=== PATIENT | male | born 1975 | race American Indian/Alaskan Native ===

== ENCOUNTER 2016-08-24 07:15 | Observation (INO) | payer OTHER ==
[2016-08-24 07:22] VITALS: BMI 35.5
[2016-08-24 07:25] VITALS: TEMP 98.6
[2016-08-24] MEDS ORDERED: Sodium Chloride 0.9% 1,000 ML IV STA (07:32)
[2016-08-24] MEDS ORDERED: Morphine 4 mg/ml ISec IVP STA (07:32)
--- NOTE | 2016-08-24 07:35 | ED PDOC ---
Arrival/HPI - General Chief Complaint: Abdominal Pain Time Seen by Provider: 08/24/16 07:24 Historian: Patient - History of Present Illness Narrative History of Present Illness (Text): 08/24/16 07:33 40 yo male with h/o Asthma, Crohn's Disease, Cholecystectomy, presents to the ED c/o left sided abdominal pain x3 days with associated diarrhea. Diarrhea and pain have progressively worsened. Diarrhea is brown stool with trace of BRB. Nausea and vomiting x 2 yesterday. He is drinking fluids and eating well. No back pain. No urinary complaints. Normal urine outputs. No fever. Chills yesterday. No chills or bodyaches now. PMD: [place] Dr. Medina and is trying to get set up with someone here. Past Medical History - Provider Review Nursing Documentation Reviewed: Yes - Infectious Disease Hx of Infectious Diseases: None - Tetanus Immunization Tetanus Immunization: Unknown - Cardiac Hx Cardiac Disorders: Yes - Pulmonary Hx Respiratory Disorders: Yes Hx Asthma: Yes - Neurological Hx Neurological Disorder: No - HEENT Hx HEENT Disorder: No - Renal Hx Renal Disorder: No - Endocrine/Metabolic Hx Endocrine Disorders: No - Hematological/Oncological Hx Blood Disorders: No - Integumentary Hx Dermatological Disorder: No - Musculoskeletal/Rheumatological Hx Musculoskeletal Disorders: No - Gastrointestinal Hx Gastrointestinal Disorders: No Hx Crohn's Disease: Yes - Genitourinary/Gynecological Hx Genitourinary Disorders: No - Psychiatric Hx Psychophysiologic Disorder: No Hx Depression: No Hx Emotional Abuse: No Hx Physical Abuse: No Hx Substance Use: No - Surgical History Hx Cholecystectomy: Yes (16yrs old) Other/Comment: filter - DVT - Anesthesia Hx Anesthesia: Yes Hx Anesthesia Reactions: No Hx Malignant Hyperthermia: No - Suicidal Assessment Feels Threatened In Home Enviroment: No Family/Social History - Physician Review Nursing Documentation Reviewed: Yes Family/Social History: No Known Family HX Smoking Status: Never Smoked Hx Alcohol Use: No Hx Substance Use: No Hx Substance Use Treatment: No Allergies/Home Meds Allergies/Adverse Reactions: Allergies Penicillins Allergy (Verified 07/14/16 09:52) ANAPHYLAXIS shellfish derived Allergy (Verified 07/14/16 09:52) ANAPHYLAXIS Home Medications: Home Meds Medication Instructions Recorded Confirmed Mesalamine [Asacol HD 800mg] 20 mg PO TID 08/24/16 08/24/16 Review of Systems - Physician Review All systems were reviewed & negative as marked: Yes - Review of Systems Constitutional: Normal Eyes: Normal ENT: Normal Respiratory: Normal Cardiovascular: Normal Gastrointestinal: Abdominal Pain, Diarrhea, Nausea, Vomiting Genitourinary Male: Normal Musculoskeletal: Normal Skin: Normal Neurological: Normal Endocrine: Normal Hemo/Lymphatic: Normal Psychiatric: Normal Physical Exam Vital Signs Reviewed: Yes Vital Signs Temp Pulse Resp BP Pulse Ox 08/24/16 13:09 89 18 137/73 98 08/24/16 10:00 92 H 20 126/74 100 08/24/16 08:05 92 H 18 125/73 97 08/24/16 07:16 98.6 F 96 H 18 125/73 96 Temperature: Afebrile Blood Pressure: Normal Pulse: Regular Respiratory Rate: Normal Appearance: Positive for: Well-Appearing, Non-Toxic, Comfortable Pain Distress: None Mental Status: Positive for: Alert and Oriented X 3 - Systems Exam Head: Present: Atraumatic, Normocephalic Pupils: Present: PERRL Extroacular Muscles: Present: EOMI Conjunctiva: Present: Normal Mouth: Present: Moist Mucous Membranes Neck: Present: Normal Range of Motion Respiratory/Chest: Present: Clear to Auscultation, Good Air Exchange. No: Respiratory Distress, Accessory Muscle Use Cardiovascular: Present: Regular Rate and Rhythm, Normal S1, S2. No: Murmurs Abdomen: Present: Tenderness (left sided with guarding), Normal Bowel Sounds, Guarding. No: Distention, Peritoneal Signs, Rebound, McBurney's Point Tender, Rovsing's Sign Present Back: Present: Normal Inspection Upper Extremity: Present: Normal Inspection. No: Cyanosis, Edema Lower Extremity: Present: Normal Inspection. No: Edema Neurological: Present: GCS=15, CN II-XII Intact, Speech Normal Skin: Present: Warm, Dry, Normal Color. No: Rashes Psychiatric: Present: Alert, Oriented x 3, Normal Insight, Normal Concentration Medical Decision Making ED Course and Treatment: 08/24/16 07:40 40 yo male with h/o Crohn's with left sided abdominal pain r/o abscess -- Labs -- IVF -- Pain control -- CT abd/pelv -- Reevaluate and disposition - Lab Interpretations Lab Results: 08/24/16 07:30 08/24/16 07:30 Lab Results 08/24/16 07:30: WBC 8.6 D, RBC 4.76, Hgb 12.3 L, Hct 38.8 L, MCV 81.5, MCH 25.8 , MCHC 31.7, RDW 14.7 H, Plt Count 642 H, MPV 8.9, Gran % 50.8, Lymph % (Auto) 28.0, Newton % (Auto) 12.3 H, Eos % (Auto) 8.4 H, Baso % (Auto) 0.5, Gran # 4.35, Lymph # 2.4, Newton # 1.1 H, Eos # 0.7, Baso # 0.04, Sodium 138, Potassium 4.1, Chloride 96, Carbon Dioxide 30, Anion Gap 16, BUN 7, Creatinine 1.0, Est GFR ( Amer) > 60, Est GFR (Non-Af Amer) > 60, Random Glucose 103, Calcium 9.1 , Total Bilirubin 0.9, AST 59, ALT 69 H, Alkaline Phosphatase 233 H, Total Protein 8.7 H, Albumin 3.9, Globulin 4.7, Albumin/Globulin Ratio 0.8 L, Lipase 100 - Medication Orders Current Medication Orders: Discontinued Medications Barium Sulfate (Readi-Cat 2) Confirm Administered Dose 900 ml PO .STK-MED ONE Stop: 08/24/16 07:42 Sodium Chloride (Sodium Chloride 0.9%) 1,000 mls @ 1,000 mls/hr IV .Q1H STA Stop: 08/24/16 08:31 Last Admin: 08/24/16 07:48 Dose: 1,000 MLS/HR eMAR Start Stop Document 08/24/16 07:48 JOL (Rec: 08/24/16 07:49 [id number] [id number]) Intravenous Solution Start Date 08/24/16 Start Time 07:49 End Date 08/24/16 End time 08:49 Total Infusion Time 60 Iohexol (Omnipaque 350 100 Ml) Confirm Administered Dose 350 mg .ROUTE .STK-MED ONE Stop: 08/24/16 07:41 Iohexol (Omnipaque 240 (50 Ml)) Confirm Administered Dose 50 ml .ROUTE .STK-MED ONE Stop: 08/24/16 07:42 Morphine Sulfate (Morphine) 4 mg IVP STAT STA Stop: 08/24/16 07:33 Last Admin: 08/24/16 07:49 Dose: 4 MG MAR Pain Assessment Document 08/24/16 07:49 JOL (Rec: 08/24/16 07:49 JOL [id number]) Pain Reassessment Is this a pain reassessment? No Sleep Is patient sleeping during reassessment? No Presence of Pain Presence of Pain Yes Pain Scale Used Pain Scale Used Numeric Location Upper or Lower Upper Pain Location Body Site Abdomen Description Intensity of Pain at present 6 Acceptable Level of Pain 2 Pain Behavior Restlessness Facial Grimacing Aggravating Factors ADL's Changing Position Alleviating Factors/Management Medication Techniques IVP Administration Document 08/24/16 07:49 JOL (Rec: 08/24/16 07:49 [id number] [id number]) Charges for Administration # of IVP Administrations 1 ED OBSERVATION Date of observation admission: 08/24/16 Time of observation admission: 07:41 - Observation admission statement Patient is being placed in observation because:: Abdominal Pain - Goals of Observation Goals of observation are:: Crohn's exacerbation - Progress Note Progress Note: 08/24/16 07:41 Patient with left sided abdominal pain. 08/24/16 09:40 Patient resting comfortably, no new complaints. Report Date : 08/24/2016 11:21:46 PROCEDURE: CT Abdomen and Pelvis with contrast Dictator : Ankit Thompson MD IMPRESSION: Mild mural thickening throughout the colon consistent with colitis. 08/24/16 11:38 Patient resting comfortably, in no acute distress. 08/24/16 12:29 On re-evaluation, patient feels better and is in no acute distress. I have discussed the results and plan with the patient, who expresses understanding. Patient in agreement with plan to be discharged home. Patient is stable for discharge. Patient reports a Medrol dosepak has helped relieve his symptoms before. Will prescribe Medrol dosepak and instruct patient to follow up with physician or return if symptoms worsen or new concerning symptoms arise. Disposition/Present on Arrival - Present on Arrival Any Indicators Present on Arrival: No History of DVT/PE: Yes History of Uncontrolled Diabetes: No Urinary Catheter: No History of Decub. Ulcer: No History Surgical Site Infection Following: None - Disposition Have Diagnosis and Disposition been Completed?: Yes Diagnosis: Crohn disease Disposition: HOME/ ROUTINE Disposition Time: 07:41 Patient Plan: Discharge Condition: IMPROVED
[2016-08-24] MEDS ORDERED: Iohexol 350 MG/100 ML VIAL ONE (07:40)
[2016-08-24] MEDS ORDERED: Barium Sulfate Susp 2.1% w/v, 2.0% w/w 450 mL Bottle PO ONE (07:41)
[2016-08-24] MEDS ORDERED: Iohexol 240 (50 ml) ONE (07:41)
[2016-08-24 07:48] LABS: ADD MANUAL DIFF? NO
[2016-08-24 07:55] LABS: BASO # 0.04 K/mm3 (0.0-2.0); BASO % 0.5 % (0.0-3.0); EOS # 0.7 (0.0-0.7); EOS % 8.4 % (1.5-5.0); GRAN # 4.35 (1.4-6.5); GRAN % 50.8 % (50.0-68.0); HEMATOCRIT 38.8 % (42.0-52.0); LYMPH # 2.4 (1.2-3.4); MEAN CELL VOLUME 81.5 fL (80.0-105.0); MEAN CORPUSCULAR HEMOGLOBIN 25.8 pg (25.0-35.0); MEAN CORPUSCULAR HGB CONC 31.7 g/dl (31.0-37.0); MEAN PLATELET VOLUME 8.9 fl (7.0-11.0); MONO # 1.1 (0.1-0.6); MONO % 12.3 % (1.0-6.0); PLATELET COUNT 642 10^3/uL (120.0-450.0); RED CELL DISTRIBUTION WIDTH 14.7 % (11.5-14.5); WHITE BLOOD COUNT 8.6 10^3/ul (4.5-11.0)
[2016-08-24 08:10] LABS: ALB/GLOB RATIO 0.8 (1.1-1.8); ALKALINE PHOSPHATASE 233 U/L (38-133); ALT/SGPT 69 U/L (7-56); AST/SGOT 59 U/L (15-59); BILIRUBIN,TOTAL 0.9 mg/dL (0.2-1.3); BLOOD UREA NITROGEN 7 mg/dL (7-21); CALCIUM 9.1 mg/dL (8.4-10.5); CARBON DIOXIDE 30 mmol/L (21-33); CHLORIDE 96 mmol/L (95-110); GFR AFRICAN-AMERICAN > 60; GLUCOSE,RANDOM 103 mg/dL (70-110); LIPASE 100 U/L (23-300); POTASSIUM 4.1 mmol/L (3.6-5.0); SODIUM 138 mmol/L (132-148); TOTAL PROTEIN 8.7 g/dL (5.8-8.3)
--- NOTE | 2016-08-24 11:23 | CT ---
PROCEDURE: CT Abdomen and Pelvis with contrast HISTORY: left abd pain h/o crohn's r/o abscess COMPARISON: None. TECHNIQUE: Contrast dose: 100 cc of Omni 350 Radiation dose: Total exam DLP = 1052 mGy-cm. FINDINGS: LOWER THORAX: There is pleural thickening at the left lung base LIVER: Unremarkable. No gross lesion or ductal dilatation. GALLBLADDER AND BILE DUCTS: Unremarkable. PANCREAS: Unremarkable. No gross lesion or ductal dilatation. SPLEEN: Unremarkable. ADRENALS: Unremarkable. No mass. KIDNEYS AND URETERS: Unremarkable. No hydronephrosis. No solid mass. VASCULATURE: Unremarkable. No aortic aneurysm. A caval filter is seen BOWEL: There is mural thickening throughout the colon consistent with colitis. There is also some fatty infiltration in the wall of the colon consistent with chronic inflammatory bowel disease. The terminal ileum is unremarkable. There are mildly enlarged lymph nodes in the right lower quadrant APPENDIX: Normal appendix. PERITONEUM: Unremarkable. No free fluid. No free air. LYMPH NODES: Mildly enlarged lymph nodes in the right lower quadrant mesenteric. BLADDER: Unremarkable. REPRODUCTIVE: Unremarkable. BONES: No acute fracture. OTHER FINDINGS: None. IMPRESSION: Mild mural thickening throughout the colon consistent with colitis.
[2016-08-24 13:10] VITALS: BP 137/73; PULSE 89; RESP 18; O2SAT 98
== END 2016-08-24 12:37 | disposition home or self-care (01) ==
LOC: ED 07:15 → EROBSV 07:32
PROVIDERS: ADMIT Emergency Medicine; ATTEND Emergency Medicine
DX: K50.90 Crohn's disease, unspecified, without complications (principal)
CPT/HCPCS: 74177; 80053; 83690; 85025; 87040; 96361; 96374; 99284; G0378; J2270; J7040; Q9966; Q9967

== ENCOUNTER 2017-07-24 21:05 | Emergency (ER) | payer OTHER ==
[2017-07-24 21:11] VITALS: BMI 34.0
[2017-07-24] MEDS ORDERED: DiphenhydrAMINE 50 mg/ml Inj IVP STA (21:15)
[2017-07-24] MEDS ORDERED: Albuterol-Ipratrop 3 mg / 0.5 (3 ml) UD IH STA ×3 (21:16→22:25)
[2017-07-24 21:18] VITALS: RESP 18
--- NOTE | 2017-07-24 21:27 | ED PDOC ---
Arrival/HPI - General Chief Complaint: Allergic Reaction Time Seen by Provider: 07/24/17 21:06 Historian: Patient - History of Present Illness Narrative History of Present Illness (Text): 07/24/17 21:22 41yo male with Past medical history of Asthma present with complaint of chest tightness, shortness of breath, swollen lip, wheezing s/p eating at restaurant. Notes that he is allergic to shell fish and thinks that the food he ate was contaminated somehow with shellfish. States the allergy triggered his Asthma. He came to Emergency department directly from the restaurant. He reports history of Admission secondary to Asthma. Never intubated and not steroid dependent. Past Medical History - Provider Review Nursing Documentation Reviewed: Yes - Infectious Disease Hx of Infectious Diseases: None - Tetanus Immunization Tetanus Immunization: Unknown - Cardiac Hx Cardiac Disorders: Yes - Pulmonary Hx Respiratory Disorders: Yes Hx Asthma: Yes - Neurological Hx Neurological Disorder: No - HEENT Hx HEENT Disorder: No - Renal Hx Renal Disorder: No - Endocrine/Metabolic Hx Endocrine Disorders: No - Hematological/Oncological Hx Blood Disorders: No - Integumentary Hx Dermatological Disorder: No - Musculoskeletal/Rheumatological Hx Musculoskeletal Disorders: No - Gastrointestinal Hx Gastrointestinal Disorders: No Hx Crohn's Disease: Yes - Genitourinary/Gynecological Hx Genitourinary Disorders: No - Psychiatric Hx Psychophysiologic Disorder: No Hx Depression: No Hx Emotional Abuse: No Hx Physical Abuse: No Hx Substance Use: No - Surgical History Hx Cholecystectomy: Yes (16yrs old) Other/Comment: filter - DVT - Anesthesia Hx Anesthesia: Yes Hx Anesthesia Reactions: No Hx Malignant Hyperthermia: No - Suicidal Assessment Feels Threatened In Home Enviroment: No Family/Social History - Physician Review Nursing Documentation Reviewed: Yes Family/Social History: Unknown Family HX Smoking Status: Never Smoked Hx Alcohol Use: No Hx Substance Use: No Hx Substance Use Treatment: No Allergies/Home Meds Allergies/Adverse Reactions: Allergies Penicillins Allergy (Verified 07/14/16 09:52) ANAPHYLAXIS shellfish derived Allergy (Verified 07/14/16 09:52) ANAPHYLAXIS Home Medications: Home Meds Medication Instructions Recorded Confirmed Mesalamine [Asacol HD 800mg] 20 mg PO TID 08/24/16 07/24/17 Review of Systems - Physician Review All systems were reviewed & negative as marked: Yes - Review of Systems Constitutional: Normal Eyes: Normal ENT: Normal, Other (Swollen lip) Respiratory: SOB, Wheezing. absent: Cough Cardiovascular: Normal Gastrointestinal: Normal Genitourinary Male: Normal Musculoskeletal: Normal Skin: Normal Neurological: Normal Endocrine: Normal Hemo/Lymphatic: Normal Psychiatric: Normal Physical Exam Vital Signs Reviewed: Yes Vital Signs Pulse Resp BP Pulse Ox 07/24/17 23:10 90 18 136/88 99 07/24/17 22:32 80 18 155/56 H 100 07/24/17 21:11 100 H 18 128/82 99 Temperature: Afebrile Blood Pressure: Normal Pulse: Regular Respiratory Rate: Normal Appearance: Positive for: Well-Appearing, Non-Toxic, Comfortable Pain Distress: None Mental Status: Positive for: Alert and Oriented X 3 - Systems Exam Head: Present: Atraumatic, Normocephalic Pupils: Present: PERRL Extroacular Muscles: Present: EOMI Conjunctiva: Present: Normal Mouth: Present: Moist Mucous Membranes. No: Normal Lips (Swollen lower lip) Neck: Present: Normal Range of Motion Respiratory/Chest: Present: Good Air Exchange, Wheezes (Diffuse expiratory wheeze). No: Respiratory Distress, Accessory Muscle Use, Decreased Breath Sounds, Rales, Retracting, Rhonchi, Tachypneic Cardiovascular: Present: Regular Rate and Rhythm, Normal S1, S2. No: Murmurs Abdomen: Present: Normal Bowel Sounds. No: Tenderness, Distention, Peritoneal Signs Back: Present: Normal Inspection Upper Extremity: Present: Normal Inspection. No: Cyanosis, Edema Lower Extremity: Present: Normal Inspection. No: Edema Neurological: Present: GCS=15, CN II-XII Intact, Speech Normal Skin: Present: Warm, Dry, Normal Color. No: Rashes Psychiatric: Present: Alert, Oriented x 3, Normal Insight, Normal Concentration Medical Decision Making ED Course and Treatment: 07/24/17 23:18 Pt presented for stated history. On r evaluation pt's lung was CTA b/l. He states he feels much better. He was talking in full sentence and ambulatory without distress. VS is hemodynamically stable. Pt will be DC home with Prednisone, pepcid and Benadryl. - Medication Orders Current Medication Orders: Discontinued Medications Albuterol/Ipratropium (Duoneb 3 Mg/0.5 Mg (3 Ml) Ud) 3 ml IH STAT STA Stop: 07/24/17 21:17 Last Admin: 07/24/17 21:17 Dose: 3 ml Albuterol/Ipratropium (Duoneb 3 Mg/0.5 Mg (3 Ml) Ud) 3 ml IH STAT STA Stop: 07/24/17 22:06 Last Admin: 07/24/17 22:07 Dose: 3 ml Albuterol/Ipratropium (Duoneb 3 Mg/0.5 Mg (3 Ml) Ud) 3 ml IH STAT STA Stop: 07/24/17 22:26 Last Admin: 07/24/17 22:31 Dose: 3 ml Diphenhydramine HCl (Benadryl) 25 mg IVP STAT STA Stop: 07/24/17 21:16 Last Admin: 07/24/17 21:18 Dose: 25 mg IVP Administration Document 07/24/17 21:18 RG (Rec: 07/24/17 21:37 [id number]) Charges for Administration # of IVP Administrations 1 Famotidine (Pepcid) 20 mg IVP STAT STA Stop: 07/24/17 21:17 Last Admin: 07/24/17 21:18 Dose: 20 mg IVP Administration Document 07/24/17 21:18 RG (Rec: 07/24/17 21:37 [id number]) Charges for Administration # of IVP Administrations 1 Methylprednisolone (Solu-Medrol) 125 mg IVP STAT STA Stop: 07/24/17 21:16 Last Admin: 07/24/17 21:19 Dose: 125 mg IVP Administration Document 07/24/17 21:19 RG (Rec: 07/24/17 21:35 [id number]) Charges for Administration # of IVP Administrations 1 Disposition/Present on Arrival - Present on Arrival Any Indicators Present on Arrival: No History of DVT/PE: Yes History of Uncontrolled Diabetes: No Urinary Catheter: No History of Decub. Ulcer: No History Surgical Site Infection Following: None - Disposition Have Diagnosis and Disposition been Completed?: Yes Diagnosis: Allergic reaction, Asthma attack Disposition: HOME/ ROUTINE Disposition Time: 23:25 Patient Plan: Discharge Condition: STABLE Discharge Instructions (ExitCare): Asthma in Adults Additional Instructions: Follow up with your Doctor Return to Emergency department for any new or worsening symptoms Prescriptions: DiphenhydrAMINE [Benadryl] 25 mg PO Q4 #30 cap Famotidine [Pepcid] 20 mg PO DAILY #10 tab Prednisone 50 mg PO DAILY #5 tab Referrals: Charito Allen, [Primary Care Provider] - Follow up with primary Shon Phan DO [[facility]] - Follow up with primary Forms: [employer] (Austrian)
[2017-07-24 23:11] VITALS: BP 136/88; PULSE 90; O2SAT 99
== END 2017-07-24 23:45 | disposition home or self-care (01) ==
LOC: ED 21:05
DX: J45.909 Unspecified asthma, uncomplicated (principal); T78.49XA Other allergy, initial encounter; X58.XXXA Exposure to other specified factors, initial encounter
CPT/HCPCS: 96374; 96375; 99285; J1200; J2930

== ENCOUNTER 2017-11-03 08:43 | Emergency (ER) | payer OTHER ==
[2017-11-03 08:43] VITALS: BMI 34.0
[2017-11-03 09:33] VITALS: O2SAT 99
[2017-11-03] MEDS ORDERED: Sodium Chloride 0.9% 1,000 ML IV STA ×2 (10:31→15:39)
[2017-11-03 11:13] VITALS: RESP 18
[2017-11-03 11:17] LABS: BASO # 0.01 K/mm3 (0.0-2.0); BASO % 0.2 % (0.0-3.0); EOS # 0.1 (0.0-0.7); EOS % 1.6 % (1.5-5.0); GRAN # 3.51 (1.4-6.5); GRAN % 56.5 % (50.0-68.0); HEMOGLOBIN 12.7 g/dL (14.0-18.0); LYMPH # 2.1 (1.2-3.4); LYMPH % 33.3 % (22.0-35.0); MEAN CELL VOLUME 78.7 fl (80.0-105.0); MEAN CORPUSCULAR HEMOGLOBIN 25.6 pg (25.0-35.0); MEAN CORPUSCULAR HGB CONC 32.5 g/dl (31.0-37.0); MEAN PLATELET VOLUME 11.5 fl (7.0-11.0); MONO # 0.5 (0.1-0.6); MONO % 8.4 % (1.0-6.0); RBC 4.97 10^6/uL (3.5-6.1); RED CELL DISTRIBUTION WIDTH 14.6 % (11.5-14.5); WHITE BLOOD COUNT 6.2 10^3/ul (4.5-11.0)
[2017-11-03 11:41] LABS: ALB/GLOB RATIO 1.1 (1.1-1.8); ALBUMIN 4.6 g/dL (3.0-4.8); ALT/SGPT 102 U/L (7-56); AST/SGOT 59 U/L (17-59); BLOOD UREA NITROGEN 15 mg/dL (7-21); CALCIUM 10.2 mg/dL (8.4-10.5); GFR AFRICAN-AMERICAN > 60; GFR NON-AFRICAN AMERICAN > 60
[2017-11-03 11:43] LABS: TROPONIN I < 0.01 ng/mL
[2017-11-03 11:47] LABS: URINE BILIRUBIN NEGATIVE (NEGATIVE); URINE BLOOD NEGATIVE (NEGATIVE); URINE GLUCOSE (UA) >=1000 mg/dL (NEGATIVE); URINE LEUKOCYTE ESTERASE NEGATIVE Leu/uL (NEGATIVE); URINE PROTEIN NEGATIVE mg/dL (<30 mg/dL); URINE UROBILINOGEN 0.2 E.U./dL (<1 E.U./dL)
[2017-11-03 12:08] LABS: URINE APPEARANCE CLEAR (CLEAR); URINE COLOR YELLOW (YELLOW)
--- NOTE | 2017-11-03 12:31 | ED PDOC ---
Arrival/HPI - General Historian: Patient - Critical Care Critical Care Minutes: 45 minutes - General Chief Complaint: High Blood Sugar Time Seen by Provider: 11/03/17 09:53 - Critical Care Narrative Critical Care (Text): 11/03/17 13:49 This is a 41 yo AA M with PMH of DM II (not on insulin), Asthma, and Crohn's disease who presents with elevated blood glucose (>400) and AM sense of malaise. As per pt, noted transient increase in his BG on fingerstick (checks TID at home) 2 days prior, up to 200's (baseline 100-140), but it self resolved. Yesterday, however, his BG increased to 180's in the AM, 200's in the afternoon, and 300's overnight. This AM, it was 440's, and he felt "off" when waking up, and when trying to stand from bed he was briefly dizzy. Denies nausea, emesis, syncope, near-syncope, room-spinning. Denies focal weakness. Never had issue with blood sugars like this previous. On metformin 500mg BID only at home for his DM, reports A1cs always < 8 as per pt (does not remember last result, and mainly follows up at [facility], so no access to records while here). Denies any recent diet changes, recent illnesses, flares of his Crohn's (well controlled on Mesalamine daily), steroid use for Asthma, acute stressors, or acute injuries. Only recent injury reported is back spasm x1 month, improving, no acute exacerbation in last 2 days concurrent with increased glucose. Does also report urinary frequency and increased thirst, but denies dysuria, hematuria. All other ROS in 12-system review negative. PMH: as above PSH: denies Fam Hx: DM Soc Hx: denies tobacco/alcohol/illicits/IVDA (Jose Jin) Past Medical History - Infectious Disease Hx of Infectious Diseases: None - Tetanus Immunization Tetanus Immunization: Unknown - Cardiac Hx Cardiac Disorders: Yes - Pulmonary Hx Respiratory Disorders: Yes Hx Asthma: Yes - Neurological Hx Neurological Disorder: No - HEENT Hx HEENT Disorder: No - Renal Hx Renal Disorder: No - Endocrine/Metabolic Hx Endocrine Disorders: No - Hematological/Oncological Hx Blood Disorders: No - Integumentary Hx Dermatological Disorder: No - Musculoskeletal/Rheumatological Hx Musculoskeletal Disorders: No - Gastrointestinal Hx Gastrointestinal Disorders: No Hx Crohn's Disease: Yes - Genitourinary/Gynecological Hx Genitourinary Disorders: No - Psychiatric Hx Psychophysiologic Disorder: No Hx Depression: No Hx Emotional Abuse: No Hx Physical Abuse: No Hx Substance Use: No - Surgical History Hx Cholecystectomy: Yes (16yrs old) Other/Comment: filter - DVT - Anesthesia Hx Anesthesia: Yes Hx Anesthesia Reactions: No Hx Malignant Hyperthermia: No - Suicidal Assessment Feels Threatened In Home Enviroment: No Family/Social History Family/Social History: Diabetes Smoking Status: Never Smoked Hx Alcohol Use: No Hx Substance Use: No Hx Substance Use Treatment: No Allergies/Home Meds Allergies/Adverse Reactions: Allergies Penicillins Allergy (Verified 07/14/16 09:52) ANAPHYLAXIS shellfish derived Allergy (Verified 07/14/16 09:52) ANAPHYLAXIS Home Medications: Home Meds Medication Instructions Recorded Confirmed Albuterol Sulfate [Proventil Hfa] 0.09 mg IH PRN PRN 11/03/17 11/03/17 Fluticasone/Salmeterol [Advair 1 each IH BID 11/03/17 11/03/17 250-50 Diskus] Review of Systems - Physician Review All systems were reviewed & negative as marked: Yes (as per HPI) Physical Exam Vital Signs Reviewed: Yes Temperature: Afebrile Blood Pressure: Normal Pulse: Regular Respiratory Rate: Normal Appearance: Positive for: Well-Appearing, Non-Toxic, Comfortable Pain Distress: None Mental Status: Positive for: Alert and Oriented X 3 Finger Stick Blood Glucose: 308 - Systems Exam Head: Present: Atraumatic, Normocephalic Pupils: No: Pinpoint Extroacular Muscles: Present: EOMI Conjunctiva: Present: Normal. No: Injected, Icteric Mouth: Present: Moist Mucous Membranes, Normal Lips, Normal Tounge, Normal Teeth. No: Dry, Drooling Pharnyx: Present: Normal Nose (External): Present: Atraumatic. No: Abrasion, Laceration Nose (Internal): Present: Normal Inspection, No Active Bleeding. No: Epistaxis Neck: Present: Normal Range of Motion. No: JVD Respiratory/Chest: Present: Clear to Auscultation, Good Air Exchange. No: Respiratory Distress, Wheezes, Rales, Rhonchi Cardiovascular: Present: Regular Rate and Rhythm, Normal S1, S2. No: Murmurs, Irregular Rhythm, Tachycardic, Bradycardic Abdomen: Present: Normal Bowel Sounds. No: Tenderness, Distention Back: Present: Normal Inspection Upper Extremity: Present: Normal Inspection, Normal ROM, NORMAL PULSES. No: Cyanosis, Edema, Tenderness, Swelling, Erythema Lower Extremity: Present: Normal Inspection, NORMAL PULSES, Normal ROM. No: CALF TENDERNESS, Cyanosis, Tenderness, Swelling, Erythema Neurological: Present: GCS=15, Speech Normal, Motor Func Grossly Intact, Normal Sensory Function Skin: Present: Warm, Dry, Normal Color. No: Rashes Lymphatic: No: Cervical Adenopathy Psychiatric: Present: Alert, Oriented x 3, Normal Insight, Normal Concentration , Normal Affect, Normal Mood Vital Signs Temp Pulse Resp BP Pulse Ox 11/03/17 16:29 68 18 126/64 99 11/03/17 12:36 71 18 128/68 99 11/03/17 11:12 79 18 131/71 99 11/03/17 10:11 98.3 F 88 17 133/77 99 11/03/17 09:10 98.5 F 90 18 130/84 99 Medical Decision Making Re-evaluation Time: 14:45 Reassessment Condition: Re-examined, Improved ED Course and Treatment: 11/03/17 Patient Seen With Resident: In agreement with resident note which contains more details about the patient. Patient was seen and evaluated with resident. Came up with plan and treatment together. EKG shows NSR at [address]/T wave changes. Interpreted by me. (Wolfgang Marcial) 11/03/17 12:01 Unclear cause of elevated blood glucose, confirmed 400's on arrival on ED fingerstick. CBC, CMP, Mg, Phos ordered to assess for infection or DKA. UA to assess for ketones in urine. Dizziness when standing suggestive of possible orthostatic hypotension, and in setting of possible hyperglycemic polyuria, will give 1 L NS bolus and reassess. 11/03/17 14:01 Fingerstick after 1/2 L NS (bolus interrupted due to patient needing to urinate ) down to 300's, will recheck after finishing bolus. Labs notable for mildly elevated potassium 5.4, but normal bicarb, so not DKA. Chemistries otherwise normal, no leukocytosis and remains afebrile so less likely infection. UA only notable for trace ketones, not suggestive of infectious process. LFTs notable for elevated ALT and Alk phos, but normal AST, possibly 2/2 Crohn's? TSH and Hepatitis panels ordered, if unremarkable or not explanatory for current findings, will consult Endocrinology and request their recs. 11/03/17 17:13 TSH wnl. Discussed with Suspect Artist on consult, Dr. Garcia, who reports unclear etiology from her standpoint as well, suggest discharging patient on Glipizide 10mg BID in addition to his home Metformin. Instructed patient to only take if Blood Glucose > 120 on fingersticks. Patient expressed understanding and agreement. He will finish 2nd unit of NS 1L bolus, with fingerstick check after, and as long as it isn't acutely elevated, will be discharged to home with instructions to follow up with PMD within 1 week and to establish with an Suspect Artist for additional workup. 1 week scripts for Glipizide 10mg BID and Metformin 500mg BID transmitted to his pharmacy electronically. 11/03/17 17:53 Glucose 224 after 2nd IVF bolus. Cleared for discharge home, instructed to start glipizide tonight. Patient agrees. Seen and examined with attending, Dr[facility] Marcial. [facility] - Lab Interpretations Lab Results: 11/03/17 11:00 11/03/17 11:00 Lab Results 11/03/17 13:00: TSH 3rd Generation 1.63 11/03/17 12:09: POC Glucose (mg/dL) 308 H 11/03/17 11:00: Hepatitis A IgM Ab Negative, Hep Bs Antigen Negative, Hep B Core IgM Ab Negative, Hepatitis C Antibody Negative 11/03/17 11:00: Sodium 138, Potassium 5.4 H, Chloride 98, Carbon Dioxide 29, Anion Gap 17, BUN 15, Creatinine 1.0, Est GFR ( Amer) > 60, Est GFR (Non- Af Amer) > 60, Random Glucose 446 H*, Calcium 10.2, Phosphorus 4.1, Magnesium 2.0, Total Bilirubin 0.4, AST 59, ALT 102 H, Alkaline Phosphatase 183 H, Troponin I < 0.01, Total Protein 8.8 H, Albumin 4.6, Globulin 4.2, Albumin/ Globulin Ratio 1.1 11/03/17 11:00: Urine Color Yellow, Urine Appearance Clear, Urine pH 6.0, Ur Specific [place] 1.015, Urine Protein Negative, Urine Glucose (UA) >=1000, Urine Ketones Trace H, Urine Blood Negative, Urine Nitrate Negative, Urine Bilirubin Negative, Urine Urobilinogen 0.2, Ur Leukocyte Esterase Negative 11/03/17 11:00: WBC 6.2 D, RBC 4.97, Hgb 12.7 L, Hct 39.1 L, MCV 78.7 L, MCH 25.6, MCHC 32.5, RDW 14.6 H, Plt Count 314, MPV 11.5 H, Gran % 56.5, Lymph % ( Auto) 33.3, [place] % (Auto) 8.4 H, Eos % (Auto) 1.6, Baso % (Auto) 0.2, Gran # 3.51, Lymph # (Auto) 2.1, [place] # (Auto) 0.5, Eos # (Auto) 0.1, Baso # (Auto) 0.01 11/03/17 11:00: Hemoglobin A1c 13.9 H 11/03/17 09:17: POC Glucose (mg/dL) 462 H* - Medication Orders Current Medication Orders: Discontinued Medications Sodium Chloride (Sodium Chloride 0.9%) 1,000 mls @ 999 mls/hr IV .Q1H1M STA Stop: 11/03/17 11:31 Last Admin: 11/03/17 10:59 Dose: 999 mls/hr eMAR Start Stop Document 11/03/17 10:59 LA (Rec: 11/03/17 10:59 LA [id number]) Intravenous Solution Start Date 11/03/17 Start Time 10:59 End Date 11/03/17 End time 12:00 Total Infusion Time 61 Sodium Chloride (Sodium Chloride 0.9%) 1,000 mls @ 999 mls/hr IV .Q1H1M STA Stop: 11/03/17 16:39 Last Admin: 11/03/17 15:10 Dose: 999 mls/hr eMAR Start Stop Document 11/03/17 15:10 MS (Rec: 11/03/17 16:27 MS [id number]) Intravenous Solution Start Date 11/03/17 Start Time 16:27 End Date 11/03/17 End time 17:27 Total Infusion Time 60 Disposition/Present on Arrival - Present on Arrival Any Indicators Present on Arrival: Yes History of DVT/PE: Yes History of Uncontrolled Diabetes: Yes Urinary Catheter: No History of Decub. Ulcer: No History Surgical Site Infection Following: None - Disposition Have Diagnosis and Disposition been Completed?: Yes Disposition Time: 17:16 Patient Plan: Discharge - Disposition Diagnosis: Elevated serum glucose Disposition: HOME/ ROUTINE Patient Problems: Current Active Problems Problem Status Onset Elevated serum glucose Acute Condition: GOOD Discharge Instructions (ExitCare): Hyperglycemia, Adult (DC) Additional Instructions: You were seen for your elevated blood glucose. Laboratory testing was unclear as to the cause, but with IV fluid administration, the hyperglycemia has resolved. As per our Suspect Artist, continue to drink as much water as you can daily, and start Glipizide 10mg BID to be taken with your metformin ( scripts for both electronically transmitted to your [facility]). Do NOT TAKE your glipizide if your blood glucose is less than 120 on fingerstick check; it is still okay to take your metformin. Please follow up with your PMD within 1 week of discharge. Please establish and follow up with an Suspect Artist. Please return to a hospital if you experience worsening or newly concerning symptoms. Prescriptions: GlipiZIDE [Glucotrol] 10 mg PO BIDWM #14 tab MetFORMIN [glucOPHAGE] 500 mg PO BID #14 tab Forms: [employer] Connect (Pashto), WORK NOTE
--- NOTE | 2017-11-03 15:50 | CARD ---
APPROVED REPORT EKG Measurement Heart [id number] <Conclusion> Normal sinus rhythm RVCD LVH by voltage
[2017-11-03 17:20] LABS: HEPATITIS B SURFACE AG Negative (NEGATIVE)
[2017-11-03 17:26] LABS: HEPATITIS A IGM NEGATIVE (NEGATIVE); HEPATITIS B CORE AB NEGATIVE (NEGATIVE)
[2017-11-03 17:38] LABS: HEPATITIS C ANTIBODY NEGATIVE (NEGATIVE)
[2017-11-03 18:50] VITALS: BP 112/71; PULSE 79; TEMP 98
== END 2017-11-03 18:20 | disposition home or self-care (01) ==
LOC: ED 08:43
DX: E11.65 Type 2 diabetes mellitus with hyperglycemia (principal); K50.90 Crohn's disease, unspecified, without complications
CPT/HCPCS: 80053; 80074; 81003; 82948; 83036; 83735; 84100; 84443; 84484; 85025; 93005; 96360; 96361; 99284; J7030

== ENCOUNTER 2017-12-17 15:09 | Inpatient (IN) | payer OTHER ==
[2017-12-17 15:29] VITALS: BMI 35.8
[2017-12-17] MEDS ORDERED: Sodium Chloride 0.9% 1,000 ML IV STA (15:35)
[2017-12-17] MEDS ORDERED: Morphine 4 mg/ml ISec IVP STA ×2 (15:41→18:56)
[2017-12-17 16:01] LABS: BASO # 0.02 K/mm3 (0.0-2.0); BASO % 0.2 % (0.0-3.0); EOS # 0.7 (0.0-0.7); EOS % 8.1 % (1.5-5.0); GRAN # 4.07 (1.4-6.5); GRAN % 47.2 % (50.0-68.0); LYMPH # 2.7 (1.2-3.4); LYMPH % 31.1 % (22.0-35.0); MEAN CELL VOLUME 81.2 fl (80.0-105.0); MEAN CORPUSCULAR HEMOGLOBIN 26.2 pg (25.0-35.0); MEAN CORPUSCULAR HGB CONC 32.3 g/dl (31.0-37.0); MEAN PLATELET VOLUME 8.9 fl (7.0-11.0); MONO # 1.2 (0.1-0.6); MONO % 13.4 % (1.0-6.0); RBC 4.58 10^6/uL (3.5-6.1); RED CELL DISTRIBUTION WIDTH 16.1 % (11.5-14.5); WHITE BLOOD COUNT 8.6 10^3/ul (4.5-11.0)
[2017-12-17 17:21] LABS: ALBUMIN 3.9 g/dL (3.0-4.8); CALCIUM 8.7 mg/dL (8.4-10.5); GFR AFRICAN-AMERICAN > 60; GFR NON-AFRICAN AMERICAN > 60; LIPASE 458 U/L (23-300)
[2017-12-17 17:23] LABS: ALT/SGPT 59 U/L (7-56); AST/SGOT 51 U/L (17-59); BLOOD UREA NITROGEN 8 mg/dL (7-21)
[2017-12-17] MEDS ORDERED: Iohexol 350 MG/100 ML VIAL ONE (17:25)
--- NOTE | 2017-12-17 17:41 | CARD ---
APPROVED REPORT Date of service: 12/17/2017 EKG Measurement Heart [id number] <Conclusion> Normal sinus rhythm Possible Left atrial enlargement Borderline ECG
--- NOTE | 2017-12-17 17:51 | ED PDOC ---
Arrival/HPI - General Chief Complaint: Abdominal Pain Time Seen by Provider: 12/17/17 15:28 Historian: Patient - History of Present Illness Narrative History of Present Illness (Text): 12/17/17 17:34 42-year-old male presents today with upper abdominal pain nausea vomiting and diarrhea. Patient states he has been having pain for the past 4 days. Patient states he has a history of Crohn's disease and hasn't had a flare up in 7 years but believes he is having a flareup today. Patient states the pain is in the upper abdomen and radiates to the left upper abdomen. He denies chest pain or shortness of breath. Denies fevers or chills. Patient is complaining of feeling fatigued. Patient states he is having difficulty eating any food. He denies fevers or chills. No urinary symptoms. He denies back pain. No URI symptoms. No other complaints Symptom Onset: Gradual Symptom Course: Worsening Past Medical History - Provider Review Nursing Documentation Reviewed: Yes - Travel History Have you recently traveled outside [place] w/in the past 3 mons?: No - Infectious Disease Hx of Infectious Diseases: None - Tetanus Immunization Tetanus Immunization: Unknown - Cardiac Hx Cardiac Disorders: Yes - Pulmonary Hx Respiratory Disorders: Yes Hx Asthma: Yes - Neurological Hx Neurological Disorder: No - HEENT Hx HEENT Disorder: No - Renal Hx Renal Disorder: No - Endocrine/Metabolic Hx Endocrine Disorders: Yes Hx Diabetes Mellitus Type 2: Yes - Hematological/Oncological Hx Blood Disorders: Yes Hx Anemia: Yes - Integumentary Hx Dermatological Disorder: No - Musculoskeletal/Rheumatological Hx Musculoskeletal Disorders: No - Gastrointestinal Hx Gastrointestinal Disorders: Yes Hx Crohn's Disease: Yes - Genitourinary/Gynecological Hx Genitourinary Disorders: No - Psychiatric Hx Psychophysiologic Disorder: No Hx Depression: No Hx Emotional Abuse: No Hx Physical Abuse: No Hx Substance Use: No - Surgical History Hx Cholecystectomy: Yes (16yrs old) Other/Comment: filter - DVT - Anesthesia Hx Anesthesia: Yes Hx Anesthesia Reactions: No Hx Malignant Hyperthermia: No - Suicidal Assessment Feels Threatened In Home Enviroment: No Family/Social History - Physician Review Nursing Documentation Reviewed: Yes Family/Social History: Unknown Family HX Smoking Status: Never Smoked Hx Alcohol Use: No Hx Substance Use: No Hx Substance Use Treatment: No Allergies/Home Meds Allergies/Adverse Reactions: Allergies Penicillins Allergy (Verified 07/14/16 09:52) ANAPHYLAXIS shellfish derived Allergy (Verified 07/14/16 09:52) ANAPHYLAXIS Home Medications: Home Meds Medication Instructions Recorded Confirmed Albuterol Sulfate [Proventil Hfa] 0.09 mg IH PRN PRN 11/03/17 12/17/17 Fluticasone/Salmeterol [Advair 1 each IH BID 11/03/17 12/17/17 250-50 Diskus] Review of Systems - Review of Systems Constitutional: Fatigue. absent: Fevers Respiratory: absent: SOB, Cough Cardiovascular: absent: Chest Pain, Palpitations Gastrointestinal: Abdominal Pain, Diarrhea, Nausea, Vomiting, Appetite Changes Genitourinary Male: absent: Dysuria, Frequency, Hematuria Musculoskeletal: absent: Arthralgias, Back Pain, Neck Pain Skin: absent: Rash, Pruritis Neurological: absent: Headache, Dizziness Psychiatric: absent: Anxiety, Depression Physical Exam Vital Signs Reviewed: Yes Vital Signs Temp Pulse Resp BP Pulse Ox 12/17/17 18:55 82 16 118/76 99 12/17/17 16:54 82 18 120/76 99 12/17/17 15:13 98.9 F 88 18 118/73 99 Temperature: Afebrile Blood Pressure: Normal Pulse: Regular Respiratory Rate: Normal Appearance: Positive for: Well-Appearing, Non-Toxic, Comfortable Pain Distress: None Mental Status: Positive for: Alert and Oriented X 3 Finger Stick Blood Glucose: 77 - Systems Exam Head: Present: Atraumatic Mouth: Present: Moist Mucous Membranes Neck: Present: Normal Range of Motion Respiratory/Chest: Present: Clear to Auscultation, Good Air Exchange. No: Respiratory Distress, Accessory Muscle Use Cardiovascular: Present: Regular Rate and Rhythm, Normal S1, S2. No: Murmurs Abdomen: Present: Tenderness (+ ruq, epigastric and luq tenderness), Normal Bowel Sounds, Guarding. No: Distention, Peritoneal Signs, Rebound Back: Present: Normal Inspection Upper Extremity: Present: Normal ROM Lower Extremity: Present: Normal ROM Neurological: Present: GCS=15, Speech Normal Skin: Present: Warm, Dry, Normal Color. No: Rashes Psychiatric: Present: Alert, Oriented x 3 Medical Decision Making ED Course and Treatment: 12/17/17 18:29 Patient is nontoxic well appearing with stable vital signs presenting with left sided abdominal pain. n/v/d. hx of crohns. CBC wnl CMP: alt 59 alk phos; 147 [id number] Urinalysis pending CAT scan: FINDINGS: LOWER THORAX: Pleural thickening in the left lung base again noted. LIVER: Hepatic steatosis. GALLBLADDER AND BILE DUCTS: Gallbladder not seen. Bile ducts relatively unremarkable. PANCREAS: Unremarkable. No gross lesion or ductal dilatation. SPLEEN: Unremarkable. ADRENALS: Unremarkable. No mass. KIDNEYS AND URETERS: Few sub centimeter hypodensities in both kidneys, likely cysts however these remains suboptimally characterized. These remain essentially unchanged since the prior evaluation on 08/24/2016. No hydronephrosis. VASCULATURE: Unremarkable. No aortic aneurysm. BOWEL: No bowel obstruction. Evidence of chronic inflammatory changes in the colon and the rectum. Mild pericolonic fat stranding particularly involving the descending colon is noted. Underlying colitis should be considered. APPENDIX: Not seen. PERITONEUM: No free air. No definite free fluid. LYMPH NODES: Multiple mesenteric lymph nodes surrounding the descending colon particularly around the area of inflammation. Multiple right lower quadrant lymph nodes also noted. Few mildly enlarged inguinal region lymph nodes also seen. These are nonspecific and could be reactive. BLADDER: Unremarkable. REPRODUCTIVE: Unremarkable. BONES: No acute fracture. OTHER FINDINGS: None. IMPRESSION: Acute on chronic inflammatory changes involving the descending colon. Likely reactive lymphadenopathy in the mesentery. No focal fluid collection. No free air. No bowel obstruction. Patient reassessment:pt with continued pain. morphine added. Discussed all results with patient in depth case discussed with dr. carballo accepts observational admission to med/surg; consult dr. fenton. Impression: Abdominal pain, elevated lipase, crohns flare admit to med/surg - Lab Interpretations Lab Results: 12/17/17 15:39 12/17/17 17:02 Lab Results 12/17/17 17:02: Sodium 138, Potassium 4.8, Chloride 102, Carbon Dioxide 27, Anion Gap 14, BUN 8, Creatinine 1.0, Est GFR ( Amer) > 60, Est GFR (Non- Af Amer) > 60, Random Glucose 94, Calcium 8.7, Total Bilirubin 0.6, AST 51, ALT 59 H, Alkaline Phosphatase 147 H, Total Protein 7.8, Albumin 3.9, Globulin 3.9, Albumin/Globulin Ratio 1.0 L, Lipase 458 H 12/17/17 15:39: WBC 8.6 D, RBC 4.58, Hgb 12.0 L, Hct 37.2 L, MCV 81.2, MCH 26.2 , MCHC 32.3, RDW 16.1 H, Plt Count 613 H, MPV 8.9, Gran % 47.2 L, Lymph % (Auto ) 31.1, [place] % (Auto) 13.4 H, Eos % (Auto) 8.1 H, Baso % (Auto) 0.2, Gran # 4.07 , Lymph # (Auto) 2.7, [place] # (Auto) 1.2 H, Eos # (Auto) 0.7, Baso # (Auto) 0.02 12/17/17 15:23: POC Glucose (mg/dL) 77 - RAD Interpretation Radiology Orders: 12/17/17 15:41 ABD & PELVIS IV CONTRAST ONLY [CT] Stat - Medication Orders Current Medication Orders: Discontinued Medications Sodium Chloride (Sodium Chloride 0.9%) 1,000 mls @ 999 mls/hr IV .Q1H1M STA Stop: 12/17/17 16:35 Last Admin: 12/17/17 16:00 Dose: 999 mls/hr eMAR Start Stop Document 12/17/17 16:00 MS (Rec: 12/17/17 16:01 MS [id number]) Intravenous Solution Start Date 12/17/17 Start Time 16:00 End Date 12/17/17 End time 17:00 Total Infusion Time 60 Methylprednisolone (Solu-Medrol) 125 mg IVP STAT STA Stop: 12/17/17 18:47 Morphine Sulfate (Morphine) 4 mg IVP STAT STA Stop: 12/17/17 15:42 Last Admin: 12/17/17 16:01 Dose: 4 mg MAR Pain Assessment Document 12/17/17 16:01 MS (Rec: 12/17/17 16:01 MS [id number]) Pain Reassessment Is this a pain reassessment? No Sleep Is patient sleeping during reassessment? No Presence of Pain Presence of Pain Yes Pain Scale Used Pain Scale Used Numeric Location Pain Location Body Site Abdomen Description Description Constant Intensity of Pain at present 7 Pain Behavior Grasping Site IVP Administration Document 12/17/17 16:01 MS (Rec: 12/17/17 16:01 MS [id number]) Charges for Administration # of IVP Administrations 1 Morphine Sulfate (Morphine) 4 mg IVP STAT STA Stop: 12/17/17 18:57 Ondansetron HCl (Zofran Inj) 4 mg IVP STAT STA Stop: 12/17/17 15:42 Last Admin: 12/17/17 16:01 Dose: 4 mg IVP Administration Document 12/17/17 16:01 MS (Rec: 12/17/17 16:01 MS [id number]) Charges for Administration # of IVP Administrations 1 Disposition/Present on Arrival - Present on Arrival Any Indicators Present on Arrival: Yes History of DVT/PE: Yes History of Uncontrolled Diabetes: Yes Urinary Catheter: No History of Decub. Ulcer: No History Surgical Site Infection Following: None - Disposition Have Diagnosis and Disposition been Completed?: Yes Diagnosis: Crohn disease, Abdominal pain, Elevated lipase Disposition: HOSPITALIZED Disposition Time: 19:00 Patient Plan: Observation Condition: FAIR
--- NOTE | 2017-12-17 18:08 | CT ---
Date of service: 12/17/2017 PROCEDURE: CT Abdomen and Pelvis with intravenous contrast HISTORY: abd pain hx of crohns COMPARISON: 08/24/2016 TECHNIQUE: Axial images of the abdomen were obtained with intravenous contrast. No oral contrast given. Coronal and sagittal reformats were generated. Please note that evaluation of bowel is somewhat limited given lack of oral contrast. Contrast dose: 100 cc of Omnipaque 300 Radiation dose: Total exam DLP = 1043.25 mGy-cm. This CT exam was performed using one or more of the following dose reduction techniques: Automated exposure control, adjustment of the mA and/or kV according to patient size, and/or use of iterative reconstruction technique. FINDINGS: LOWER THORAX: Pleural thickening in the left lung base again noted. LIVER: Hepatic steatosis. GALLBLADDER AND BILE DUCTS: Gallbladder not seen. Bile ducts relatively unremarkable. PANCREAS: Unremarkable. No gross lesion or ductal dilatation. SPLEEN: Unremarkable. ADRENALS: Unremarkable. No mass. KIDNEYS AND URETERS: Few sub centimeter hypodensities in both kidneys, likely cysts however these remains suboptimally characterized. These remain essentially unchanged since the prior evaluation on 08/24/2016. No hydronephrosis. VASCULATURE: Unremarkable. No aortic aneurysm. BOWEL: No bowel obstruction. Evidence of chronic inflammatory changes in the colon and the rectum. Mild pericolonic fat stranding particularly involving the descending colon is noted. Underlying colitis should be considered. APPENDIX: Not seen. PERITONEUM: No free air. No definite free fluid. LYMPH NODES: Multiple mesenteric lymph nodes surrounding the descending colon particularly around the area of inflammation. Multiple right lower quadrant lymph nodes also noted. Few mildly enlarged inguinal region lymph nodes also seen. These are nonspecific and could be reactive. BLADDER: Unremarkable. REPRODUCTIVE: Unremarkable. BONES: No acute fracture. OTHER FINDINGS: None. IMPRESSION: Acute on chronic inflammatory changes involving the descending colon. Likely reactive lymphadenopathy in the mesentery. No focal fluid collection. No free air. No bowel obstruction.
[2017-12-17] MEDS ORDERED: Morphine 2 mg/2 mL syringe IVP ONE (23:38)
[2017-12-18] MEDS ORDERED: Morphine 2 mg/ml ISec IVP STA (11:11)
[2017-12-18] MEDS: Dextrose 5%/0.45% NS 1,000 ML IV SCH ×2 (12:46→20:56)
[2017-12-18] MEDS: Levalbuterol 0.63 MG/3 ML Inhal Soln UD IH SCH ×2 (14:15→19:33)
--- NOTE | 2017-12-18 16:18 | CP.PCM.CON ---
<Nusrat Araujo - Last Filed: 12/18/17 16:14> History of Present Illness - History of Present Illness History of Present Illness: GI Fellow PGY 5 Consult [place] This is a 42-year-old male with past medical hx of DM, HTN, IBD diagnosed in 2003 presents with upper abdominal pain, nausea, vomiting and diarrhea. Patient states he has been having pain for the past 4 days. Patient states he has a history of IBD either UC or Crohn's disease and hasn't had a flare up in 7 years but believes he is having a flareup today. Patient states the pain is in the upper abdomen and radiates to the left upper abdomen. He denies chest pain or shortness of breath. Denies fevers or chills. Patient is complaining of feeling fatigued. Patient states he is having difficulty eating any food. He denies fevers or chills. No urinary symptoms. He denies back pain. No URI symptoms. No other complaints. Pt reports being diagnosed in [facility] in 2003 and last colonoscopy was 3yrs ago. ROS: A 12pt ROS was negative except as above PmHx: As stated above PsHx: Gallbladder surgery FHx: Denies colon cancer SHx: Denies etoh, drugs, tobacco Past Patient History - Infectious Disease Hx of Infectious Diseases: None - Tetanus Immunizations Tetanus Immunization: Unknown - Past Social History Smoking Status: Never Smoked - CARDIAC Hx Cardiac Disorders: Yes - PULMONARY Hx Asthma: Yes - NEUROLOGICAL Hx Neurological Disorder: No - HEENT Hx HEENT Problems: No - RENAL Hx Chronic Kidney Disease: No - ENDOCRINE/METABOLIC Hx Diabetes Mellitus Type 2: Yes - HEMATOLOGICAL/ONCOLOGICAL Hx Anemia: Yes - INTEGUMENTARY Hx Dermatological Problems: No - MUSCULOSKELETAL/RHEUMATOLOGICAL Hx Falls: No - GASTROINTESTINAL Hx Crohn's Disease: Yes - GENITOURINARY/GYNECOLOGICAL Hx Genitourinary Disorders: No - PSYCHIATRIC Hx Psychophysiologic Disorder: No Hx Depression: No Hx Emotional Abuse: No Hx Physical Abuse: No Hx Substance Use: No - SURGICAL HISTORY Other/Comment: DVT right calf- pt has now iv filter - ANESTHESIA Hx Anesthesia: Yes Hx Anesthesia Reactions: No Hx Malignant Hyperthermia: No Meds Allergies/Adverse Reactions: Allergies Allergy/AdvReac Type Severity Reaction Status Date / Time Penicillins Allergy ANAPHYLAXIS Verified 07/14/16 09:52 shellfish derived Allergy ANAPHYLAXIS Verified 07/14/16 09:52 - Medications Medications: Current Medications Acetaminophen (Tylenol 325mg Tab) 650 mg PO Q6H PRN PRN Reason: Pain, Mild (1-3) Arformoterol Tartrate (Brovana) 15 mcg IH [id number] [facility] Budesonide (Pulmicort Respules) 0.25 mg IH [id number] [facility] Famotidine (Pepcid) 20 mg IVP DAILY [facility] Last Admin: 12/18/17 12:45 Dose: 20 mg Dextrose/Sodium Chloride (Dextrose 5%/0.45% Ns 1000 Ml) 1,000 mls @ 125 mls/hr IV .Q8H [facility] Last Admin: 12/18/17 12:46 Dose: 125 mls/hr Ciprofloxacin (Cipro 400mg/200ml Dsw) 400 mg in 200 mls @ 133.3 mls/hr IVPB Q12 [facility] PRN Reason: Protocol Stop: 12/18/17 23:31 Insulin Human Regular (Humulin R Low) 0 units SC ACHS [facility] PRN Reason: Protocol Levalbuterol HCl (Xopenex) 0.63 mg IH [id number] [facility] Last Admin: 12/18/17 14:15 Dose: 0.63 mg Metronidazole (Flagyl) 500 mg PO Q8 [facility] PRN Reason: Protocol Morphine Sulfate (Morphine) 2 mg IVP Q4H PRN PRN Reason: Pain, severe (8-10) Ondansetron HCl (Zofran Inj) 4 mg IVP Q6H PRN PRN Reason: Nausea/Vomiting Physical Exam - Constitutional Appears: Non-toxic, No Acute Distress - Head Exam Head Exam: ATRAUMATIC, NORMAL INSPECTION, NORMOCEPHALIC - Eye Exam Eye Exam: EOMI, Normal appearance Pupil Exam: PERRL - ENT Exam ENT Exam: Mucous Membranes Moist, Normal Exam - Neck Exam Neck exam: Positive for: Full Rom, Normal Inspection - Respiratory Exam Respiratory Exam: Clear to Auscultation Bilateral, NORMAL BREATHING PATTERN - Cardiovascular Exam Cardiovascular Exam: REGULAR RHYTHM, +S1, +S2 - GI/Abdominal Exam GI & Abdominal Exam: Normal Bowel Sounds, Soft. absent: Distended, Guarding, Organomegaly, Tenderness - Rectal Exam Rectal Exam: Deferred - Extremities Exam Extremities exam: Positive for: full ROM, normal inspection - Back Exam Back exam: NORMAL INSPECTION - Neurological Exam Neurological exam: Alert, Oriented x3 - Psychiatric Exam Psychiatric exam: Normal Affect, Normal Mood - Skin Skin Exam: Dry, Intact, Normal Color, Warm Results - Vital Signs Recent Vital Signs: Last Vital Signs Temp 98.3 F 12/18/17 15:52 Pulse 76 12/18/17 15:52 Resp 20 12/18/17 15:52 BP 99/63 L 12/18/17 15:52 Pulse Ox 98 12/18/17 15:52 - Labs Result Diagrams: 12/17/17 15:39 12/17/17 17:02 Labs: Laboratory Results - last 24 hr 12/18/17 12/18/17 00:06 06:42 POC Glucose (mg/dL) 111 H 143 H Assessment & Plan - Assessment and Plan (Free Text) Assessment: This is a 42yM presenting with abdominal pain, nausea, vomiting, diarrhea. 1. Diarrhea 2. Abdominal Pain 3. Hx of IBD Plan: -Continue supportive care -IV abx Cipro/flagyl -CT imaging with thickening of descending colon -Stool studies -Clear liquid diet -Request records for prior diagnosis of IBD -Pt will need outpt colonoscopy for CRC screening colonoscopy with hx of IBD -Will continue to follow clinical case <Ashkan Ramirez V - Last Filed: 12/18/17 21:34> Meds - Medications Medications: Current Medications Acetaminophen (Tylenol 325mg Tab) 650 mg PO Q6H PRN PRN Reason: Pain, Mild (1-3) Arformoterol Tartrate (Brovana) 15 mcg IH [id number] [facility] Last Admin: 12/18/17 19:33 Dose: 15 mcg Budesonide (Pulmicort Respules) 0.25 mg IH [id number] [facility] Famotidine (Pepcid) 20 mg IVP DAILY [facility] Last Admin: 12/18/17 12:45 Dose: 20 mg Dextrose/Sodium Chloride (Dextrose 5%/0.45% Ns 1000 Ml) 1,000 mls @ 125 mls/hr IV .Q8H [facility] Last Admin: 12/18/17 20:56 Dose: 125 mls/hr Ciprofloxacin (Cipro 400mg/200ml Dsw) 400 mg in 200 mls @ 133.3 mls/hr IVPB Q12 [facility] PRN Reason: Protocol Stop: 12/18/17 23:31 Last Admin: 12/18/17 21:04 Dose: 133.3 mls/hr Insulin Human Regular (Humulin R Low) 0 units SC ACHS [facility] PRN Reason: Protocol Last Admin: 12/18/17 18:27 Dose: Not Given Levalbuterol HCl (Xopenex) 0.63 mg IH [id number] [facility] Last Admin: 12/18/17 19:33 Dose: 0.63 mg Metronidazole (Flagyl) 500 mg PO Q8 [facility] PRN Reason: Protocol Morphine Sulfate (Morphine) 2 mg IVP Q4H PRN PRN Reason: Pain, severe (8-10) Last Admin: 12/18/17 21:09 Dose: 2 mg Ondansetron HCl (Zofran Inj) 4 mg IVP Q6H PRN PRN Reason: Nausea/Vomiting Results - Vital Signs Recent Vital Signs: Last Vital Signs Temp 98.3 F 12/18/17 15:52 Pulse 76 12/18/17 15:52 Resp 20 12/18/17 15:52 BP 99/63 L 12/18/17 15:52 Pulse Ox 98 12/18/17 15:52 - Labs Result Diagrams: 12/17/17 15:39 12/17/17 17:02 Labs: Laboratory Results - last 24 hr 12/18/17 12/18/17 00:06 06:42 POC Glucose (mg/dL) 111 H 143 H Attending/Attestation - Attestation I have personally seen and examined this patient.: Yes I have fully participated in the care of the patient.: Yes I have reviewed all pertinent clinical information: Yes Notes (Text): This is an addendum to GI consult report dictated by the GI Fellow.The patient was seen and examined earlier. Medical records, lab studies, imagings were reviewed. Last 24 hours events reviewed. Agreed with the above treatment plan as outlined in GI Fellow 's notes the with the addition of the following Discussed with the paife over at bedside On examination patient has tendernes of the abdomen History of Crohn's d diagnosed in 2003 Last colonoscopy more than 3 years ag Not on medication for Crohn The differential terry include bladder of IBD, infectious gastroenteritis Would start empiric antiage Stool studies IBD serology Clear liquid diet Thank you very much for allowing us to participate in the care of the patient and we'll continue to follow up with his care and suggest further recommendation based on clinical course 12/18/17 21:31
[2017-12-18] MEDS: Insulin Reg-LOW-Coverage SC SCH (18:27)
[2017-12-18] MEDS: Arformoterol 15 mcg/2 ml Inh Sol IH SCH (19:33)
[2017-12-18] MEDS: Morphine 2 mg/2 mL syringe IVP PRN (21:09)
[2017-12-18] MEDS ORDERED: Ciprofloxacin 400mg/200ml D5W 400 MG/200 ML BAG IVPB SCH (22:00)
[2017-12-19] MEDS: Levalbuterol 0.63 MG/3 ML Inhal Soln UD IH SCH ×4 (01:41→19:45)
[2017-12-19] MEDS: Dextrose 5%/0.45% NS 1,000 ML IV SCH ×3 (07:23→21:21)
[2017-12-19 07:38] LABS: HEMOGLOBIN 10.4 g/dL (14.0-18.0)
[2017-12-19 07:56] LABS: IRON 33 ug/dL (45-180)
[2017-12-19 08:08] LABS: % IRON SATURATION 12 % (20-55); TOTAL IRON BINDING CAPACITY 276 ug/dL (261-462)
[2017-12-19 08:10] LABS: T4 8.3 ug/dL (5.5-11.0)
[2017-12-19] MEDS: Budesonide 0.25 mg/2 ml Inhal Susp UD IH SCH ×2 (08:21→19:45)
[2017-12-19] MEDS: Arformoterol 15 mcg/2 ml Inh Sol IH SCH ×2 (08:21→19:45)
[2017-12-19] MEDS: Insulin Reg-LOW-Coverage SC SCH ×3 (09:46→21:50)
[2017-12-19] MEDS: Morphine 2 mg/2 mL syringe IVP PRN ×2 (11:14→20:18)
[2017-12-19 12:57] LABS: FERRITIN 35.6 ng/mL
[2017-12-19 13:27] LABS: FOLATE 5.7 ng/mL
--- NOTE | 2017-12-19 13:48 | CP.PCM.PN ---
<Nusrat Araujo - Last Filed: 12/19/17 13:41> Subjective - Date & Time of Evaluation Date of Evaluation: 12/19/17 Time of Evaluation: 11:00 - Subjective Subjective: GI Fellow PGY5 Progress Note Pt seen and evaluated at bedside, pt doing well with improving diarrhea and rectal bleeding. Tolerating clear liquid diet. ROS: A 12pt ROS was negative except as above. Objective - Vital Signs/Intake and Output Vital Signs (last 24 hours): Temp Pulse Resp BP Pulse Ox 98.5 F 81 20 108/65 97 12/19/17 06:00 12/19/17 06:00 12/19/17 06:00 12/19/17 06:00 12/19/17 06:00 - Medications Medications: Current Medications Acetaminophen (Tylenol 325mg Tab) 650 mg PO Q6H PRN PRN Reason: Pain, Mild (1-3) Arformoterol Tartrate (Brovana) 15 mcg IH [id number] [facility] Last Admin: 12/19/17 08:21 Dose: 15 mcg Budesonide (Pulmicort Respules) 0.25 mg IH [id number] [facility] Last Admin: 12/19/17 08:21 Dose: 0.25 mg Famotidine (Pepcid) 20 mg IVP DAILY [facility] Last Admin: 12/19/17 09:46 Dose: 20 mg Dextrose/Sodium Chloride (Dextrose 5%/0.45% Ns 1000 Ml) 1,000 mls @ 125 mls/hr IV .Q8H [facility] Last Admin: 12/19/17 13:02 Dose: 125 mls/hr Insulin Human Regular (Humulin R Low) 0 units SC ACHS [facility] PRN Reason: Protocol Last Admin: 12/19/17 13:03 Dose: Not Given Levalbuterol HCl (Xopenex) 0.63 mg IH [id number] [facility] Last Admin: 12/19/17 08:21 Dose: 0.63 mg Metronidazole (Flagyl) 500 mg PO Q8 [facility] PRN Reason: Protocol Last Admin: 12/19/17 13:01 Dose: 500 mg Morphine Sulfate (Morphine) 2 mg IVP Q4H PRN PRN Reason: Pain, severe (8-10) Last Admin: 12/19/17 11:14 Dose: 2 mg Ondansetron HCl (Zofran Inj) 4 mg IVP Q6H PRN PRN Reason: Nausea/Vomiting - Constitutional Appears: Non-toxic, No Acute Distress - Head Exam Head Exam: ATRAUMATIC, NORMAL INSPECTION, NORMOCEPHALIC - Eye Exam Eye Exam: EOMI, Normal appearance Pupil Exam: PERRL - ENT Exam ENT Exam: Mucous Membranes Moist, Normal Exam - Neck Exam Neck Exam: Full ROM, Normal Inspection - Respiratory Exam Respiratory Exam: Clear to Ausculation Bilateral, NORMAL BREATHING PATTERN - Cardiovascular Exam Cardiovascular Exam: REGULAR RHYTHM - GI/Abdominal Exam GI & Abdominal Exam: Soft, Normal Bowel Sounds - Rectal Exam Rectal Exam: Deferred - Extremities Exam Extremities Exam: Full ROM, Normal Inspection - Back Exam Back Exam: NORMAL INSPECTION - Neurological Exam Neurological Exam: Alert, Awake, Oriented x3 - Psychiatric Exam Psychiatric exam: Normal Affect, Normal Mood - Skin Skin Exam: Dry, Intact, Normal Color, Warm Assessment and Plan - Assessment and Plan (Free Text) Assessment: This is a 42yM presenting with abdominal pain, nausea, vomiting, diarrhea. 1. Diarrhea 2. Abdominal Pain 3. Hx of IBD Plan: -Continue supportive care -IV abx Cipro/flagyl -CT imaging with thickening of descending colon -Stool studies pending -Advance to full liquid diet -Fecal calprotectin -Request records for prior diagnosis of IBD -Pt will need outpt colonoscopy for CRC screening colonoscopy with hx of IBD -Will continue to follow clinical case <Ashkan Ramirez V - Last Filed: 12/19/17 22:30> Objective - Vital Signs/Intake and Output Vital Signs (last 24 hours): Temp Pulse Resp BP Pulse Ox 98.4 F 83 20 114/71 98 12/19/17 14:00 12/19/17 14:00 12/19/17 14:00 12/19/17 14:00 12/19/17 14:00 Intake and Output: 12/19/17 12/20/17 18:59 06:59 Intake Total 840 480 Balance 840 480 - Medications Medications: Current Medications Acetaminophen (Tylenol 325mg Tab) 650 mg PO Q6H PRN PRN Reason: Pain, Mild (1-3) Arformoterol Tartrate (Brovana) 15 mcg IH [id number] [facility] Last Admin: 12/19/17 19:45 Dose: 15 mcg Budesonide (Pulmicort Respules) 0.25 mg IH [id number] [facility] Last Admin: 12/19/17 19:45 Dose: 0.25 mg Famotidine (Pepcid) 20 mg IVP DAILY [facility] Last Admin: 12/19/17 09:46 Dose: 20 mg Dextrose/Sodium Chloride (Dextrose 5%/0.45% Ns 1000 Ml) 1,000 mls @ 125 mls/hr IV .Q8H [facility] Last Admin: 12/19/17 21:21 Dose: 125 mls/hr Insulin Human Regular (Humulin R Low) 0 units SC ACHS [facility] PRN Reason: Protocol Last Admin: 12/19/17 21:50 Dose: Not Given Levalbuterol HCl (Xopenex) 0.63 mg IH [id number] [facility] Last Admin: 12/19/17 19:45 Dose: 0.63 mg Morphine Sulfate (Morphine) 2 mg IVP Q4H PRN PRN Reason: Pain, severe (8-10) Last Admin: 12/19/17 20:18 Dose: 2 mg Ondansetron HCl (Zofran Inj) 4 mg IVP Q6H PRN PRN Reason: Nausea/Vomiting Attending/Attestation - Attestation I have personally seen and examined this patient.: Yes I have fully participated in the care of the patient.: Yes I have reviewed all pertinent clinical information, including history, physical exam and plan: Yes Notes (Text): This is an addendum to GI progress report dictated by the GI Fellow.The patient was seen and examined earlier. Medical records, lab studies, imagings were reviewed. Last 24 hours events reviewed. Agreed with the above treatment plan as outlined in GI Fellow 's notes the with the addition of the following on examinatio still E abdomen soft minimal tenderness on deep ption left lower quadr Patient still complains of briseida but less Diet has been and wants to full liquid diet Continue Cipro and Flagyl Patient would need outpatient colonscopy Would benefit from yearly colonoscopy view of the hist IBD over 10 years 12/19/17 22:27
--- NOTE | 2017-12-19 16:16 | HP ---
DATE OF EXAM: 12/17/2017 HISTORY OF PRESENT ILLNESS: This 42-year-old male was examined in the emergency room. His case was reviewed in detail with emergency room physician, Dr. Caro Chen, medical doctor. This patient has a longstanding history of Crohn disease. He states he was diagnosed in the year 2001 and is recently in remission on no remmititive agents. He presented to [facility] ER with abdominal discomfort, nausea, vomiting and bloody diarrhea, which was ongoing for the past 4 days. PAST MEDICAL HISTORY: He states his past medical history is also significant for obesity, type 2 diabetes mellitus and asthmatic bronchitis. MEDICATIONS: Outpatient medications included Glucophage, Glucotrol, Advair Diskus and Proventil inhaler. At present, the patient is requiring parenteral morphine for pain relief and is awaiting admission for further evaluation by classified ad taker, Dr. Ashkan Ramirez. 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 He is a nondrinker, nonsmoker, non IV drug misuser. ALLERGIES: HE HAS A PENICILLIN ALLERGY WELL SHELLFISH SENSITIVITY. FAMILY HISTORY: Noncontributory. REVIEW OF SYSTEMS: Constitutional review: He denied fever or chills. Head: No headache or seizure. Eye review: No change in visual acuity. Ear review: No hearing loss. Throat review: No swallowing difficulty. Neck review: No stiffness. Cardiac review: He denied chest pain or palpitation. Pulmonary: No recent cough or hemoptysis. GI: Bloody diarrhea for the past 4 days with crampy abdominal pain, most significantly in his left lower quadrant. Vascular: No claudication. Psychological: No anxiety. No depression. Neurological: No knowledge of stroke or seizure. Endocrinological: Type 2 diabetes mellitus for the past several months. Vascular: No claudication. PHYSICAL EXAMINATION: GENERAL: He was in a normal sinus rhythm on the library monitor. VITAL SIGNS: Temperature 98.4, respirations 20, pulse 81 and blood pressure 115/75 with a pulse ox of 96%. HEENT: Head normocephalic, atraumatic. Eyes: No icterus. Ears: Clear. Throat: Noninjected. NECK: Supple. HEART: Regular S1, S2. LUNGS: Clear. ABDOMEN: Obese. There was no palpable organomegaly. No rebound. No guarding. No tenderness. EXTREMITIES: No edema. SKIN: Without rash. NEUROLOGICAL: Intact. PSYCHOLOGICAL: Alert and oriented x3. VASCULAR: Legs warm to touch. LABORATORY DATA: His white count 8600, hemoglobin 12, hematocrit 37.2, platelets were 613,000. Sodium 138, K 4.8, chloride 102, bicarb 27, BUN 8, creatinine 1, random blood sugar 94, bilirubin 0.6, AST 51, ALT 59, alk phos 147, lipase 458. EKG was reviewed. It showed a normal sinus rhythm with nonspecific ST-T wave changes. An abdominopelvic CT was reviewed. This was done with IV contrast only. It revealed hepatic steatosis, multiple mesenteric lymph nodes were noted surrounding the descending colon, particularly around an area of inflammation in his left lower close quadrant with multiple right lower quadrant lymph nodes noted and enlarged inguinal lymph nodes as well. These findings were felt to be nonspecific and possibly could be reactive changes in the setting of recurrent Crohn's disease. There were no focal fluid collections noted on abdominal exam. No free air and no bowel obstruction. IMPRESSION: A 42-year-old male with history of Crohn's, probably with a Crohn's exacerbation, comorbidities of asthma and type 2 diabetes mellitus in the setting of obesity. PLAN: My plans are to admit this patient, obtain a GI evaluation with Dr. Ashkan Ramirez. He will be kept n.p.o., placed on IV fluids. He will receive IV Pepcid, parenteral morphine for severe pain, insulin coverage and serial labs. All of the above was discussed in detail with the patient, nursing and emergency room physician. Greater than 75 minutes was spent in the care and management, review of labs, orders and x-rays. All questions were answered. Mansi Cuevas MD TARIK
--- NOTE | 2017-12-19 19:37 | PN ---
DATE: 12/19/2017 SUBJECTIVE: This 42-year-old male was examined at bedside in the presence of his and case was reviewed in detail with nurse, Stanley Kirk, registered nurse. The patient remained hospitalized with exacerbation of Crohn's versus irritable bowel syndrome and presented to [facility] ER for bloody diarrhea and poor p.o. intake in the setting of abdominal pain requiring parenteral morphine analgesia. At present, the patient denies any fever, chills, chest pain or shortness of breath. He remains on a clear liquid diet only and required morphine earlier this morning for moderately severe abdominal pain. PHYSICAL EXAMINATION: VITAL SIGNS: On physical exam, his temperature is 98.4, respirations 20, pulse 83 and blood pressure 114/71 with a pulse ox of 98% on room air. HEENT: Head: Normocephalic, atraumatic. Eyes: No icterus. Ears: Clear. Throat: Noninjected. NECK: Supple. HEART: Regular S1, S2. LUNGS: Clear. ABDOMEN: Obese, nontender. No palpable organomegaly. No rebound. No guarding. Mild left lower quadrant tenderness on palpation. EXTREMITIES: No edema. SKIN: Without rash. NEUROLOGICAL: Intact. PSYCHOLOGICAL: Alert. VASCULAR: Legs warm to touch. LABORATORY DATA: Hemoglobin 10.4, hematocrit 33.6. On admission, hemoglobin 12, hematocrit 37.2. Sodium 138, K 4.8, chloride 102, bicarb 27, BUN 8, creatinine 1, random blood sugar 143. Iron 33, TIBC 276, percent saturation low 12%, ferritin 35.6. Cholesterol 146, LDL 90, triglycerides 88 and HDL 28. Vitamin B12 level 978. Folic acid 5.7, T4 of 8.3 and TSH 0.83, normal. Blood cultures are showing no growth at 48 hours. IMPRESSION: A 42-year-old male, admitted with abdominal pain, history of Crohn's disease, history of irritable bowel syndrome, asthmatic bronchitis and type 2 diabetes mellitus and obesity. As discussed with the patient, family and nursing at bedside, he will continue on Brovana inhalational therapy, D5 0.45 saline at 125 mL/hour, Flagyl 500 mg p.o. every 8, Humulin R low-dose insulin coverage before meals and at bedtime, morphine 2 mg IV every 4 hours p.r.n. moderate to severe abdominal pain, Pepcid 20 mg IV daily, Pulmicort inhalational therapy every 12, Xopenex 0.63 mg inhalational therapy every six, Zofran 4 mg IV every 6 hours p.r.n. nausea, vomiting and Tylenol 650 p.o. every 6 hours p.r.n. pain or temperature greater than 101. The patient is ordered to have a hemoglobin A1c, Salmonella antibody testing, Shigella toxin testing and stool electrolytes. He also was ordered to have C. diff toxin and antigen of his stool, O and P and stool cultures. He is ordered by Dr. Ashkan Ramirez to be started on a clear liquid diet as tolerated and will also have basic metabolic panel and CBC repeated in the a.m. Based on his clinical and laboratory results, additional testing and diagnostic workup will be entertained. The patient and were informed that he does indeed have a iron deficiency anemia that will require iron supplementation and an endoscopy, colonoscopy when determined by Dr. Ashkan Ramirez to be appropriate. They are aware and in agreement with this issue and greater than 35 minutes was spent in the care and management, review of labs, orders and x-rays and discussion of this patient's situation with himself and . All questions were answered. Mansi Cuevas MD MTDD
[2017-12-20] MEDS: Levalbuterol 0.63 MG/3 ML Inhal Soln UD IH SCH ×4 (01:44→19:31)
[2017-12-20 06:55] LABS: HEMOGLOBIN 10.8 g/dL (14.0-18.0)
[2017-12-20] MEDS: Arformoterol 15 mcg/2 ml Inh Sol IH SCH ×2 (07:15→19:31)
[2017-12-20] MEDS: Budesonide 0.25 mg/2 ml Inhal Susp UD IH SCH ×2 (07:15→19:31)
[2017-12-20 07:27] LABS: BLOOD UREA NITROGEN 6 mg/dL (7-21); CALCIUM 8.3 mg/dL (8.4-10.5); GFR AFRICAN-AMERICAN > 60; GFR NON-AFRICAN AMERICAN > 60
[2017-12-20] MEDS: Insulin Reg-LOW-Coverage SC SCH ×4 (07:51→21:39)
--- NOTE | 2017-12-20 08:13 | PN ---
DATE: 12/18/2017 SUBJECTIVE: This 42-year-old male was examined at his bedside in the presence of his . He is awaiting GI evaluation by Dr. Ashkan Ramirez for possible exacerbation of Crohn's disease with bloody diarrhea. The patient was admitted with severe abdominal pain that required parenteral morphine administration. At present, he remains n.p.o. and is receiving IV fluids and insulin coverage for his type 2 diabetes mellitus. The patient at present denies any fever, chills, chest pain or shortness of breath and there have been no reports of hematemesis or melena since admission. PHYSICAL EXAMINATION: VITAL SIGNS: His temperature is 98.2, respirations 20, pulse 97, and blood pressure 124/76 with a pulse ox of 100% on room air. HEENT: Head normocephalic, atraumatic. Eyes: No icterus. Ears: Clear. Throat: Non-injected. NECK: Supple. HEART: Regular S1, S2. LUNGS: Clear. ABDOMEN: Soft. There was some discomfort on palpation in his left lower quadrant. No rebound, no guarding, but persistent tenderness. EXTREMITIES: No edema. SKIN: Without rash. NEUROLOGICAL: Intact. PSYCHOLOGICAL: Alert. VASCULAR: Legs warm to touch. LABORATORY DATA: His labs show a random sugar of 143, BUN 8, creatinine 1, ALT of 59, and alk phos of 147. IMPRESSION: A 42-year-old male with exacerbation of Crohn's disease, obesity, type 2 diabetes mellitus, history of asthmatic bronchitis, now admitted with bloody diarrhea and probable Crohn's exacerbation with evidence of left lower colon inflammation on abdominopelvic CT. PLAN: The plan is to await consultation by Dr. Ashkan Ramirez from GI. I will order anemia panel workup including ferritin, folic acid, vitamin B12 levels, iron and TIBC studies, a hemoglobin A1c, a lipid panel fasting in the morning while awaiting blood cultures and stool cultures and stool for Clostridium difficile toxin. The patient will continue n.p.o. until evaluated by GI who will determine his appropriate diet. He continues on Brovana inhalational therapy, D5 0.45 saline at 125 mL/hour, regular low-dose insulin protocol before meals and at bedtime, morphine 10 mg IV every 4 hours p.r.n. severe pain, Pepcid 20 mg IV daily, Pulmicort inhalational therapy every 12, Tylenol 650 p.o. every 6 hours p.r.n. mild pain or temperature greater than 101, Xopenex inhalational therapy every 6 and Zofran 4 mg IV every 6 hours p.r.n. nausea and vomiting. The patient will require continued hospitalization pending resolution and workup of his admitting complaints and all of the above was discussed in detail with the patient and at bedside. This case was also reviewed in detail with his nurse, Stanley Kirk, registered nurse. Mansi Cuevas MD MTDD
--- NOTE | 2017-12-20 11:11 | CP.PCM.PN ---
<Jose Jin - Last Filed: 12/20/17 15:14> Subjective - Date & Time of Evaluation Date of Evaluation: 12/20/17 Time of Evaluation: 08:00 - Subjective Subjective: GI Progress Note for Dr. Ashley Jin, PGY-3 IM Patient seen and examined at bedside. No acute complaints. No acute events reported overnight. Still having (improved) abdominal pain and diarrhea, denies any new emesis. Tolerating diet. Objective - Vital Signs/Intake and Output Vital Signs (last 24 hours): Temp Pulse Resp BP Pulse Ox 98.5 F 67 67 H 117/69 20 L 12/20/17 06:00 12/20/17 06:00 12/20/17 06:00 12/20/17 06:00 12/20/17 06:00 Intake and Output: 12/20/17 12/20/17 06:59 18:59 Intake Total 3600 Balance 3600 - Medications Medications: Current Medications Acetaminophen (Tylenol 325mg Tab) 650 mg PO Q6H PRN PRN Reason: Pain, Mild (1-3) Arformoterol Tartrate (Brovana) 15 mcg IH [id number] [facility] Last Admin: 12/20/17 07:15 Dose: 15 mcg Budesonide (Pulmicort Respules) 0.25 mg IH [id number] [facility] Last Admin: 12/20/17 07:15 Dose: 0.25 mg Famotidine (Pepcid) 20 mg IVP DAILY [facility] Last Admin: 12/20/17 10:12 Dose: 20 mg Dextrose/Sodium Chloride (Dextrose 5%/0.45% Ns 1000 Ml) 1,000 mls @ 125 mls/hr IV .Q8H [facility] Last Admin: 12/19/17 21:21 Dose: 125 mls/hr Insulin Human Regular (Humulin R Low) 0 units SC ACHS [facility] PRN Reason: Protocol Last Admin: 12/20/17 07:51 Dose: Not Given Levalbuterol HCl (Xopenex) 0.63 mg IH [id number] [facility] Last Admin: 12/20/17 07:15 Dose: 0.63 mg Morphine Sulfate (Morphine) 2 mg IVP Q4H PRN PRN Reason: Pain, severe (8-10) Last Admin: 12/19/17 20:18 Dose: 2 mg Ondansetron HCl (Zofran Inj) 4 mg IVP Q6H PRN PRN Reason: Nausea/Vomiting - Labs Labs: 12/20/17 06:20 12/20/17 06:20 - Constitutional Appears: Non-toxic, No Acute Distress - Head Exam Head Exam: ATRAUMATIC, NORMAL INSPECTION, NORMOCEPHALIC - Eye Exam Eye Exam: EOMI, Normal appearance. absent: Conjunctival injection, Scleral icterus Pupil Exam: absent: Fixed, Irregular - ENT Exam ENT Exam: Mucous Membranes Moist - Neck Exam Neck Exam: Normal Inspection - Respiratory Exam Respiratory Exam: Clear to Ausculation Bilateral, NORMAL BREATHING PATTERN. absent: Accessory Muscle Use, Chest Wall Tenderness, Decreased Breath Sounds, Prolonged Expiratory Phase, Rales, Rhonchi, Wheezes, Respiratory Distress - Cardiovascular Exam Cardiovascular Exam: REGULAR RHYTHM, RRR, +S1, +S2. absent: Bradycardia, Tachycardia, Irregular Rhythm, JVD, +S4 - GI/Abdominal Exam GI & Abdominal Exam: Soft, Tenderness (mild bilateral upper quadrant tenderness , L>R), Normal Bowel Sounds. absent: Distended, Firm, Guarding, Rigid, Diminished Bowel Sounds, Hyperactive Bowel Sounds, Hypoactive Bowel Sounds - Rectal Exam Rectal Exam: Deferred - Extremities Exam Extremities Exam: Normal Capillary Refill, Normal Inspection. absent: Calf Tenderness, Pedal Edema, Tenderness - Back Exam Back Exam: absent: CVA tenderness (L), CVA tenderness (R) - Neurological Exam Neurological Exam: Alert, Awake, Oriented x3 - Psychiatric Exam Psychiatric exam: Normal Affect, Normal Mood - Skin Skin Exam: Dry, Intact, Normal Color, Warm Assessment and Plan - Assessment and Plan (Free Text) Assessment: This is a 42-year-old male with past medical hx of DM, HTN, IBD diagnosed in 2003 presents with upper abdominal pain, nausea, vomiting and diarrhea. Believes this is a Crohn's flare (reports last was 5 yr ago, prior to surgery in 2012). GI consulted for suspected N/V/D, suspected Crohn's flare. Plan: -Continue supportive care -CT imaging with thickening of descending colon -continue IV abx Cipro/flagyl -tolerating full liquid diet -Stool studies, fecal calprotectin pending -Request records for prior diagnosis of IBD from [facility], waiting on records and path reports prior to decision to start Crohns meds -Pt will need outpt colonoscopy for CRC screening colonoscopy with hx of IBD Seen, reviewed, and discussed with attending, Dr. Ramirez <sAhkan Ramirez V - Last Filed: 12/21/17 00:04> Objective - Vital Signs/Intake and Output Vital Signs (last 24 hours): Temp Pulse Resp BP Pulse Ox 98.4 F 83 18 117/73 98 12/20/17 23:21 12/20/17 23:21 12/20/17 23:21 12/20/17 23:21 12/20/17 23:21 Intake and Output: 12/20/17 12/21/17 18:59 06:59 Intake Total 480 600 Balance 480 600 - Medications Medications: Current Medications Acetaminophen (Tylenol 325mg Tab) 650 mg PO Q6H PRN PRN Reason: Pain, Mild (1-3) Arformoterol Tartrate (Brovana) 15 mcg IH [id number] [facility] Last Admin: 12/20/17 19:31 Dose: 15 mcg Budesonide (Pulmicort Respules) 0.25 mg IH [id number] [facility] Last Admin: 12/20/17 19:31 Dose: 0.25 mg Famotidine (Pepcid) 20 mg IVP DAILY [facility] Last Admin: 12/20/17 10:12 Dose: 20 mg Dextrose/Sodium Chloride (Dextrose 5%/0.45% Ns 1000 Ml) 1,000 mls @ 125 mls/hr IV .Q8H [facility] Last Admin: 12/20/17 14:08 Dose: 125 mls/hr Insulin Human Regular (Humulin R Low) 0 units SC ACHS [facility] PRN Reason: Protocol Last Admin: 12/20/17 21:39 Dose: Not Given Levalbuterol HCl (Xopenex) 0.63 mg IH [id number] [facility] Last Admin: 12/20/17 19:31 Dose: 0.63 mg Morphine Sulfate (Morphine) 2 mg IVP Q4H PRN PRN Reason: Pain, severe (8-10) Last Admin: 12/20/17 22:08 Dose: 2 mg Ondansetron HCl (Zofran Inj) 4 mg IVP Q6H PRN PRN Reason: Nausea/Vomiting - Labs Labs: 12/20/17 06:20 12/20/17 06:20 Attending/Attestation - Attestation I have personally seen and examined this patient.: Yes I have fully participated in the care of the patient.: Yes I have reviewed all pertinent clinical information, including history, physical exam and plan: Yes Notes (Text): This is an addendum to GI progress report dictated by the resident doctor.The patient was seen and examined earlier. Medical records, lab studies, imagings were reviewed. Last 24 hours events reviewed. Agreed with the above treatment plan as outlined in GI Fellow 's notes the with the addition of the following he is 12/21/17 00:02 12/21/17 00:03
[2017-12-20] MEDS: Dextrose 5%/0.45% NS 1,000 ML IV SCH (14:08)
--- NOTE | 2017-12-20 14:36 | PN ---
DATE: 12/20/2017 SUBJECTIVE: This 42-year-old male was examined at his bedside and case was reviewed in detail with nursing and Dr. Ashkan Ramirez from GI. The patient requires parenteral morphine for pain management of his abdominal pain and his family has been requested to obtain the pathology reports confirming whether this patient does indeed have Crohn's or irritable bowel syndrome. At present, he denies any further gross rectal bleeding and remains on a clear liquid diet. PHYSICAL EXAMINATION: VITAL SIGNS: Temperature 98.5, respirations 20, pulse 67 and blood pressure 117/69, pulse ox 96% on room air. HEENT: Head: Normocephalic, atraumatic. Eyes: No icterus. Ears: Clear. Throat: Noninjected. NECK: Supple. HEART: Regular S1, S2. LUNGS: Clear. ABDOMEN: Obese, nontender. No palpable organomegaly. No rebound. No guarding. No tenderness. EXTREMITIES: No edema. SKIN: Without rash. NEUROLOGICAL: Intact. PSYCHOLOGICAL: Alert. VASCULAR: Legs warm to touch. LABORATORY DATA: Hemoglobin 10.8, hematocrit 34.9. Sodium 140, K 4, chloride 107, bicarb 25, BUN 6, creatinine 0.8, random blood sugar 107, calcium 8.3. IMPRESSION: A 42-year-old male with rectal bleeding, anemia of acute gastrointestinal bleeding with comorbidities of history of irritable bowel syndrome and Crohn disease, asthmatic bronchitis and type 2 diabetes mellitus and obesity. PLAN: At present is to continue Brovana inhalational therapy every 12, D5 0.45 saline at 125 mL/hour and regular low-dose Humulin R insulin coverage before mealtime and at bedtime, morphine 2 mg IV every 4 hours p.r.n. severe pain, Pepcid 20 mg IV daily, Pulmicort inhalational therapy every 12, Xopenex 0.63 mg inhalational every 6, Tylenol 650 p.o. every 6 hours p.r.n. moderate pain or temperature greater than 101 and Zofran 4 mg IV every 6 hours p.r.n. nausea and vomiting. The patient continues on a clear liquid diet under the direction of Dr. Ashkan Ramirez, GI. He is awaiting resulting of Salmonella, Shigella and stool electrolytes studies as well as stool for C. diff toxin and culture results. He will have a hemoglobin/hematocrit repeated in the morning to date. Blood culture showed no growth and his stool for ova and parasite is showing no ova or parasite seen. Based on his clinical results, pathology report review, additional testing and interventions will be entertained. All of the above was discussed in detail with patient, nursing and Dr. Ramirez. All questions were answered. Mansi Cuevas MD MTDD
[2017-12-20] MEDS: Morphine 2 mg/2 mL syringe IVP PRN (22:08)
[2017-12-21] MEDS: Levalbuterol 0.63 MG/3 ML Inhal Soln UD IH SCH ×4 (01:33→19:28)
[2017-12-21] MEDS: Dextrose 5%/0.45% NS 1,000 ML IV SCH ×2 (05:34→16:00)
[2017-12-21] MEDS: Arformoterol 15 mcg/2 ml Inh Sol IH SCH ×2 (07:18→19:28)
[2017-12-21] MEDS: Budesonide 0.25 mg/2 ml Inhal Susp UD IH SCH ×2 (07:19→19:28)
[2017-12-21 07:20] LABS: HEMOGLOBIN 10.7 g/dL (14.0-18.0)
[2017-12-21] MEDS: Insulin Reg-LOW-Coverage SC SCH ×4 (07:43→21:29)
[2017-12-21 08:32] LABS: BASO # 0.03 K/mm3 (0.0-2.0); BASO % 0.3 % (0.0-3.0); EOS # 0.6 (0.0-0.7); GRAN # 6.04 (1.4-6.5); GRAN % 60.9 % (50.0-68.0); HEMOGLOBIN 10.7 g/dL (14.0-18.0); LYMPH # 2.3 (1.2-3.4); LYMPH % 23.4 % (22.0-35.0); MEAN CELL VOLUME 82.3 fl (80.0-105.0); MEAN CORPUSCULAR HEMOGLOBIN 25.2 pg (25.0-35.0); MEAN CORPUSCULAR HGB CONC 30.7 g/dl (31.0-37.0); MEAN PLATELET VOLUME 8.4 fl (7.0-11.0); MONO # 0.9 (0.1-0.6); MONO % 9.4 % (1.0-6.0); RBC 4.24 10^6/uL (3.5-6.1); RED CELL DISTRIBUTION WIDTH 16.7 % (11.5-14.5); WHITE BLOOD COUNT 9.9 10^3/ul (4.5-11.0)
[2017-12-21 08:43] LABS: ALB/GLOB RATIO 0.9 (1.1-1.8); ALBUMIN 3.5 g/dL (3.0-4.8); ALT/SGPT 29 U/L (7-56); AST/SGOT 21 U/L (17-59); BLOOD UREA NITROGEN 5 mg/dL (7-21); CALCIUM 8.6 mg/dL (8.4-10.5); GFR AFRICAN-AMERICAN > 60; GFR NON-AFRICAN AMERICAN > 60
--- NOTE | 2017-12-21 11:39 | CP.PCM.PN ---
<Jose Jin - Last Filed: 12/21/17 17:42> Subjective - Date & Time of Evaluation Date of Evaluation: 12/21/17 Time of Evaluation: 08:00 - Subjective Subjective: GI Progress Note for Dr. Ashley Jin, PGY-3 IM Patient seen and examined at bedside. No acute complaints. No acute events reported overnight. No further emesis or episodes of bloody diarrhea, but is still having watery diarrhea. Some abd pain with meal overnight, but tolerated breakfast without issue today. Objective - Vital Signs/Intake and Output Vital Signs (last 24 hours): Temp Pulse Resp BP Pulse Ox 97.9 F 76 20 112/67 98 12/21/17 06:00 12/21/17 06:00 12/21/17 06:00 12/21/17 06:00 12/21/17 06:00 Intake and Output: 12/21/17 12/21/17 06:59 18:59 Intake Total 600 Balance 600 - Medications Medications: Current Medications Acetaminophen (Tylenol 325mg Tab) 650 mg PO Q6H PRN PRN Reason: Pain, Mild (1-3) Arformoterol Tartrate (Brovana) 15 mcg IH [id number] [facility] Last Admin: 12/21/17 07:18 Dose: 15 mcg Budesonide (Pulmicort Respules) 0.25 mg IH [id number] [facility] Last Admin: 12/21/17 07:19 Dose: 0.25 mg Famotidine (Pepcid) 20 mg IVP DAILY [facility] Last Admin: 12/21/17 09:49 Dose: 20 mg Dextrose/Sodium Chloride (Dextrose 5%/0.45% Ns 1000 Ml) 1,000 mls @ 125 mls/hr IV .Q8H [facility] Last Admin: 12/21/17 05:34 Dose: 125 mls/hr Metronidazole (Flagyl) 500 mg in 100 mls @ 100 mls/hr IVPB Q8 [facility] PRN Reason: Protocol Insulin Human Regular (Humulin R Low) 0 units SC ACHS [facility] PRN Reason: Protocol Last Admin: 12/21/17 11:01 Dose: Not Given Levalbuterol HCl (Xopenex) 0.63 mg IH [id number] [facility] Last Admin: 12/21/17 07:18 Dose: 0.63 mg Morphine Sulfate (Morphine) 2 mg IVP Q4H PRN PRN Reason: Pain, severe (8-10) Last Admin: 12/20/17 22:08 Dose: 2 mg Ondansetron HCl (Zofran Inj) 4 mg IVP Q6H PRN PRN Reason: Nausea/Vomiting - Labs Labs: 12/21/17 07:36 12/21/17 07:36 - Additional Findings Additional findings: - Constitutional Appears: Non-toxic, No Acute Distress - Head Exam Head Exam: ATRAUMATIC, NORMAL INSPECTION, NORMOCEPHALIC - Eye Exam Eye Exam: EOMI, Normal appearance. absent: Conjunctival injection, Scleral icterus Pupil Exam: absent: Fixed, Irregular - ENT Exam ENT Exam: Mucous Membranes Moist - Neck Exam Neck Exam: Normal Inspection - Respiratory Exam Respiratory Exam: Clear to Ausculation Bilateral, NORMAL BREATHING PATTERN. absent: Accessory Muscle Use, Chest Wall Tenderness, Decreased Breath Sounds, Prolonged Expiratory Phase, Rales, Rhonchi, Wheezes, Respiratory Distress - Cardiovascular Exam Cardiovascular Exam: REGULAR RHYTHM, RRR, +S1, +S2. absent: Bradycardia, Tachycardia, Irregular Rhythm, JVD, +S4 - GI/Abdominal Exam GI & Abdominal Exam: Soft, Tenderness (mild LUQ tenderness), Normal Bowel Sounds. absent: Distended, Firm, Guarding, Rigid, Diminished Bowel Sounds, Hyperactive Bowel Sounds, Hypoactive Bowel Sounds - Rectal Exam Rectal Exam: Deferred - Extremities Exam Extremities Exam: Normal Capillary Refill, Normal Inspection. absent: Calf Tenderness, Pedal Edema, Tenderness - Back Exam Back Exam: absent: CVA tenderness (L), CVA tenderness (R) - Neurological Exam Neurological Exam: Alert, Awake, Oriented x3 - Psychiatric Exam Psychiatric exam: Normal Affect, Normal Mood - Skin Skin Exam: Dry, Intact, Normal Color, Warm Assessment and Plan - Assessment and Plan (Free Text) Assessment: This is a 42-year-old male with past medical hx of DM, HTN, IBD diagnosed in 2003 presents with upper abdominal pain, nausea, vomiting and diarrhea. Believes this is a Crohn's flare (reports last was 7 yr ago). GI consulted for N/V, bloody diarrhea, suspected Crohn's flare. Plan: -Continue supportive care -CT imaging with thickening of descending colon -continue IV flagyl, stop cipro -will start on mesalamine, 800mg TID -tolerating full liquid diet, will trial advancement tomorrow -Stool studies, fecal calprotectin pending -Request records for prior diagnosis of IBD, patient reports made request from [facility] but hasn't gotten response -Pt will need outpt colonoscopy for CRC screening colonoscopy with hx of IBD <Ashkan Ramirez V - Last Filed: 12/22/17 23:37> Objective - Vital Signs/Intake and Output Vital Signs (last 24 hours): Temp Pulse Resp BP Pulse Ox 98.3 F 77 20 123/77 100 12/22/17 22:06 12/22/17 22:06 12/22/17 22:06 12/22/17 22:06 12/22/17 22:06 - Medications Medications: Current Medications Acetaminophen (Tylenol 325mg Tab) 650 mg PO Q6H PRN PRN Reason: Pain, Mild (1-3) Arformoterol Tartrate (Brovana) 15 mcg IH [id number] [facility] Last Admin: 12/22/17 19:29 Dose: 15 mcg Budesonide (Pulmicort Respules) 0.25 mg IH [id number] [facility] Last Admin: 12/22/17 19:29 Dose: 0.25 mg Famotidine (Pepcid) 20 mg IVP DAILY [facility] Last Admin: 12/22/17 09:30 Dose: 20 mg Dextrose/Sodium Chloride (Dextrose 5%/0.45% Ns 1000 Ml) 1,000 mls @ 125 mls/hr IV .Q8H [facility] Last Admin: 12/22/17 21:03 Dose: Not Given Metronidazole (Flagyl) 500 mg in 100 mls @ 100 mls/hr IVPB Q8 [facility] PRN Reason: Protocol Last Admin: 12/22/17 21:19 Dose: 100 mls/hr Insulin Human Regular (Humulin R Low) 0 units SC ACHS [facility] PRN Reason: Protocol Last Admin: 12/22/17 21:19 Dose: Not Given Levalbuterol HCl (Xopenex) 0.63 mg IH [id number] [facility] Last Admin: 12/22/17 19:29 Dose: 0.63 mg Mesalamine (Asacol Hd 800mg) 800 mg PO TID [facility] Last Admin: 12/22/17 18:02 Dose: 800 mg Ondansetron HCl (Zofran Inj) 4 mg IVP Q6H PRN PRN Reason: Nausea/Vomiting - Labs Labs: 12/21/17 07:36 12/21/17 07:36 Attending/Attestation - Attestation I have personally seen and examined this patient.: Yes I have fully participated in the care of the patient.: Yes I have reviewed all pertinent clinical information, including history, physical exam and plan: Yes Notes (Text): ty 12/22/17 23:37
[2017-12-21] MEDS: metroNIDAZOLE IV 500 mg/100 ml 500 MG/100 ML BAG IVPB SCH ×2 (13:46→21:31)
[2017-12-21] MEDS: Mesalamine 800 mg DR Tab PO SCH (17:44)
[2017-12-22] MEDS: Levalbuterol 0.63 MG/3 ML Inhal Soln UD IH SCH ×4 (01:23→19:29)
[2017-12-22] MEDS: metroNIDAZOLE IV 500 mg/100 ml 500 MG/100 ML BAG IVPB SCH ×3 (06:19→21:19)
[2017-12-22] MEDS: Budesonide 0.25 mg/2 ml Inhal Susp UD IH SCH ×2 (07:19→19:29)
[2017-12-22] MEDS: Arformoterol 15 mcg/2 ml Inh Sol IH SCH ×2 (07:20→19:29)
[2017-12-22] MEDS: Mesalamine 800 mg DR Tab PO SCH ×3 (09:30→18:02)
[2017-12-22] MEDS: Insulin Reg-LOW-Coverage SC SCH ×4 (09:31→21:19)
[2017-12-22] MEDS: Dextrose 5%/0.45% NS 1,000 ML IV SCH ×3 (09:31→21:03)
--- NOTE | 2017-12-22 16:58 | CP.PCM.PN ---
<Jose Jin - Last Filed: 12/22/17 16:55> Subjective - Date & Time of Evaluation Date of Evaluation: 12/22/17 Time of Evaluation: 08:30 - Subjective Subjective: GI Progress Note for Dr. Aslhey Jin, PGY-3 IM Patient seen and examined at bedside. No acute complaints. No acute events reported overnight. Tolerating diet well. Reports improvement in diarrhea, now loose stools as opposed to purely watery diarrhea. No complaints of abd pain, nausea, emesis, bloody diarrhea. Objective - Vital Signs/Intake and Output Vital Signs (last 24 hours): Temp Pulse Resp BP Pulse Ox 98.2 F 69 20 115/68 99 12/22/17 06:00 12/22/17 06:00 12/22/17 06:00 12/22/17 06:00 12/22/17 06:00 Intake and Output: 12/22/17 12/22/17 06:59 18:59 Intake Total 600 Balance 600 - Medications Medications: Current Medications Acetaminophen (Tylenol 325mg Tab) 650 mg PO Q6H PRN PRN Reason: Pain, Mild (1-3) Arformoterol Tartrate (Brovana) 15 mcg IH [id number] [facility] Last Admin: 12/22/17 07:20 Dose: 15 mcg Budesonide (Pulmicort Respules) 0.25 mg IH [id number] [facility] Last Admin: 12/22/17 07:19 Dose: 0.25 mg Famotidine (Pepcid) 20 mg IVP DAILY [facility] Last Admin: 12/22/17 09:30 Dose: 20 mg Dextrose/Sodium Chloride (Dextrose 5%/0.45% Ns 1000 Ml) 1,000 mls @ 125 mls/hr IV .Q8H [facility] Last Admin: 12/22/17 14:30 Dose: Not Given Metronidazole (Flagyl) 500 mg in 100 mls @ 100 mls/hr IVPB Q8 [facility] PRN Reason: Protocol Last Admin: 12/22/17 14:30 Dose: 100 mls/hr Insulin Human Regular (Humulin R Low) 0 units SC ACHS [facility] PRN Reason: Protocol Last Admin: 12/22/17 14:31 Dose: Not Given Levalbuterol HCl (Xopenex) 0.63 mg IH [id number] [facility] Last Admin: 12/22/17 13:18 Dose: 0.63 mg Mesalamine (Asacol Hd 800mg) 800 mg PO TID [facility] Last Admin: 12/22/17 14:30 Dose: 800 mg Ondansetron HCl (Zofran Inj) 4 mg IVP Q6H PRN PRN Reason: Nausea/Vomiting - Labs Labs: 12/21/17 07:36 12/21/17 07:36 - Additional Findings Additional findings: - Constitutional Appears: Non-toxic, No Acute Distress - Head Exam Head Exam: ATRAUMATIC, NORMAL INSPECTION, NORMOCEPHALIC - Eye Exam Eye Exam: Normal appearance. absent: Conjunctival injection, Scleral icterus Pupil Exam: absent: Fixed, Irregular - ENT Exam ENT Exam: Mucous Membranes Moist - Neck Exam Neck Exam: Normal Inspection - Respiratory Exam Respiratory Exam: Clear to Ausculation Bilateral, NORMAL BREATHING PATTERN. absent: Accessory Muscle Use, Chest Wall Tenderness, Decreased Breath Sounds, Prolonged Expiratory Phase, Rales, Rhonchi, Wheezes, Respiratory Distress - Cardiovascular Exam Cardiovascular Exam: REGULAR RHYTHM, RRR, +S1, +S2. absent: Bradycardia, Tachycardia, Irregular Rhythm, JVD, +S4 - GI/Abdominal Exam GI & Abdominal Exam: Soft, Normal Bowel Sounds. absent: Tenderness, Distended, Firm, Guarding, Rigid, Diminished Bowel Sounds, Hyperactive Bowel Sounds, Hypoactive Bowel Sounds - Rectal Exam Rectal Exam: Deferred - Extremities Exam Extremities Exam: Normal Capillary Refill, Normal Inspection. absent: Calf Tenderness, Pedal Edema, Tenderness - Back Exam Back Exam: absent: CVA tenderness (L), CVA tenderness (R) - Neurological Exam Neurological Exam: Alert, Awake, Oriented x3 - Psychiatric Exam Psychiatric exam: Normal Affect, Normal Mood - Skin Skin Exam: Dry, Intact, Normal Color, Warm Assessment and Plan - Assessment and Plan (Free Text) Assessment: This is a 42-year-old male with past medical hx of DM, HTN, IBD diagnosed in 2003 presents with upper abdominal pain, nausea, vomiting and diarrhea. Believes this is a Crohn's flare (reports last was 7 yr ago). GI consulted for N/V, bloody diarrhea, suspected Crohn's flare. Plan: -Continue supportive care -CT imaging with thickening of descending colon -continue IV flagyl, continue mesalamine -tolerating soft diet -Stool studies, fecal calprotectin pending -Request records for prior diagnosis of IBD, patient reports made request from [facility] but hasn't gotten response -Pt will need outpt colonoscopy for CRC screening colonoscopy with hx of IBD -Monitor on mesalamine and soft diet today, if diarrhea continues to improve then from GI standpoint would be safe for discharge tomorrow Reviewed and discussed with attending, Dr. Ramirez. <Ashkan Ramirez V - Last Filed: 12/22/17 23:37> Objective - Vital Signs/Intake and Output Vital Signs (last 24 hours): Temp Pulse Resp BP Pulse Ox 98.3 F 77 20 123/77 100 12/22/17 22:06 12/22/17 22:06 12/22/17 22:06 12/22/17 22:06 12/22/17 22:06 - Medications Medications: Current Medications Acetaminophen (Tylenol 325mg Tab) 650 mg PO Q6H PRN PRN Reason: Pain, Mild (1-3) Arformoterol Tartrate (Brovana) 15 mcg IH [id number] [facility] Last Admin: 12/22/17 19:29 Dose: 15 mcg Budesonide (Pulmicort Respules) 0.25 mg IH [id number] [facility] Last Admin: 12/22/17 19:29 Dose: 0.25 mg Famotidine (Pepcid) 20 mg IVP DAILY [facility] Last Admin: 12/22/17 09:30 Dose: 20 mg Dextrose/Sodium Chloride (Dextrose 5%/0.45% Ns 1000 Ml) 1,000 mls @ 125 mls/hr IV .Q8H [facility] Last Admin: 12/22/17 21:03 Dose: Not Given Metronidazole (Flagyl) 500 mg in 100 mls @ 100 mls/hr IVPB Q8 [facility] PRN Reason: Protocol Last Admin: 12/22/17 21:19 Dose: 100 mls/hr Insulin Human Regular (Humulin R Low) 0 units SC ACHS [facility] PRN Reason: Protocol Last Admin: 12/22/17 21:19 Dose: Not Given Levalbuterol HCl (Xopenex) 0.63 mg IH [id number] [facility] Last Admin: 12/22/17 19:29 Dose: 0.63 mg Mesalamine (Asacol Hd 800mg) 800 mg PO TID [facility] Last Admin: 12/22/17 18:02 Dose: 800 mg Ondansetron HCl (Zofran Inj) 4 mg IVP Q6H PRN PRN Reason: Nausea/Vomiting - Labs Labs: 12/21/17 07:36 12/21/17 07:36 Attending/Attestation - Attestation I have personally seen and examined this patient.: Yes I have fully participated in the care of the patient.: Yes I have reviewed all pertinent clinical information, including history, physical exam and plan: Yes
[2017-12-23] MEDS: Levalbuterol 0.63 MG/3 ML Inhal Soln UD IH SCH ×3 (01:19→13:32)
[2017-12-23] MEDS: Dextrose 5%/0.45% NS 1,000 ML IV SCH (04:58)
[2017-12-23] MEDS: metroNIDAZOLE IV 500 mg/100 ml 500 MG/100 ML BAG IVPB SCH (04:59)
[2017-12-23] MEDS: Budesonide 0.25 mg/2 ml Inhal Susp UD IH SCH (07:01)
[2017-12-23] MEDS: Arformoterol 15 mcg/2 ml Inh Sol IH SCH (07:01)
[2017-12-23 07:40] VITALS: BP 113/67; PULSE 78; RESP 18; TEMP 98.2; O2SAT 98
[2017-12-23] MEDS: Insulin Reg-LOW-Coverage SC SCH ×2 (10:05→13:40)
--- NOTE | 2017-12-23 10:07 | CP.PCM.PN ---
Subjective - Date & Time of Evaluation Date of Evaluation: 12/23/17 Time of Evaluation: 08:00 - Subjective Subjective: GI Progress Note for Dr. Ashley Jin, PGY-3 IM Patient seen and examined at bedside. No acute complaints. No acute events reported overnight. Tolerating diet well. More solid stools while on mesalamine, no further watery diarrhea, minimal loose stools. No complaints of abd pain, nausea, emesis, bloody diarrhea. Objective - Vital Signs/Intake and Output Vital Signs (last 24 hours): Temp Pulse Resp BP Pulse Ox 98.2 F 78 18 113/67 98 12/23/17 06:00 12/23/17 06:00 12/23/17 06:00 12/23/17 06:00 12/23/17 06:00 Intake and Output: 12/23/17 12/23/17 06:59 18:59 Intake Total 240 Balance 240 - Medications Medications: Current Medications Acetaminophen (Tylenol 325mg Tab) 650 mg PO Q6H PRN PRN Reason: Pain, Mild (1-3) Arformoterol Tartrate (Brovana) 15 mcg IH [id number] [facility] Last Admin: 12/23/17 07:01 Dose: 15 mcg Budesonide (Pulmicort Respules) 0.25 mg IH [id number] [facility] Last Admin: 12/23/17 07:01 Dose: 0.25 mg Famotidine (Pepcid) 20 mg IVP DAILY [facility] Last Admin: 12/22/17 09:30 Dose: 20 mg Dextrose/Sodium Chloride (Dextrose 5%/0.45% Ns 1000 Ml) 1,000 mls @ 125 mls/hr IV .Q8H [facility] Last Admin: 12/23/17 04:58 Dose: Not Given Metronidazole (Flagyl) 500 mg in 100 mls @ 100 mls/hr IVPB Q8 [facility] PRN Reason: Protocol Last Admin: 12/23/17 04:59 Dose: 100 mls/hr Insulin Human Regular (Humulin R Low) 0 units SC ACHS [facility] PRN Reason: Protocol Last Admin: 12/22/17 21:19 Dose: Not Given Levalbuterol HCl (Xopenex) 0.63 mg IH [id number] [facility] Last Admin: 12/23/17 07:01 Dose: 0.63 mg Mesalamine (Asacol Hd 800mg) 800 mg PO TID [facility] Last Admin: 12/22/17 18:02 Dose: 800 mg Ondansetron HCl (Zofran Inj) 4 mg IVP Q6H PRN PRN Reason: Nausea/Vomiting - Labs Labs: 12/21/17 07:36 12/21/17 07:36 - Additional Findings Additional findings: - Constitutional Appears: Non-toxic, No Acute Distress - Head Exam Head Exam: ATRAUMATIC, NORMAL INSPECTION, NORMOCEPHALIC - Eye Exam Eye Exam: Normal appearance. absent: Conjunctival injection, Scleral icterus Pupil Exam: absent: Fixed, Irregular - ENT Exam ENT Exam: Mucous Membranes Moist - Respiratory Exam Respiratory Exam: Clear to Ausculation Bilateral, NORMAL BREATHING PATTERN. absent: Accessory Muscle Use, Chest Wall Tenderness, Decreased Breath Sounds, Prolonged Expiratory Phase, Rales, Rhonchi, Wheezes, Respiratory Distress - Cardiovascular Exam Cardiovascular Exam: REGULAR RHYTHM, RRR, +S1, +S2. absent: Bradycardia, Tachycardia, Irregular Rhythm, JVD, +S4 - GI/Abdominal Exam GI & Abdominal Exam: Soft, Normal Bowel Sounds. absent: Tenderness, Distended, Firm, Guarding, Rigid, Diminished Bowel Sounds, Hyperactive Bowel Sounds, Hypoactive Bowel Sounds - Extremities Exam Extremities Exam: Normal Capillary Refill, Normal Inspection. absent: Calf Tenderness, Pedal Edema, Tenderness - Neurological Exam Neurological Exam: Awake and alert, moving all extremities spontaneously, following all commands appropriately - Psychiatric Exam Psychiatric exam: Normal Affect, Normal Mood - Skin Skin Exam: Dry, Intact, Normal Color, Warm Assessment and Plan - Assessment and Plan (Free Text) Assessment: This is a 42-year-old male with past medical hx of DM, HTN, IBD diagnosed in 2003 presents with upper abdominal pain, nausea, vomiting and diarrhea. Believes this is a Crohn's flare (reports last was 7 yr ago). GI consulted for N/V, bloody diarrhea, suspected Crohn's flare. Plan: -Continue supportive care -CT imaging with thickening of descending colon -continue IV flagyl, continue mesalamine -tolerating soft diet -Stool studies, fecal calprotectin pending -Request records for prior diagnosis of IBD, patient reports made request from [facility] but hasn't gotten response -Pt will need outpt colonoscopy for CRC screening colonoscopy with hx of IBD From GI standpoint, given toleration of diet and resolution of diarrhea, stable for discharge to home. Would recommend continuing mesalamine on discharge, patient tolerating well and reports has done well on mesalamine in the past. Recommend outpatient follow up and eventual Colonoscopy after inflammation fully resolved. Transmitted 1 month script for mesalamine to his pharmacy of choice. Dispo: follow up with Dr. Ramirez for reassessment and outpatient colonoscopy after discharge, follow up with Dr. Cuevas after discharge Reviewed and discussed with attending, Dr. Ramirez.
[2017-12-23] MEDS: Mesalamine 800 mg DR Tab PO SCH (10:08)
--- NOTE | 2017-12-23 10:19 | PN ---
DATE OF EXAM: 12/21/2017 SUBJECTIVE: This 42-year-old male was examined at his bedside and this case was reviewed with Dr. Ashkan Ramirez from GI. This patient was admitted with bloody bowel movements, left lower quadrant abdominal pain and required parenteral morphine for pain management as well as IV fluids and IV antibiotics. At present, the patient is tolerating a clear liquid diet and denies any further bright red blood per rectum. As discussed with Dr. Ashkan Ramirez, skilled nursing facilities professional, we are awaiting pathology reports from [facility] to verify his correct diagnosis and whether it is irritable bowel syndrome or indeed Crohn's disease. PHYSICAL EXAMINATION: VITAL SIGNS: At present, on physical exam, the patient has a temperature of 97.9, respirations 20, pulse 76, blood pressure 112/67 and a pulse ox of 98% on room air. HEENT: Head normocephalic, atraumatic. Eyes: No icterus. Ears: Clear. Throat: Noninjected. NECK: Supple. HEART: Regular S1, S2. LUNGS: Clear. ABDOMEN: Obese, nontender. No rebound. No guarding. EXTREMITIES: No clubbing, no cyanosis, no edema. SKIN: No rash. VASCULAR: Legs warm to touch. PSYCHOLOGICAL: Alert. NEURO: Intact. LABORATORY DATA: Hemoglobin 10.7, hematocrit 34.8, random blood sugar was 99. Sodium 142, K 3.9, chloride 105, bicarb 26, BUN 5, creatinine 0.9, calcium 8.6, phosphorous 3.6, magnesium 2.1, bilirubin 0.3, AST 21, ALT 29 and alk phos 134. IMPRESSION: A 42-year-old male admitted with bright red blood per rectum, left lower quadrant abdominal pain and history of irritable bowel syndrome versus Crohn's disease with comorbidities of obesity, [id number] diabetes mellitus and asthmatic bronchitis. PLAN: The plan at present is to start the patient on Asacol 800 mg p.o. t.i.d. while continuing Brovana inhalational therapy every 12, Pulmicort inhalational therapy every 12 and Xopenex 0.63 mg inhalational every 6 hours. The patient continues on D5 0.45 saline at 125 mL per hour and is ordered to receive Flagyl 500 mg IV every 8. He is scheduled for Humulin R low-dose insulin coverage before meals and at bedtime, Pepcid 20 mg IV daily, Tylenol 650 p.o. every 6 hours p.r.n. [id number] pain or temperature greater than 101, morphine sulfate 2 mg IV every 4 hours p.r.n. severe pain and Zofran 4 mg IV every 6 hours p.r.n. nausea, vomiting. The patient is on a clear liquid diet. His diet will be advanced based on his clinical progress and additional diagnostic testing and interventions will be entertained based on his progress, lab testing and results of his pathology report findings. All of this was discussed with the patient and Dr. Ashkan Ramirez. All questions were answered. Mansi Cuevas MD MTDRaul
--- NOTE | 2017-12-23 10:47 | PN ---
DATE OF EXAM: 12/22/2017 SUBJECTIVE: This 42-year-old male was examined at bedside and case was reviewed in detail with the jewelry salesperson, Dr. Ashkan Ramirez. The patient remains hospitalized, awaiting pathology reports from [facility] regarding his correct GI or gastrointestinal pathology diagnosis of irritable bowel syndrome versus Crohn's disease. This patient was admitted with bright red blood per rectum and left lower quadrant pain and had signs of inflammation of his colon on abdominal CAT scan. At present, he is abdominal pain free and not requiring morphine parenterally. This morning, his diet was advanced and he is ordered to receive a low-fat soft bland diet. He has just had his lunch served, but not eaten yet. He denies any fever, chills, chest pain or shortness of breath. PHYSICAL EXAMINATION: VITAL SIGNS: On physical exam was noted to have a temperature of 98.4, respirations 20, pulse 73 and blood pressure 117/72 and a pulse ox of 98% room air. HEENT: Head normocephalic, atraumatic. Eyes: No icterus. Ears: Clear. Throat: Noninjected. NECK: Supple. HEART: Regular S1, S2. LUNGS: Clear. ABDOMEN: Obese, nontender. No rebound. No guarding. EXTREMITIES: No edema. SKIN: No rash. VASCULAR: Legs warm to touch. PSYCHOLOGICAL: Alert and oriented x3. NEURO: Intact. LABORATORY DATA: His blood sugars ranged between 88 and 99 mg/dL, BUN 5, creatinine 0.9, AST 21, ALT 29, bilirubin 0.3, hemoglobin 10.7, hematocrit 34.9. IMPRESSION: A 42-year-old male, admitted with bright red blood per rectum, left lower quadrant pain and inflammation on CT of abdomen with history of Crohn's versus irritable bowel syndrome and comorbidities of chronic obstructive pulmonary disease and type 2 diabetes mellitus and obesity. PLAN: The plan at present is to continue Asacol, Brovana, D5 0.45 saline IV fluids at 125 mL/hour, IV Flagyl, Humulin R insulin coverage, Pepcid, inhalational Pulmicort, inhalational Xopenex and Zofran p.r.n. nausea, vomiting. We are awaiting pathology reports to determine the best course of intervention. The patient will require outpatient colonoscopy and endoscopy and iron supplementation upon stabilization of his current symptomatology and all of this was discussed in detail with the patient at his bedside. Pending GI clearance, this patient will be readied for discharge to home. All of the above was discussed with the patient. All questions were answered. Mansi Cuevas MD TARIK
--- NOTE | 2017-12-24 03:39 | DS ---
DATE OF EXAM: 12/23/2017 FINAL DIAGNOSES: Crohn disease; irritable bowel syndrome; bright red blood per rectum, resolved; abdominal pain, resolved; iron-deficiency anemia; anemia of chronic disease; type 2 diabetes mellitus; asthmatic bronchitis; obesity. DISPOSITION: Home. DISABILITY ADVOCATE: Ashkan Ramirez MD from . DISCHARGE DIET: Soft bland low-residue. DISCHARGE MEDICATIONS: Asacol 800 mg p.o. t.i.d., Glucophage 500 mg p.o. b.i.d., Glucotrol 10 mg p.o. b.i.d., Advair 250 - 50 one puff b.i.d., Proventil HFA inhaler 1 puff every 6 hours p.r.n. and Pepcid 20 mg p.o. daily. SUMMARY: This 42-year-old male was admitted to the [facility] with abdominal pain, bright red blood per rectum and anemia consistent with iron deficiency in the setting of inflammatory changes of his colon on CT exam. The patient carries a diagnosis of Crohn's and irritable bowel, was seen in consultation by Dr. Ashkan Ramirez. Initially, the patient was made n.p.o., treated with parenteral fluids, IV antibiotics including IV Rocephin and Flagyl and given insulin coverage. Clinical symptoms improved. He no longer required parenteral morphine for pain control and bright red blood per rectum ceased. At the time of discharge, the patient was on a soft bland diet, off all parenteral analgesia and passing soft brown bowel movements. PHYSICAL EXAMINATION VITAL SIGNS: Temperature of 98.2, respirations 18, pulse 78 and blood pressure 113/67 with a pulse ox of 98% on room air. ABDOMEN: Benign. LABORATORY DATA: White count 9900, hemoglobin 10.7, hematocrit 34.9, platelets 581,000. Random blood sugar 83 and sodium 142, K 3.9, chloride 105, bicarb 26, BUN 5 and creatinine 0.9. All liver function testing was acceptable with bilirubin 0.3, AST 21, ALT 29 and alkaline phosphatase 134. ASSESSMENT AND PLAN: The patient is cleared for discharge to home, will be seen in my office 01/03/2018 and has a followup appointment with Dr. Ashkan Ramirez from and we will require outpatient endoscopy, colonoscopy iron replacement therapy when stable. At present, we are still awaiting pathology reports for confirmation of diagnosis from [facility] where the patient has had previous biopsies and all of the above was explained to the patient at bedside. All questions were answered. Mansi Cuevas MD TARIK
== END 2017-12-23 15:27 | disposition home or self-care (01) | DRG 387 ==
LOC: ED 15:09 → ERH 18:59 → 5RNO 20:51 → OBSVTOIN 12-19 13:04
PROVIDERS: ADMIT Internal Medicine; ATTEND Internal Medicine
DX: K50.911 Crohn's disease, unspecified, with rectal bleeding (principal); D50.9 Iron deficiency anemia, unspecified; D63.8 Anemia in other chronic diseases classified elsewhere; E11.9 Type 2 diabetes mellitus without complications; E66.9 Obesity, unspecified; I10 Essential (primary) hypertension; J45.909 Unspecified asthma, uncomplicated; K58.9 Irritable bowel syndrome, unspecified; R63.3 Feeding difficulties; Z90.49 Acquired absence of other specified parts of digestive tract; Z88.0 Allergy status to penicillin; Z91.013 Allergy to seafood; Z87.892 Personal history of anaphylaxis; Z68.35 Body mass index [BMI] 35.0-35.9, adult

== ENCOUNTER 2017-12-31 09:50 | Inpatient (IN) | payer OTHER ==
[2017-12-31] MEDS ORDERED: metroNIDAZOLE IV 500 mg/100 ml 500 MG/100 ML BAG IVPB STA (10:46)
[2017-12-31] MEDS ORDERED: Ciprofloxacin 400mg/200ml D5W 400 MG/200 ML BAG IVPB STA (10:46)
[2017-12-31] MEDS ORDERED: Sodium Chloride 0.9% 1,000 ML IV ONE (10:48)
--- NOTE | 2017-12-31 10:59 | ED PDOC ---
Arrival/HPI - General Historian: Patient - History of Present Illness Time/Duration: 24 hours Symptom Onset: Gradual Symptom Course: Worsening Quality: Aching, Cramping, Gas Like Severity Level: 8 - General Chief Complaint: GI Problem Time Seen by Provider: 12/31/17 10:23 - History of Present Illness Narrative History of Present Illness (Text): 12/31/17 10:55 Patient is a 42 year old male with PMH of IBD, DM2, who presents to ED with abdominal pain, nausea/vomiting, and diarrhea worsening since yesterday morning. He states that he was released from the hospital last week for a similar Crohn's flare. He states that he was diagnosed with Crohn's after biopsies at a hospital in [place] in 2003. He states that since 2003, he hasn't had another flare until last month. He states that he was not discharged home on any antibiotics and was given mesalazine which had controlled his Crohn' s in the past. He describes his abdominal pain as a burning pain in his mid- epigastric region that has been worsening. He rates the pain as 8/10. ( Giovanni Dejesus) Past Medical History - Provider Review Nursing Documentation Reviewed: Yes - Travel History Have you recently traveled outside [place] w/in the past 3 mons?: No - Infectious Disease Hx of Infectious Diseases: None - Tetanus Immunization Tetanus Immunization: Unknown - Cardiac Hx Cardiac Disorders: Yes - Pulmonary Hx Respiratory Disorders: Yes Hx Asthma: Yes - Neurological Hx Neurological Disorder: No - HEENT Hx HEENT Disorder: No - Renal Hx Renal Disorder: No - Endocrine/Metabolic Hx Endocrine Disorders: Yes Hx Diabetes Mellitus Type 2: Yes - Hematological/Oncological Hx Blood Disorders: No - Integumentary Hx Dermatological Disorder: No - Musculoskeletal/Rheumatological Hx Falls: No - Gastrointestinal Hx Gastrointestinal Disorders: Yes Hx Crohn's Disease: Yes - Genitourinary/Gynecological Hx Genitourinary Disorders: No - Psychiatric Hx Psychophysiologic Disorder: No Hx Depression: No Hx Emotional Abuse: No Hx Physical Abuse: No Hx Substance Use: No - Surgical History Hx Cholecystectomy: Yes Other/Comment: DVT right calf- pt has now iv filter - Anesthesia Hx Anesthesia: Yes Hx Anesthesia Reactions: No Hx Malignant Hyperthermia: No - Suicidal Assessment Feels Threatened In Home Enviroment: No Family/Social History - Physician Review Nursing Documentation Reviewed: Yes Family/Social History: Diabetes Smoking Status: Never Smoked Hx Alcohol Use: No Hx Substance Use: No Hx Substance Use Treatment: No Allergies/Home Meds Allergies/Adverse Reactions: Allergies Penicillins Allergy (Verified 12/31/17 15:09) ANAPHYLAXIS shellfish derived Allergy (Verified 12/31/17 15:09) ANAPHYLAXIS Home Medications: Home Meds Medication Instructions Recorded Confirmed Albuterol Sulfate [Proventil Hfa] 0.09 mg IH PRN PRN 11/03/17 12/31/17 Fluticasone/Salmeterol [Advair 1 each IH BID 11/03/17 12/31/17 250-50 Diskus] Review of Systems - Review of Systems Constitutional: Other (chills). absent: Weight Change, Fevers, Night Sweats Eyes: absent: Vision Changes ENT: absent: Sore Throat Respiratory: absent: SOB, Cough Cardiovascular: absent: Chest Pain, Palpitations Gastrointestinal: Abdominal Pain, Stool Changes, Diarrhea, Nausea, Vomiting, Food Intolerance Genitourinary Male: absent: Dysuria, Frequency Musculoskeletal: absent: Arthralgias, Back Pain Skin: absent: Rash, Pruritis Neurological: absent: Headache, Dizziness Endocrine: absent: Diaphoresis Hemo/Lymphatic: absent: Adenopathy Psychiatric: absent: Anxiety, Depression Physical Exam Vital Signs Reviewed: Yes Temperature: Febrile Blood Pressure: Normal Pulse: Tachycardic Respiratory Rate: Normal Appearance: Positive for: Ill-Appearing, Uncomfortable, Other (shaking from chills) Mental Status: Positive for: Alert and Oriented X 3 - Systems Exam Head: Present: Atraumatic, Normocephalic Pupils: Present: PERRL Extroacular Muscles: Present: EOMI Ears: Present: Normal Mouth: Present: Moist Mucous Membranes Pharnyx: Present: Normal. No: ERYTHEMA, EXUDATE Nose (External): Present: Atraumatic Neck: Present: Normal Range of Motion Respiratory/Chest: Present: Clear to Auscultation. No: Accessory Muscle Use, Wheezes, Rales, Rhonchi Cardiovascular: Present: Normal S1, S2, Tachycardic. No: Murmurs, Rub, Gallop Abdomen: Present: Tenderness. No: Distention, Rebound, Guarding, Mass/ Organomegaly Upper Extremity: Present: Normal Inspection. No: Cyanosis, Edema Lower Extremity: Present: Normal Inspection. No: Edema Skin: Present: Warm, Dry Lymphatic: No: Cervical Adenopathy, Axillary Adenopathy Psychiatric: Present: Alert, Oriented x 3 Vital Signs Temp Pulse Resp BP Pulse Ox 12/31/17 15:23 100.9 F H 96 H 20 135/63 97 12/31/17 14:16 102.9 F H 112 H 20 118/62 97 12/31/17 13:14 103.1 F H 116 H 20 128/76 97 12/31/17 11:27 103.1 F H 12/31/17 10:28 98.5 F 119 H 19 135/65 97 12/31/17 10:18 98.5 F 119 H 19 97 Medical Decision Making - Lab Interpretations I have reviewed the lab results: Yes Interpretation: Abnormal lab values (C/w sepsis, will continue to monitor) - RAD Interpretation Lathe Winder: Radiologist ED Course and Treatment: Patient Seen With Resident: In agreement with resident note. Patient was seen and evaluated with resident, came up with plan and treatment together. (Wolfgang Marcial) 12/31/17 14:17 -Tachycardic, elevated WBC, febrile (Tmax 103.1) on admission -Code sepsis called 1339 -Had trouble getting peripheral IV access, midline PICC order placed successfully -Currently receiving vanc/cipro/flagyl -ICU team saw him, recommended placement in tele as MAP is currently > 65 mmHg -Discussed his case with Dr. Cuevas who agrees to admission -Tmax of 103.1, will give tylenol 975 mg -ID and GI consulted 12/31/17 15:02 -Pain significantly improved s/p single 4 mg dose of morphine -Temp is still elevated, down to 102.9 -Will give motrin 600 mg -Tachycardia improving, MAP is 80, will continue to monitor (Giovanni Dejesus) - Lab Interpretations Microbiology Results: Microbiology Results 12/31/17 11:45 Blood Blood Culture - Preliminary NO GROWTH AFTER 48 HOURS 12/31/17 11:30 Blood Blood Culture - Preliminary NO GROWTH AFTER 48 HOURS Lab Results: 12/31/17 11:30 12/31/17 11:30 Lab Results 12/31/17 11:35: POC Glucose (mg/dL) 86 12/31/17 11:30: pO2 154 H, VBG pH 7.50 H, VBG pCO2 30.0 L, VBG HCO3 23.4, VBG Total CO2 24.3, VBG O2 Sat (Calc) 97.5 H, VBG Base Excess 1.1, VBG Potassium 4.4 , Sodium 133.0, Chloride 100.0, Glucose 124 H, Lactate 2.5 H, FiO2 21.0, Venous Blood Potassium 4.4 12/31/17 11:30: Sodium 134, Chloride 100, Potassium 4.5, Carbon Dioxide 22, Anion Gap 17, BUN 7, Creatinine 0.9, Est GFR ( Amer) > 60, Est GFR (Non- Af Amer) > 60, Random Glucose 123 H, Calcium 8.8, Phosphorus 3.5, Magnesium 1.9 , Total Bilirubin 0.6, AST 73 H D, ALT 58 H, Alkaline Phosphatase 275 H D, Total Protein 8.9 H, Albumin 4.0, Globulin 4.9, Albumin/Globulin Ratio 0.8 L 12/31/17 11:30: WBC 13.7 H D, RBC 3.98, Hgb 10.5 L, Hct 31.7 L, MCV 79.6 L, MCH 26.4, MCHC 33.1, RDW 15.8 H, Plt Count 717 H* D, MPV 8.5, Gran % 81.1 H, Lymph % (Auto) 5.6 L, Bowie % (Auto) 11.6 H, Eos % (Auto) 1.5, Baso % (Auto) 0.2, Gran # 11.13 H, Lymph # (Auto) 0.8 L, Bowie # (Auto) 1.6 H, Eos # (Auto) 0.2, Baso # ( Auto) 0.03 - RAD Interpretation Narrative RAD Interpretations (Text): 12/31/17 14:35 CXR without acute findings. PROCEDURE: CT Abdomen and Pelvis without intravenous contrast FINDINGS: LOWER THORAX: Unremarkable. LIVER: Unremarkable. No gross lesion or ductal dilatation. GALLBLADDER AND BILE DUCTS: Nonvisualization of the gallbladder. Unremarkable bile ducts. PANCREAS: Unremarkable. No gross lesion or ductal dilatation. SPLEEN: Unremarkable. ADRENALS: Unremarkable. No mass. KIDNEYS AND URETERS: Unremarkable. No hydronephrosis. No solid mass. VASCULATURE: Unremarkable. No aortic aneurysm. BOWEL: Fluid-filled loops of bowel limb particular colon consistent with diarrheal state. Resolution of acute findings descending colon identified on the prior study. Evidence of chronic colitis again identified. APPENDIX: Unremarkable. Normal appendix. PERITONEUM: Unremarkable. No free fluid. No free air. LYMPH NODES: Unremarkable. No enlarged lymph nodes. BLADDER: Unremarkable. REPRODUCTIVE: Unremarkable. BONES: No acute fracture. OTHER FINDINGS: None. IMPRESSION: Resolution of acute colitis seen previously. Evidence of chronic/ senescent colitis remain. Row benign (Giovanni Dejesus) Radiology Orders: 12/31/17 11:53 CHEST PORTABLE [RAD] Stat 12/31/17 11:59 ABD & PELVIS W/O PO OR IV CONT [CT] Stat - Medication Orders Current Medication Orders: Acetaminophen (Tylenol 325mg Tab) 325 mg PO Q6 PRN PRN Reason: Pain, moderate (4-7) Last Admin: 01/03/18 00:19 Dose: 325 mg MAR Pain/Vitals Document 01/03/18 00:19 FDE (Rec: 01/03/18 00:19 FDE [id number][place] Pain Reassessment Is This A Pain ReAssessment? Yes Sleep Is patient sleeping during reassessment? Yes Arformoterol Tartrate (Brovana) 15 mcg IH [id number] [facility] Last Admin: 01/02/18 20:40 Dose: 15 mcg Budesonide (Pulmicort Respules) 0.5 mg IH [id number] [facility] Last Admin: 01/02/18 20:40 Dose: 0.5 mg Heparin Sodium (Porcine) (Heparin) 5,000 units SC Q12 CLEMENCIA PRN Reason: Protocol Last Admin: 01/02/18 21:43 Dose: 5,000 units Subcutaneous Administrations Document 01/02/18 21:43 FDE (Rec: 01/02/18 21:43 FDE [id number]) Injection Site MAR Injection Site Right Abdomen Charges for Administration # of Subcutaneous Administrations 1 Sodium Chloride (Sodium Chloride 0.9%) 1,000 mls @ 100 mls/hr IV .Q10H [facility] Last Admin: 01/02/18 21:47 Dose: 100 mls/hr eMAR Start Stop Document 01/02/18 21:47 FDE (Rec: 01/02/18 21:47 FDE [id number]) Intravenous Solution Start Date 01/02/18 Start Time 21:47 Metronidazole (Flagyl) 500 mg in 100 mls @ 100 mls/hr IVPB Q8 CLEMENCIA PRN Reason: Protocol Last Admin: 01/03/18 05:11 Dose: 100 mls/hr eMAR Start Stop Document 01/03/18 05:11 FDE (Rec: 01/03/18 05:11 FDE [id number]) Intravenous Solution Start Date 01/03/18 Start Time 05:11 Aztreonam (Azactam 1 Gm) 100 mls @ 100 mls/hr IVPB Q8 CLEMENCIA PRN Reason: Protocol Last Admin: 01/03/18 05:11 Dose: 100 mls/hr eMAR Start Stop Document 01/03/18 05:11 FDE (Rec: 01/03/18 05:11 FDE [id number]) Intravenous Solution Start Date 01/03/18 Start Time 05:11 Insulin Human Regular (Humulin R Low) 0 units SC ACHS CLEMENCIA PRN Reason: Protocol Last Admin: 01/02/18 22:00 Dose: Not Given Non-Admin Reason: Blood Sugar Parameter [facility] Blood Glucose Document 01/02/18 22:00 FDE (Rec: 01/03/18 00:15 E [id number]) Blood Glucose Finger Stick Blood Glucose (70-120) 114 Mesalamine (Asacol Hd 800mg) 800 mg PO TID [facility] Last Admin: 01/02/18 17:57 Dose: 800 mg Morphine Sulfate (Morphine) 4 mg IVP Q6H PRN PRN Reason: Pain, severe (8-10) Last Admin: 01/02/18 21:43 Dose: 4 mg [facility] Pain Assessment Document 01/02/18 21:43 FDE (Rec: 01/02/18 21:43 FDE [id number]) Pain Reassessment Is this a pain reassessment? Yes Sleep Is patient sleeping during reassessment? No Presence of Pain Presence of Pain Yes Pain Scale Used Pain Scale Used Numeric Location Upper or Lower Upper Pain Location Body Site Abdomen IVP Administration Document 01/02/18 21:43 FDE (Rec: 01/02/18 21:43 E [id number]) Charges for Administration # of IVP Administrations 1 Re-Assess: MAR Pain Assessment Document 01/02/18 22:43 FDE (Rec: 01/03/18 00:15 E [id number]) Pain Reassessment Is this a pain reassessment? Yes Sleep Is patient sleeping during reassessment? Yes Ondansetron HCl (Zofran Inj) 4 mg IVP Q6H PRN PRN Reason: Nausea/Vomiting Last Admin: 01/02/18 09:07 Dose: 4 mg IVP Administration Document 01/02/18 09:07 [email or web address] (Rec: 01/02/18 09:07 [id number]) Charges for Administration # of IVP Administrations 1 Discontinued Medications Acetaminophen (Tylenol 325mg Tab) 975 mg PO STAT STA Stop: 12/31/17 12:08 Last Admin: 12/31/17 12:27 Dose: 975 mg MAR Pain/Vitals Document 12/31/17 12:27 SRE (Rec: 12/31/17 12:27 SRE [id number]) Pain Reassessment Is This A Pain ReAssessment? Yes Sleep Is patient sleeping during reassessment? No Presence of Pain Presence of Pain Yes Re-Assess: MAR Pain/Vitals Document 12/31/17 13:27 SRE (Rec: 12/31/17 15:17 SRE [id number]) Pain Reassessment Is This A Pain ReAssessment? Yes Acetaminophen (Tylenol 325mg Tab) 650 mg PO STAT STA Stop: 12/31/17 15:15 Last Admin: 12/31/17 15:17 Dose: Ciprofloxacin (Cipro 400mg/200ml Dsw) 400 mg in 200 mls @ 133.3 mls/hr IVPB STAT STA PRN Reason: Protocol Stop: 12/31/17 12:16 Last Admin: 12/31/17 13:58 Dose: 133.3 mls/hr eMAR Start Stop Document 12/31/17 13:58 SRE (Rec: 12/31/17 13:58 SRE [id number]) Intravenous Solution Start Date 12/31/17 Start Time 13:58 End Date 12/31/17 End time 15:30 Total Infusion Time 92 Metronidazole (Flagyl) 500 mg in 100 mls @ 100 mls/hr IVPB STAT STA PRN Reason: Protocol Stop: 12/31/17 11:45 Last Admin: 12/31/17 13:13 Dose: 100 mls/hr eMAR Start Stop Document 12/31/17 13:13 SRE (Rec: 12/31/17 13:14 SRE [id number]) Intravenous Solution Start Date 12/31/17 Start Time 13:00 End Date 12/31/17 End time 14:00 Total Infusion Time 60 Sodium Chloride (Sodium Chloride 0.9%) 1,000 mls @ 999 mls/hr IV .Q1H1M ONE Stop: 12/31/17 11:48 Last Admin: 12/31/17 13:11 Dose: 999 mls/hr eMAR Start Stop Document 12/31/17 13:11 SRE (Rec: 12/31/17 13:12 SRE [id number]) Intravenous Solution Start Date 12/31/17 Start Time 13:00 End Date 12/31/17 End time 14:00 Total Infusion Time 60 Vancomycin HCl (Vancomycin 1gm) 1 gm in 250 mls @ 167 mls/hr IVPB STAT STA PRN Reason: Protocol Stop: 12/31/17 13:23 Last Admin: 12/31/17 16:13 Dose: 167 mls/hr eMAR Start Stop Document 12/31/17 16:13 LM (Rec: 12/31/17 16:13 LM [id number]) Intravenous Solution Start Date 12/31/17 Start Time 16:13 Aztreonam (Azactam 1 Gm) 100 mls @ 100 mls/hr IVPB Q8 CLEMENCIA PRN Reason: Protocol Stop: 12/31/17 22:59 Last Admin: 12/31/17 22:55 Dose: 100 mls/hr eMAR Start Stop Document 12/31/17 22:55 [id number] (Rec: 12/31/17 22:55 [id number] [id number]) Intravenous Solution Start Date 12/31/17 Start Time 22:55 End Date 12/31/17 End time 23:55 Total Infusion Time 60 Ibuprofen (Motrin Tab) 800 mg PO STAT STA Stop: 12/31/17 15:02 Last Admin: 12/31/17 15:12 Dose: Ibuprofen (Motrin Tab) 600 mg PO STAT STA Stop: 01/02/18 13:11 Last Admin: 01/02/18 13:36 Dose: 600 mg MAR Pain/Vitals Document 01/02/18 13:36 [email or web address] (Rec: 01/02/18 13:36 [email or web address] [id number]) Pain Reassessment Is This A Pain ReAssessment? No Sleep Is patient sleeping during reassessment? No Presence of Pain Presence of Pain No Vitals Temperature (97.6 F-99.6 F) 103 F Temperature Source Oral Morphine Sulfate (Morphine) 4 mg IVP ONCE ONE Stop: 12/31/17 14:25 Last Admin: 12/31/17 14:39 Dose: 4 mg MAR Pain Assessment Document 12/31/17 14:39 SRE (Rec: 12/31/17 14:39 SRE [id number]) Pain Reassessment Is this a pain reassessment? Yes Sleep Is patient sleeping during reassessment? No Presence of Pain Presence of Pain Yes Pain Scale Used Pain Scale Used Numeric Location Pain Location Body Site Abdomen Description Description Intermittent IVP Administration Document 12/31/17 14:39 SRE (Rec: 12/31/17 14:39 SRE [id number]) Charges for Administration # of IVP Administrations 1 Morphine Sulfate (Morphine) 4 mg IVP ONCE STA Stop: 01/01/18 13:59 Last Admin: 01/01/18 14:10 Dose: 4 mg [facility] Pain Assessment Document 01/01/18 14:10 [email or web address] (Rec: 01/01/18 14:11 [email or web address] [id number]) Pain Reassessment Is this a pain reassessment? No Sleep Is patient sleeping during reassessment? No Presence of Pain Presence of Pain Yes Pain Scale Used Pain Scale Used Numeric Location Upper or Lower Upper Pain Location Body Site Abdomen Description Description Intermittent Intensity of Pain at present 10 Pain Behavior Moaning Refusal to Eat Facial Grimacing Aggravating Factors None Alleviating Factors/Management Medication Techniques Alleviating Factors Medication IVP Administration Document 01/01/18 14:10 [email or web address] (Rec: 01/01/18 14:11 [email or web address] [id number]) Charges for Administration # of IVP Administrations 1 Re-Assess: MAR Pain Assessment Document 01/01/18 15:10 [email or web address] (Rec: 01/01/18 18:58 [email or web address] [id number]) Pain Reassessment Is this a pain reassessment? Yes Sleep Is patient sleeping during reassessment? Yes Pneumococcal Polyvalent Vaccine (Pneumovax 23 Vaccine) 0.5 ml IM .ONCE ONE Stop: 12/31/17 19:15 Disposition/Present on Arrival - Present on Arrival Any Indicators Present on Arrival: No History of DVT/PE: No History of Uncontrolled Diabetes: No Urinary Catheter: No History of Decub. Ulcer: No History Surgical Site Infection Following: None - Disposition Have Diagnosis and Disposition been Completed?: Yes Disposition Time: 13:30 Patient Plan: Admission, Telemetry - Disposition Diagnosis: Sepsis, Abdominal pain, Crohn disease Disposition: HOSPITALIZED Patient Problems: Current Active Problems Problem Status Onset Abdominal pain Acute Crohn disease Acute Sepsis Acute Condition: FAIR
[2017-12-31 11:36] LABS: BASO # 0.03 K/mm3 (0.0-2.0); BASO % 0.2 % (0.0-3.0); EOS # 0.2 (0.0-0.7); EOS % 1.5 % (1.5-5.0); GRAN # 11.13 (1.4-6.5); GRAN % 81.1 % (50.0-68.0); HEMOGLOBIN 10.5 g/dL (14.0-18.0); LYMPH # 0.8 (1.2-3.4); LYMPH % 5.6 % (22.0-35.0); MEAN CELL VOLUME 79.6 fl (80.0-105.0); MEAN CORPUSCULAR HEMOGLOBIN 26.4 pg (25.0-35.0); MEAN CORPUSCULAR HGB CONC 33.1 g/dl (31.0-37.0); MEAN PLATELET VOLUME 8.5 fl (7.0-11.0); MONO # 1.6 (0.1-0.6); MONO % 11.6 % (1.0-6.0); RBC 3.98 10^6/uL (3.5-6.1); RED CELL DISTRIBUTION WIDTH 15.8 % (11.5-14.5); WHITE BLOOD COUNT 13.7 10^3/ul (4.5-11.0)
[2017-12-31 11:41] LABS: VENOUS BLOOD GAS BASE EXCESS 1.1 mmol/L (0.0-2.0); VENOUS BLOOD GAS PO2 154 mm/Hg (30-55)
[2017-12-31 11:47] LABS: ALB/GLOB RATIO 0.8 (1.1-1.8); ALT/SGPT 58 U/L (7-56); AST/SGOT 73 U/L (17-59); BLOOD UREA NITROGEN 7 mg/dL (7-21); CALCIUM 8.8 mg/dL (8.4-10.5); GFR NON-AFRICAN AMERICAN > 60
[2017-12-31] MEDS ORDERED: Vancomycin 1gm in NS 250ml 1 GM/250 ML BAG IVPB STA (11:54)
--- NOTE | 2017-12-31 13:05 | CT ---
Date of service: 12/31/2017 PROCEDURE: CT Abdomen and Pelvis without intravenous contrast HISTORY: Abdominal pain. History of Crohn's disease. COMPARISON: 12/17/2017 CT abdomen and pelvis TECHNIQUE: Unenhanced study. Neither oral nor intravenous contrast administered. Sensitivity and specificity for acute inflammatory processes limited by the absence of oral and intravenous contrast. Radiation dose: Total exam DLP = mGy-cm. This CT exam was performed using one or more of the following dose reduction techniques: Automated exposure control, adjustment of the mA and/or kV according to patient size, and/or use of iterative reconstruction technique. FINDINGS: LOWER THORAX: Unremarkable. LIVER: Unremarkable. No gross lesion or ductal dilatation. GALLBLADDER AND BILE DUCTS: Nonvisualization of the gallbladder. Unremarkable bile ducts. PANCREAS: Unremarkable. No gross lesion or ductal dilatation. SPLEEN: Unremarkable. ADRENALS: Unremarkable. No mass. KIDNEYS AND URETERS: Unremarkable. No hydronephrosis. No solid mass. VASCULATURE: Unremarkable. No aortic aneurysm. BOWEL: Fluid-filled loops of bowel limb particular colon consistent with diarrheal state. Resolution of acute findings descending colon identified on the prior study. Evidence of chronic colitis again identified. APPENDIX: Unremarkable. Normal appendix. PERITONEUM: Unremarkable. No free fluid. No free air. LYMPH NODES: Unremarkable. No enlarged lymph nodes. BLADDER: Unremarkable. REPRODUCTIVE: Unremarkable. BONES: No acute fracture. OTHER FINDINGS: None. IMPRESSION: Resolution of acute colitis seen previously. Evidence of chronic/ senescent colitis remain. Row benign
--- NOTE | 2017-12-31 13:39 | CP.PCM.CON ---
<Sg Shrestha - Last Filed: 12/31/17 13:59> History of Present Illness - History of Present Illness History of Present Illness: ICU Consult Note - Darin Shrestha PGY3 HPI: Patient is a 42yo male with past medical history of diabetes mellitus type 2, Crohn's disease presents c/o epigastric abdominal pain associated with nausea , non-bilious, non-bloody vomiting and diarrhea for the past 2 days. He reports that he has been having subjective fevers and reported having been discharged from [facility] previously for a similar contact during which time he was treated for a Crohn's flare. Described his abdominal pain as epigastric in nature, non- radiating, 8/10 in severity. Diarrhea has been watery without blood or mucus. He denies chest pain, palpitations, SOB, focal weakness, numbness, tingling, melena/hematochezia, mucus in the stool, sick contacts, chills, cough. ICU consulted for evaluation of abdominal pain in setting of elevated lactate/ leukocytosis. 12point ROS as per above otherwise negative PMH: as stated above PSH: cholecystectomy Allergies: PCN, shellfish Family Hx: reviewed, non-contributory Social Hx: Denies etoh, drugs, tobacco Past Patient History - Infectious Disease Hx of Infectious Diseases: None - Tetanus Immunizations Tetanus Immunization: Unknown - Past Social History Smoking Status: Never Smoked - CARDIAC Hx Cardiac Disorders: Yes - PULMONARY Hx Respiratory Disorders: Yes Hx Asthma: Yes - NEUROLOGICAL Hx Neurological Disorder: No - HEENT Hx HEENT Problems: No - RENAL Hx Chronic Kidney Disease: No - ENDOCRINE/METABOLIC Hx Endocrine Disorders: Yes Hx Diabetes Mellitus Type 2: Yes - HEMATOLOGICAL/ONCOLOGICAL Hx Blood Disorders: No - INTEGUMENTARY Hx Dermatological Problems: No - MUSCULOSKELETAL/RHEUMATOLOGICAL Hx Falls: No - GASTROINTESTINAL Hx Gastrointestinal Disorders: Yes Hx Crohn's Disease: Yes - GENITOURINARY/GYNECOLOGICAL Hx Genitourinary Disorders: No - PSYCHIATRIC Hx Psychophysiologic Disorder: No Hx Depression: No Hx Emotional Abuse: No Hx Physical Abuse: No Hx Substance Use: No - SURGICAL HISTORY Hx Cholecystectomy: Yes Other/Comment: DVT right calf- pt has now iv filter - ANESTHESIA Hx Anesthesia: Yes Hx Anesthesia Reactions: No Hx Malignant Hyperthermia: No Meds Allergies/Adverse Reactions: Allergies Allergy/AdvReac Type Severity Reaction Status Date / Time Penicillins Allergy ANAPHYLAXIS Verified 12/31/17 10:18 shellfish derived Allergy ANAPHYLAXIS Verified 12/31/17 10:18 Physical Exam - Constitutional Appears: No Acute Distress - Head Exam Head Exam: ATRAUMATIC, NORMAL INSPECTION, NORMOCEPHALIC - Eye Exam Eye Exam: EOMI, PERRL - ENT Exam ENT Exam: Mucous Membranes Moist - Neck Exam Neck exam: Positive for: Normal Inspection. Negative for: Lymphadenopathy, Meningismus, Tenderness, Thyromegaly - Respiratory Exam Respiratory Exam: Clear to Auscultation Bilateral. absent: Rales, Rhonchi, Wheezes - Cardiovascular Exam Cardiovascular Exam: RRR, +S1, +S2. absent: Clicks, Gallop, JVD, Rubs - GI/Abdominal Exam GI & Abdominal Exam: Soft, Tenderness (epigastric ). absent: Distended, Firm, Guarding, Organomegaly, Rebound - Extremities Exam Extremities exam: Positive for: normal inspection. Negative for: pedal edema - Neurological Exam Neurological exam: Alert, CN II-XII Intact, Oriented x3 - Psychiatric Exam Psychiatric exam: Normal Affect, Normal Mood - Skin Skin Exam: Dry, Intact, Normal Color, Warm Results - Vital Signs Recent Vital Signs: Last Vital Signs Temp 103.1 F H 12/31/17 13:14 Pulse 116 H 12/31/17 13:14 Resp 20 12/31/17 13:14 BP 128/76 12/31/17 13:14 Pulse Ox 97 12/31/17 13:14 - Labs Result Diagrams: 12/31/17 11:30 12/31/17 11:30 Assessment & Plan - Assessment and Plan (Free Text) Plan: 42yo male with history of Crohn's, DM type 2 presents c/o abdominal pain associated with diarrhea, nausea, vomiting x2 days likely secondary to intra- abdominal infectious etiology 1. Sepsis likely secondary to intra-abdominal infx 2. abd pain with nausea/vomiting 3. Hx of Crohn's disease on mesalamine 4. DM type2 Recommendations: -Febrile with leukocytosis however hemodynamically stable, maintaining MAP > 65 -Alert, oriented x3; protecting airway -Mild epigastric tenderness would check lipase -CT abd/pelvis reviewed; read as resolution of acute colitis with evidence of chronic colitis -Lactate 2.4 and will receive IVF hydration -Pancultures, check procalcitonin -Broad spectrum antibiotics -Recommend adequate IVF hydration -O2 supplementation as needed -F/U GI and ID recommendations -Would monitor on telemetry Patient seen and case discussed/reviewed with attending, Dr. Sanches <Praneeth Sanches - Last Filed: 12/31/17 14:06> Results - Vital Signs Recent Vital Signs: Last Vital Signs Temp 103.1 F H 12/31/17 13:14 Pulse 116 H 12/31/17 13:14 Resp 20 12/31/17 13:14 BP 128/76 12/31/17 13:14 Pulse Ox 97 12/31/17 13:14 - Labs Result Diagrams: 12/31/17 11:30 12/31/17 11:30 Assessment & Plan - Assessment and Plan (Free Text) Plan: Patient seen and examined, on rounds with resident, agree with note with following additions: Patient is 42yo male with PMHx of Crohns Disease, DM, presented with N/V/D, abd pain, epigastric. Currently febrile, HD stable, comfortable in NAD, mild epigastric tenderness. Labs, imaging, chart reviewed. CT A/P reviewed Cont with IVF hydration Panculture, UCx, BCx, Procal Check Lipase Abx as per ID Check Cdiff Stool studies Monitor on telemetry
--- NOTE | 2017-12-31 14:08 | RAD ---
Date of service: 12/31/2017 HISTORY: sepsis COMPARISON: 03/05/2014 FINDINGS: LUNGS: No active pulmonary disease. PLEURA: There is chronic blunting of the costophrenic angle on the left. CARDIOVASCULAR: Normal. OSSEOUS STRUCTURES: No significant abnormalities. VISUALIZED UPPER ABDOMEN: Normal. OTHER FINDINGS: None. IMPRESSION: No active disease.
[2017-12-31] MEDS ORDERED: Morphine 4 mg/ml ISec IVP ONE (14:24)
[2017-12-31 14:46] LABS: VENOUS BLOOD GAS BASE EXCESS 1.5 mmol/L (0.0-2.0); VENOUS BLOOD GAS PO2 59 mm/Hg (30-55)
[2017-12-31] MEDS: Sodium Chloride 0.9% 1,000 ML IV SCH (15:05)
--- NOTE | 2017-12-31 15:38 | CP.PCM.CON ---
History of Present Illness - History of Present Illness History of Present Illness: Infectious Disease Consultation: December 31, 2017 42yo male with past medical history of diabetes mellitus type 2, Crohn's disease presents c/o epigastric abdominal pain associated with nausea, non- bilious, non-bloody vomiting and diarrhea for the past 2 days. He reports that he has been having subjective fevers and reported having been discharged from [facility] [place] for a similar contact during which time he was treated for a Crohn's flare. Described his abdominal pain as epigastric in nature, non- radiating, 8/10 in severity. Diarrhea has been watery without blood or mucus. He denies chest pain, palpitations, SOB, focal weakness, numbness, tingling, melena/hematochezia, mucus in the stool, sick contacts, chills, cough. ICU was consulted for evaluation of abdominal pain in setting of elevated lactate/ leukocytosis. ID called for evaluation of potential abdominal infection and PCN allergy history. PMHx: DM Type 2 Crohn's disease PSHx: Cholecystectomy Social Hx: No tobacco, EtOH, or illicit drug use Allergies: PCN, shellfish Active Medications Sodium Chloride (Sodium Chloride 0.9%) 1,000 mls @ 100 mls/hr IV .Q10H CLEMENCIA Last Admin: 12/31/17 15:05 Dose: 100 mls/hr Family Hx: none given ROS: No fevers, chills, nausea, vomiting, diarrhea, headaches, dizziness, chest pain , abdominal pain, melena, hematuria, hematemesis, hematochezia, depression, anxiety Past Patient History - Infectious Disease Hx of Infectious Diseases: None - Tetanus Immunizations Tetanus Immunization: Unknown - Past Social History Smoking Status: Never Smoked - CARDIAC Hx Cardiac Disorders: Yes - PULMONARY Hx Respiratory Disorders: Yes Hx Asthma: Yes - NEUROLOGICAL Hx Neurological Disorder: No - HEENT Hx HEENT Problems: No - RENAL Hx Chronic Kidney Disease: No - ENDOCRINE/METABOLIC Hx Endocrine Disorders: Yes Hx Diabetes Mellitus Type 2: Yes - HEMATOLOGICAL/ONCOLOGICAL Hx Blood Disorders: No - INTEGUMENTARY Hx Dermatological Problems: No - MUSCULOSKELETAL/RHEUMATOLOGICAL Hx Falls: No - GASTROINTESTINAL Hx Gastrointestinal Disorders: Yes Hx Crohn's Disease: Yes - GENITOURINARY/GYNECOLOGICAL Hx Genitourinary Disorders: No - PSYCHIATRIC Hx Psychophysiologic Disorder: No Hx Depression: No Hx Emotional Abuse: No Hx Physical Abuse: No Hx Substance Use: No - SURGICAL HISTORY Hx Cholecystectomy: Yes Other/Comment: DVT right calf- pt has now iv filter - ANESTHESIA Hx Anesthesia: Yes Hx Anesthesia Reactions: No Hx Malignant Hyperthermia: No Meds Allergies/Adverse Reactions: Allergies Allergy/AdvReac Type Severity Reaction Status Date / Time Penicillins Allergy ANAPHYLAXIS Verified 12/31/17 10:18 shellfish derived Allergy ANAPHYLAXIS Verified 12/31/17 10:18 - Medications Medications: Current Medications Ibuprofen (Motrin Tab) 800 mg PO STAT STA Stop: 12/31/17 15:02 Physical Exam - Constitutional Appears: Non-toxic, No Acute Distress, Chronically Ill - Head Exam Head Exam: ATRAUMATIC, NORMOCEPHALIC - Eye Exam Eye Exam: EOMI, PERRL Pupil Exam: NORMAL ACCOMODATION, PERRL - ENT Exam ENT Exam: Mucous Membranes Moist, Normal External Ear Exam, TM's Normal Bilaterally - Neck Exam Neck exam: Positive for: Full Rom, Normal Inspection - Respiratory Exam Respiratory Exam: Clear to Auscultation Bilateral, NORMAL BREATHING PATTERN. absent: Rales, Rhonchi, Wheezes - Cardiovascular Exam Cardiovascular Exam: REGULAR RHYTHM, RRR, +S1, +S2 - GI/Abdominal Exam GI & Abdominal Exam: Soft, Tenderness (epigastric). absent: Distended - Extremities Exam Extremities exam: Positive for: full ROM, normal inspection - Neurological Exam Neurological exam: Alert, CN II-XII Intact, Oriented x3 - Psychiatric Exam Psychiatric exam: Normal Affect, Normal Mood - Skin Skin Exam: Dry, Intact, Normal Color Results - Vital Signs Recent Vital Signs: Last Vital Signs Temp 102.9 F H 12/31/17 14:16 Pulse 112 H 12/31/17 14:16 Resp 20 12/31/17 14:16 BP 118/62 12/31/17 14:16 Pulse Ox 97 12/31/17 14:16 - Labs Result Diagrams: 12/31/17 11:30 12/31/17 11:30 Labs: Laboratory Results - last 24 hr 12/31/17 14:30 pO2 59 H VBG pH 7.40 VBG pCO2 43.0 VBG HCO3 26.6 VBG Total CO2 27.9 VBG O2 Sat (Calc) 90.8 H VBG Base Excess 1.5 VBG Potassium 4.5 Sodium 134.0 Chloride 103.0 Glucose 143 H Lactate 1.4 FiO2 21.0 Venous Blood Potassium 4.5 Assessment & Plan - Assessment and Plan (Free Text) Assessment: 42 yo male with medical history of Crohn's and Type II DM presenting with abdominal pain with nausea, vomiting, and diarrhea with fevers up to 103.1 F. The patient recently discharged from [facility] in November. Distended abdomen. CT abd on this hospitalization showing resolvement of the previous colitis seen in November 2017. There is the appearance of fluid filled bowels seen in diarrhea. Supportive care. Started on Cipro and Flagyl on admission. IV vancomycin also started. Would give Zosyn and Flagyl instead of the Cipro. Test for C. Diff. Salmonella testing pending. Ova and parasite stool examination. Thank you for allowing me to participate in the care of the patient, we will follow with you.
--- NOTE | 2017-12-31 16:52 | CP.PCM.CON ---
<Brock Forbes - Last Filed: 12/31/17 19:35> History of Present Illness - History of Present Illness History of Present Illness: Brock Forbes DO, PGY-2: GI Consult Note 42 year old male with a past medical history of asthma, recently diagnosed DM II , Crohn's disease, DVT 6 years ago treated with Coumadin and IVC filter who presents with three days of epigastric pain and diarrhea and one day of fever, chills, and vomiting. The epigastric pain is non-radiating, worsened 30 minutes after a meal. He reports the diarrhea is semisolid, non-bloody, and non- mucoid. He was hospitalized from 12/17 -12/23 for a Crohn's flare where he was treated with antibiotics and sent home with Pepcid. Hospital course reveals his fecal calprotectin was greater than 2,000. He was diagnosed with Crohn's disease 7 years ago and maintained on Mesalamine. He reports a 1.5 year period of time in which he did not take any medication for his IBD disease. He reports restarting the Mesalamine 1 year ago. He reports at baseline having no trouble with bowel movements. His last colonoscopy was 7 years ago. The only change in his medications was that he was prescribed Pepcid after his last admission. He denies any dysuria, cough, rash, weakness, headache, or focal neurologic deficits. He denies any sick contacts, travel, drinking from fresh water, flea or tick bites. PMH: As above PSH: Cholecytectomy at age 16, IVC filter seven years ago Allergies: Penicillin and shellfish derivatives Social: [employer] [facility] [employer], , children, denies tobacco, illicit drug use; drinks occasionally PMD: Dr. Cuevas Review of Systems - Review of Systems All systems: reviewed and no additional remarkable complaints except (as per HPI ) Past Patient History - Infectious Disease Hx of Infectious Diseases: None - Tetanus Immunizations Tetanus Immunization: Unknown - Past Social History Smoking Status: Never Smoked - CARDIAC Hx Cardiac Disorders: Yes - PULMONARY Hx Respiratory Disorders: Yes Hx Asthma: Yes - NEUROLOGICAL Hx Neurological Disorder: No - HEENT Hx HEENT Problems: No - RENAL Hx Chronic Kidney Disease: No - ENDOCRINE/METABOLIC Hx Endocrine Disorders: Yes Hx Diabetes Mellitus Type 2: Yes - HEMATOLOGICAL/ONCOLOGICAL Hx Blood Disorders: No - INTEGUMENTARY Hx Dermatological Problems: No - MUSCULOSKELETAL/RHEUMATOLOGICAL Hx Falls: No - GASTROINTESTINAL Hx Gastrointestinal Disorders: Yes Hx Crohn's Disease: Yes - GENITOURINARY/GYNECOLOGICAL Hx Genitourinary Disorders: No - PSYCHIATRIC Hx Psychophysiologic Disorder: No Hx Depression: No Hx Emotional Abuse: No Hx Physical Abuse: No Hx Substance Use: No - SURGICAL HISTORY Hx Cholecystectomy: Yes Other/Comment: DVT right calf- pt has now iv filter - ANESTHESIA Hx Anesthesia: Yes Hx Anesthesia Reactions: No Hx Malignant Hyperthermia: No Meds Allergies/Adverse Reactions: Allergies Allergy/AdvReac Type Severity Reaction Status Date / Time Penicillins Allergy ANAPHYLAXIS Verified 12/31/17 15:09 shellfish derived Allergy ANAPHYLAXIS Verified 12/31/17 15:09 - Medications Medications: Current Medications Sodium Chloride (Sodium Chloride 0.9%) 1,000 mls @ 100 mls/hr IV .Q10H CLEMENCIA Last Admin: 12/31/17 15:05 Dose: 100 mls/hr Metronidazole (Flagyl) 500 mg in 100 mls @ 100 mls/hr IVPB Q8 CLEMENCIA PRN Reason: Protocol Aztreonam (Azactam 1 Gm) 100 mls @ 100 mls/hr IVPB Q8 CLEMENCIA PRN Reason: Protocol Stop: 12/31/17 22:59 Physical Exam - Constitutional Additional comments: sweating - Head Exam Head Exam: ATRAUMATIC, NORMOCEPHALIC - Eye Exam Eye Exam: EOMI, Normal appearance - ENT Exam ENT Exam: Mucous Membranes Moist - Neck Exam Neck exam: Positive for: Normal Inspection - Respiratory Exam Respiratory Exam: Clear to Auscultation Bilateral, NORMAL BREATHING PATTERN. absent: Accessory Muscle Use - Cardiovascular Exam Cardiovascular Exam: Tachycardia (with ectopy ), +S1, +S2 - GI/Abdominal Exam GI & Abdominal Exam: Normal Bowel Sounds. absent: Rebound Additional comments: cholecystectomy scar noted - Extremities Exam Extremities exam: Positive for: normal inspection. Negative for: calf tenderness - Back Exam Back exam: NORMAL INSPECTION - Neurological Exam Neurological exam: Alert, CN II-XII Intact, Oriented x3 - Psychiatric Exam Psychiatric exam: Normal Affect, Normal Mood - Skin Skin Exam: Dry, Intact, Normal Color, Warm Results - Vital Signs Recent Vital Signs: Last Vital Signs Temp 100.9 F H 12/31/17 15:32 Pulse 96 H 12/31/17 15:32 Resp 20 12/31/17 15:32 BP 135/65 12/31/17 15:32 Pulse Ox 97 12/31/17 15:32 - Labs Result Diagrams: 12/31/17 11:30 12/31/17 11:30 Labs: Laboratory Results - last 24 hr 12/31/17 14:30 pO2 59 H VBG pH 7.40 VBG pCO2 43.0 VBG HCO3 26.6 VBG Total CO2 27.9 VBG O2 Sat (Calc) 90.8 H VBG Base Excess 1.5 VBG Potassium 4.5 Sodium 134.0 Chloride 103.0 Glucose 143 H Lactate 1.4 FiO2 21.0 Venous Blood Potassium 4.5 Assessment & Plan - Assessment and Plan (Free Text) Assessment: 42 year old male with a past medical history of asthma, recently diagnosed DM II , Crohn's disease, DVT 6 years ago treated with Coumadin and IVC filter who presents with three days of epigastric pain and diarrhea and one day of fever, chills, and vomiting. CT of the abdomen and pelvis showed fluid-filled loops of bowel limb particular colon consistent with diarrheal state. Resolution of acute findings descending colon identified on the prior study. Evidence of chronic colitis again identified. Patient is on Azactam and Metronidazole empirically. We will follow up the stool for C. difficle and other stool studies. We will restart the Mesalamine and give IV protonix. We will keep him NPO for now and advance his diet to clear liquids tomorrow for breakfast. We also ordered a manual platelet count and a peripheral blood smear. Case was reviewed and discussed with attend physician, Dr. Ramirez - Date & Time Date: 12/31/17 Time: 17:00 <Ashkan Ramirez V - Last Filed: 12/31/17 22:16> Meds - Medications Medications: Current Medications Arformoterol Tartrate (Brovana) 15 mcg IH [id number] CLEMENCIA Budesonide (Pulmicort Respules) 0.5 mg IH [id number] CLEMENCIA Sodium Chloride (Sodium Chloride 0.9%) 1,000 mls @ 100 mls/hr IV .Q10H CLEMENCIA Last Admin: 12/31/17 15:05 Dose: 100 mls/hr Metronidazole (Flagyl) 500 mg in 100 mls @ 100 mls/hr IVPB Q8 CLEMENCIA PRN Reason: Protocol Last Admin: 12/31/17 21:25 Dose: 100 mls/hr Aztreonam (Azactam 1 Gm) 100 mls @ 100 mls/hr IVPB Q8 CLEMENCIA PRN Reason: Protocol Stop: 12/31/17 22:59 Last Admin: 12/31/17 18:04 Dose: 100 mls/hr Insulin Human Regular (Humulin R Low) 0 units SC ACHS CLEMENCIA PRN Reason: Protocol Mesalamine (Asacol Hd 800mg) 800 mg PO TID CLEMENCIA Ondansetron HCl (Zofran Inj) 4 mg IVP Q6H PRN PRN Reason: Nausea/Vomiting Results - Vital Signs Recent Vital Signs: Last Vital Signs Temp 98.7 F 12/31/17 18:44 Pulse 86 12/31/17 18:44 Resp 20 12/31/17 18:44 BP 110/62 12/31/17 18:44 Pulse Ox 97 12/31/17 15:32 - Labs Result Diagrams: 12/31/17 11:30 12/31/17 11:30 Labs: Laboratory Results - last 24 hr 12/31/17 12/31/17 14:30 18:35 pO2 59 H VBG pH 7.40 VBG pCO2 43.0 VBG HCO3 26.6 VBG Total CO2 27.9 VBG O2 Sat (Calc) 90.8 H VBG Base Excess 1.5 VBG Potassium 4.5 Sodium 134.0 Chloride 103.0 Glucose 143 H Lactate 1.4 FiO2 21.0 Venous Blood Potassium 4.5 Urine Color Yellow Urine Appearance Clear Urine pH 6.0 Ur Specific [place] 1.015 Urine Protein Trace H Urine Glucose (UA) Negative Urine Ketones Negative Urine Blood Negative Urine Nitrate Negative Urine Bilirubin Negative Urine Urobilinogen 0.2 Ur Leukocyte Esterase Negative Urine RBC 0 - 2 Urine WBC 0 - 2 Ur Epithelial Cells 0 - 2 Urine Bacteria Mod Attending/Attestation - Attestation I have personally seen and examined this patient.: Yes I have fully participated in the care of the patient.: Yes I have reviewed all pertinent clinical information: Yes Notes (Text): This is an addendum to GI followup report dictated by the Reimbursement Representative. The patient was seen an that we need to change it here d examined earlier. Medical records, lab studies, imagings were reviewed. Last 24 hours events reviewed. Agreed with the above treatment plan as outlined in Reimbursement Representative 's notes with the addition of the following this patient was recently ed from the hospital. He was admitted with similar complaints then. History of Crohn's disease. Patient had acute onset of diarrhea abdominal pain and fever. Started after he ate Portuguese take out 2 days ago. On examination abdomen soft but diffuse tenderness present no rebound Would recommend to follow stool studies, antibiotics as per ID. Can restart asacal Follow-up stool studies Continue antibiotics Review previous reports 12/31/17 21:40 12/31/17 22:15
--- NOTE | 2017-12-31 17:34 | PCM.SEPTIC ---
<Erlin Alfaro - Last Filed: 12/31/17 17:31> Sepsis Progress Note - Reassessment Type Date of Evaluation: 12/31/17 Time of Evaluation: 17:31 Reassessment Type: Non-invasive reassessment - Non Invasive Reassessment Were the most recent vital sign reviewed: Yes Vital Sign (Latest): Temp Pulse Resp BP Pulse Ox 100.9 F H 96 H 20 135/65 97 12/31/17 15:32 12/31/17 15:32 12/31/17 15:32 12/31/17 15:32 12/31/17 15:32 Cardiovascular: Yes: Regular Rate, Rhythm. No: Chest Non Tender, Edema, Gallop , JVD, Murmur, Bradycardia, Tachycardia, Ectopy, Friction Rub, Irregularly Irregular Respiratory: Yes: Normal Breath Sounds, Wheezing. No: Crackles, Rales, Rhonchi Capillary Refill: Normal (Less than 2 sec) Pulses: Normal Radial, Normal Dorsalis Pedis, Normal Posterior Tibialis Skin: Normal Color, Warm, Diaphoretic - Invasive Reassessment (complete 2 of 4) Was a Central Venous Pressure Measurement obtained within 6 Hours after the presentation of septic shock: No Was a central venous oxygen measurement obtained within 6 hours after the presentation of septic shock: No Was a bedside cardiovascular ultrasound performed within 6 hours after the presentation of septic shock: No Was a passive leg raise performed or was a fluid challenge performed within 6 hrs of the initial fluid bolus: No Fluid Challenge performed: No <Mnasi Cuevas - Last Filed: 12/31/17 20:06> Sepsis Progress Note - Non Invasive Reassessment Vital Sign (Latest): Temp Pulse Resp BP Pulse Ox 98.7 F 86 20 110/62 97 12/31/17 18:44 12/31/17 18:44 12/31/17 18:44 12/31/17 18:44 12/31/17 15:32
[2017-12-31] MEDS: Aztreonam 1 Gm in NS 100mL 100 ML IVPB SCH ×2 (18:04→22:55)
[2017-12-31] MEDS ORDERED: Fluticasone-Salmeterol 250-50mcg Diskus IH SCH (18:45)
[2017-12-31 18:51] LABS: URINE BILIRUBIN NEGATIVE (NEGATIVE); URINE BLOOD NEGATIVE (NEGATIVE); URINE GLUCOSE (UA) NEGATIVE (NEGATIVE); URINE LEUKOCYTE ESTERASE NEGATIVE Leu/uL (NEGATIVE); URINE PROTEIN TRACE mg/dL (<30 mg/dL); URINE UROBILINOGEN 0.2 E.U./dL (<1 E.U./dL)
[2017-12-31 18:53] LABS: URINE APPEARANCE CLEAR (CLEAR); URINE COLOR YELLOW (YELLOW)
[2017-12-31 19:07] LABS: URINE BACTERIA MOD (NEG); URINE EPITHELIAL CELLS 0 - 2 /hpf (0-5); URINE RBC 0 - 2 /hpf (0-2); URINE WBC 0 - 2 /hpf (0-6)
[2017-12-31 19:14] VITALS: BMI 34.7
[2017-12-31] MEDS ORDERED: Pneumococcal 23-Valent Vaccine IM ONE (19:14)
[2017-12-31] MEDS: metroNIDAZOLE IV 500 mg/100 ml 500 MG/100 ML BAG IVPB SCH (21:25)
--- NOTE | 2018-01-01 01:28 | HP ---
Copied To: Mansi Cuevas MD Attending MD: Mansi Cuevas MD DATE OF EXAM: 12/31/2017 HISTORY OF PRESENT ILLNESS: This 42-year-old male was examined at his bedside. He presented earlier today to the [facility]. Here, he complained of fever, chills and nausea with vomiting and epigastric pain and diarrhea for the past 3 days with 1 day of fever, chills and vomiting. PAST MEDICAL HISTORY: The patient has a past medical history of Crohn's disease, irritable bowel syndrome and was hospitalized in late 11/2017 for left lower quadrant colitis for which he received parenteral antibiotics with Cipro and Flagyl and was sent home on oral Pepcid as well as Asacol. The patient has a 7-year history of Crohn disease maintained on mesalamine and also irritable bowel syndrome. He has been recently diagnosed with type 2 diabetes mellitus in the setting of obesity and is status post cholecystectomy at age 16. According to his EMR, he is status post DVT with an IVC filter and was previously treated with Coumadin, none at present. The patient has had a colonoscopy approximately 7 years ago and has recently established gastrointestinal followup with Dr. Ashkan Ramirez from GI. FAMILY HISTORY: Noncontributory. SOCIAL HISTORY: He is a nondrinker, nonsmoker, non IV drug misuser. 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 SURGICAL HISTORY: Significant for cholecystectomy. ALLERGIES: HE HAS MEDICATION ALLERGIES TO PENICILLIN AND IS SENSITIVE TO SHELLFISH. REVIEW OF SYSTEMS: CONSTITUTIONAL: On constitutional review, he had a 3-day history of fever and chills. HEAD: No headache or seizure. EYES: No change in visual acuity. EARS: No hearing loss. THROAT: No swallowing difficulty. NECK: No stiffness. CARDIAC: No chest pain or palpitation. PULMONARY: No cough. No hemoptysis. GI: He has had bloody diarrhea in the past. : No dysuria. SKIN: No rash. VASCULAR: No claudication. PSYCHOLOGICAL: No anxiety. No depression. NEUROLOGICAL: No knowledge of stroke or seizure. PHYSICAL EXAMINATION: VITAL SIGNS: In the emergency room, he was noted to have a temperature of 103.1 with a pulse rate of 116, blood pressure of 128/76, respiratory of 20 and pulse ox of 97% on room air. HEENT: Head: Normocephalic, atraumatic. Eyes: No icterus. Ears: Clear. Throat: Noninjected. NECK: Supple. HEART: Regular S1, S2. LUNGS: Were clear to auscultation. ABDOMEN: Obese, nontender. No palpable organomegaly. No rebound, no guarding. No tenderness. EXTREMITIES: No edema. SKIN: No rash. VASCULAR: Legs warm to touch. PSYCHOLOGICAL: Alert and oriented x3. NEURO: Grossly intact. LABORATORY DATA: White count 13,700, hemoglobin 10.5, hematocrit 31.7, platelets 717,000, 81.1% granulocytes. Sodium 134, K 4.5, chloride 100, bicarb 22, BUN 7, creatinine 0.9, random blood sugar was 123, calcium 8.8. Phosphorous 3.5. Magnesium 1.9. Bilirubin 0.6, AST 73, ALT 58, alk phos 275. Urinalysis showed trace protein with moderate bacteria. Chest x-ray was reviewed. It showed no evidence of infiltrate, pneumonia or active pulmonary disease. No obvious congestive heart failure, no pleural effusion. Abdominal pelvic CT was reviewed. Liver exam was unremarkable. There was no evidence of gross lesion or ductal dilatation. His bowel was consistent with fluid-filled loops of bowel, particularly colonic, consistent with diarrheal state with evidence of chronic colitis again identified. Appendix was unremarkable. Gallbladder was nonvisualized. Pancreas was noted as unremarkable. IMPRESSION: A 42-year-old male with history of obesity, type 2 diabetes mellitus, Crohn disease, irritable bowel syndrome, peptic ulcer disease with gastroesophageal reflux disease and history of asthmatic bronchitis, now admitted with signs of sepsis, diarrheal state, bacteriuria, evidence of left lower quadrant colitis on CT of abdomen with [id number] anemia and recent diagnosis of iron-deficiency anemia. PLAN: As discussed with the patient, Nursing and co-consultants from Gastroenterology and Infectious Disease will be to admit this patient to the Cardiac Unit. He has been given an IV fluid bolus. He has been fully cultured of blood, urine and stool including stool for C. diff toxin. He will be given 0.9 saline at 100 mL/hour, Pulmicort inhalational therapy every 12 hours, Flagyl 500 mg IV every 8 hours, Brovana inhalational therapy every 12 hours, Azactam 1 g IV every 8 hours and Asacol 800 mg p.o. t.i.d. He will have a comprehensive metabolic panel and magnesium level ordered for the a.m. as well as a manual platelet count and CBC with differential in a.m. as well. Blood and urine cultures have been received and stool culture and C. Diff toxin has been requested. He is ordered to have a clear liquid diet for the a.m. and will be monitored regarding his clinical progress and results on followup lab testing. Based on these results, additional diagnostic testing and intervention will be entertained. All of the above was discussed with the patient, Nursing and co-consultants. Greater than 75 minutes was spent in the care management, review of labs, orders, x-rays and outlining of medication and orders for this patient today. All questions were answered. Mansi Cuevas MD MTDRaul
[2018-01-01] MEDS: Insulin Reg-LOW-Coverage SC SCH ×5 (04:42→22:18)
[2018-01-01] MEDS: Sodium Chloride 0.9% 1,000 ML IV SCH ×2 (05:01→21:30)
[2018-01-01] MEDS: metroNIDAZOLE IV 500 mg/100 ml 500 MG/100 ML BAG IVPB SCH ×3 (05:02→22:21)
[2018-01-01 07:26] LABS: ALB/GLOB RATIO 0.8 (1.1-1.8); ALBUMIN 3.4 g/dL (3.0-4.8); ALT/SGPT 79 U/L (7-56); AST/SGOT 76 U/L (17-59); BLOOD UREA NITROGEN 7 mg/dL (7-21); CALCIUM 8.5 mg/dL (8.4-10.5); GFR NON-AFRICAN AMERICAN > 60
[2018-01-01 07:37] LABS: BASO # 0.03 K/mm3 (0.0-2.0); BASO % 0.4 % (0.0-3.0); EOS # 0.3 (0.0-0.7); EOS % 4.5 % (1.5-5.0); GRAN # 4.82 (1.4-6.5); GRAN % 63.3 % (50.0-68.0); HEMOGLOBIN 9.3 g/dL (14.0-18.0); LYMPH # 1.1 (1.2-3.4); MEAN CELL VOLUME 81.2 fl (80.0-105.0); MEAN CORPUSCULAR HEMOGLOBIN 25.3 pg (25.0-35.0); MEAN CORPUSCULAR HGB CONC 31.2 g/dl (31.0-37.0); MEAN PLATELET VOLUME 8.9 fl (7.0-11.0); MONO # 1.4 (0.1-0.6); MONO % 17.8 % (1.0-6.0); RBC 3.67 10^6/uL (3.5-6.1); RED CELL DISTRIBUTION WIDTH 16.3 % (11.5-14.5); WHITE BLOOD COUNT 7.6 10^3/ul (4.5-11.0)
[2018-01-01] MEDS: Arformoterol 15 mcg/2 ml Inh Sol IH SCH ×2 (07:46→21:53)
[2018-01-01] MEDS: Budesonide 0.5 mg/2 ml Inhal Susp UD IH SCH ×2 (07:47→21:52)
--- NOTE | 2018-01-01 09:10 | CARD ---
APPROVED REPORT Date of service: 12/31/2017 EKG Measurement Heart [id number] <Conclusion> Sinus tachycardia Nonspecific ST-T changes Borderline ECG
[2018-01-01] MEDS: Mesalamine 800 mg DR Tab PO SCH ×3 (09:53→17:43)
--- NOTE | 2018-01-01 12:53 | CP.PCM.PN ---
<Jose Barrientos - Last Filed: 01/01/18 12:50> Subjective - Date & Time of Evaluation Date of Evaluation: 01/01/18 Time of Evaluation: 07:40 - Subjective Subjective: PGY6 GI Fellow Progress Note Patient seen and examined bedside this morning. The patient states that he is feeling slightly better today. Does admit to ongoing chills but states abdominal pain improved. No nausea, vomiting at present. Tolerating liquid diet. Fever of 101F at time of evaluation. 12 system ROS performed and negative except where stated Objective - Vital Signs/Intake and Output Vital Signs (last 24 hours): Temp Pulse Resp BP Pulse Ox 101.0 F H 84 18 136/77 98 01/01/18 05:52 01/01/18 07:51 01/01/18 05:52 01/01/18 05:52 01/01/18 05:52 Intake and Output: 01/01/18 01/01/18 06:59 18:59 Intake Total 2160 Output Total 400 Balance 1760 - Medications Medications: Current Medications Acetaminophen (Tylenol 325mg Tab) 325 mg PO Q6 PRN PRN Reason: Pain, moderate (4-7) Last Admin: 01/01/18 05:02 Dose: 325 mg Arformoterol Tartrate (Brovana) 15 mcg IH [id number] [facility] Last Admin: 01/01/18 07:46 Dose: 15 mcg Budesonide (Pulmicort Respules) 0.5 mg IH [id number] [facility] Last Admin: 01/01/18 07:47 Dose: 0.5 mg Heparin Sodium (Porcine) (Heparin) 5,000 units SC Q12 [facility] PRN Reason: Protocol Last Admin: 01/01/18 09:53 Dose: 5,000 units Sodium Chloride (Sodium Chloride 0.9%) 1,000 mls @ 100 mls/hr IV .Q10H [facility] Last Admin: 01/01/18 05:01 Dose: 100 mls/hr Metronidazole (Flagyl) 500 mg in 100 mls @ 100 mls/hr IVPB Q8 [facility] PRN Reason: Protocol Last Admin: 01/01/18 05:02 Dose: 100 mls/hr Insulin Human Regular (Humulin R Low) 0 units SC ACHS [facility] PRN Reason: Protocol Last Admin: 01/01/18 08:28 Dose: Not Given Mesalamine (Asacol Hd 800mg) 800 mg PO TID [facility] Last Admin: 01/01/18 09:53 Dose: 800 mg Ondansetron HCl (Zofran Inj) 4 mg IVP Q6H PRN PRN Reason: Nausea/Vomiting - Labs Labs: 01/01/18 06:30 01/01/18 06:30 - Constitutional Appears: No Acute Distress - Eye Exam Eye Exam: EOMI, PERRL - ENT Exam ENT Exam: Mucous Membranes Dry - Respiratory Exam Respiratory Exam: Clear to Ausculation Bilateral. absent: Rales, Rhonchi, Wheezes - Cardiovascular Exam Cardiovascular Exam: RRR, +S1, +S2 - GI/Abdominal Exam GI & Abdominal Exam: Soft, Tenderness (mild, diffuse), Normal Bowel Sounds. absent: Distended, Firm, Guarding, Rigid, Organomegaly - Extremities Exam Extremities Exam: Normal Inspection. 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 who presented to the ED with complaint of epigastric pain and diarrhea -Acute febrile/diarrheal illness, favor infectious etiology at present -Crohn's disease Plan: -Agree with ongoing antibiotic administration, awaiting cultures -C diff and stool culture ordered -ID following -Maintain liquid diet, do not advance -Recommend unprepped flexible sigmoidoscopy early this week to evaluate underlying disease; biopsy can be performed to R/O HSV/CMV colitis in setting of CD along with disease activity -Recommend DVT prophylaxis given h/o DVT and IBD/hypercoagulable state - Heparin 5000u SQ BID ordered -Continue Mesalamine 800mg PO TID <Ashley,Kovil V - Last Filed: 01/01/18 23:44> Objective - Vital Signs/Intake and Output Vital Signs (last 24 hours): Temp Pulse Resp BP Pulse Ox 102.2 F H 108 H 20 116/67 98 01/01/18 22:53 01/01/18 22:00 01/01/18 18:00 01/01/18 18:00 08/04/18 05:52 Intake and Output: 01/01/18 01/02/18 18:59 06:59 Intake Total 720 Balance 720 - Medications Medications: Current Medications Acetaminophen (Tylenol 325mg Tab) 325 mg PO Q6 PRN PRN Reason: Pain, moderate (4-7) Last Admin: 01/01/18 22:53 Dose: 325 mg Arformoterol Tartrate (Brovana) 15 mcg IH [id number] [facility] Last Admin: 01/01/18 21:53 Dose: 15 mcg Budesonide (Pulmicort Respules) 0.5 mg IH [id number] [facility] Last Admin: 01/01/18 21:52 Dose: 0.5 mg Heparin Sodium (Porcine) (Heparin) 5,000 units SC Q12 [facility] PRN Reason: Protocol Last Admin: 01/01/18 22:21 Dose: 5,000 units Sodium Chloride (Sodium Chloride 0.9%) 1,000 mls @ 100 mls/hr IV .Q10H [facility] Last Admin: 01/01/18 21:30 Dose: 100 mls/hr Metronidazole (Flagyl) 500 mg in 100 mls @ 100 mls/hr IVPB Q8 [facility] PRN Reason: Protocol Last Admin: 01/01/18 22:21 Dose: 100 mls/hr Insulin Human Regular (Humulin R Low) 0 units SC ACHS [facility] PRN Reason: Protocol Last Admin: 01/01/18 22:18 Dose: Not Given Mesalamine (Asacol Hd 800mg) 800 mg PO TID [facility] Last Admin: 01/01/18 17:43 Dose: 800 mg Morphine Sulfate (Morphine) 4 mg IVP Q6H PRN PRN Reason: Pain, severe (8-10) Last Admin: 01/01/18 22:20 Dose: 4 mg Ondansetron HCl (Zofran Inj) 4 mg IVP Q6H PRN PRN Reason: Nausea/Vomiting Last Admin: 01/01/18 12:50 Dose: 4 mg - Labs Labs: 01/01/18 06:30 01/01/18 06:30 Attending/Attestation - Attestation I have personally seen and examined this patient.: Yes I have fully participated in the care of the patient.: Yes I have reviewed all pertinent clinical information, including history, physical exam and plan: Yes Notes (Text): Associated This is an addendum to GI consult report dictated by the GI Fellow.The patient was seen and examined earlier. Medical records, lab studies , imagings were reviewed. Last 24 hours events reviewed. Agreed with the above treatment plan as outlined in GI Fellow 's notes with the addition of the following recently discharged from the hospital History of Crohn's disease Acute onset of diarrhea abdominal pain vomiting patient does have a fever Tmax was 101 last 24 hours Patient did eat some [place] food he says the following day he felt unwell. Follow-up stool cultures and continue antibiotics as per ID Patient does have elevated transaminases and ALK status post cholecystectomy would request MRCP with MRI of the abdomen to rule out focal hepatic lesion rule o sclerosing cholangitis rule out CBD stone would consider flex sig on Wednesday to further evaluate IBD/Crohn's Follow-up stool studies culture and C. difficile 01/01/18 23:33
[2018-01-01] MEDS ORDERED: Morphine 4 mg/ml ISec IVP STA (13:58)
--- NOTE | 2018-01-01 16:47 | CP.PCM.PN ---
Subjective - Date & Time of Evaluation Date of Evaluation: 01/01/18 Time of Evaluation: 15:00 - Subjective Subjective: Infectious Disease Follow Up: January 01, 2018 42yo male with past medical history of diabetes mellitus type 2, Crohn's disease presents c/o epigastric abdominal pain associated with nausea, non- bilious, non-bloody vomiting and diarrhea for the past 2 days. He reports that he has been having subjective fevers and reported having been discharged from [facility] previously for a similar contact during which time he was treated for a Crohn's flare. Described his abdominal pain as epigastric in nature, non- radiating, 8/10 in severity. Diarrhea has been watery without blood or mucus. He denies chest pain, palpitations, SOB, focal weakness, numbness, tingling, melena/hematochezia, mucus in the stool, sick contacts, chills, cough. ICU was consulted for evaluation of abdominal pain in setting of elevated lactate/ leukocytosis. ID called for evaluation of potential abdominal infection and PCN allergy history. Today the patient states that he feels a little better. Leukocytosis improved today. Still with fevers of 101.1 F today. Objective - Vital Signs/Intake and Output Vital Signs (last 24 hours): Temp Pulse Resp BP Pulse Ox 99.8 F H 97 H 20 119/74 98 01/01/18 12:00 01/01/18 14:00 01/01/18 12:00 01/01/18 12:00 01/01/18 05:52 Intake and Output: 01/01/18 01/01/18 06:59 18:59 Intake Total 2160 Output Total 400 Balance 1760 - Medications Medications: Current Medications Acetaminophen (Tylenol 325mg Tab) 325 mg PO Q6 PRN PRN Reason: Pain, moderate (4-7) Last Admin: 01/01/18 12:49 Dose: 325 mg Arformoterol Tartrate (Brovana) 15 mcg IH [id number] [facility] Last Admin: 01/01/18 07:46 Dose: 15 mcg Budesonide (Pulmicort Respules) 0.5 mg IH [id number] [facility] Last Admin: 01/01/18 07:47 Dose: 0.5 mg Heparin Sodium (Porcine) (Heparin) 5,000 units SC Q12 [facility] PRN Reason: Protocol Last Admin: 01/01/18 09:53 Dose: 5,000 units Sodium Chloride (Sodium Chloride 0.9%) 1,000 mls @ 100 mls/hr IV .Q10H [facility] Last Admin: 01/01/18 05:01 Dose: 100 mls/hr Metronidazole (Flagyl) 500 mg in 100 mls @ 100 mls/hr IVPB Q8 [facility] PRN Reason: Protocol Last Admin: 01/01/18 14:19 Dose: 100 mls/hr Insulin Human Regular (Humulin R Low) 0 units SC ACHS [facility] PRN Reason: Protocol Last Admin: 01/01/18 08:28 Dose: Not Given Mesalamine (Asacol Hd 800mg) 800 mg PO TID [facility] Last Admin: 01/01/18 14:19 Dose: 800 mg Morphine Sulfate (Morphine) 4 mg IVP Q6H PRN PRN Reason: Pain, severe (8-10) Ondansetron HCl (Zofran Inj) 4 mg IVP Q6H PRN PRN Reason: Nausea/Vomiting Last Admin: 01/01/18 12:50 Dose: 4 mg - Labs Labs: 01/01/18 06:30 01/01/18 06:30 - Constitutional Appears: Non-toxic, No Acute Distress, Chronically Ill - Head Exam Head Exam: ATRAUMATIC, NORMOCEPHALIC - Eye Exam Eye Exam: EOMI, PERRL Pupil Exam: NORMAL ACCOMODATION, PERRL - ENT Exam ENT Exam: Mucous Membranes Moist, Normal External Ear Exam, TM's Normal Bilaterally - Neck Exam Neck Exam: Full ROM, Normal Inspection - Respiratory Exam Respiratory Exam: Clear to Ausculation Bilateral, NORMAL BREATHING PATTERN. absent: Rales, Rhonchi, Wheezes - Cardiovascular Exam Cardiovascular Exam: REGULAR RHYTHM, RRR, +S1, +S2 - GI/Abdominal Exam GI & Abdominal Exam: Soft, Tenderness (epigastric). absent: Distended - Extremities Exam Extremities Exam: Full ROM, Normal Inspection - Neurological Exam Neurological Exam: Alert, Awake, CN II-XII Intact, Oriented x3 - Psychiatric Exam Psychiatric exam: Normal Affect, Normal Mood - Skin Skin Exam: Dry, Intact, Normal Color Assessment and Plan - Assessment and Plan (Free Text) Assessment: 42 yo male with medical history of Crohn's and Type II DM presenting with abdominal pain with nausea, vomiting, and diarrhea with fevers up to 103.1 F. The patient recently discharged from [facility] in November. Distended abdomen. CT abd on this hospitalization showing resolvement of the previous colitis seen in November 2017. There is the appearance of fluid filled bowels seen in diarrhea. Supportive care. Started on Cipro and Flagyl on admission. IV vancomycin also started. Would give Zosyn and Flagyl instead of the Cipro. Test for C. Diff. Salmonella testing pending. Ova and parasite stool examination. The patient had fever up to 101.1 F. Awaiting stool studies. Leukocytosis resolved. Thank you for allowing me to participate in the care of the patient, we will follow with you.
[2018-01-01] MEDS: Morphine 4 mg/ml ISec IVP PRN (22:20)
[2018-01-02] MEDS: metroNIDAZOLE IV 500 mg/100 ml 500 MG/100 ML BAG IVPB SCH ×3 (05:27→21:43)
[2018-01-02 07:34] LABS: HEMOGLOBIN 9.1 g/dL (14.0-18.0); MEAN CELL VOLUME 81.1 fl (80.0-105.0); MEAN CORPUSCULAR HEMOGLOBIN 25.6 pg (25.0-35.0); MEAN CORPUSCULAR HGB CONC 31.6 g/dl (31.0-37.0); MEAN PLATELET VOLUME 8.9 fl (7.0-11.0); RBC 3.55 10^6/uL (3.5-6.1); RED CELL DISTRIBUTION WIDTH 16.1 % (11.5-14.5); WHITE BLOOD COUNT 8.1 10^3/ul (4.5-11.0)
[2018-01-02 07:45] LABS: BLOOD UREA NITROGEN 6 mg/dL (7-21); CALCIUM 8.3 mg/dL (8.4-10.5); GFR NON-AFRICAN AMERICAN > 60
[2018-01-02] MEDS: Arformoterol 15 mcg/2 ml Inh Sol IH SCH ×2 (07:56→20:40)
[2018-01-02] MEDS: Budesonide 0.5 mg/2 ml Inhal Susp UD IH SCH ×2 (07:57→20:40)
[2018-01-02 07:58] LABS: IRON 19 ug/dL (45-180)
[2018-01-02] MEDS: Insulin Reg-LOW-Coverage SC SCH ×4 (08:06→22:00)
[2018-01-02 08:08] LABS: % IRON SATURATION 9 % (20-55); TOTAL IRON BINDING CAPACITY 216 ug/dL (261-462)
[2018-01-02] MEDS: Morphine 4 mg/ml ISec IVP PRN ×2 (09:07→21:43)
[2018-01-02] MEDS: Sodium Chloride 0.9% 1,000 ML IV SCH ×2 (09:08→21:47)
[2018-01-02] MEDS: Mesalamine 800 mg DR Tab PO SCH ×3 (09:09→17:57)
[2018-01-02] MEDS ORDERED: Piperacillin/Tazobact 3.375 gm 100 ML IVPB SCH (12:00)
[2018-01-02] MEDS ORDERED: Gadodiamide 287 MG/ML VIAL (20ML) IV ONE (12:21)
--- NOTE | 2018-01-02 13:29 | CP.PCM.PN ---
<Jose Barrientos - Last Filed: 01/02/18 13:25> Subjective - Date & Time of Evaluation Date of Evaluation: 01/02/18 Time of Evaluation: 08:20 - Subjective Subjective: PGY6 GI Fellow Progress Note Patient seen and examined bedside this morning. The patient states he is feeling slightly better but admit that he continues to spike fever and suffer with chills. Continues to have loose stool. Mild-moderate abdominal pain at intermittently. 12 system ROS performed and negative except where stated. Objective - Vital Signs/Intake and Output Vital Signs (last 24 hours): Temp Pulse Resp BP Pulse Ox 102.1 F H 101 H 20 118/68 99 01/02/18 05:54 01/02/18 10:00 01/02/18 05:39 01/02/18 05:39 01/02/18 05:39 Intake and Output: 01/02/18 01/02/18 06:59 18:59 Intake Total 1760 Balance 1760 - Medications Medications: Current Medications Acetaminophen (Tylenol 325mg Tab) 325 mg PO Q6 PRN PRN Reason: Pain, moderate (4-7) Last Admin: 01/02/18 05:54 Dose: 325 mg Arformoterol Tartrate (Brovana) 15 mcg IH [id number] [facility] Last Admin: 01/02/18 07:56 Dose: 15 mcg Budesonide (Pulmicort Respules) 0.5 mg IH [id number] [facility] Last Admin: 01/02/18 07:57 Dose: 0.5 mg Heparin Sodium (Porcine) (Heparin) 5,000 units SC Q12 [facility] PRN Reason: Protocol Last Admin: 01/02/18 09:10 Dose: 5,000 units Sodium Chloride (Sodium Chloride 0.9%) 1,000 mls @ 100 mls/hr IV .Q10H [facility] Last Admin: 01/02/18 09:08 Dose: 100 mls/hr Metronidazole (Flagyl) 500 mg in 100 mls @ 100 mls/hr IVPB Q8 [facility] PRN Reason: Protocol Last Admin: 01/02/18 05:27 Dose: 100 mls/hr Piperacillin Sod/Tazobactam Sod (Zosyn 3.375 In Ns 100ml) 100 mls @ 200 mls/hr IVPB Q6 [facility] PRN Reason: Protocol Stop: 01/02/18 18:29 Insulin Human Regular (Humulin R Low) 0 units SC ACHS [facility] PRN Reason: Protocol Last Admin: 01/02/18 12:17 Dose: Not Given Mesalamine (Asacol Hd 800mg) 800 mg PO TID [facility] Last Admin: 01/02/18 09:09 Dose: 800 mg Morphine Sulfate (Morphine) 4 mg IVP Q6H PRN PRN Reason: Pain, severe (8-10) Last Admin: 01/02/18 09:07 Dose: 4 mg Ondansetron HCl (Zofran Inj) 4 mg IVP Q6H PRN PRN Reason: Nausea/Vomiting Last Admin: 01/02/18 09:07 Dose: 4 mg - Labs Labs: 01/02/18 06:45 01/02/18 06:45 APTT 30.5 Seconds (25.1-36.5) 01/02/18 06:45 - Constitutional Appears: Non-toxic, No Acute Distress - Eye Exam Eye Exam: EOMI, PERRL - ENT Exam ENT Exam: Mucous Membranes Moist - Respiratory Exam Respiratory Exam: Clear to Ausculation Bilateral. absent: Rales, Rhonchi, Wheezes - Cardiovascular Exam Cardiovascular Exam: RRR, +S1, +S2 - GI/Abdominal Exam GI & Abdominal Exam: Soft, Tenderness (mid-abdominal to RUQ), Normal Bowel Sounds. absent: Distended, Firm, Guarding, Rigid, Organomegaly - Extremities Exam Extremities Exam: Normal Inspection. 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 who presented to the ED with complaint of epigastric pain and diarrhea -Acute febrile/diarrheal illness, favor infectious etiology at present -Crohn's disease Plan: -Continues to spike fever (Tmax 102F) despite antibiotic coverage -Check influenza screen -ID following, appreciate recommendations - defer antibiotic management -C diff negative -Stool culture pending -Continue Mesalamine 800mg PO TID -Maintain liquid diet, do not advance -Recommend unprepped flexible sigmoidoscopy early this week to evaluate underlying disease; biopsy can be performed to R/O HSV/CMV colitis in setting of CD along with disease activity -DVT ppx - Heparin 5000u SQ BID ordered <Ashkan Ramirez V - Last Filed: 01/02/18 23:28> Objective - Vital Signs/Intake and Output Vital Signs (last 24 hours): Temp Pulse Resp BP Pulse Ox 99 F 81 19 119/67 92 L 01/02/18 18:00 01/02/18 22:00 01/02/18 18:00 01/02/18 18:00 01/02/18 18:00 Intake and Output: 01/02/18 01/03/18 18:59 06:59 Intake Total 1500 Output Total 2 Balance 1498 - Medications Medications: Current Medications Acetaminophen (Tylenol 325mg Tab) 325 mg PO Q6 PRN PRN Reason: Pain, moderate (4-7) Last Admin: 01/02/18 05:54 Dose: 325 mg Arformoterol Tartrate (Brovana) 15 mcg IH [id number] [facility] Last Admin: 01/02/18 20:40 Dose: 15 mcg Budesonide (Pulmicort Respules) 0.5 mg IH [id number] [facility] Last Admin: 01/02/18 20:40 Dose: 0.5 mg Heparin Sodium (Porcine) (Heparin) 5,000 units SC Q12 [facility] PRN Reason: Protocol Last Admin: 01/02/18 21:43 Dose: 5,000 units Sodium Chloride (Sodium Chloride 0.9%) 1,000 mls @ 100 mls/hr IV .Q10H [facility] Last Admin: 01/02/18 21:47 Dose: 100 mls/hr Metronidazole (Flagyl) 500 mg in 100 mls @ 100 mls/hr IVPB Q8 [facility] PRN Reason: Protocol Last Admin: 01/02/18 21:43 Dose: 100 mls/hr Aztreonam (Azactam 1 Gm) 100 mls @ 100 mls/hr IVPB Q8 [facility] PRN Reason: Protocol Last Admin: 01/02/18 21:42 Dose: 100 mls/hr Insulin Human Regular (Humulin R Low) 0 units SC ACHS [facility] PRN Reason: Protocol Last Admin: 01/02/18 17:29 Dose: Not Given Mesalamine (Asacol Hd 800mg) 800 mg PO TID [facility] Last Admin: 01/02/18 17:57 Dose: 800 mg Morphine Sulfate (Morphine) 4 mg IVP Q6H PRN PRN Reason: Pain, severe (8-10) Last Admin: 01/02/18 21:43 Dose: 4 mg Ondansetron HCl (Zofran Inj) 4 mg IVP Q6H PRN PRN Reason: Nausea/Vomiting Last Admin: 01/02/18 09:07 Dose: 4 mg - Labs Labs: 01/02/18 06:45 01/02/18 06:45 APTT 30.5 Seconds (25.1-36.5) 01/02/18 06:45 Attending/Attestation - Attestation I have personally seen and examined this patient.: Yes I have fully participated in the care of the patient.: Yes I have reviewed all pertinent clinical information, including history, physical exam and plan: Yes Notes (Text): This is an addendum to GI progress report dictated by the GI Fellow.The patient was seen and examined earlier. Medical records, lab studies, imagings were reviewed. Last 24 hours events reviewed. Agreed with the above treatment plan as outlined in GI Fellow 's notes with the addition of the following Patient is still spiking temperature No complaints of abdominal pain Etiology for the fever unclear Elevated liver enzymes requested MRI to rule out CBD stone rule out sclerosing cholangitis Follow-up cultures and continue antibiotics as per ID History of Crohn's disease rule out gastroenteritis Consider flexible sigmoidoscopy Continue clear liquid diet 01/02/18 23:26
--- NOTE | 2018-01-02 14:13 | MRI ---
Date of service: 01/02/2018 PROCEDURE: MRI Abdomen with and without contrast HISTORY: Crohn's disease, rule out sclerosing cholangitis COMPARISON: None available. TECHNIQUE: Multisequence, multiplanar MR images of the abdomen with and without gadolinium contrast enhancement. 20 cc of Omniscan FINDINGS: LIVER: Unremarkable. GALLBLADDER: Unremarkable. The common duct is normal in caliber. There is no evidence of intrahepatic ductal dilatation. SPLEEN: Unremarkable. PANCREAS: Unremarkable. ADRENALS: Unremarkable. KIDNEYS: Unremarkable. AORTA: No aneurysm. ASCITES: None. PERITONEUM: Unremarkable. LYMPH NODES: Unremarkable. OTHER FINDINGS: No evidence of abnormal enhancement IMPRESSION: Negative study
--- NOTE | 2018-01-02 17:08 | CP.PCM.PN ---
Subjective - Date & Time of Evaluation Date of Evaluation: 01/02/18 Time of Evaluation: 15:00 - Subjective Subjective: Infectious Disease Follow Up: January 02, 2018 42yo male with past medical history of diabetes mellitus type 2, Crohn's disease presents c/o epigastric abdominal pain associated with nausea, non- bilious, non-bloody vomiting and diarrhea for the past 2 days. He reports that he has been having subjective fevers and reported having been discharged from [facility] previously for a similar contact during which time he was treated for a Crohn's flare. Described his abdominal pain as epigastric in nature, non- radiating, 8/10 in severity. Diarrhea has been watery without blood or mucus. He denies chest pain, palpitations, SOB, focal weakness, numbness, tingling, melena/hematochezia, mucus in the stool, sick contacts, chills, cough. ICU was consulted for evaluation of abdominal pain in setting of elevated lactate/ leukocytosis. ID called for evaluation of potential abdominal infection and PCN allergy history. Today the patient states that he feels a little better. Leukocytosis improved today. Fevers up to 103 F today. Objective - Vital Signs/Intake and Output Vital Signs (last 24 hours): Temp Pulse Resp BP Pulse Ox 97.8 F 104 H 20 124/77 99 01/02/18 15:19 01/02/18 14:05 01/02/18 14:05 01/02/18 14:05 01/02/18 05:39 Intake and Output: 01/02/18 01/02/18 06:59 18:59 Intake Total 1760 Balance 1760 - Medications Medications: Current Medications Acetaminophen (Tylenol 325mg Tab) 325 mg PO Q6 PRN PRN Reason: Pain, moderate (4-7) Last Admin: 01/02/18 05:54 Dose: 325 mg Arformoterol Tartrate (Brovana) 15 mcg IH [id number] [facility] Last Admin: 01/02/18 07:56 Dose: 15 mcg Budesonide (Pulmicort Respules) 0.5 mg IH [id number] [facility] Last Admin: 01/02/18 07:57 Dose: 0.5 mg Heparin Sodium (Porcine) (Heparin) 5,000 units SC Q12 [facility] PRN Reason: Protocol Last Admin: 01/02/18 09:10 Dose: 5,000 units Sodium Chloride (Sodium Chloride 0.9%) 1,000 mls @ 100 mls/hr IV .Q10H [facility] Last Admin: 01/02/18 09:08 Dose: 100 mls/hr Metronidazole (Flagyl) 500 mg in 100 mls @ 100 mls/hr IVPB Q8 [facility] PRN Reason: Protocol Last Admin: 01/02/18 13:36 Dose: 100 mls/hr Aztreonam (Azactam 1 Gm) 100 mls @ 100 mls/hr IVPB Q8 [facility] PRN Reason: Protocol Insulin Human Regular (Humulin R Low) 0 units SC ACHS [facility] PRN Reason: Protocol Last Admin: 01/02/18 12:17 Dose: Not Given Mesalamine (Asacol Hd 800mg) 800 mg PO TID [facility] Last Admin: 01/02/18 13:36 Dose: 800 mg Morphine Sulfate (Morphine) 4 mg IVP Q6H PRN PRN Reason: Pain, severe (8-10) Last Admin: 01/02/18 09:07 Dose: 4 mg Ondansetron HCl (Zofran Inj) 4 mg IVP Q6H PRN PRN Reason: Nausea/Vomiting Last Admin: 01/02/18 09:07 Dose: 4 mg - Labs Labs: 01/02/18 06:45 01/02/18 06:45 APTT 30.5 Seconds (25.1-36.5) 01/02/18 06:45 - Constitutional Appears: Non-toxic, No Acute Distress, Chronically Ill - Head Exam Head Exam: ATRAUMATIC, NORMOCEPHALIC - Eye Exam Eye Exam: EOMI, PERRL Pupil Exam: NORMAL ACCOMODATION, PERRL - ENT Exam ENT Exam: Mucous Membranes Moist, Normal External Ear Exam, TM's Normal Bilaterally - Neck Exam Neck Exam: Full ROM, Normal Inspection - Respiratory Exam Respiratory Exam: Clear to Ausculation Bilateral, NORMAL BREATHING PATTERN. absent: Rales, Rhonchi, Wheezes - Cardiovascular Exam Cardiovascular Exam: REGULAR RHYTHM, RRR, +S1, +S2 - GI/Abdominal Exam GI & Abdominal Exam: Soft, Normal Bowel Sounds. absent: Distended, Tenderness - Extremities Exam Extremities Exam: Full ROM, Normal Inspection - Neurological Exam Neurological Exam: Alert, Awake, CN II-XII Intact, Oriented x3 - Psychiatric Exam Psychiatric exam: Normal Affect, Normal Mood - Skin Skin Exam: Intact, Normal Color Assessment and Plan - Assessment and Plan (Free Text) Assessment: 42 yo male with medical history of Crohn's and Type II DM presenting with abdominal pain with nausea, vomiting, and diarrhea with fevers up to 103.1 F. The patient recently discharged from [facility] in November. Distended abdomen. CT abd on this hospitalization showing resolvement of the previous colitis seen in November 2017. There is the appearance of fluid filled bowels seen in diarrhea. Supportive care. Started on Cipro and Flagyl on admission. IV vancomycin also started. Would give Aztreonam and Flagyl instead of the Cipro. Test for C. Diff. Salmonella testing pending. Ova and parasite stool examination. The patient had fever up to 103 F in the past 24 hours. Awaiting stool studies. Patient states swelling with PCN. C. Diff negative. PCN and shellfish allergy. Leukocytosis resolved. Thank you for allowing me to participate in the care of the patient, we will follow with you.
--- NOTE | 2018-01-02 17:30 | PN ---
Copied To: Reji Scott MD Attending MD: Reji Scott MD DATE: 01/02/2018 HEMATOLOGY EVALUATION A 42-year-old old man with multiple medical problems however, in terms of urologically, he has white count of 7.6, hemoglobin 9.2 with MCV of 81 and a platelet count measuring between 717 and 900, today is 683. There are three main reasons for the elevated platelet count; 1. Reactive due to the inflammation he has now. 2. Iron deficiency, for which he has been found to be positive. 3. Possibly a KEYLA-2 positive thrombocytosis. At this point, we will check the iron levels and give IV iron see if this will lower the platelet count. So I will check the iron levels first. Reji Scott MD
[2018-01-02] MEDS: Aztreonam 1 Gm in NS 100mL 100 ML IVPB SCH ×2 (17:54→21:42)
[2018-01-03] MEDS: Aztreonam 1 Gm in NS 100mL 100 ML IVPB SCH ×3 (05:11→21:19)
[2018-01-03] MEDS: metroNIDAZOLE IV 500 mg/100 ml 500 MG/100 ML BAG IVPB SCH ×3 (05:11→21:20)
[2018-01-03] MEDS: Arformoterol 15 mcg/2 ml Inh Sol IH SCH ×2 (08:02→19:43)
[2018-01-03] MEDS: Budesonide 0.5 mg/2 ml Inhal Susp UD IH SCH ×2 (08:02→19:43)
--- NOTE | 2018-01-03 08:06 | CP.PCM.PN ---
<Brock Forbes - Last Filed: 01/03/18 11:24> Subjective - Date & Time of Evaluation Date of Evaluation: 01/03/18 Time of Evaluation: 06:45 - Subjective Subjective: Brock Forbes DO, PGY-2: GI Progress Note Patient was seen and examined at bedside. Patient reports having three episodes of watery diarrhea in the past 24 hours. He reports that last night he was able to sleep much better compared to prior nights given his fever had subdued. He remains on a clear liquid diet. Objective - Vital Signs/Intake and Output Vital Signs (last 24 hours): Temp Pulse Resp BP Pulse Ox 99 F 103 H 20 114/60 98 01/03/18 06:00 01/03/18 06:00 01/03/18 06:00 01/03/18 06:00 01/03/18 06:00 Intake and Output: 01/03/18 01/03/18 06:59 18:59 Intake Total 1320 Output Total 0 Balance 1320 - Medications Medications: Current Medications Acetaminophen (Tylenol 325mg Tab) 325 mg PO Q6 PRN PRN Reason: Pain, moderate (4-7) Last Admin: 01/03/18 00:19 Dose: 325 mg Arformoterol Tartrate (Brovana) 15 mcg IH [id number] [facility] Last Admin: 01/02/18 20:40 Dose: 15 mcg Budesonide (Pulmicort Respules) 0.5 mg IH [id number] [facility] Last Admin: 01/02/18 20:40 Dose: 0.5 mg Heparin Sodium (Porcine) (Heparin) 5,000 units SC Q12 [facility] PRN Reason: Protocol Last Admin: 01/02/18 21:43 Dose: 5,000 units Sodium Chloride (Sodium Chloride 0.9%) 1,000 mls @ 100 mls/hr IV .Q10H [facility] Last Admin: 01/02/18 21:47 Dose: 100 mls/hr Metronidazole (Flagyl) 500 mg in 100 mls @ 100 mls/hr IVPB Q8 [facility] PRN Reason: Protocol Last Admin: 01/03/18 05:11 Dose: 100 mls/hr Aztreonam (Azactam 1 Gm) 100 mls @ 100 mls/hr IVPB Q8 [facility] PRN Reason: Protocol Last Admin: 01/03/18 05:11 Dose: 100 mls/hr Iron Sucrose 200 mg/ Sodium (Chloride) 110 mls @ 110 mls/hr IVPB ONCE ONE Stop: 01/03/18 08:41 Insulin Human Regular (Humulin R Low) 0 units SC ACHS [facility] PRN Reason: Protocol Last Admin: 01/02/18 22:00 Dose: Not Given Mesalamine (Asacol Hd 800mg) 800 mg PO TID [facility] Last Admin: 01/02/18 17:57 Dose: 800 mg Morphine Sulfate (Morphine) 4 mg IVP Q6H PRN PRN Reason: Pain, severe (8-10) Last Admin: 01/02/18 21:43 Dose: 4 mg Ondansetron HCl (Zofran Inj) 4 mg IVP Q6H PRN PRN Reason: Nausea/Vomiting Last Admin: 01/02/18 09:07 Dose: 4 mg - Labs Labs: 01/02/18 06:45 01/02/18 06:45 APTT 30.5 Seconds (25.1-36.5) 01/02/18 06:45 - Constitutional Appears: Non-toxic, No Acute Distress - Head Exam Head Exam: ATRAUMATIC, NORMOCEPHALIC - Eye Exam Eye Exam: EOMI, Normal appearance. absent: Scleral icterus - ENT Exam ENT Exam: Mucous Membranes Dry - Neck Exam Neck Exam: Normal Inspection - Respiratory Exam Respiratory Exam: Wheezes, NORMAL BREATHING PATTERN. absent: Accessory Muscle Use - Cardiovascular Exam Cardiovascular Exam: Tachycardia, +S1, +S2 - GI/Abdominal Exam GI & Abdominal Exam: absent: Distended, Rigid, Rebound - Extremities Exam Extremities Exam: Normal Inspection. 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 who presented to the ED with complaint of epigastric pain and diarrhea -Acute febrile/diarrheal illness, favor infectious etiology at present -Crohn's disease Plan: -Fever (Tmax 100F) despite antibiotic coverage -Check influenza screen -ID following, appreciate recommendations - defer antibiotic management -C diff negative -Stool culture pending -Continue Mesalamine 800mg PO TID -Maintain liquid diet, do not advance - Flex sigmoidoscopy planned for tomorrow; two docusates PO today and 1 bottle of Mag-Citrate at 5:00 AM 01/04/18 - NPO after midnight -DVT ppx - Heparin 5000u SQ BID ordered Case reviewed and discussed with attending physician, Dr. Ramirez <Ashkan Ramirez V - Last Filed: 01/03/18 18:55> Objective - Vital Signs/Intake and Output Vital Signs (last 24 hours): Temp Pulse Resp BP Pulse Ox 103 F H 106 H 19 134/68 98 01/03/18 18:04 01/03/18 18:00 01/03/18 18:00 01/03/18 18:00 01/03/18 18:00 Intake and Output: 01/03/18 01/03/18 06:59 18:59 Intake Total 1320 1260 Output Total 0 4 Balance 1320 1256 - Medications Medications: Current Medications Acetaminophen (Tylenol 325mg Tab) 650 mg PO Q6H PRN PRN Reason: fever greater than 99 Arformoterol Tartrate (Brovana) 15 mcg IH [id number] [facility] Last Admin: 01/03/18 08:02 Dose: 15 mcg Budesonide (Pulmicort Respules) 0.5 mg IH [id number] [facility] Last Admin: 01/03/18 08:02 Dose: 0.5 mg Heparin Sodium (Porcine) (Heparin) 5,000 units SC Q12 [facility] PRN Reason: Protocol Last Admin: 01/03/18 10:01 Dose: 5,000 units Sodium Chloride (Sodium Chloride 0.9%) 1,000 mls @ 100 mls/hr IV .Q10H [facility] Last Admin: 01/03/18 16:16 Dose: 100 mls/hr Metronidazole (Flagyl) 500 mg in 100 mls @ 100 mls/hr IVPB Q8 [facility] PRN Reason: Protocol Last Admin: 01/03/18 13:54 Dose: 100 mls/hr Aztreonam (Azactam 1 Gm) 100 mls @ 100 mls/hr IVPB Q8 [facility] PRN Reason: Protocol Last Admin: 01/03/18 13:53 Dose: 100 mls/hr Vancomycin HCl (Vancomycin 1gm) 1 gm in 250 mls @ 167 mls/hr IVPB ONCE ONE PRN Reason: Protocol Stop: 01/03/18 19:05 Last Admin: 01/03/18 18:08 Dose: 167 mls/hr Insulin Human Regular (Humulin R Low) 0 units SC ACHS [facility] PRN Reason: Protocol Last Admin: 01/03/18 13:35 Dose: Not Given Mesalamine (Asacol Hd 800mg) 800 mg PO TID [facility] Last Admin: 01/03/18 17:58 Dose: 800 mg Morphine Sulfate (Morphine) 4 mg IVP Q6H PRN PRN Reason: Pain, severe (8-10) Last Admin: 01/03/18 08:26 Dose: 4 mg Ondansetron HCl (Zofran Inj) 4 mg IVP Q6H PRN PRN Reason: Nausea/Vomiting Last Admin: 01/03/18 15:14 Dose: 4 mg - Labs Labs: 01/03/18 08:00 01/02/18 06:45 APTT 30.5 Seconds (25.1-36.5) 01/02/18 06:45 Attending/Attestation - Attestation I have personally seen and examined this patient.: Yes I have fully participated in the care of the patient.: Yes I have reviewed all pertinent clinical information, including history, physical exam and plan: Yes Notes (Text): This is an addendum to GI followup report dictated by the [employer]. The patient was seen and evaluated earlier. Medical records, lab studies, imagings were reviewed. Last 24 hours events reviewed. Agreed with the above treatment plan as outlined in [employer] 's notes with the addition of the following Patient is still having fever Denies any abdominal pain On examination abdomen was soft nontender Follow-up repeat cultures CT scan of the abdomen and pelvis with only by mouth contrast Would consider flexible sigmoidoscopy in the a.m. after reviewing the CT finding. We will hold off prep until the CT scan is reviewed Discussed with Dr. Cuevas Started empirically IV Vanco 1 dose pending ID reevaluation 01/03/18 18:52
[2018-01-03 08:23] LABS: HEMOGLOBIN 9.3 g/dL (14.0-18.0); MEAN CELL VOLUME 79.9 fl (80.0-105.0); MEAN CORPUSCULAR HEMOGLOBIN 25.9 pg (25.0-35.0); MEAN CORPUSCULAR HGB CONC 32.4 g/dl (31.0-37.0); MEAN PLATELET VOLUME 8.3 fl (7.0-11.0); RBC 3.59 10^6/uL (3.5-6.1); RED CELL DISTRIBUTION WIDTH 15.9 % (11.5-14.5); WHITE BLOOD COUNT 8.7 10^3/ul (4.5-11.0)
[2018-01-03] MEDS: Morphine 4 mg/ml ISec IVP PRN ×2 (08:26→22:48)
[2018-01-03] MEDS: Insulin Reg-LOW-Coverage SC SCH ×4 (08:44→22:30)
--- NOTE | 2018-01-03 10:09 | US ---
HISTORY: Leg pain and swelling. Evaluate for DVT PHYSICIAN(S): Daryl Chavez MD. TECHNIQUE: Duplex sonography and color-flow Doppler with graded compression were used to evaluate the deep venous systems of both lower extremities. FINDINGS: The visualized deep venous systems of both lower extremities are sonographically normal and compressible. Normal wave forms and augmentation are seen. There is no sonographic evidence for deep venous thrombosis in the visualized segments of both lower extremities. IMPRESSION: No sonographic evidence for deep venous thrombosis in the visualized segments of both lower extremities.
[2018-01-03] MEDS: Mesalamine 800 mg DR Tab PO SCH ×3 (10:17→17:58)
[2018-01-03] MEDS ORDERED: Bisacodyl 5mg EC Tab PO ONE (10:25)
--- NOTE | 2018-01-03 12:33 | PN ---
Copied To: Mansi Cuevas MD Attending MD: Mansi Cuevas MD DATE: 01/01/2018 SUBJECTIVE: This 42-year-old male was examined at his bedside and this case was reviewed in detail with himself and Nursing. The patient was admitted with fever, chills and bloody diarrhea and has a history of irritable bowel syndrome and Crohn disease. The patient also has a history of iron-deficiency anemia, peptic ulcer disease with GERD, non-insulin dependent diabetes mellitus and asthmatic bronchitis. The patient was seen by Dr. Ashkan Ramirez from GI, who is recommending sigmoidoscopy when patient stabilizes on IV antibiotics under the direction of Dr. Shon Plata. PHYSICAL EXAMINATION: GENERAL: The patient was noted to be alert, oriented, denying any chest pain or shortness of breath. VITAL SIGNS: He had a temperature of 99.8, respirations of 20, pulse 100 and blood pressure 119/74. Pulse ox was 98% on room air. HEENT: Head normocephalic, atraumatic. Eyes: No icterus. Ears: Clear. Throat: Noninjected. NECK: Supple. HEART: Regular S1, S2. LUNGS: Clear. ABDOMEN: Obese. No rebound, no guarding. EXTREMITIES: No edema. SKIN: Without rash. NEUROLOGICAL: Intact. PSYCHOLOGICAL: Alert. VASCULAR: Legs were warm to touch. LABORATORY DATA: His admission white count was 13,700 and today is 7600 with a hemoglobin of 9.3, hematocrit of 29.8, platelets of 683,000. PTT was 30.5. Sodium 138, K 4.3, chloride 102, bicarb 25, BUN 7, creatinine 0.9, random blood sugar was 111. Bilirubin 0.8, AST 76, ALT 79, alk phos 238. Urinalysis showed moderate bacteria. Blood culture showed no growth. Urine culture showed no growth and stools for O and P, C and S, and C.diff toxin are pending. IMPRESSION: A 42-year-old male with irritable bowel syndrome and Crohn disease admitted with fever and evidence of colitis on abdominal CT. PLAN: The plan as discussed with the patient and Nursing will be to continue Asacol 800 mg p.o. t.i.d., Brovana inhalational therapy every 12 hours, Flagyl 500 mg IV every 8 hours, Azactam 1 g IV every 8 hours, insulin coverage before meals and at bedtime, heparin 5000 units subcu every 12 hours, 0.9 saline at 100 mL/hour with Zofran 4 mg IV every 6 hours p.r.n. nausea and vomiting. The patient has been cleared for a clear liquid diet by Dr. Ashkan Ramirez from GI and will have serial labs including CBC and basic metabolic panel in the a.m. All of the above was discussed in detail with the patient at his bedside. All questions were answered. Mansi Cuevas MD MTDRaul
--- NOTE | 2018-01-03 12:47 | PN ---
Copied To: Mansi Cuevas MD Attending MD: Mansi Cuevas MD DATE: 01/02/2018 SUBJECTIVE: This 42-year-old male remains hospitalized with fever and at present non-bloody diarrhea. I spoke with his nurse at the bedside and she did send off stool for C. diff toxin. The patient is tolerating clear liquid diet and is being followed by Dr. Ashkan Ramirez and Dr. Shon Plata from GI and ID respectively. PHYSICAL EXAMINATION: GENERAL: This morning, the patient had a fever of 102.1 and antibiotics are being evaluated by Dr. Shon Plata. He denies any chest pain or shortness of breath. VITAL SIGNS: His physical exam showed temperature 102.1, pulse 106, blood pressure 118/68 and respiratory 20 with a pulse ox of 99% on room air. HEENT: Head normocephalic, atraumatic. Eyes: No icterus. Ears: Clear. Throat: Noninjected. NECK: Supple. HEART: Regular S1, S2. LUNGS: Clear. ABDOMEN: Obese. No rebound, no guarding. EXTREMITIES: No edema. SKIN: Without rash. NEUROLOGICAL: Intact. PSYCHOLOGICAL: Alert and oriented x3. LABORATORY DATA: White count 8100, on admission 13,700. Hemoglobin 9.1, hematocrit 28.8, platelets 641,000. Chemistry, sodium 135, K 4.4, chloride 102, bicarb 25, BUN 6, creatinine 0.9, random blood sugar was 97. His iron level was 19. His TIBC is 216, percent saturation is 9 and ferritin 104 with B12 levels of 978 consistent with chronic iron-deficiency anemia in the setting of GI bleeding. C. diff toxin antigen and toxin both negative. IMPRESSION: A 42-year-old male with irritable bowel syndrome and Crohn disease admitted with bloody diarrhea, now with fever with evidence of colitis on CT of abdomen. PLAN: The plan is to continue Asacol 800 mg t.i.d. Azactam 1 g IV every 8 hours, Brovana inhalational therapy every 12 hours. The patient will be prepped for sigmoidoscopy as per Ashkan Barrera's instructions. He is ordered to have Flagyl 500 mg IV every 8 hours, heparin 5000 units subcu every 12 hours, insulin coverage regular low-dose protocol before meals and at bedtime, morphine 4 mg IV every 6 hours p.r.n. severe pain. He was dosed with Motrin 600 mg p.o. stat for fever. He is receiving 0.9 saline at 100 mL/hour and Zofran 4 mg IV every 6 hours p.r.n. nausea and vomiting. He continues on clear liquid diet and he is being followed daily by Dr. Ashkan Ramirez from GI and Dr. Shon Plata from Infectious Disease. He will be scheduled for CBC in the a.m. and all of the above was discussed in detail with the patient and Nursing and co-consultants. All questions were answered. Mansi Cuevas MD MTDD
[2018-01-03] MEDS: Sodium Chloride 0.9% 1,000 ML IV SCH ×3 (14:38→16:16)
--- NOTE | 2018-01-03 14:47 | PN ---
Copied To: Mansi Cuevas MD Attending MD: Mansi Cuevas MD DATE: 01/03/2018 SUBJECTIVE: This 42-year-old male remains hospitalized with fever in the setting of colitis and admission for bloody diarrhea. The patient is receiving parenteral Flagyl and Azactam under the direction of Dr. Shon Plata and also has had negative blood, urine and stool C. diff toxin studies to date. Stool for ova and parasite has been ordered, but not received by the lab at present and the patient is also being prepped for sigmoidoscopy with citrate of magnesia and Dulcolax orally. PHYSICAL EXAMINATION: VITAL SIGNS: His temperature was 102.2, respirations 20, pulse 103 and blood pressure 114/60 with a pulse ox of 98%. HEENT: Head: Normocephalic, atraumatic. Eyes: No icterus. Ears: Clear. Throat: Noninjected. NECK: Supple. HEART: Regular S1, S2. LUNGS: Clear. ABDOMEN: Obese. No rebound. No guarding. EXTREMITIES: No edema. SKIN: No rash. VASCULAR: No claudication. PSYCHOLOGICAL: Alert and oriented x3. NEURO: Intact. LABORATORY DATA: White count 8700, hemoglobin 9.3, hematocrit 28.7, platelets 648,000. Initial platelet count was 717,000, then a followup 900,000 and presently 648,000. Sodium 135, K 4.4, chloride 102, bicarb 25, BUN 13, creatinine 0.6, random blood sugar 112, percent saturation 9, ferritin 104 and B12 of 978. Urinalysis showed moderate bacteria, but urine culture showed no growth. IMPRESSION: A 42-year-old male, admitted with irritable bowel syndrome and Crohn's disease with bloody diarrhea and fever and comorbidities of asthmatic bronchitis, obesity, type 2 diabetes mellitus, iron-deficiency anemia. PLAN: To continue Zofran 4 mg IV every 6 hours p.r.n. nausea, vomiting; Tylenol 650 p.o. every 6 hours p.r.n. fever, 0.9 saline at 100 mL/hour, Pulmicort and Brovana inhalational therapy every 12, morphine 4 mg IV every 6 hours p.r.n. severe pain, Venofer 200 mg IV x1 dose for iron-deficiency anemia, regular low-dose insulin protocol before meals and at bedtime, heparin 5000 units subcu every 12, Asacol 800 mg p.o. t.i.d., Azactam 1 g IV every 8, Flagyl 500 mg IV every 8. The patient will be readied for sigmoidoscopy as scheduled by Dr. Ashkan Ramirez. He continues on clear liquid diet. He is ordered to be n.p.o. after midnight tonight for his GI procedure. He will be ordered to have a CBC and basic metabolic panel in the a.m. and an influenza A and B serology testing has been requested as well. Based on the results of the above findings, additional diagnostic testing and medical intervention will be entertained. All of the above was discussed in detail with the patient and nursing and co-consultants. Questions were answered. Mansi Cuevas MD MTDRaul
--- NOTE | 2018-01-03 17:22 | RAD ---
Date of service: 01/03/2018 HISTORY: elevated temp COMPARISON: No prior. FINDINGS: LUNGS: No active pulmonary disease. PLEURA: No significant pleural effusion identified, no pneumothorax apparent. CARDIOVASCULAR: Normal. OSSEOUS STRUCTURES: No significant abnormalities. VISUALIZED UPPER ABDOMEN: Normal. OTHER FINDINGS: None. IMPRESSION: No active disease.
[2018-01-03] MEDS ORDERED: Iohexol 240 (50 ml) ONE (17:34)
[2018-01-03] MEDS ORDERED: Vancomycin 1gm in NS 250ml 1 GM/250 ML BAG IVPB ONE (17:36)
--- NOTE | 2018-01-03 20:30 | CP.PCM.PN ---
Subjective - Date & Time of Evaluation Date of Evaluation: 01/03/18 Time of Evaluation: 18:30 - Subjective Subjective: Infectious Disease Follow Up: January 03, 2018 42yo male with past medical history of diabetes mellitus type 2, Crohn's disease presents c/o epigastric abdominal pain associated with nausea, non- bilious, non-bloody vomiting and diarrhea for the past 2 days. He reports that he has been having subjective fevers and reported having been [place] [facility] [place] similar contact during which time he was treated for a Crohn's flare. Described his abdominal pain as epigastric in nature, non- radiating, 8/10 in severity. Diarrhea has been watery without blood or mucus. He denies chest pain, palpitations, SOB, focal weakness, numbness, tingling, melena/hematochezia, mucus in the stool, sick contacts, chills, cough. ICU was consulted for evaluation of abdominal pain in setting of elevated lactate/ leukocytosis. ID called for evaluation of potential abdominal infection and PCN allergy history. Today the patient states that he feels a little better. Leukocytosis improved today. Fevers up to 103 F today. Starting Cipro on top of the Aztreonam and Flagyl. Objective - Vital Signs/Intake and Output Vital Signs (last 24 hours): Temp Pulse Resp BP Pulse Ox 103 F H 106 H 19 134/68 98 01/03/18 18:04 01/03/18 18:00 01/03/18 18:00 01/03/18 18:00 01/03/18 18:00 Intake and Output: 01/03/18 01/04/18 18:59 06:59 Intake Total 1260 Output Total 4 Balance 1256 - Medications Medications: Current Medications Acetaminophen (Tylenol 325mg Tab) 650 mg PO Q6H PRN PRN Reason: fever greater than 99 Arformoterol Tartrate (Brovana) 15 mcg IH [id number] [facility] Last Admin: 01/03/18 19:43 Dose: 15 mcg Budesonide (Pulmicort Respules) 0.5 mg IH [id number] [facility] Last Admin: 01/03/18 19:43 Dose: 0.5 mg Heparin Sodium (Porcine) (Heparin) 5,000 units SC Q12 [facility] PRN Reason: Protocol Last Admin: 01/03/18 10:01 Dose: 5,000 units Sodium Chloride (Sodium Chloride 0.9%) 1,000 mls @ 100 mls/hr IV .Q10H [facility] Last Admin: 01/03/18 16:16 Dose: 100 mls/hr Metronidazole (Flagyl) 500 mg in 100 mls @ 100 mls/hr IVPB Q8 [facility] PRN Reason: Protocol Last Admin: 01/03/18 13:54 Dose: 100 mls/hr Aztreonam (Azactam 1 Gm) 100 mls @ 100 mls/hr IVPB Q8 [facility] PRN Reason: Protocol Last Admin: 01/03/18 13:53 Dose: 100 mls/hr Ciprofloxacin (Cipro 400mg/200ml Dsw) 400 mg in 200 mls @ 133.3 mls/hr IVPB Q12 [facility] PRN Reason: Protocol Insulin Human Regular (Humulin R Low) 0 units SC ACHS [facility] PRN Reason: Protocol Last Admin: 01/03/18 13:35 Dose: Not Given Mesalamine (Asacol Hd 800mg) 800 mg PO TID [facility] Last Admin: 01/03/18 17:58 Dose: 800 mg Morphine Sulfate (Morphine) 4 mg IVP Q6H PRN PRN Reason: Pain, severe (8-10) Last Admin: 01/03/18 08:26 Dose: 4 mg Ondansetron HCl (Zofran Inj) 4 mg IVP Q6H PRN PRN Reason: Nausea/Vomiting Last Admin: 01/03/18 15:14 Dose: 4 mg - Labs Labs: 01/03/18 08:00 01/02/18 06:45 APTT 30.5 Seconds (25.1-36.5) 01/02/18 06:45 - Constitutional Appears: Chronically Ill - Head Exam Head Exam: ATRAUMATIC, NORMOCEPHALIC - Eye Exam Eye Exam: EOMI, PERRL Pupil Exam: NORMAL ACCOMODATION, PERRL - ENT Exam ENT Exam: Mucous Membranes Moist, Normal External Ear Exam, TM's Normal Bilaterally - Neck Exam Neck Exam: Full ROM, Normal Inspection - Respiratory Exam Respiratory Exam: Clear to Ausculation Bilateral, NORMAL BREATHING PATTERN. absent: Rales, Rhonchi, Wheezes - Cardiovascular Exam Cardiovascular Exam: REGULAR RHYTHM, RRR, +S1, +S2 - GI/Abdominal Exam GI & Abdominal Exam: Soft, Normal Bowel Sounds. absent: Distended, Tenderness - Extremities Exam Extremities Exam: Full ROM, Normal Inspection - Neurological Exam Neurological Exam: Alert, Awake, CN II-XII Intact, Oriented x3 - Psychiatric Exam Psychiatric exam: Normal Affect, Normal Mood - Skin Skin Exam: Intact, Normal Color Assessment and Plan - Assessment and Plan (Free Text) Assessment: 42 yo male with medical history of Crohn's and Type II DM presenting with abdominal pain with nausea, vomiting, and diarrhea with fevers up to 103.1 F. The patient recently discharged [place] [facility] [place]. Distended abdomen. CT abd on this hospitalization showing resolvement of the previous colitis seen in November 2017. There is the appearance of fluid filled bowels seen in diarrhea. Supportive care. Started on Cipro and Flagyl on admission. IV vancomycin also started. Would give Aztreonam and Flagyl instead of the Cipro. Test for C. Diff. Salmonella testing pending. Ova and parasite stool examination. The patient still having fever up to 103 F in the past 24 hours. Awaiting stool studies. Patient states swelling with PCN. C. Diff negative. PCN and shellfish allergy. Leukocytosis resolved. However, fevers and tachycardia persist. Added 1 dose of Gentamicin and started Cipro to the current regimen of Aztreonam and Flagyl. If fevers break with the addition of Cipro and Gentamicin, will stop Aztreonam. Awaiting reading on CT scan. Thank you for allowing me to participate in the care of the patient, we will follow with you.
[2018-01-03] MEDS: Ciprofloxacin 400mg/200ml D5W 400 MG/200 ML BAG IVPB SCH (21:20)
[2018-01-04] MEDS: Morphine 4 mg/ml ISec IVP PRN ×2 (04:36→16:04)
[2018-01-04] MEDS ORDERED: Magnesium Citrate Oral SOL (300 ml) PO ONE (05:00)
[2018-01-04] MEDS: Aztreonam 1 Gm in NS 100mL 100 ML IVPB SCH ×2 (05:28→13:14)
[2018-01-04 07:27] LABS: HEMOGLOBIN 9.3 g/dL (14.0-18.0); MEAN CELL VOLUME 79.9 fl (80.0-105.0); MEAN CORPUSCULAR HEMOGLOBIN 25.5 pg (25.0-35.0); MEAN PLATELET VOLUME 8.7 fl (7.0-11.0); RBC 3.64 10^6/uL (3.5-6.1); RED CELL DISTRIBUTION WIDTH 16.1 % (11.5-14.5); WHITE BLOOD COUNT 10.2 10^3/ul (4.5-11.0)
[2018-01-04] MEDS: Budesonide 0.5 mg/2 ml Inhal Susp UD IH SCH ×2 (07:39→19:48)
[2018-01-04] MEDS: Arformoterol 15 mcg/2 ml Inh Sol IH SCH ×2 (07:39→19:48)
[2018-01-04 08:00] LABS: BLOOD UREA NITROGEN 6 mg/dL (7-21); GFR NON-AFRICAN AMERICAN > 60
[2018-01-04] MEDS: Insulin Reg-LOW-Coverage SC SCH ×4 (08:22→22:30)
--- NOTE | 2018-01-04 09:10 | CT ---
Date of service: 01/03/2018 PROCEDURE: CT Abdomen and Pelvis without intravenous contrast HISTORY: md flor wants it done today COMPARISON: 12/31/2017 TECHNIQUE: Without contrast. Contrast dose: Radiation dose: Total exam DLP = 967 mGy-cm. This CT exam was performed using one or more of the following dose reduction techniques: Automated exposure control, adjustment of the mA and/or kV according to patient size, and/or use of iterative reconstruction technique. FINDINGS: LOWER THORAX: Unremarkable. LIVER: Hepatomegaly and fatty infiltration of the liver. GALLBLADDER AND BILE DUCTS: Unremarkable. PANCREAS: Unremarkable. No gross lesion or ductal dilatation. SPLEEN: Unremarkable. ADRENALS: Unremarkable. No mass. KIDNEYS AND URETERS: Unremarkable. No hydronephrosis. No solid mass. VASCULATURE: Unremarkable. No aortic aneurysm. Caval filter BOWEL: There is no change in the chronic mural thickening throughout the colon. The colon is fluid-filled consistent with a history of diarrhea. There is fatty infiltration of the bowel wall consistent with chronic inflammatory bowel disease APPENDIX: Unremarkable. Normal appendix. PERITONEUM: Unremarkable. No free fluid. No free air. LYMPH NODES: Mildly enlarged mesenteric lymph nodes BLADDER: Unremarkable. REPRODUCTIVE: Unremarkable. BONES: No acute fracture. OTHER FINDINGS: The report concurs with the preliminary [facility] report IMPRESSION: There is no change in the chronic mural thickening throughout the colon. The colon is fluid-filled consistent with a history of diarrhea. There is fatty infiltration of the bowel wall consistent with chronic inflammatory bowel disease
[2018-01-04] MEDS: Ciprofloxacin 400mg/200ml D5W 400 MG/200 ML BAG IVPB SCH ×2 (09:52→21:26)
[2018-01-04] MEDS: Mesalamine 800 mg DR Tab PO SCH ×3 (09:53→17:40)
[2018-01-04] MEDS: Bisacodyl 5mg EC Tab PO STA ×2 (10:14→10:35)
[2018-01-04] MEDS: Sodium Chloride 0.9% 1,000 ML IV SCH (13:16)
--- NOTE | 2018-01-04 13:26 | PN ---
Copied To: Mansi Cuevas MD Attending MD: Mansi Cuevas MD DATE: 01/04/2018 SUBJECTIVE: This 42-year-old male remains hospitalized and this case was reviewed in detail with himself, Dr. Ashkan Ramirez from GI and Dr. Shon Plata from Infectious Disease. The patient still continues with intermittent fevers and yesterday, he had a fever of 103. As a result, the patient was re-cultured of blood and urine and stool for ova and parasites remains pending. The patient was dosed with 1 g of vancomycin and is also receiving Azactam 1 g IV every 8 hours, Cipro 400 mg IV every 12 hours, Flagyl 500 mg IV every 8 hours, pending repeat cultures and sensitivities. The patient is currently n.p.o. in preparation for sigmoidoscopy today under the direction of Dr. Ashkan Ramirez and last evening, the patient did complete a repeat chest x-ray and abdominopelvic CT which were reviewed. Chest x-ray shows no active infiltrate and his abdominopelvic CT shows chronic mural thickening throughout his entire colon with fatty infiltration of his bowel wall consistent with irritable bowel disease. Also, he was noted to have hepatomegaly and chronic fatty liver and chest x-ray showed no acute infiltrates. PHYSICAL EXAMINATION VITAL SIGNS: At present, temperature is 99.6, respirations 18, pulse 102 and blood pressure 122/83 with a pulse ox of 98% on room air. HEENT: Head: Normocephalic, atraumatic. Eyes: No icterus. Ears: Clear. Throat: Noninjected. NECK: Supple. HEART: Regular S1 and S2. LUNGS: Clear. ABDOMEN: Soft. EXTREMITIES: No edema. SKIN: Without rash. NEUROLOGICAL: Intact. PSYCHOLOGICAL: Alert. VASCULAR: Legs warm to touch. LABORATORY DATA: White count 10,200, hemoglobin 9.3, hematocrit 29.1, platelets 709,000. Sodium 134, K 4.1, chloride 102, bicarb 22, BUN 6, creatinine 0.8, random blood sugar is 102. Urinalysis had showed moderate bacteria. Stool for occult blood was positive. Microbiology report showed blood cultures with no growth, the urine culture no growth and a stool C. diff toxin antigen and toxin both negative. IMPRESSION: A 42-year-old male with history of Crohn disease, now admitted with bloody diarrhea, chronic iron-deficiency anemia, comorbidities of obesity, type 2 diabetes mellitus, hypertension and chronic obstructive pulmonary disease, now with intermittent fevers rule out gastroenteritis, rule out food poisoning secondary to the patient's clinical history of eating [place] food on the day prior to admission and beginning of symptomatology. PLAN: The plan at present is to continue the patient n.p.o. while awaiting sigmoidoscopy today. He will continue on Asacol 800 mg p.o. t.i.d., Azactam 1 g IV every 8 hours, Brovana inhalational therapy every 12 hours, ciprofloxacin 400 mg IV every 12 hours, heparin 5000 units subcu every 12 hours, Humulin R insulin coverage before meals and at bedtime, Pulmicort inhalational therapy every 12 hours, 0.9 saline at 100 mL/hour, Zofran 4 mg IV every 6 hours p.r.n. nausea and vomiting and Tylenol 650 p.o. every 6 hours p.r.n. pain or temperature greater than 101. The patient is scheduled for a C-reactive protein, basic metabolic panel, QuantiFERON-TB antibody lab testing and we will recheck blood, stool and urine C and S samplings. He has been ordered to have an influenza A and B serology and his diet will be adjusted after his sigmoidoscopy. He is ordered to have physical therapy for ambulation safety and additional diagnostic testings and interventions will be entertained based on clinical response. Greater than 35 minutes was spent in the care management, review of labs, orders, x-rays and outlining of treatment plan with this patient today and discussing his case with Infectious Disease and Gastroenterology. All questions were answered. Mansi Cuevas MD TARIK
[2018-01-04] MEDS ORDERED: Lidocaine 2% Jelly (30 ml) ONE (14:16)
[2018-01-04] MEDS: metroNIDAZOLE IV 500 mg/100 ml 500 MG/100 ML BAG IVPB SCH ×2 (15:45→21:26)
--- NOTE | 2018-01-04 18:55 | CP.PCM.PN ---
Subjective - Date & Time of Evaluation Date of Evaluation: 01/04/18 Time of Evaluation: 17:00 - Subjective Subjective: Infectious Disease Follow Up: January 04, 2018 42 yo male with past medical history of diabetes mellitus type 2, Crohn's disease presents c/o epigastric abdominal pain associated with nausea, non- bilious, non-bloody vomiting and diarrhea for the past 2 days. He reports that he has been having subjective fevers and reported having been discharged [place] [facility] a similar contact during which time he was treated for a Crohn's flare. Described his abdominal pain as epigastric in nature, non- radiating, 8/10 in severity. Diarrhea has been watery without blood or mucus. He denies chest pain, palpitations, SOB, focal weakness, numbness, tingling, melena/hematochezia, mucus in the stool, sick contacts, chills, cough. ICU was consulted for evaluation of abdominal pain in setting of elevated lactate/ leukocytosis. ID called for evaluation of potential abdominal infection and PCN allergy history. Today the patient states that he feels a little better. Leukocytosis improved today. Fevers continue to be up to 103 F today. Adjusting antibiotics to Cipro and Flagyl. Will add IV Vancomycin and stop Aztreonam. Objective - Vital Signs/Intake and Output Vital Signs (last 24 hours): Temp Pulse Resp BP Pulse Ox 101.8 F H 110 H 20 118/70 96 01/04/18 17:53 01/04/18 18:00 01/04/18 17:53 01/04/18 17:53 01/04/18 17:53 Intake and Output: 01/04/18 01/04/18 06:59 18:59 Intake Total 1693 1885 Output Total 200 Balance 1693 1685 - Medications Medications: Current Medications Acetaminophen (Tylenol 325mg Tab) 650 mg PO Q6H PRN PRN Reason: fever greater than 99 Last Admin: 01/04/18 13:07 Dose: 650 mg Arformoterol Tartrate (Brovana) 15 mcg IH [id number] [facility] Last Admin: 01/04/18 07:39 Dose: 15 mcg Budesonide (Pulmicort Respules) 0.5 mg IH [id number] [facility] Last Admin: 01/04/18 07:39 Dose: 0.5 mg Heparin Sodium (Porcine) (Heparin) 5,000 units SC Q12 [facility] PRN Reason: Protocol Last Admin: 01/04/18 09:53 Dose: 5,000 units Sodium Chloride (Sodium Chloride 0.9%) 1,000 mls @ 100 mls/hr IV .Q10H [facility] Last Admin: 01/04/18 13:16 Dose: 100 mls/hr Aztreonam (Azactam 1 Gm) 100 mls @ 100 mls/hr IVPB Q8 [facility] PRN Reason: Protocol Last Admin: 01/04/18 13:14 Dose: 100 mls/hr Ciprofloxacin (Cipro 400mg/200ml Dsw) 400 mg in 200 mls @ 133.3 mls/hr IVPB Q12 [facility] PRN Reason: Protocol Last Admin: 01/04/18 09:52 Dose: 133.3 mls/hr Metronidazole (Flagyl) 500 mg in 100 mls @ 100 mls/hr IVPB Q8 [facility] PRN Reason: Protocol Last Admin: 01/04/18 15:45 Dose: 100 mls/hr Insulin Human Regular (Humulin R Low) 0 units SC ACHS [facility] PRN Reason: Protocol Last Admin: 01/04/18 17:41 Dose: Not Given Mesalamine (Asacol Hd 800mg) 800 mg PO TID [facility] Last Admin: 01/04/18 17:40 Dose: 800 mg Morphine Sulfate (Morphine) 4 mg IVP Q6H PRN PRN Reason: Pain, severe (8-10) Last Admin: 01/04/18 16:04 Dose: 4 mg Ondansetron HCl (Zofran Inj) 4 mg IVP Q6H PRN PRN Reason: Nausea/Vomiting Last Admin: 01/03/18 21:19 Dose: 4 mg - Labs Labs: 01/04/18 06:30 01/04/18 06:30 APTT 30.5 Seconds (25.1-36.5) 01/02/18 06:45 - Constitutional Appears: Non-toxic, No Acute Distress, Chronically Ill - Head Exam Head Exam: ATRAUMATIC, NORMOCEPHALIC - Eye Exam Eye Exam: EOMI, PERRL Pupil Exam: NORMAL ACCOMODATION, PERRL - ENT Exam ENT Exam: Mucous Membranes Moist, Normal External Ear Exam, TM's Normal Bilaterally - Neck Exam Neck Exam: Full ROM, Normal Inspection - Respiratory Exam Respiratory Exam: Clear to Ausculation Bilateral, NORMAL BREATHING PATTERN. absent: Rales, Rhonchi, Wheezes - Cardiovascular Exam Cardiovascular Exam: REGULAR RHYTHM, RRR, +S1, +S2 - GI/Abdominal Exam GI & Abdominal Exam: Distended, Soft, Normal Bowel Sounds. absent: Tenderness - Extremities Exam Extremities Exam: Full ROM, Normal Inspection - Neurological Exam Neurological Exam: Alert, Awake, CN II-XII Intact, Oriented x3 - Psychiatric Exam Psychiatric exam: Normal Affect, Normal Mood - Skin Skin Exam: Intact, Normal Color Assessment and Plan - Assessment and Plan (Free Text) Assessment: 42 yo male with medical history of Crohn's and Type II DM presenting with abdominal pain with nausea, vomiting, and diarrhea with fevers up to 103.1 F. The patient recently discharged [place] [facility]. Distended abdomen. CT abd on this hospitalization showing resolvement of the previous colitis seen in November 2017. There is the appearance of fluid filled bowels seen in diarrhea. Supportive care. Started on Cipro and Flagyl on admission. IV vancomycin also started. Would give Aztreonam and Flagyl instead of the Cipro. Test for C. Diff. Salmonella testing pending. Ova and parasite stool examination. The patient still having fever up to 103.1 F in the past 24 hours. Awaiting stool studies. Patient states swelling with PCN. C. Diff negative. PCN and shellfish allergy. Leukocytosis resolved. However, fevers and tachycardia persist. Added 1 dose of Gentamicin and started Cipro to the current regimen of Aztreonam and Flagyl. Stopped Aztreonam. Added Vancomycin IV. CT reviewed. Sigmoidoscopy performed with biopsies taken. Currently cultures have been negative. Ova and parasite exam negative. Stool occult blood positive. Thank you for allowing me to participate in the care of the patient, we will follow with you.
[2018-01-04] MEDS: Vancomycin 1gm in NS 250ml 1 GM/250 ML BAG IVPB SCH (19:03)
--- NOTE | 2018-01-05 01:34 | CON ---
Copied To: Ashkan Ramirez MD Attending MD: Ashkan Ramirez MD DATE: 01/04/2018 HISTORY OF PRESENT ILLNESS: This patient was seen and evaluated earlier. PHYSICAL EXAMINATION: VITAL SIGNS: The patient's T-max was 100.8, before the T-max was 103. The patient had only mild abdominal cramps with lose bowel movement. Blood pressure 118/70, pulse 113, respirations , O2 saturation is 96%. HEENT: Atraumatic, anicteric. NECK: Supple. HEART: S1 and S2 heard. LUNGS: Bilateral air entry present. ABDOMEN: Soft. There is no mass palpable. No significant tenderness present. EXTREMITIES: No cyanosis, clubbing. NEUROLOGICAL: Alert, oriented. Moves all the extremities. LABORATORY DATA: Hemoglobin 9.3, hematocrit 29.1, WBC 10.2, platelets 709. Chemistry shows C-reactive protein significantly elevated at 245. IMPRESSION: This 42-year-old patient admitted with episodes of diarrhea, vomiting and abdominal pain. The patient does have history of inflammatory bowel disease. He was recently discharged from the hospital. Initially, the patient did complain of eating some [place] food before the onset of the symptoms and initial differential diagnosis was thought to be infectious colitis on the top of inflammatory bowel disease. However, the patient has been on antibiotics, multiple regimen as per Infectious Disease. The patient is still spiking temperature. It was a real concern. Stool for Clostridium difficile has been negative. The patient was scheduled for a flexible sigmoidoscopy. Informed consent was obtained. The patient did undergo flexible sigmoidoscopy. The scope was advanced all the way to the proximal sigmoid colon, descending colon area. The patient does have granular mucosa with erythema. Contact bleeding noticed. There was also 1 cm polyp noticed at 22 cm level. There were no skipped areas noticed. The inflammation starting from rectum extending all the way. The scope was not advanced beyond the proximal sigmoid colon in view of the significant thickening and the inflammation in the cecum. The risk of perforation with cecal distention, the scope was not advanced further. The stool was collected for a Clostridium difficile. Multiple biopsies were taken. Sent also for a Cytomegalovirus. The procedure was rendered under local anesthesia. I did discuss with Dr. Plata, Infectious Disease specialist post procedure. The patient has been now started on IV vancomycin. The patient is also on Flagyl. The plan is to consider followup of the cultures and continue the antibiotics. If the patient continues to have fever after the repeat cultures and the clinical course, we will consider starting the patient on ; however, in view of the possibilities of infection, we will wait fro clinical response to these new antibiotic regimen before we considering immunosuppressive therapy. We will also discuss with Dr. Cuevas. Thank you very much for allowing us to participate in the care of the patient. Ashkan Ramirez MD
[2018-01-05] MEDS: metroNIDAZOLE IV 500 mg/100 ml 500 MG/100 ML BAG IVPB SCH ×3 (05:45→21:54)
[2018-01-05] MEDS: Vancomycin 1gm in NS 250ml 1 GM/250 ML BAG IVPB SCH ×2 (05:45→17:48)
--- NOTE | 2018-01-05 07:29 | CP.PCM.PN ---
<Brock Forbes - Last Filed: 01/05/18 17:43> Subjective - Date & Time of Evaluation Date of Evaluation: 01/05/18 Time of Evaluation: 07:00 - Subjective Subjective: Brock Forbes DO, PGY-2: GI Progress Note for Dr. Ramirez Patient was seen and examined at the bedside. He reports continued fever with the T max of 102.4 orall overnight and having three watery bowel movements in the interim. He reports mild epigastric pain. Overnight he requested ice packs for his fever. Also, chart review indicates patient has been tachycardic and had 7 beats of V-tach. Later on in the evening, on a subsequent encounter, the patient reported resolution of his fever after 6 days. Objective - Vital Signs/Intake and Output Vital Signs (last 24 hours): Temp Pulse Resp BP Pulse Ox 102.4 F H 108 H 18 119/66 99 01/05/18 06:00 01/05/18 06:00 01/05/18 06:00 01/05/18 06:00 01/05/18 06:00 Intake and Output: 01/05/18 01/05/18 06:59 18:59 Intake Total 1747 Output Total 300 Balance 1447 - Medications Medications: Current Medications Acetaminophen (Tylenol 325mg Tab) 650 mg PO Q6H PRN PRN Reason: fever greater than 99 Last Admin: 01/05/18 05:46 Dose: 650 mg Arformoterol Tartrate (Brovana) 15 mcg IH [id number] [facility] Last Admin: 01/04/18 07:39 Dose: 15 mcg Budesonide (Pulmicort Respules) 0.5 mg IH [id number] [facility] Last Admin: 01/04/18 07:39 Dose: 0.5 mg Heparin Sodium (Porcine) (Heparin) 5,000 units SC Q12 [facility] PRN Reason: Protocol Last Admin: 01/04/18 21:27 Dose: 5,000 units Sodium Chloride (Sodium Chloride 0.9%) 1,000 mls @ 100 mls/hr IV .Q10H [facility] Last Admin: 01/04/18 13:16 Dose: 100 mls/hr Ciprofloxacin (Cipro 400mg/200ml Dsw) 400 mg in 200 mls @ 133.3 mls/hr IVPB Q12 [facility] PRN Reason: Protocol Last Admin: 01/04/18 21:26 Dose: 133.3 mls/hr Metronidazole (Flagyl) 500 mg in 100 mls @ 100 mls/hr IVPB Q8 [facility] PRN Reason: Protocol Last Admin: 01/05/18 05:45 Dose: 100 mls/hr Vancomycin HCl (Vancomycin 1gm) 1 gm in 250 mls @ 167 mls/hr IVPB Q12H [facility] PRN Reason: Protocol Last Admin: 01/05/18 05:45 Dose: 167 mls/hr Insulin Human Regular (Humulin R Low) 0 units SC ACHS [facility] PRN Reason: Protocol Last Admin: 01/04/18 22:30 Dose: Not Given Mesalamine (Asacol Hd 800mg) 800 mg PO TID [facility] Last Admin: 01/04/18 17:40 Dose: 800 mg Morphine Sulfate (Morphine) 4 mg IVP Q6H PRN PRN Reason: Pain, severe (8-10) Last Admin: 01/04/18 16:04 Dose: 4 mg Ondansetron HCl (Zofran Inj) 4 mg IVP Q6H PRN PRN Reason: Nausea/Vomiting Last Admin: 01/03/18 21:19 Dose: 4 mg - Labs Labs: 01/04/18 06:30 01/04/18 06:30 APTT 30.5 Seconds (25.1-36.5) 01/02/18 06:45 - Constitutional Appears: Other (ill) - Head Exam Head Exam: ATRAUMATIC, NORMOCEPHALIC - Eye Exam Eye Exam: EOMI, Normal appearance - ENT Exam ENT Exam: Mucous Membranes Moist - Neck Exam Neck Exam: Normal Inspection - Respiratory Exam Respiratory Exam: Clear to Ausculation Bilateral, NORMAL BREATHING PATTERN. absent: Accessory Muscle Use - Cardiovascular Exam Cardiovascular Exam: Tachycardia, RRR, +S1, +S2 - GI/Abdominal Exam GI & Abdominal Exam: Soft. absent: Guarding, Tenderness, Rebound - Rectal Exam Rectal Exam: NORMAL INSPECTION Additional comments: no anal fissures, perinanal abscesses, draining fistula tracts noted - Extremities Exam Extremities Exam: Normal Inspection. absent: Calf Tenderness - Back Exam Back Exam: NORMAL INSPECTION. absent: CVA tenderness (L), CVA tenderness (R) Assessment and Plan - Assessment and Plan (Free Text) Assessment: Patient is a 42 year old male with PMHx significant for Crohn's diease maintained on mesalamine though noncompliance an issue previously, DM2, asthma, prior DVT with IVC filter in place who presented to the ED with complaint of epigastric pain and diarrhea. Repeat CT of the abdomen and pelvis performed on showed that there is no change in the chronic mural thickening throughout the colon. The colon is fluid-filled consistent with a history of diarrhea. There is fatty infiltration of the bowel wall consistent with chronic inflammatory bowel disease. ESR and CRP are markedly elevated. Stool studies for ova and parasites, C. difficile toxin and antigen have been negative, as have blood and urine cultures. Currently, the patient remains febrile with watery bowel movements since his admission. He is currently on Vancomycin, Ciprofloxacin, and Metronidazole. He is s/p flexible sigmoidoscopy that revealed inflammation starting from the rectum and extending all the way to the proximal sigmoid colon. Stool was also collected for Clostridium difficile at the time of flexible sigmoidoscopy. A 1 cm polyp was noted at 22 cm brenda. Multiple biopsies were taken, one also sent for CMV. If the patient's fever persist despite the adjustment in antibiotics and the repeat cultures are also negative, we will likely consider administering steroids or immunosupressive therapy. Otherwise, continue with Mesalamine 800 TID, current antibiotics, liquid diet, and DVT prophylaxis. Case reviewed and discussed with attending physician, Dr. Ramirez <Ashkan Ramirez V - Last Filed: 01/05/18 18:26> Objective - Vital Signs/Intake and Output Vital Signs (last 24 hours): Temp Pulse Resp BP Pulse Ox 100.7 F H 105 H 18 116/69 99 01/05/18 15:12 01/05/18 17:53 01/05/18 12:00 01/05/18 12:00 01/05/18 06:00 Intake and Output: 01/05/18 01/05/18 06:59 18:59 Intake Total 1747 2530 Output Total 300 300 Balance 1447 2230 - Medications Medications: Current Medications Acetaminophen (Tylenol 325mg Tab) 650 mg PO Q6H PRN PRN Reason: fever greater than 99 Last Admin: 01/05/18 14:12 Dose: 650 mg Arformoterol Tartrate (Brovana) 15 mcg IH [id number] [facility] Last Admin: 08/08/18 09:15 Dose: 15 mcg Budesonide (Pulmicort Respules) 0.5 mg IH [id number] [facility] Last Admin: 01/05/18 09:16 Dose: 0.5 mg Heparin Sodium (Porcine) (Heparin) 5,000 units SC Q12 [facility] PRN Reason: Protocol Last Admin: 01/05/18 09:26 Dose: 5,000 units Ciprofloxacin (Cipro 400mg/200ml Dsw) 400 mg in 200 mls @ 133.3 mls/hr IVPB Q12 [facility] PRN Reason: Protocol Last Admin: 01/05/18 09:25 Dose: 133.3 mls/hr Metronidazole (Flagyl) 500 mg in 100 mls @ 100 mls/hr IVPB Q8 [facility] PRN Reason: Protocol Last Admin: 01/05/18 14:06 Dose: 100 mls/hr Vancomycin HCl (Vancomycin 1gm) 1 gm in 250 mls @ 167 mls/hr IVPB Q12H [facility] PRN Reason: Protocol Last Admin: 01/05/18 17:48 Dose: 167 mls/hr Sodium Chloride (Sodium Chloride 0.9%) 1,000 mls @ 125 mls/hr IV .Q8H [facility] Last Admin: 01/05/18 12:02 Dose: 125 mls/hr Insulin Human Regular (Humulin R Low) 0 units SC ACHS [facility] PRN Reason: Protocol Last Admin: 01/05/18 16:54 Dose: Not Given Mesalamine (Asacol Hd 800mg) 800 mg PO TID [facility] Last Admin: 01/05/18 17:48 Dose: 800 mg Ondansetron HCl (Zofran Inj) 4 mg IVP Q6H PRN PRN Reason: Nausea/Vomiting Last Admin: 01/03/18 21:19 Dose: 4 mg - Labs Labs: 01/04/18 06:30 01/05/18 06:30 APTT 30.5 Seconds (25.1-36.5) 01/02/18 06:45 Attending/Attestation - Attestation I have personally seen and examined this patient.: Yes I have fully participated in the care of the patient.: Yes I have reviewed all pertinent clinical information, including history, physical exam and plan: Yes Notes (Text): This is an addendum to GI progress report dictated by the Substation Operator [employer].The patient was seen and evaluated earlier. Medical records, lab studies, imagings were reviewed. Last 24 hours events reviewed. Agreed with the above treatment plan as outlined in Substation [employer] 's notes with the addition of the following Patient still has some loose ments Temperature shows a downward Discussed with the Dr Plata earlier regarding this patient Would hold off starting the patient on steroid 01/05/18 18:20
[2018-01-05] MEDS: Insulin Reg-LOW-Coverage SC SCH ×4 (07:30→21:51)
[2018-01-05] MEDS: Arformoterol 15 mcg/2 ml Inh Sol IH SCH ×2 (09:15→19:48)
[2018-01-05] MEDS: Budesonide 0.5 mg/2 ml Inhal Susp UD IH SCH ×2 (09:16→19:48)
[2018-01-05 09:17] LABS: ALB/GLOB RATIO 0.7 (1.1-1.8); ALBUMIN 2.9 g/dL (3.0-4.8); ALT/SGPT 53 U/L (7-56); AST/SGOT 47 U/L (17-59); BLOOD UREA NITROGEN 8 mg/dL (7-21); CALCIUM 8.3 mg/dL (8.4-10.5); GFR NON-AFRICAN AMERICAN > 60
[2018-01-05] MEDS: Ciprofloxacin 400mg/200ml D5W 400 MG/200 ML BAG IVPB SCH ×2 (09:25→21:54)
[2018-01-05] MEDS: Mesalamine 800 mg DR Tab PO SCH ×3 (09:26→17:48)
[2018-01-05] MEDS: Sodium Chloride 0.9% 1,000 ML IV SCH ×2 (12:02→21:50)
--- NOTE | 2018-01-05 14:03 | CP.PCM.PN ---
Subjective - Date & Time of Evaluation Date of Evaluation: 01/05/18 Time of Evaluation: 13:58 - Subjective Subjective: Infectious Disease Follow Up: January 05, 2018 42 yo male with past medical history of diabetes mellitus type 2, Crohn's disease presents c/o epigastric abdominal pain associated with nausea, non- bilious, non-bloody vomiting and diarrhea for the past 2 days. He reports that he has been having subjective fevers and reported having been discharged from [facility] previously for a similar contact during which time he was treated for a Crohn's flare. Described his abdominal pain as epigastric in nature, non- radiating, 8/10 in severity. Diarrhea has been watery without blood or mucus. He denies chest pain, palpitations, SOB, focal weakness, numbness, tingling, melena/hematochezia, mucus in the stool, sick contacts, chills, cough. ICU was consulted for evaluation of abdominal pain in setting of elevated lactate/ leukocytosis. ID called for evaluation of potential abdominal infection and PCN allergy history. Today the patient states that he feels a little better. Leukocytosis improved today. Fevers continue to be up to 103 F in past 24 hours. Will review temperatures this evening. Adjusting antibiotics to Cipro and Flagyl. Added IV Vancomycin and stop Aztreonam. Spoke to Dr. Ramirez regarding sigmoidoscopy. Objective - Vital Signs/Intake and Output Vital Signs (last 24 hours): Temp Pulse Resp BP Pulse Ox 99.2 F 113 H 18 116/69 99 01/05/18 12:00 01/05/18 12:00 01/05/18 12:00 01/05/18 12:00 01/05/18 06:00 Intake and Output: 01/05/18 01/05/18 06:59 18:59 Intake Total 1747 Output Total 300 Balance 1447 - Medications Medications: Current Medications Acetaminophen (Tylenol 325mg Tab) 650 mg PO Q6H PRN PRN Reason: fever greater than 99 Last Admin: 01/05/18 05:46 Dose: 650 mg Arformoterol Tartrate (Brovana) 15 mcg IH [id number] [facility] Last Admin: 01/05/18 09:15 Dose: 15 mcg Budesonide (Pulmicort Respules) 0.5 mg IH [id number] [facility] Last Admin: 08/08/18 09:16 Dose: 0.5 mg Heparin Sodium (Porcine) (Heparin) 5,000 units SC Q12 [facility] PRN Reason: Protocol Last Admin: 01/05/18 09:26 Dose: 5,000 units Ciprofloxacin (Cipro 400mg/200ml Dsw) 400 mg in 200 mls @ 133.3 mls/hr IVPB Q12 [facility] PRN Reason: Protocol Last Admin: 01/05/18 09:25 Dose: 133.3 mls/hr Metronidazole (Flagyl) 500 mg in 100 mls @ 100 mls/hr IVPB Q8 [facility] PRN Reason: Protocol Last Admin: 01/05/18 05:45 Dose: 100 mls/hr Vancomycin HCl (Vancomycin 1gm) 1 gm in 250 mls @ 167 mls/hr IVPB Q12H [facility] PRN Reason: Protocol Last Admin: 01/05/18 05:45 Dose: 167 mls/hr Sodium Chloride (Sodium Chloride 0.9%) 1,000 mls @ 125 mls/hr IV .Q8H [facility] Last Admin: 01/05/18 12:02 Dose: 125 mls/hr Insulin Human Regular (Humulin R Low) 0 units SC ACHS [facility] PRN Reason: Protocol Last Admin: 01/05/18 11:30 Dose: Not Given Mesalamine (Asacol Hd 800mg) 800 mg PO TID [facility] Last Admin: 01/05/18 09:26 Dose: 800 mg Morphine Sulfate (Morphine) 4 mg IVP Q6H PRN PRN Reason: Pain, severe (8-10) Last Admin: 01/04/18 16:04 Dose: 4 mg Ondansetron HCl (Zofran Inj) 4 mg IVP Q6H PRN PRN Reason: Nausea/Vomiting Last Admin: 01/03/18 21:19 Dose: 4 mg - Labs Labs: 01/04/18 06:30 01/05/18 06:30 APTT 30.5 Seconds (25.1-36.5) 01/02/18 06:45 - Constitutional Appears: Non-toxic, No Acute Distress, Chronically Ill - Head Exam Head Exam: ATRAUMATIC, NORMOCEPHALIC - Eye Exam Eye Exam: EOMI, PERRL Pupil Exam: NORMAL ACCOMODATION, PERRL - ENT Exam ENT Exam: Mucous Membranes Moist, Normal External Ear Exam, TM's Normal Bilaterally - Neck Exam Neck Exam: Full ROM, Normal Inspection - Respiratory Exam Respiratory Exam: Clear to Ausculation Bilateral, NORMAL BREATHING PATTERN. absent: Rales, Rhonchi, Wheezes - Cardiovascular Exam Cardiovascular Exam: REGULAR RHYTHM, RRR, +S1, +S2 - GI/Abdominal Exam GI & Abdominal Exam: Distended, Soft, Tenderness, Normal Bowel Sounds - Extremities Exam Extremities Exam: Full ROM, Normal Inspection - Neurological Exam Neurological Exam: Alert, Awake, CN II-XII Intact, Oriented x3 - Psychiatric Exam Psychiatric exam: Normal Affect, Normal Mood - Skin Skin Exam: Intact, Normal Color Assessment and Plan - Assessment and Plan (Free Text) Assessment: 42 yo male with medical history of Crohn's and Type II DM presenting with abdominal pain with nausea, vomiting, and diarrhea with fevers up to 103.1 F. The patient recently discharged from [facility] in November. Distended abdomen. CT abd on this hospitalization showing resolvement of the previous colitis seen in November 2017. There is the appearance of fluid filled bowels seen in diarrhea. Supportive care. Started on Cipro and Flagyl on admission. IV vancomycin also started. Would give Aztreonam and Flagyl instead of the Cipro. Test for C. Diff. Salmonella testing pending. Ova and parasite stool examination. The patient still having fever up to 103.1 F in the past 24 hours. Awaiting stool studies. Patient states swelling with PCN. C. Diff negative. PCN and shellfish allergy. Leukocytosis resolved. However, fevers and tachycardia persist. Had added 1 dose of Gentamicin and started Cipro to the current regimen of Aztreonam and Flagyl. Stopped Aztreonam. Started Vancomycin IV. CT reviewed. Sigmoidoscopy performed with biopsies taken. Currently cultures have been negative. Ova and parasite exam negative. Stool occult blood positive. Patient's ESR is significantly elevated. Spoke with Dr. Ramirez regarding findings during sigmoidoscopy. Sent EBV and CMV for testing. Appears to have downward temperature trend but will review temperature values this evening again as the majority of his spikes start in the evening. Thank you for allowing me to participate in the care of the patient, we will follow with you.
--- NOTE | 2018-01-05 15:07 | CARD ---
APPROVED REPORT Date of service: 01/05/2018 EKG Measurement Heart [id number] <Conclusion> Sinus tachycardia Nonspecific T wave abnormality Abnormal ECG
[2018-01-05] MEDS ORDERED: Morphine 4 mg/ml ISec IVP PRN (23:50)
[2018-01-06] MEDS: metroNIDAZOLE IV 500 mg/100 ml 500 MG/100 ML BAG IVPB SCH ×3 (05:42→21:01)
[2018-01-06] MEDS: Vancomycin 1gm in NS 250ml 1 GM/250 ML BAG IVPB SCH ×2 (05:45→17:54)
[2018-01-06 06:39] LABS: HEMOGLOBIN 7.9 g/dL (14.0-18.0); MEAN CORPUSCULAR HEMOGLOBIN 25.6 pg (25.0-35.0); MEAN CORPUSCULAR HGB CONC 32.4 g/dl (31.0-37.0); MEAN PLATELET VOLUME 8.4 fl (7.0-11.0); RBC 3.09 10^6/uL (3.5-6.1); WHITE BLOOD COUNT 12.6 10^3/ul (4.5-11.0)
[2018-01-06 06:47] LABS: BLOOD UREA NITROGEN 7 mg/dL (7-21); CALCIUM 8.2 mg/dL (8.4-10.5); GFR NON-AFRICAN AMERICAN > 60
--- NOTE | 2018-01-06 07:22 | CP.PCM.PN ---
<Brock Forbes - Last Filed: 01/06/18 11:59> Subjective - Date & Time of Evaluation Date of Evaluation: 01/06/18 Time of Evaluation: 07:00 - Subjective Subjective: Brock Forbes DO, PGY-2: GI Progress Note for Dr. Ramirez Patient was seen and examined at the bedside. He reports having three watery bowel movements in the interim. He reports no fever or chills and reports feeling more like himself. He denied any nausea, vomiting, or difficulty tolerating his clear liquid diet. Chart review indicates patient was moved to a new room due to roomate keeping him awake. He also complained of pain and refused Tylenol and was given 4 mg of Morphine. Objective - Vital Signs/Intake and Output Vital Signs (last 24 hours): Temp Pulse Resp BP Pulse Ox 98.4 F 96 H 18 113/63 97 01/06/18 00:01 01/06/18 06:00 01/06/18 06:00 01/06/18 06:00 01/06/18 06:00 Intake and Output: 01/06/18 01/06/18 06:59 18:59 Intake Total 1275 Balance 1275 - Medications Medications: Current Medications Acetaminophen (Tylenol 325mg Tab) 650 mg PO Q6H PRN PRN Reason: fever greater than 99 Last Admin: 01/05/18 14:12 Dose: 650 mg Arformoterol Tartrate (Brovana) 15 mcg IH [id number] [facility] Last Admin: 01/05/18 19:48 Dose: 15 mcg Budesonide (Pulmicort Respules) 0.5 mg IH [id number] [facility] Last Admin: 01/05/18 19:48 Dose: 0.5 mg Heparin Sodium (Porcine) (Heparin) 5,000 units SC Q12 [facility] PRN Reason: Protocol Last Admin: 01/05/18 21:54 Dose: 5,000 units Ciprofloxacin (Cipro 400mg/200ml Dsw) 400 mg in 200 mls @ 133.3 mls/hr IVPB Q12 [facility] PRN Reason: Protocol Last Admin: 01/05/18 21:54 Dose: 133.3 mls/hr Metronidazole (Flagyl) 500 mg in 100 mls @ 100 mls/hr IVPB Q8 [facility] PRN Reason: Protocol Last Admin: 01/06/18 05:42 Dose: 100 mls/hr Vancomycin HCl (Vancomycin 1gm) 1 gm in 250 mls @ 167 mls/hr IVPB Q12H [facility] PRN Reason: Protocol Last Admin: 01/06/18 05:45 Dose: 167 mls/hr Sodium Chloride (Sodium Chloride 0.9%) 1,000 mls @ 125 mls/hr IV .Q8H [facility] Last Admin: 01/05/18 21:50 Dose: 125 mls/hr Insulin Human Regular (Humulin R Low) 0 units SC ACHS [facility] PRN Reason: Protocol Last Admin: 01/05/18 21:51 Dose: Not Given Mesalamine (Asacol Hd 800mg) 800 mg PO TID [facility] Last Admin: 01/05/18 17:48 Dose: 800 mg Morphine Sulfate (Morphine) 4 mg IVP Q6H PRN PRN Reason: Pain, severe (8-10) Last Admin: 01/05/18 23:58 Dose: 4 mg Ondansetron HCl (Zofran Inj) 4 mg IVP Q6H PRN PRN Reason: Nausea/Vomiting Last Admin: 01/05/18 21:54 Dose: 4 mg - Labs Labs: 01/06/18 06:00 01/06/18 06:00 APTT 30.5 Seconds (25.1-36.5) 01/02/18 06:45 - Constitutional Appears: Well, Non-toxic - Head Exam Head Exam: ATRAUMATIC, NORMOCEPHALIC - Eye Exam Eye Exam: EOMI, Normal appearance - ENT Exam ENT Exam: Mucous Membranes Moist - Neck Exam Neck Exam: Normal Inspection - Respiratory Exam Respiratory Exam: Clear to Ausculation Bilateral, NORMAL BREATHING PATTERN. absent: Accessory Muscle Use - Cardiovascular Exam Cardiovascular Exam: RRR, +S1, +S2 - GI/Abdominal Exam GI & Abdominal Exam: Soft, Normal Bowel Sounds. absent: Guarding, Tenderness - Extremities Exam Extremities Exam: Normal Inspection. 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 Stool studies for ova and parasites, C. difficile toxin and antigen have been negative, as have blood and urine cultures. After putting the patient on Vancomycin in addition to being on Ciprofloxacin and Metronidazole his temperature has come down. admission. He is s/p flexible sigmoidoscopy that revealed inflammation starting from the rectum and extending all the way to the proximal sigmoid colon. Stool was also collected for Clostridium difficile at the time of flexible sigmoidoscopy. A 1 cm polyp was noted at 22 cm brenda . Multiple biopsies were taken for microscopy and CMV testing. Given the patient's temperature has trended down, we will avoid using any kind of steroids at this point in time. We will continue with Mesalamine 800 TID, current antibiotics, liquid diet, and DVT prophylaxis. Endoscopy report is to follow. Case was reviewed and discussed with attending physician, Dr. Ramirez. <Ashkan Ramirez V - Last Filed: 01/06/18 22:46> Objective - Vital Signs/Intake and Output Vital Signs (last 24 hours): Temp Pulse Resp BP Pulse Ox 99.1 F 112 H 20 121/70 97 01/06/18 17:42 01/06/18 18:00 01/06/18 17:02 01/06/18 17:02 01/06/18 06:00 Intake and Output: 01/06/18 01/07/18 18:59 06:59 Intake Total 900 Output Total 800 Balance 100 - Medications Medications: Current Medications Acetaminophen (Tylenol 325mg Tab) 650 mg PO Q6H PRN PRN Reason: fever greater than 99 Last Admin: 01/06/18 16:42 Dose: 650 mg Arformoterol Tartrate (Brovana) 15 mcg IH [id number] [facility] Last Admin: 01/06/18 20:14 Dose: 15 mcg Budesonide (Pulmicort Respules) 0.5 mg IH [id number] [facility] Last Admin: 01/06/18 20:14 Dose: 0.5 mg Heparin Sodium (Porcine) (Heparin) 5,000 units SC Q12 [facility] PRN Reason: Protocol Last Admin: 01/06/18 21:00 Dose: 5,000 units Metronidazole (Flagyl) 500 mg in 100 mls @ 100 mls/hr IVPB Q8 [facility] PRN Reason: Protocol Last Admin: 01/06/18 21:01 Dose: 100 mls/hr Vancomycin HCl (Vancomycin 1gm) 1 gm in 250 mls @ 167 mls/hr IVPB Q12H [facility] PRN Reason: Protocol Last Admin: 01/06/18 17:54 Dose: 167 mls/hr Sodium Chloride (Sodium Chloride 0.9%) 1,000 mls @ 125 mls/hr IV .Q8H [facility] Last Admin: 01/06/18 20:15 Dose: Not Given Insulin Human Regular (Humulin R Low) 0 units SC ACHS [facility] PRN Reason: Protocol Last Admin: 01/06/18 17:25 Dose: Not Given Mesalamine (Asacol Hd 800mg) 800 mg PO TID [facility] Last Admin: 01/06/18 17:56 Dose: 800 mg Morphine Sulfate (Morphine) 4 mg IVP Q6H PRN PRN Reason: Pain, severe (8-10) Last Admin: 01/06/18 22:22 Dose: 4 mg Ondansetron HCl (Zofran Inj) 4 mg IVP Q6H PRN PRN Reason: Nausea/Vomiting Last Admin: 01/06/18 11:45 Dose: 4 mg - Labs Labs: 01/06/18 06:00 01/06/18 06:00 APTT 30.5 Seconds (25.1-36.5) 01/02/18 06:45 Attending/Attestation - Attestation I have personally seen and examined this patient.: Yes I have fully participated in the care of the patient.: Yes I have reviewed all pertinent clinical information, including history, physical exam and plan: Yes Notes (Text): p 01/06/18 22:46
[2018-01-06] MEDS: Arformoterol 15 mcg/2 ml Inh Sol IH SCH ×2 (07:28→20:14)
[2018-01-06] MEDS: Budesonide 0.5 mg/2 ml Inhal Susp UD IH SCH ×2 (07:28→20:14)
[2018-01-06] MEDS: Insulin Reg-LOW-Coverage SC SCH ×4 (08:00→23:00)
[2018-01-06] MEDS: Mesalamine 800 mg DR Tab PO SCH ×3 (09:35→17:56)
[2018-01-06] MEDS: Ciprofloxacin 400mg/200ml D5W 400 MG/200 ML BAG IVPB SCH ×2 (09:36→21:01)
--- NOTE | 2018-01-06 11:20 | PN ---
Copied To: Mansi Cuevas MD Attending MD: Mansi Cuevas MD DATE: 01/05/2018 SUBJECTIVE: This physical exam was done on 01/05/2018. This 42-year-old male was examined at his bedside in the presence of his and this case was reviewed in detail with his nurse, Cassie Alford, registered nurse. I also had a lengthy discussion with Dr. Ashkan Ramirez from GI. The patient remains hospitalized with persistent fever despite now being on triple antibiotics including IV vancomycin, IV Flagyl and IV ciprofloxacin. The patient underwent sigmoidoscopy yesterday consistent with inflammatory bowel disease for which Dr. Ramirez feels is either consistent with Crohn's or ulcerative colitis. The patient is being tested at present for cytomegalovirus infection of his colon and additional stool studies have been sent to rule out ova and parasites including Salmonella and Shigella. The patient was out of bed to chair, but extremely weak, deconditioned and complaining of lethargy. He has been on a clear liquid diet. He is having non-bloody diarrhea and appears drained. PHYSICAL EXAMINATION: VITAL SIGNS: Temperature was 100.2, pulse 105, respirations 18 and blood pressure 116/69. He is on normal sinus rhythm on the campus monitor. HEENT: Head: Normocephalic, atraumatic. Eyes: No icterus. Ears: Clear. Throat: Noninjected. NECK: Supple. HEART: Regular S1, S2. LUNGS: Clear. ABDOMEN: Obese, nontender. No rebound, no guarding. No tenderness. EXTREMITIES: No edema. SKIN: No rash. VASCULAR: No claudication. Legs warm to touch. PSYCHOLOGICAL: Alert. NEURO: Deconditioned, moving all extremities. Able to ambulate with assistance. LABORATORY DATA: White count 10,200, hemoglobin 9.3, hematocrit 29.1, platelets 709,000. Sodium 135, K 4.1, chloride 101, bicarb 25, BUN 8, creatinine 0.9, random blood sugar was 89. Bilirubin 0.7, AST 47, ALT 53, alk phos 221. Troponin less than 0.01. Stool for occult blood was positive. IMPRESSION: A 42-year-old male with history of Crohn disease admitted with bloody diarrhea, acute on chronic anemia, iron-deficiency anemia, fever, rule out gastroenteritis, rule out exacerbation of irritable bowel disease, rule-out cytomegalo-gastroenteritis, clinical dehydration, persistent fevers, rule out Rylee-Iniguez infection, rule out infectious diarrhea with comorbidities of chronic obstructive pulmonary disease, obesity, type 2 diabetes mellitus. PLAN: The plan as discussed with the patient's , Nursing and Dr. Ashkan Ramirez from will be to continue Asacol 800 mg p.o. t.i.d., Brovana inhalational therapy every 12 hours, ciprofloxacin 400 mg IV every 12 hours, Flagyl 500 mg IV every 8 hours, heparin 5000 units subcu every 12 hours, regular low-dose insulin protocol before meals and at bedtime, Pulmicort inhalational therapy every 12 hours, 0.9 saline will be increased to 125 mL/hour, vancomycin 1 g IV every 12 hours, Tylenol 650 p.o. every 6 hours. p.r.n. fever or pain, Zofran 4 mg IV every 6 hours. p.r.n. nausea and vomiting. The patient is encouraged to ambulate with assistance. He remains on a clear liquid diet that will be advanced as determined by Dr. Ashkan Ramirez from . Repeat blood, stool and urine cultures are received and pending and the patient will be scheduled for repeat CBC and basic metabolic panel in the a.m. Of note, CMV antibody IgM and IgG titers have been received by the laboratory and are pending as well as Rylee-Iniguez serology. Based on his testing results and clinical progress, additional testing and diagnostic workup will be entertained. As discussed with Dr. Ashkan Ramirez, he will be watching this patient closely to determine whether or not he needs the institution of IV steroids and when to advance his diet. Greater than 35 minutes was spent in the care management, review of labs, orders, x-rays and discussion of this patient with family, at bedside, GI and Infectious Disease consultants as well as Nursing. All questions were answered. Mansi Cuevas MD TARIK
[2018-01-06] MEDS: Sodium Chloride 0.9% 1,000 ML IV SCH ×2 (14:45→20:15)
--- NOTE | 2018-01-06 18:15 | CP.PCM.PN ---
Subjective - Date & Time of Evaluation Date of Evaluation: 01/06/18 Time of Evaluation: 17:00 - Subjective Subjective: Infectious Disease Follow Up: January 06, 2018 42 yo male with past medical history of diabetes mellitus type 2, Crohn's disease presents c/o epigastric abdominal pain associated with nausea, non- bilious, non-bloody vomiting and diarrhea for the past 2 days. He reports that he has been having subjective fevers and reported having been discharged [place] [facility] for a similar contact during which time he was treated for a Crohn's flare. Described his abdominal pain as epigastric in nature, non- radiating, 8/10 in severity. Diarrhea has been watery without blood or mucus. He denies chest pain, palpitations, SOB, focal weakness, numbness, tingling, melena/hematochezia, mucus in the stool, sick contacts, chills, cough. ICU was consulted for evaluation of abdominal pain in setting of elevated lactate/ leukocytosis. ID called for evaluation of potential abdominal infection and PCN allergy history. Today the patient states that he feels a little better than yesterday. Leukocytosis improved today. Fevers continue to be up to 100.7 F in past 24 hours. Will review temperatures this evening again. Adjusting antibiotics to Cipro and Flagyl. Added IV Vancomycin and stop Aztreonam. Spoke to Dr. Ramirez regarding sigmoidoscopy. Objective - Vital Signs/Intake and Output Vital Signs (last 24 hours): Temp Pulse Resp BP Pulse Ox 100.6 F H 100 H 20 121/70 97 01/06/18 17:02 01/06/18 17:02 01/06/18 17:02 01/06/18 17:02 01/06/18 06:00 Intake and Output: 01/06/18 01/06/18 06:59 18:59 Intake Total 1275 Balance 1275 - Medications Medications: Current Medications Acetaminophen (Tylenol 325mg Tab) 650 mg PO Q6H PRN PRN Reason: fever greater than 99 Last Admin: 01/06/18 16:42 Dose: 650 mg Arformoterol Tartrate (Brovana) 15 mcg IH [id number] [facility] Last Admin: 01/06/18 07:28 Dose: 15 mcg Budesonide (Pulmicort Respules) 0.5 mg IH [id number] [facility] Last Admin: 01/06/18 07:28 Dose: 0.5 mg Heparin Sodium (Porcine) (Heparin) 5,000 units SC Q12 [facility] PRN Reason: Protocol Last Admin: 01/06/18 09:35 Dose: 5,000 units Ciprofloxacin (Cipro 400mg/200ml Dsw) 400 mg in 200 mls @ 133.3 mls/hr IVPB Q12 [facility] PRN Reason: Protocol Last Admin: 01/06/18 09:36 Dose: 133.3 mls/hr Metronidazole (Flagyl) 500 mg in 100 mls @ 100 mls/hr IVPB Q8 [facility] PRN Reason: Protocol Last Admin: 01/06/18 14:43 Dose: 100 mls/hr Vancomycin HCl (Vancomycin 1gm) 1 gm in 250 mls @ 167 mls/hr IVPB Q12H [facility] PRN Reason: Protocol Last Admin: 01/06/18 17:54 Dose: 167 mls/hr Sodium Chloride (Sodium Chloride 0.9%) 1,000 mls @ 125 mls/hr IV .Q8H [facility] Last Admin: 01/06/18 14:45 Dose: 125 mls/hr Insulin Human Regular (Humulin R Low) 0 units SC ACHS [facility] PRN Reason: Protocol Last Admin: 01/06/18 11:55 Dose: Not Given Mesalamine (Asacol Hd 800mg) 800 mg PO TID [facility] Last Admin: 01/06/18 17:56 Dose: 800 mg Morphine Sulfate (Morphine) 4 mg IVP Q6H PRN PRN Reason: Pain, severe (8-10) Ondansetron HCl (Zofran Inj) 4 mg IVP Q6H PRN PRN Reason: Nausea/Vomiting Last Admin: 01/06/18 11:45 Dose: 4 mg - Labs Labs: 01/06/18 06:00 01/06/18 06:00 APTT 30.5 Seconds (25.1-36.5) 01/02/18 06:45 - Constitutional Appears: Non-toxic, No Acute Distress, Chronically Ill - Head Exam Head Exam: ATRAUMATIC, NORMOCEPHALIC - Eye Exam Eye Exam: EOMI, PERRL Pupil Exam: NORMAL ACCOMODATION, PERRL - ENT Exam ENT Exam: Mucous Membranes Moist, Normal External Ear Exam, TM's Normal Bilaterally - Neck Exam Neck Exam: Full ROM, Normal Inspection - Respiratory Exam Respiratory Exam: Clear to Ausculation Bilateral, NORMAL BREATHING PATTERN. absent: Rales, Rhonchi, Wheezes - Cardiovascular Exam Cardiovascular Exam: REGULAR RHYTHM, RRR, +S1, +S2 - GI/Abdominal Exam GI & Abdominal Exam: Distended, Soft, Tenderness, Normal Bowel Sounds - Extremities Exam Extremities Exam: Full ROM, Normal Inspection - Neurological Exam Neurological Exam: Alert, Awake, CN II-XII Intact, Oriented x3 - Psychiatric Exam Psychiatric exam: Normal Affect, Normal Mood - Skin Skin Exam: Intact, Normal Color Assessment and Plan - Assessment and Plan (Free Text) Assessment: 42 yo male with medical history of Crohn's and Type II DM presenting with abdominal pain with nausea, vomiting, and diarrhea with fevers up to 103.1 F. The patient recently discharged from [facility] in [place]. Distended abdomen. CT abd on this hospitalization showing resolvement of the previous colitis seen in November 2017. There is the appearance of fluid filled bowels seen in diarrhea. Supportive care. Started on Cipro and Flagyl on admission. IV vancomycin also started. Would give Aztreonam and Flagyl instead of the Cipro. Test for C. Diff. Salmonella testing pending. Ova and parasite stool examination. The patient still having fever up to 103.1 F in the past 24 hours. Awaiting stool studies. Patient states swelling with PCN. C. Diff negative. PCN and shellfish allergy. Leukocytosis resolved. However, fevers and tachycardia persist. Had added 1 dose of Gentamicin and started Cipro to the current regimen of Aztreonam and Flagyl. Stopped Aztreonam. Started Vancomycin IV. CT reviewed. Sigmoidoscopy performed with biopsies taken. Currently cultures have been negative. Ova and parasite exam negative. Stool occult blood positive. Patient's ESR is significantly elevated. Spoke with Dr. Ramirez regarding findings during sigmoidoscopy. Sent EBV and CMV for testing. Appears to have downward temperature trend but will review temperature values this evening again as the majority of his spikes start in the evening. Temperature seem to be downtrending. However WBC did increase to 12.9 today. Thank you for allowing me to participate in the care of the patient, we will follow with you.
[2018-01-06] MEDS: Morphine 4 mg/ml ISec IVP PRN (22:22)
[2018-01-07] MEDS: Sodium Chloride 0.9% 1,000 ML IV SCH ×2 (03:08→14:39)
[2018-01-07] MEDS: metroNIDAZOLE IV 500 mg/100 ml 500 MG/100 ML BAG IVPB SCH ×3 (04:59→21:53)
[2018-01-07] MEDS: Morphine 4 mg/ml ISec IVP PRN (05:07)
[2018-01-07] MEDS: Vancomycin 1gm in NS 250ml 1 GM/250 ML BAG IVPB SCH ×2 (05:54→18:03)
[2018-01-07 06:40] LABS: HEMOGLOBIN 8.4 g/dL (14.0-18.0); MEAN CELL VOLUME 79.6 fl (80.0-105.0); MEAN CORPUSCULAR HEMOGLOBIN 25.6 pg (25.0-35.0); MEAN CORPUSCULAR HGB CONC 32.2 g/dl (31.0-37.0); MEAN PLATELET VOLUME 8.4 fl (7.0-11.0); RBC 3.28 10^6/uL (3.5-6.1); RED CELL DISTRIBUTION WIDTH 16.2 % (11.5-14.5); WHITE BLOOD COUNT 15.6 10^3/ul (4.5-11.0)
[2018-01-07 07:11] LABS: BLOOD UREA NITROGEN 7 mg/dL (7-21); CALCIUM 8.4 mg/dL (8.4-10.5); GFR NON-AFRICAN AMERICAN > 60
[2018-01-07] MEDS: Budesonide 0.5 mg/2 ml Inhal Susp UD IH SCH ×2 (07:57→20:05)
[2018-01-07] MEDS: Arformoterol 15 mcg/2 ml Inh Sol IH SCH ×2 (07:57→20:05)
[2018-01-07] MEDS: Insulin Reg-LOW-Coverage SC SCH ×4 (08:27→22:01)
[2018-01-07] MEDS: Mesalamine 800 mg DR Tab PO SCH ×3 (09:42→18:03)
--- NOTE | 2018-01-07 13:58 | CP.PCM.PN ---
Subjective - Date & Time of Evaluation Date of Evaluation: 01/07/18 Time of Evaluation: 07:00 - Subjective Subjective: Brock Forbes DO, PGY-2 GI Progress Note for Dr. Ramirez Patient was seen and examined at the bedside. He reports having five watery bowel movements with some blood noted in the interim. He is with fever with an oral Tmax of 102.6. He reports worsening epigastric pain and abdominal distension. Chart review indicates the patient is requiring Morphine for the abdominal pain. Objective - Vital Signs/Intake and Output Vital Signs (last 24 hours): Temp Pulse Resp BP Pulse Ox 102.6 F H 122 H 18 118/64 98 01/07/18 11:39 01/07/18 11:39 01/07/18 11:39 01/07/18 11:39 01/07/18 06:00 Intake and Output: 01/07/18 01/07/18 06:59 18:59 Intake Total 1500 480 Output Total 800 Balance 1500 -320 - Medications Medications: Current Medications Acetaminophen (Tylenol 325mg Tab) 650 mg PO Q6H PRN PRN Reason: fever greater than 99 Last Admin: 01/07/18 11:38 Dose: 650 mg Arformoterol Tartrate (Brovana) 15 mcg IH [id number] [facility] Last Admin: 01/07/18 07:57 Dose: Not Given Budesonide (Pulmicort Respules) 0.5 mg IH [id number] [facility] Last Admin: 01/07/18 07:57 Dose: Not Given Heparin Sodium (Porcine) (Heparin) 5,000 units SC Q12 [facility] PRN Reason: Protocol Last Admin: 01/07/18 09:42 Dose: 5,000 units Hydrocortisone Sodium Succinate (Solu-Cortef) 100 mg IVP Q8 [facility] Metronidazole (Flagyl) 500 mg in 100 mls @ 100 mls/hr IVPB Q8 [facility] PRN Reason: Protocol Last Admin: 01/07/18 04:59 Dose: 100 mls/hr Vancomycin HCl (Vancomycin 1gm) 1 gm in 250 mls @ 167 mls/hr IVPB Q12H [facility] PRN Reason: Protocol Last Admin: 01/07/18 05:54 Dose: 167 mls/hr Sodium Chloride (Sodium Chloride 0.9%) 1,000 mls @ 125 mls/hr IV .Q8H [facility] Last Admin: 01/07/18 03:08 Dose: 125 mls/hr Insulin Human Regular (Humulin R Low) 0 units SC ACHS [facility] PRN Reason: Protocol Last Admin: 01/07/18 08:27 Dose: Not Given Mesalamine (Asacol Hd 800mg) 800 mg PO TID [facility] Last Admin: 01/07/18 09:42 Dose: 800 mg Morphine Sulfate (Morphine) 4 mg IVP Q6H PRN PRN Reason: Pain, severe (8-10) Last Admin: 01/07/18 05:07 Dose: 4 mg Nystatin (Nystatin Oral Susp) 5 ml PO QID [facility] Ondansetron HCl (Zofran Inj) 4 mg IVP Q6H PRN PRN Reason: Nausea/Vomiting Last Admin: 01/06/18 11:45 Dose: 4 mg Pantoprazole Sodium (Protonix Inj) 40 mg IVP DAILY [facility] - Labs Labs: 01/07/18 05:45 01/07/18 05:45 APTT 30.5 Seconds (25.1-36.5) 01/02/18 06:45 - Constitutional Appears: Toxic - Head Exam Head Exam: ATRAUMATIC, NORMOCEPHALIC - Eye Exam Eye Exam: EOMI, Normal appearance - ENT Exam Additional comments: oral thrush - Respiratory Exam Respiratory Exam: NORMAL BREATHING PATTERN. absent: Accessory Muscle Use - Cardiovascular Exam Cardiovascular Exam: Tachycardia, +S1, +S2 - GI/Abdominal Exam GI & Abdominal Exam: Distended, Tenderness. absent: Guarding, Rebound - Extremities Exam Extremities Exam: absent: Calf Tenderness - Neurological Exam Neurological Exam: Alert, Awake, Oriented x3 - Psychiatric Exam Psychiatric exam: Normal Affect, Normal Mood - Skin Skin Exam: Dry, Intact, Normal Color, Warm Assessment and Plan - Assessment and Plan (Free Text) Assessment: 42 year old male with Crohn's disease presenting with diarrhea and abdominal pain s/p flexible sigmoidoscopy with sigmoid biopsy showing chronic active colitis, focal cryptitis and crypt abscess while rectal biopsy showed chronic active proctitis, cryptitis, and focal crypt abscess. He is still pending biopsy for CMV colitis, though that is less likely diagnosis. Given the constellation of signs and symptoms, including the biopsy results, and non- response to antibiotics, we will treat the patient for a moderate to severe inflammatory bowel disease with Hydrocortisone 100 mg q8h and monitor his response. We also added Protonix 40 mg IVP given the epigastric pain and in lieu of starting the patient on IV steroids. Antibiotics deferred to Infectious Disease. We also added Ensure Clear for his nutrition. Case was reviewed and discussed with the attending physician, Dr. Ramirez
[2018-01-07] MEDS: Nystatin 100,000 Units/ml Oral Susp 5 ml UD PO SCH ×3 (14:46→22:02)
--- NOTE | 2018-01-07 16:07 | CP.PCM.PN ---
Subjective - Date & Time of Evaluation Date of Evaluation: 01/07/18 Time of Evaluation: 15:00 - Subjective Subjective: Infectious Disease Follow Up: January 07, 2018 42 yo male with past medical history of diabetes mellitus type 2, Crohn's disease presents c/o epigastric abdominal pain associated with nausea, non- bilious, non-bloody vomiting and diarrhea for the past 2 days. He reports that he has been having subjective fevers and reported having been discharged from [facility] for a similar contact during which time he was treated for a Crohn's flare. Described his abdominal pain as epigastric in nature, non- radiating, 8/10 in severity. Diarrhea has been watery without blood or mucus. He denies chest pain, palpitations, SOB, focal weakness, numbness, tingling, melena/hematochezia, mucus in the stool, sick contacts, chills, cough. ICU was consulted for evaluation of abdominal pain in setting of elevated lactate/ leukocytosis. ID called for evaluation of potential abdominal infection and PCN allergy history. Today the patient states that he feels a little better than yesterday. Leukocytosis improved today. Fevers continue to be up to 100.7 F in past 24 hours. Will review temperatures this evening again. Adjusting antibiotics to Cipro and Flagyl. Added IV Vancomycin and stop Aztreonam. Spoke to Dr. Ramirez regarding sigmoidoscopy. Fevers up to 102.6 F. GI to start steroids therapy. Objective - Vital Signs/Intake and Output Vital Signs (last 24 hours): Temp Pulse Resp BP Pulse Ox 102.6 F H 122 H 18 118/64 98 01/07/18 11:39 01/07/18 11:39 01/07/18 11:39 01/07/18 11:39 01/07/18 06:00 Intake and Output: 01/07/18 01/07/18 06:59 18:59 Intake Total 1500 480 Output Total 800 Balance 1500 -320 - Medications Medications: Current Medications Acetaminophen (Tylenol 325mg Tab) 650 mg PO Q6H PRN PRN Reason: fever greater than 99 Last Admin: 01/07/18 11:38 Dose: 650 mg Arformoterol Tartrate (Brovana) 15 mcg IH [id number] [facility] Last Admin: 01/07/18 07:57 Dose: Not Given Budesonide (Pulmicort Respules) 0.5 mg IH [id number] [facility] Last Admin: 01/07/18 07:57 Dose: Not Given Heparin Sodium (Porcine) (Heparin) 5,000 units SC Q8 [facility] PRN Reason: Protocol Hydrocortisone Sodium Succinate (Solu-Cortef) 100 mg IVP Q8 [facility] Last Admin: 01/07/18 14:49 Dose: 100 mg Metronidazole (Flagyl) 500 mg in 100 mls @ 100 mls/hr IVPB Q8 [facility] PRN Reason: Protocol Last Admin: 01/07/18 14:47 Dose: 100 mls/hr Vancomycin HCl (Vancomycin 1gm) 1 gm in 250 mls @ 167 mls/hr IVPB Q12H [facility] PRN Reason: Protocol Last Admin: 01/07/18 05:54 Dose: 167 mls/hr Sodium Chloride (Sodium Chloride 0.9%) 1,000 mls @ 125 mls/hr IV .Q8H [facility] Last Admin: 01/07/18 14:39 Dose: 125 mls/hr Ciprofloxacin (Cipro 400mg/200ml Dsw) 400 mg in 200 mls @ 133.3 mls/hr IVPB Q12 [facility] PRN Reason: Protocol Insulin Human Regular (Humulin R Low) 0 units SC ACHS [facility] PRN Reason: Protocol Last Admin: 01/07/18 14:38 Dose: Not Given Mesalamine (Asacol Hd 800mg) 800 mg PO TID [facility] Last Admin: 01/07/18 14:48 Dose: 800 mg Morphine Sulfate (Morphine) 4 mg IVP Q6H PRN PRN Reason: Pain, severe (8-10) Last Admin: 01/07/18 05:07 Dose: 4 mg Nystatin (Nystatin Oral Susp) 5 ml PO QID [facility] Last Admin: 01/07/18 14:46 Dose: 5 ml Ondansetron HCl (Zofran Inj) 4 mg IVP Q6H PRN PRN Reason: Nausea/Vomiting Last Admin: 01/06/18 11:45 Dose: 4 mg Pantoprazole Sodium (Protonix Inj) 40 mg IVP DAILY [facility] Last Admin: 01/07/18 14:49 Dose: 40 mg - Labs Labs: 01/07/18 05:45 01/07/18 05:45 APTT 30.5 Seconds (25.1-36.5) 01/02/18 06:45 - Constitutional Appears: Non-toxic, No Acute Distress, Chronically Ill - Head Exam Head Exam: ATRAUMATIC, NORMOCEPHALIC - Eye Exam Eye Exam: EOMI, PERRL Pupil Exam: NORMAL ACCOMODATION, PERRL - ENT Exam ENT Exam: Mucous Membranes Moist, Normal External Ear Exam, TM's Normal Bilaterally - Neck Exam Neck Exam: Full ROM, Normal Inspection - Respiratory Exam Respiratory Exam: Clear to Ausculation Bilateral, NORMAL BREATHING PATTERN. absent: Rales, Rhonchi, Wheezes - Cardiovascular Exam Cardiovascular Exam: REGULAR RHYTHM, RRR, +S1, +S2 - GI/Abdominal Exam GI & Abdominal Exam: Distended, Soft, Tenderness, Normal Bowel Sounds - Extremities Exam Extremities Exam: Full ROM, Normal Inspection - Neurological Exam Neurological Exam: Alert, Awake, CN II-XII Intact, Oriented x3 - Psychiatric Exam Psychiatric exam: Normal Affect, Normal Mood - Skin Skin Exam: Intact, Normal Color Assessment and Plan - Assessment and Plan (Free Text) Assessment: 42 yo male with medical history of Crohn's and Type II DM presenting with abdominal pain with nausea, vomiting, and diarrhea with fevers up to 103.1 F. The patient recently discharged from [facility] in November. Distended abdomen. CT abd on this hospitalization showing resolvement of the previous colitis seen in November 2017. There is the appearance of fluid filled bowels seen in diarrhea. Supportive care. Started on Cipro and Flagyl on admission. IV vancomycin also started. Would give Aztreonam and Flagyl instead of the Cipro. Test for C. Diff. Salmonella testing pending. Ova and parasite stool examination. The patient still having fever up to 103.1 F in the past 24 hours. Awaiting stool studies. Patient states swelling with PCN. C. Diff negative. PCN and shellfish allergy. Leukocytosis resolved. However, fevers and tachycardia persist. Had added 1 dose of Gentamicin and started Cipro to the current regimen of Aztreonam and Flagyl. Stopped Aztreonam. Started Vancomycin IV. CT reviewed. Sigmoidoscopy performed with biopsies taken. Currently cultures have been negative. Ova and parasite exam negative. Stool occult blood positive. Patient's ESR is significantly elevated. Spoke with Dr. Ramirez regarding findings during sigmoidoscopy. Sent EBV and CMV for testing. IgM for both negative. IgG for EBV positive indicating prior infection. Fevers up to 102.6 F today. On IV Vancomycin, Cipro, and Flagyl for antibiotic therapy. However WBC did increase to 12.9 and now to 15.6 today. The patient is going to started on steroids for Crohn's therapy. Will maintain the current antibiotic therapy. Thank you for allowing me to participate in the care of the patient, we will follow with you.
[2018-01-07] MEDS: Ciprofloxacin 400mg/200ml D5W 400 MG/200 ML BAG IVPB SCH (21:54)
[2018-01-08] MEDS: Sodium Chloride 0.9% 1,000 ML IV SCH ×4 (03:52→17:23)
[2018-01-08] MEDS: metroNIDAZOLE IV 500 mg/100 ml 500 MG/100 ML BAG IVPB SCH ×3 (05:52→22:11)
[2018-01-08] MEDS: Vancomycin 1gm in NS 250ml 1 GM/250 ML BAG IVPB SCH (05:53)
[2018-01-08] MEDS: Budesonide 0.5 mg/2 ml Inhal Susp UD IH SCH ×2 (07:27→20:41)
[2018-01-08] MEDS: Arformoterol 15 mcg/2 ml Inh Sol IH SCH ×2 (07:27→20:36)
[2018-01-08] MEDS: Insulin Reg-LOW-Coverage SC SCH ×4 (08:33→22:11)
[2018-01-08] MEDS: Ciprofloxacin 400mg/200ml D5W 400 MG/200 ML BAG IVPB SCH ×2 (09:49→22:08)
[2018-01-08] MEDS: Nystatin 100,000 Units/ml Oral Susp 5 ml UD PO SCH ×4 (09:49→22:07)
[2018-01-08] MEDS: Mesalamine 800 mg DR Tab PO SCH ×3 (09:51→17:22)
--- NOTE | 2018-01-08 13:32 | CP.PCM.PN ---
Subjective - Date & Time of Evaluation Date of Evaluation: 01/08/18 Time of Evaluation: 08:30 - Subjective Subjective: PGY5 GI Follow up Pt seen and examined bedside denies any abd pain less bloating and distension x2 overnight BM more formed denies any rectal bleeding ROS: 12 point ROS conducted, neg other than above Objective - Vital Signs/Intake and Output Vital Signs (last 24 hours): Temp Pulse Resp BP Pulse Ox 98.1 F 99 H 19 110/72 98 01/08/18 12:00 01/08/18 12:00 01/08/18 12:00 01/08/18 12:00 01/08/18 08:35 Intake and Output: 01/08/18 01/08/18 06:59 18:59 Intake Total 3355 Output Total 400 Balance 2955 - Medications Medications: Current Medications Acetaminophen (Tylenol 325mg Tab) 650 mg PO Q6H PRN PRN Reason: fever greater than 99 Last Admin: 01/07/18 11:38 Dose: 650 mg Arformoterol Tartrate (Brovana) 15 mcg IH [id number] [facility] Last Admin: 01/08/18 07:27 Dose: 15 mcg Budesonide (Pulmicort Respules) 0.5 mg IH [id number] [facility] Last Admin: 01/08/18 07:27 Dose: 0.5 mg Heparin Sodium (Porcine) (Heparin) 5,000 units SC Q8 [facility] PRN Reason: Protocol Last Admin: 01/08/18 05:51 Dose: 5,000 units Hydrocortisone Sodium Succinate (Solu-Cortef) 100 mg IVP Q8 [facility] Last Admin: 01/08/18 05:51 Dose: 100 mg Metronidazole (Flagyl) 500 mg in 100 mls @ 100 mls/hr IVPB Q8 [facility] PRN Reason: Protocol Last Admin: 01/08/18 05:52 Dose: 100 mls/hr Vancomycin HCl (Vancomycin 1gm) 1 gm in 250 mls @ 167 mls/hr IVPB Q12H [facility] PRN Reason: Protocol Last Admin: 01/08/18 05:53 Dose: 167 mls/hr Sodium Chloride (Sodium Chloride 0.9%) 1,000 mls @ 125 mls/hr IV .Q8H [facility] Last Admin: 01/08/18 05:51 Dose: Not Given Ciprofloxacin (Cipro 400mg/200ml Dsw) 400 mg in 200 mls @ 133.3 mls/hr IVPB Q12 [facility] PRN Reason: Protocol Last Admin: 01/08/18 09:49 Dose: 133.3 mls/hr Insulin Human Regular (Humulin R Low) 0 units SC ACHS [facility] PRN Reason: Protocol Last Admin: 01/08/18 12:09 Dose: 3 u Mesalamine (Asacol Hd 800mg) 800 mg PO TID [facility] Last Admin: 01/08/18 09:51 Dose: 800 mg Morphine Sulfate (Morphine) 4 mg IVP Q6H PRN PRN Reason: Pain, severe (8-10) Last Admin: 01/07/18 05:07 Dose: 4 mg Nystatin (Nystatin Oral Susp) 5 ml PO QID [facility] Last Admin: 01/08/18 09:49 Dose: 5 ml Ondansetron HCl (Zofran Inj) 4 mg IVP Q6H PRN PRN Reason: Nausea/Vomiting Last Admin: 01/06/18 11:45 Dose: 4 mg Pantoprazole Sodium (Protonix Inj) 40 mg IVP DAILY [facility] Last Admin: 01/08/18 09:49 Dose: 40 mg - Labs Labs: 01/07/18 05:45 01/07/18 05:45 APTT 30.5 Seconds (25.1-36.5) 01/02/18 06:45 - Constitutional Appears: Well, No Acute Distress - Head Exam Head Exam: ATRAUMATIC, NORMOCEPHALIC - Eye Exam Eye Exam: Normal appearance - ENT Exam ENT Exam: Mucous Membranes Moist, Normal Exam - Neck Exam Neck Exam: Normal Inspection - Respiratory Exam Respiratory Exam: Clear to Ausculation Bilateral, NORMAL BREATHING PATTERN. absent: Rales, Rhonchi, Wheezes, Respiratory Distress - Cardiovascular Exam Cardiovascular Exam: REGULAR RHYTHM, +S1, +S2 - GI/Abdominal Exam GI & Abdominal Exam: Distended, Soft, Normal Bowel Sounds. absent: Tenderness, Organomegaly, Rebound - Extremities Exam Extremities Exam: absent: Joint Swelling, Pedal Edema - Neurological Exam Neurological Exam: Alert, Awake, Oriented x3 - Psychiatric Exam Psychiatric exam: Normal Affect, Normal Mood - Skin Skin Exam: Dry, Intact, Normal Color, Warm Assessment and Plan - Assessment and Plan (Free Text) Assessment: Jing Rodney is a 42 year old male with Crohn's disease presenting with diarrhea and abdominal pain s/p flexible sigmoidoscopy with sigmoid biopsy showing chronic active colitis, focal cryptitis and crypt abscess while rectal biopsy showed chronic active proctitis, cryptitis, and focal crypt abscess. Colitis, etiology likely Crohn's flare; c.diff and stool cultures neg to date SIRS Diarrhea 2/2 above (improving) Nausea and vomiting 2/2 above (improving) Plan: - positive response to steroids -continue hydrocortisone 100mg q 8 -will need to eventually be transitioned to 40mg Prednisone daily taper -will need to follow-up w/ Dr. Ramirez as an oupt, may be a candidate for biologic therapy vs combination -advance diet as tolerated -crp in the AM -continue to monitor Will D/W Dr. Ramirez
--- NOTE | 2018-01-08 14:56 | CP.PCM.PN ---
Subjective - Date & Time of Evaluation Date of Evaluation: 01/08/18 Time of Evaluation: 14:00 - Subjective Subjective: Infectious Disease Follow Up: January 08, 2018 42 yo male with past medical history of diabetes mellitus type 2, Crohn's disease presents c/o epigastric abdominal pain associated with nausea, non- bilious, non-bloody vomiting and diarrhea for the past 2 days. He reports that he has been having subjective fevers and reported having been discharged from [facility] previously for a similar contact during which time he was treated for a Crohn's flare. Described his abdominal pain as epigastric in nature, non- radiating, 8/10 in severity. Diarrhea has been watery without blood or mucus. He denies chest pain, palpitations, SOB, focal weakness, numbness, tingling, melena/hematochezia, mucus in the stool, sick contacts, chills, cough. ICU was consulted for evaluation of abdominal pain in setting of elevated lactate/ leukocytosis. ID called for evaluation of potential abdominal infection and PCN allergy history. Today the patient states that he feels significantly better since starting steroids. Currently on IV Vancomycin, Cipro, and Flagyl. Fevers up to 102.6 F yesterday morning. Afebrile since. GI continuing steroid therapy which appears to have improved the patient greatly. Objective - Vital Signs/Intake and Output Vital Signs (last 24 hours): Temp Pulse Resp BP Pulse Ox 98.1 F 99 H 19 110/72 98 01/08/18 12:00 01/08/18 12:00 01/08/18 12:00 01/08/18 12:00 01/08/18 08:35 Intake and Output: 01/08/18 01/08/18 06:59 18:59 Intake Total 3355 Output Total 400 Balance 2955 - Medications Medications: Current Medications Acetaminophen (Tylenol 325mg Tab) 650 mg PO Q6H PRN PRN Reason: fever greater than 99 Last Admin: 01/07/18 11:38 Dose: 650 mg Arformoterol Tartrate (Brovana) 15 mcg IH [id number] [facility] Last Admin: 01/08/18 07:27 Dose: 15 mcg Budesonide (Pulmicort Respules) 0.5 mg IH [id number] [facility] Last Admin: 01/08/18 07:27 Dose: 0.5 mg Heparin Sodium (Porcine) (Heparin) 5,000 units SC Q8 [facility] PRN Reason: Protocol Last Admin: 01/08/18 14:10 Dose: 5,000 units Hydrocortisone Sodium Succinate (Solu-Cortef) 100 mg IVP Q8 [facility] Last Admin: 01/08/18 14:11 Dose: 100 mg Metronidazole (Flagyl) 500 mg in 100 mls @ 100 mls/hr IVPB Q8 [facility] PRN Reason: Protocol Last Admin: 01/08/18 14:14 Dose: 100 mls/hr Vancomycin HCl (Vancomycin 1gm) 1 gm in 250 mls @ 167 mls/hr IVPB Q12H [facility] PRN Reason: Protocol Last Admin: 01/08/18 05:53 Dose: 167 mls/hr Sodium Chloride (Sodium Chloride 0.9%) 1,000 mls @ 125 mls/hr IV .Q8H [facility] Last Admin: 01/08/18 12:00 Dose: Not Given Ciprofloxacin (Cipro 400mg/200ml Dsw) 400 mg in 200 mls @ 133.3 mls/hr IVPB Q12 [facility] PRN Reason: Protocol Last Admin: 01/08/18 09:49 Dose: 133.3 mls/hr Insulin Human Regular (Humulin R Low) 0 units SC ACHS [facility] PRN Reason: Protocol Last Admin: 01/08/18 12:09 Dose: 3 u Mesalamine (Asacol Hd 800mg) 800 mg PO TID [facility] Last Admin: 01/08/18 14:10 Dose: 800 mg Morphine Sulfate (Morphine) 4 mg IVP Q6H PRN PRN Reason: Pain, severe (8-10) Last Admin: 01/07/18 05:07 Dose: 4 mg Nystatin (Nystatin Oral Susp) 5 ml PO QID [facility] Last Admin: 01/08/18 14:10 Dose: 5 ml Ondansetron HCl (Zofran Inj) 4 mg IVP Q6H PRN PRN Reason: Nausea/Vomiting Last Admin: 01/06/18 11:45 Dose: 4 mg Pantoprazole Sodium (Protonix Inj) 40 mg IVP DAILY [facility] Last Admin: 01/08/18 09:49 Dose: 40 mg - Labs Labs: 01/07/18 05:45 01/07/18 05:45 APTT 30.5 Seconds (25.1-36.5) 01/02/18 06:45 - Constitutional Appears: Non-toxic, No Acute Distress, Chronically Ill - Head Exam Head Exam: ATRAUMATIC, NORMOCEPHALIC - Eye Exam Eye Exam: EOMI, PERRL Pupil Exam: NORMAL ACCOMODATION, PERRL - ENT Exam ENT Exam: Mucous Membranes Moist, Normal External Ear Exam, TM's Normal Bilaterally - Neck Exam Neck Exam: Full ROM, Normal Inspection - Respiratory Exam Respiratory Exam: Clear to Ausculation Bilateral, NORMAL BREATHING PATTERN. absent: Rales, Rhonchi, Wheezes - Cardiovascular Exam Cardiovascular Exam: REGULAR RHYTHM, RRR, +S1, +S2 - GI/Abdominal Exam GI & Abdominal Exam: Soft, Normal Bowel Sounds. absent: Distended, Tenderness - Extremities Exam Extremities Exam: Full ROM, Normal Inspection - Neurological Exam Neurological Exam: Alert, Awake, CN II-XII Intact, Oriented x3 - Psychiatric Exam Psychiatric exam: Normal Affect, Normal Mood - Skin Skin Exam: Intact, Normal Color Assessment and Plan - Assessment and Plan (Free Text) Assessment: 42 yo male with medical history of Crohn's and Type II DM presenting with abdominal pain with nausea, vomiting, and diarrhea with fevers up to 103.1 F. The patient recently discharged from [facility] in November. Distended abdomen. CT abd on this hospitalization showing resolvement of the previous colitis seen in November 2017. There is the appearance of fluid filled bowels seen in diarrhea. Supportive care. Started on Cipro and Flagyl on admission. IV vancomycin also started. Would give Aztreonam and Flagyl instead of the Cipro. Test for C. Diff. Salmonella testing pending. Ova and parasite stool examination. The patient still having fever up to 103.1 F in the past 24 hours. Awaiting stool studies. Patient states swelling with PCN. C. Diff negative. PCN and shellfish allergy. Leukocytosis resolved. However, fevers and tachycardia persist. Had added 1 dose of Gentamicin and started Cipro to the current regimen of Aztreonam and Flagyl. Stopped Aztreonam. Started Vancomycin IV. CT reviewed. Sigmoidoscopy performed with biopsies taken. Currently cultures have been negative. Ova and parasite exam negative. Stool occult blood positive. Patient's ESR is significantly elevated. Spoke with Dr. Ramirez regarding findings during sigmoidoscopy. Sent EBV and CMV for testing. IgM for both negative. IgG for EBV positive indicating prior infection. Fevers up to 102.6 F today. On IV Vancomycin, Cipro, and Flagyl for antibiotic therapy. However WBC did increase to 12.9 and now to 15.6 yesterday. The patient started on steroids for Crohn's therapy yesterday. Patient feeling significantly beter. Will keep to Cipro and Flagyl IV for up to 10 days treatment. Thank you for allowing me to participate in the care of the patient, we will follow with you.
[2018-01-09] MEDS: metroNIDAZOLE IV 500 mg/100 ml 500 MG/100 ML BAG IVPB SCH ×2 (06:41→13:56)
[2018-01-09] MEDS: Sodium Chloride 0.9% 1,000 ML IV SCH ×2 (06:45→18:05)
[2018-01-09] MEDS: Budesonide 0.5 mg/2 ml Inhal Susp UD IH SCH ×2 (07:41→19:45)
[2018-01-09] MEDS: Arformoterol 15 mcg/2 ml Inh Sol IH SCH ×2 (07:41→19:45)
[2018-01-09] MEDS: Insulin Reg-LOW-Coverage SC SCH ×4 (08:30→22:35)
[2018-01-09] MEDS: Mesalamine 800 mg DR Tab PO SCH ×3 (09:04→18:06)
[2018-01-09] MEDS: Ciprofloxacin 400mg/200ml D5W 400 MG/200 ML BAG IVPB SCH ×2 (09:04→21:12)
[2018-01-09] MEDS: Nystatin 100,000 Units/ml Oral Susp 5 ml UD PO SCH ×4 (09:04→22:39)
--- NOTE | 2018-01-09 11:54 | PN ---
Copied To: Armen Jackson MD Attending MD: Armen Jackson MD DATE: 01/09/2018 SUBJECTIVE: The patient is lying in bed. He feels better. He is asking for solid foods. He denies any abdominal pain. He does admit to some loose watery bowel movements with streaks of blood. He denies any fevers or chills. PHYSICAL EXAMINATION: VITAL SIGNS: Reveal temperature of 98, blood pressure 124/70, heart rate of 92. HEENT: Reveals sclerae to be white. Conjunctivae pink. NECK: Supple. CHEST: Reveals lungs to be clear. HEART: Reveals a regular rate and rhythm. ABDOMEN: Obese, soft, nontender. No mass. EXTREMITIES: Show no edema. LABORATORY DATA: Reveal blood sugar of 154. CBC reveals hemoglobin of 8.4, white blood cell count 15.6, platelet count of 718,000 from 810. IMPRESSION: A 42-year-old male with a history of Crohn's colitis, admitted with exacerbation of his Crohn's. Recent flexible sigmoidoscopy revealed chronic active colitis involving the sigmoid colon and rectum. The patient is clinically improving. RECOMMENDATIONS: 1. Follow serial hematocrits. 2. I will advance the patient to a soft, low-residue diet. 3. I will switch the patient over from IV hydrocortisone to prednisone 30 mg every a.m. and 20 mg each evening. He can be tapered by 5 mg weekly. I have discussed this case at length with Dr. Ramirez, who I am covering. Armen Jackson MD
--- NOTE | 2018-01-09 13:11 | PN ---
Copied To: Mansi Cuevas MD Attending MD: Mansi Cuevas MD DATE: 01/06/2018 SUBJECTIVE: This 42-year-old male was examined at his bedside. His case was reviewed in detail with himself and at bedside as well as his nurse. The patient has been running intermittent fevers. The patient has thus far had blood, urine and stool cultures with no growth. A stool C. diff toxin was negative for antigen and toxin and a stool for ova and parasites is showing no pathogens as well. At present, he remains on triple antibiotic therapy including IV vancomycin, IV Flagyl and IV ciprofloxacin. He remains on a clear liquid diet and just completed a sigmoidoscopy consistent with ulcerative colitis or Crohn's disease. Pathology reports of which are pending. PHYSICAL EXAMINATION: VITAL SIGNS: The patient was noted to have a temperature of 97.8, respirations 18, pulse 69 and blood pressure 107/67. HEENT: Head: Normocephalic, atraumatic. Eyes: No icterus. Ears: Clear. Throat: Noninjected. NECK: Supple. HEART: S1, S2. LUNGS: No wheezing. ABDOMEN: Obese, nontender. No rebound. No guarding. There is some mild left lower quadrant discomfort on deep palpation. EXTREMITIES: No edema. SKIN: Without rash. NEUROLOGICAL: Deconditioned. VASCULAR: Legs warm to touch. PSYCHOLOGICAL: Alert and oriented x3. LABORATORY DATA: White count 12,600, hemoglobin 7.9, hematocrit 24.4, platelets 647,000. Sodium 137, K 4.2, chloride 103, bicarb 27, BUN 7, creatinine 1, random blood sugar 98 with calcium of 8.2. Stool for occult bloods were positive in the past and CMV IgG and IgM antibodies are unremarkable. Rylee-Iniguez IgM antibodies are negative and blood, urine, stool cultures are negative. No Salmonella and Shigella, nor Campylobacter was isolated. IMPRESSION: A 42-year-old male with admission for bloody diarrhea, rule-out infectious gastroenteritis, rule out exacerbation of Crohn's versus ulcerative colitis disease, irritable bowel syndrome and comorbidities of obesity, chronic hypertension, type 2 diabetes mellitus, peptic ulcer disease with gastroesophageal reflux disease and asthmatic bronchitis. PLAN: The plan as discussed with the patient, nursing, family and co-consultants, Dr. Shon Plata from Infectious Disease and Dr. Ashkan Ramirez from GI will be to continue Asacol 800 mg t.i.d., Brovana inhalational therapy every 12, ciprofloxacin 400 mg IV every 12, Flagyl 500 mg IV every eight, vancomycin 1 g IV every 12, heparin 5000 units subcu every 8, regular low-dose Humulin insulin coverage before meals and at bedtime while continuing clear liquid diet as outlined by GI. The patient is to receive morphine 4 mg IV every 6 hours p.r.n. severe pain. He also continues on Pulmicort inhalational therapy every 12, 0.9 saline at 125 mL/hour and Zofran 4 mg IV every 6 hours p.r.n. nausea and vomiting. He is ordered to ambulate with assistance and based on clinical progress and GI workup, additional testing and medication interventions will be entertained. He continues to have serial CBCs as well as comprehensive metabolic panels and all of the above was discussed for greater than 35 minutes with the patient, , nursing and co-consultants. All questions were answered. Mansi Cuevas MD TARIK
--- NOTE | 2018-01-09 13:35 | PN ---
Copied To: Mansi Cuevas MD Attending MD: Mansi Cuevas MD DATE: 01/07/2018 SUBJECTIVE: This 42-year-old male was examined at bedside and this case was reviewed extensively with Dr. Ashkan Ramirez from . The patient did experience recurrence of temperature yesterday with afternoon fevers running 100.6 and 99.[address]. [address] Ashkan Ramirez, , a trial of IV steroids will begin with Solu-Cortef 100 mg IV every eight hours while continuing IV antibiotics. The patient remains weak and deconditioned and is tolerating clear liquids and IV fluids as outlined. He needs assistance with activities of daily living. PHYSICAL EXAMINATION: VITAL SIGNS: He was noted to have a temperature this morning of 102.6, respirations 18, blood pressure 118/64 and pulse of 104. HEENT: Head: Normocephalic, atraumatic. Eyes: No icterus. Ears: Clear. Throat: Noninjected. NECK: Supple. HEART: S1, S2. LUNGS: Clear. ABDOMEN: Obese. Mild left lower quadrant tenderness on deep palpation. No rebound. No guarding. EXTREMITIES: No edema. SKIN: No rash. VASCULAR: Legs warm to touch. PSYCHOLOGICAL: Alert and oriented x3. NEURO: Deconditioned. VITAL SIGNS: White count 15,600, hemoglobin 8.4, hematocrit 26.1, platelets 718,000. Sodium 136, K 4.1, chloride 103, bicarb 26, BUN 7, creatinine 0.8, random blood sugar 109 and calcium 8.4. IMPRESSION: A 42-year-old male with history of Crohn's disease versus ulcerative colitis and irritable bowel syndrome, admitted with bloody diarrhea after eating takeout [employer] food with microbiology studies of blood, urine, stool showing no pathogens to date and recent sigmoidoscopy consistent with inflammatory bowel disease. PLAN: The plan as discussed with will be to continue IV steroids under their direction, Asacol 800 mg p.o. t.i.d. continues on Brovana inhalational therapy, ciprofloxacin 400 mg IV every 12, Flagyl 500 mg IV every 8, vancomycin 1 g IV every 12, heparin 5000 units subcu every 8. He will continue on regular low-dose Humulin insulin coverage before meals and at bedtime and is cleared for clear liquid diet only. He will be given morphine parenterally p.r.n. severe pain, Protonix 40 mg IV daily, Pulmicort inhalational therapy every 12, 0.9 saline at 125 mL/hour and Zofran 4 mg IV every 6 hours p.r.n. nausea and vomiting. He has been encouraged to ambulate with assistance and based on clinical progress, additional testing and diagnostic workup will be entertained. Greater than 35 minutes was spent in the care and management and discussion of this patient's case including detailed discussion with Dr. Ashkan Ramirez from GI. All questions were answered. Mansi Cuevas MD MTDD
--- NOTE | 2018-01-09 13:45 | PN ---
Copied To: Mansi Cuevas MD Attending MD: Mansi Cuevas MD DATE: 01/08/2018 SUBJECTIVE: This 42-year-old male was examined at bedside. His was present for the interview. He has been treated with IV Solu-Cortef 100 mg IV every 8 for the past 24 hours under the direction of Dr. Ashkan Ramirez from GI. PHYSICAL EXAMINATION: GENERAL: On physical exam this morning, he is out of bed to chair, feeling somewhat better. VITAL SIGNS: On physical exam has a temperature of 98.6, respirations 18, pulse 80 and blood pressure 118/64. HEENT: Head is normocephalic, atraumatic. Eyes: No icterus. Ears: Clear. Throat: Noninjected. NECK: Supple. HEART: S1, S2. LUNGS: Clear. ABDOMEN: Obese. Mild left lower quadrant tenderness. No rebound. No guarding. EXTREMITIES: No edema. SKIN: No rash. VASCULAR: Legs warm to touch. PSYCHOLOGICAL: Alert and oriented x3. NEURO: He is able to ambulate independently. LABORATORY DATA: Most recent labs show white count 12,600, now 15,600 on IV steroid; hemoglobin 8.4; hematocrit 26.1; platelets 718,000. Sodium 136, K 4.1, chloride 103, bicarb 26, BUN 7, creatinine 0.8, his random blood sugar was 103. IMPRESSION: A 42-year-old male with inflammatory bowel disease, Crohn's versus ulcerative colitis, admitted with bloody diarrhea after eating takeout [place] food with negative blood, urine and stool cultures to date and concerns of exacerbation of Crohn's disease as primary diagnosis. PLAN: Plan at present is to advance this patient to full liquid diet as tolerated while continuing Asacol, IV ciprofloxacin, IV Flagyl, IV vancomycin, Brovana and Pulmicort inhalational therapy, Venofer 200 mg IV x1 dose was administered. He continues on regular low-dose insulin protocol before meals and at bedtime. He is ordered to have morphine 4 mg IV every 4 hours p.r.n. severe pain and continues on IV Solu-Cortef, which will be dosed tapered by GI under their direction. He continues on Protonix 40 mg IV daily, 0.9 saline at 125 mL daily and Zofran 4 mg IV every 6 hours p.r.n. nausea and vomiting. Pending his clinical progress, additional diagnostic testing and interventions will be entertained and greater than 35 minutes was spent in the care and management and discussion of this patient's case with himself and his at bedside. All questions were answered. Mansi Cuevas MD MTDD
--- NOTE | 2018-01-09 13:51 | PN ---
Copied To: Mansi Cuevas MD Attending MD: Mansi Cuevas MD DATE: 01/09/2018 SUBJECTIVE: This 42-year-old male remains hospitalized with acute inflammatory bowel disease. I did review his pathology report from recent sigmoidoscopy. Histological findings are consistent with inflammatory bowel disease versus self-limiting colitis. CMV immunostain studies remain pending. The patient has had an excellent response to IV steroids with defervescence in fever. The patient is being followed by Dr. Shon Plata from Infectious Disease and Dr. Ashkan Ramirez from GI. At present, his IV vancomycin has been discontinued and it has been recommended that the patient have a fall 10-day course of IV ciprofloxacin and IV Flagyl. Of note, since the institution of IV steroids his fever has resolved. PHYSICAL EXAMINATION: VITAL SIGNS: On physical exam today, his temperature is 98, respirations 20, pulse 91 and blood pressure 124/70 with pulse ox 98% on room air. HEENT: Head: Normocephalic, atraumatic. Eyes: No icterus. Ears: Clear. Throat: Noninjected. NECK: Supple. HEART: Regular S1, S2. LUNGS: Clear. ABDOMEN: Obese. No rebound. No guarding. EXTREMITIES: No edema. SKIN: Without rash. NEUROLOGICAL: Intact, but deconditioned. PSYCHOLOGICAL: Alert and oriented x3. SKIN: No rash. No ulcerations. LABORATORY DATA: Sodium 136, K 4.1, chloride 103, bicarb 26, BUN 7, creatinine 0.8, random blood sugar 154. White count 15,600, hemoglobin 8.4, hematocrit 26.1, platelets 718,000. IMPRESSION: A 42-year-old male with exacerbation of irritable bowel syndrome including Crohn's versus ulcerative colitis versus infectious gastroenteritis with negative blood, urine and stool cultures to date with comorbidities of obesity, hypertension, type 2 diabetes mellitus and peptic ulcer disease with gastroesophageal reflux disease and asthmatic bronchitis. At present, the patient will continue on Asacol, Brovana, IV ciprofloxacin, IV Flagyl, subcu heparin, subcu regular low-dose insulin protocol, IV iron, parenteral morphine, prednisone taper, IV Protonix, Pulmicort, IV fluids and Zofran. Diet has been advanced to low fiber, moderate carbohydrate, soft bland. The patient is ordered to be out of bed to chair and ambulated with assistance. He will have comprehensive metabolic panel repeated in a.m. and CBC in a.m. as well. An irritable bowel disease differentiation panel has been ordered, but not resulted and all of the above was discussed in detail with the patient, nursing, GI and Infectious Disease. All questions were answered. Mansi Cuevas MD MTDRaul
--- NOTE | 2018-01-09 17:53 | CP.PCM.PN ---
Subjective - Date & Time of Evaluation Date of Evaluation: 01/09/18 Time of Evaluation: 16:00 - Subjective Subjective: Infectious Disease Follow Up: January 09, 2018 42 yo male with past medical history of diabetes mellitus type 2, Crohn's disease presents c/o epigastric abdominal pain associated with nausea, non- bilious, non-bloody vomiting and diarrhea for the past 2 days. He reports that he has been having subjective fevers and reported having been discharged from [facility] [place] for a similar contact during which time he was treated for a Crohn's flare. Described his abdominal pain as epigastric in nature, non- radiating, 8/10 in severity. Diarrhea has been watery without blood or mucus. He denies chest pain, palpitations, SOB, focal weakness, numbness, tingling, melena/hematochezia, mucus in the stool, sick contacts, chills, cough. ICU was consulted for evaluation of abdominal pain in setting of elevated lactate/ leukocytosis. ID called for evaluation of potential abdominal infection and PCN allergy history. Today the patient states that he feels significantly better since starting steroids. Currently on IV Vancomycin, Cipro, and Flagyl. Fevers up to 102.6 F during this hospitalization. Afebrile since starting steroid therapy. GI continuing steroid therapy which has improved the patient greatly. Objective - Vital Signs/Intake and Output Vital Signs (last 24 hours): Temp Pulse Resp BP Pulse Ox 97.9 F 92 H 19 127/87 98 01/09/18 12:00 01/09/18 12:00 01/09/18 12:00 01/09/18 12:00 01/09/18 06:00 Intake and Output: 01/09/18 01/09/18 06:59 18:59 Intake Total 3755 Output Total 1700 Balance 2054 - Medications Medications: Current Medications Acetaminophen (Tylenol 325mg Tab) 650 mg PO Q6H PRN PRN Reason: fever greater than 99 Last Admin: 01/07/18 11:38 Dose: 650 mg Arformoterol Tartrate (Brovana) 15 mcg IH [id number] [facility] Last Admin: 01/09/18 07:41 Dose: 15 mcg Budesonide (Pulmicort Respules) 0.5 mg IH [id number] [facility] Last Admin: 01/09/18 07:41 Dose: 0.5 mg Heparin Sodium (Porcine) (Heparin) 5,000 units SC Q8 [facility] PRN Reason: Protocol Last Admin: 01/09/18 13:57 Dose: 5,000 units Sodium Chloride (Sodium Chloride 0.9%) 1,000 mls @ 125 mls/hr IV .Q8H [facility] Last Admin: 01/09/18 06:45 Dose: 125 mls/hr Ciprofloxacin (Cipro 400mg/200ml Dsw) 400 mg in 200 mls @ 133.3 mls/hr IVPB Q12 [facility] PRN Reason: Protocol Last Admin: 01/09/18 09:04 Dose: 133.3 mls/hr Insulin Human Regular (Humulin R Low) 0 units SC ACHS [facility] PRN Reason: Protocol Last Admin: 01/09/18 11:57 Dose: 3 u Mesalamine (Asacol Hd 800mg) 800 mg PO TID [facility] Last Admin: 01/09/18 13:57 Dose: 800 mg Morphine Sulfate (Morphine) 4 mg IVP Q6H PRN PRN Reason: Pain, severe (8-10) Last Admin: 01/07/18 05:07 Dose: 4 mg Nystatin (Nystatin Oral Susp) 5 ml PO QID [facility] Last Admin: 01/09/18 13:57 Dose: 5 ml Ondansetron HCl (Zofran Inj) 4 mg IVP Q6H PRN PRN Reason: Nausea/Vomiting Last Admin: 01/09/18 12:41 Dose: 4 mg Pantoprazole Sodium (Protonix Inj) 40 mg IVP DAILY [facility] Last Admin: 01/09/18 09:04 Dose: 40 mg Prednisone (Prednisone Tab) 30 mg PO DAILY [facility] Last Admin: 01/09/18 11:58 Dose: 30 mg Prednisone (Prednisone Tab) 20 mg PO HS [facility] - Labs Labs: 01/07/18 05:45 01/07/18 05:45 APTT 30.5 Seconds (25.1-36.5) 01/02/18 06:45 - Constitutional Appears: Non-toxic, No Acute Distress, Chronically Ill - Head Exam Head Exam: ATRAUMATIC, NORMOCEPHALIC - Eye Exam Eye Exam: EOMI, PERRL Pupil Exam: NORMAL ACCOMODATION, PERRL - ENT Exam ENT Exam: Mucous Membranes Moist, Normal External Ear Exam, TM's Normal Bilaterally - Neck Exam Neck Exam: Full ROM, Normal Inspection - Respiratory Exam Respiratory Exam: Clear to Ausculation Bilateral, NORMAL BREATHING PATTERN. absent: Rales, Rhonchi, Wheezes - Cardiovascular Exam Cardiovascular Exam: REGULAR RHYTHM, RRR, +S1, +S2 - GI/Abdominal Exam GI & Abdominal Exam: Distended, Soft, Normal Bowel Sounds. absent: Tenderness - Extremities Exam Extremities Exam: Full ROM, Normal Inspection - Neurological Exam Neurological Exam: Alert, Awake, CN II-XII Intact, Oriented x3 - Psychiatric Exam Psychiatric exam: Normal Affect, Normal Mood - Skin Skin Exam: Intact, Normal Color Assessment and Plan - Assessment and Plan (Free Text) Assessment: 42 yo male with medical history of Crohn's and Type II DM presenting with abdominal pain with nausea, vomiting, and diarrhea with fevers up to 103.1 F. The patient recently discharged from [facility] [place] in [place]. Distended abdomen. CT abd on this hospitalization showing resolvement of the previous colitis seen in November 2017. There is the appearance of fluid filled bowels seen in diarrhea. Supportive care. Started on Cipro and Flagyl on admission. IV vancomycin also started. Would give Aztreonam and Flagyl instead of the Cipro. Test for C. Diff. Salmonella testing pending. Ova and parasite stool examination. The patient still having fever up to 103.1 F in the past 24 hours. Awaiting stool studies. Patient states swelling with PCN. C. Diff negative. PCN and shellfish allergy. Leukocytosis resolved. However, fevers and tachycardia persist. Had added 1 dose of Gentamicin and started Cipro to the current regimen of Aztreonam and Flagyl. Stopped Aztreonam. Started Vancomycin IV. CT reviewed. Sigmoidoscopy performed with biopsies taken. Currently cultures have been negative. Ova and parasite exam negative. Stool occult blood positive. Patient's ESR is significantly elevated. Spoke with Dr. Ramirez regarding findings during sigmoidoscopy. Sent EBV and CMV for testing. IgM for both negative. IgG for EBV positive indicating prior infection. On Cipro and Flagyl for antibiotic therapy. However WBC did increase to 12.9 and now to 15.6 on last check. The patient started on steroids for Crohn's therapy on Wednesday. Patient feeling significantly beter. Will keep to Cipro and Flagyl IV for up to 10 days treatment. Check CBC and ESR values. Thank you for allowing me to participate in the care of the patient, we will follow with you. I will be away from 01/10/2018 to 01/23/2018. Dr. Blandon will be covering for me during this time.
[2018-01-10] MEDS: Sodium Chloride 0.9% 1,000 ML IV SCH (04:30)
[2018-01-10 06:33] LABS: HEMOGLOBIN 8.4 g/dL (14.0-18.0); MEAN CELL VOLUME 79.4 fl (80.0-105.0); MEAN CORPUSCULAR HEMOGLOBIN 25.8 pg (25.0-35.0); MEAN CORPUSCULAR HGB CONC 32.6 g/dl (31.0-37.0); MEAN PLATELET VOLUME 8.6 fl (7.0-11.0); RBC 3.25 10^6/uL (3.5-6.1); RED CELL DISTRIBUTION WIDTH 16.4 % (11.5-14.5); WHITE BLOOD COUNT 16.7 10^3/ul (4.5-11.0)
[2018-01-10 07:11] LABS: ALB/GLOB RATIO 0.7 (1.1-1.8); ALBUMIN 2.9 g/dL (3.0-4.8); ALT/SGPT 46 U/L (7-56); AST/SGOT 50 U/L (17-59); BLOOD UREA NITROGEN 11 mg/dL (7-21); CALCIUM 8.5 mg/dL (8.4-10.5); GFR NON-AFRICAN AMERICAN > 60
[2018-01-10] MEDS: Insulin Reg-LOW-Coverage SC SCH ×4 (07:30→23:52)
[2018-01-10] MEDS: Arformoterol 15 mcg/2 ml Inh Sol IH SCH ×2 (08:06→20:01)
[2018-01-10] MEDS: Budesonide 0.5 mg/2 ml Inhal Susp UD IH SCH ×2 (08:06→20:01)
[2018-01-10] MEDS: Morphine 4 mg/ml ISec IVP PRN (11:05)
[2018-01-10] MEDS: Nystatin 100,000 Units/ml Oral Susp 5 ml UD PO SCH ×4 (11:08→21:01)
[2018-01-10] MEDS: Mesalamine 800 mg DR Tab PO SCH ×3 (11:08→17:44)
[2018-01-10] MEDS: Vancomycin 1gm in NS 250ml 1 GM/250 ML BAG IVPB SCH ×2 (11:12→23:00)
--- NOTE | 2018-01-10 11:47 | CP.PCM.PN ---
Subjective - Date & Time of Evaluation Date of Evaluation: 01/10/18 Time of Evaluation: 11:15 - Subjective Subjective: Had diarrhea again yesterday with abdominal pain, this morning, still had some LBM, no fevers, no nausea and was able to eat his breakfast. Objective - Vital Signs/Intake and Output Vital Signs (last 24 hours): Temp Pulse Resp BP Pulse Ox 98.7 F 80 20 124/80 98 01/10/18 06:00 01/10/18 06:00 01/10/18 06:00 01/10/18 06:00 01/10/18 06:00 Intake and Output: 01/10/18 01/10/18 06:59 18:59 Intake Total 1815 Output Total 1650 Balance 165 - Medications Medications: Current Medications Acetaminophen (Tylenol 325mg Tab) 650 mg PO Q6H PRN PRN Reason: fever greater than 99 Last Admin: 01/07/18 11:38 Dose: 650 mg Arformoterol Tartrate (Brovana) 15 mcg IH [id number] [facility] Last Admin: 01/10/18 08:06 Dose: 15 mcg Budesonide (Pulmicort Respules) 0.5 mg IH [id number] [facility] Last Admin: 01/10/18 08:06 Dose: 0.5 mg Heparin Sodium (Porcine) (Heparin) 5,000 units SC Q8 [facility] PRN Reason: Protocol Last Admin: 01/10/18 05:18 Dose: 5,000 units Sodium Chloride (Sodium Chloride 0.9%) 1,000 mls @ 125 mls/hr IV .Q8H [facility] Last Admin: 01/10/18 04:30 Dose: 125 mls/hr Aztreonam (Azactam 1 Gm) 100 mls @ 100 mls/hr IVPB Q8 [facility] PRN Reason: Protocol Stop: 01/17/18 14:01 Vancomycin HCl (Vancomycin 1gm) 1 gm in 250 mls @ 167 mls/hr IVPB Q12H [facility] PRN Reason: Protocol Insulin Human Regular (Humulin R Low) 0 units SC ACHS [facility] PRN Reason: Protocol Last Admin: 01/09/18 22:35 Dose: Not Given Mesalamine (Asacol Hd 800mg) 800 mg PO TID [facility] Last Admin: 01/09/18 18:06 Dose: 800 mg Metronidazole (Flagyl) 500 mg PO TID [facility] PRN Reason: Protocol Morphine Sulfate (Morphine) 4 mg IVP Q6H PRN PRN Reason: Pain, severe (8-10) Last Admin: 01/07/18 05:07 Dose: 4 mg Nystatin (Nystatin Oral Susp) 5 ml PO QID [facility] Last Admin: 01/09/18 22:39 Dose: 5 ml Ondansetron HCl (Zofran Inj) 4 mg IVP Q6H PRN PRN Reason: Nausea/Vomiting Last Admin: 01/09/18 12:41 Dose: 4 mg Pantoprazole Sodium (Protonix Inj) 40 mg IVP DAILY [facility] Last Admin: 01/09/18 09:04 Dose: 40 mg Prednisone (Prednisone Tab) 30 mg PO DAILY [facility] Last Admin: 01/09/18 11:58 Dose: 30 mg Prednisone (Prednisone Tab) 20 mg PO HS [facility] Last Admin: 01/09/18 21:18 Dose: 20 mg - Labs Labs: 01/10/18 05:30 01/10/18 05:30 APTT 30.5 Seconds (25.1-36.5) 01/02/18 06:45 - Constitutional Appears: Non-toxic, Chronically Ill - Head Exam Head Exam: NORMAL INSPECTION - ENT Exam ENT Exam: Mucous Membranes Moist - Neck Exam Neck Exam: absent: Meningismus - Respiratory Exam Respiratory Exam: Decreased Breath Sounds. absent: Rales - Cardiovascular Exam Cardiovascular Exam: +S1, +S2 - GI/Abdominal Exam GI & Abdominal Exam: Soft. absent: Tenderness Assessment and Plan - Assessment and Plan (Free Text) Plan: Assessment Consider acute exacerbation of his Crohn's disease DM obesity with BMI 35 Plan Will change Cipro to Azactam and will continue Flagyl and also add IV Vancomycin ; will monitor BM's and may need to repeat stool for C. diff if the patient develops more diarrhea follow up further GI recommendations - patient currently on steroids will monitor clinically
--- NOTE | 2018-01-10 11:49 | CP.PCM.PN ---
Subjective - Date & Time of Evaluation Date of Evaluation: 01/10/18 Time of Evaluation: 10:00 - Subjective Subjective: S&E at bedside, chart reviewed. Had 3 loose BM last night, 1 loose BM at 7 am, notice a little blood and mucous. Tolerating solids but had some belly pain after dinner yesterday, some discomfort this am. This am tolerated oatmeal and fruit cup. No N.V, fever or chills. Objective - Vital Signs/Intake and Output Vital Signs (last 24 hours): Temp Pulse Resp BP Pulse Ox 98.7 F 80 20 124/80 98 01/10/18 06:00 01/10/18 06:00 01/10/18 06:00 01/10/18 06:00 01/10/18 06:00 Intake and Output: 01/10/18 01/10/18 06:59 18:59 Intake Total 1815 Output Total 1650 Balance 165 - Medications Medications: Current Medications Acetaminophen (Tylenol 325mg Tab) 650 mg PO Q6H PRN PRN Reason: fever greater than 99 Last Admin: 01/07/18 11:38 Dose: 650 mg Arformoterol Tartrate (Brovana) 15 mcg IH [id number] [facility] Last Admin: 01/10/18 08:06 Dose: 15 mcg Budesonide (Pulmicort Respules) 0.5 mg IH [id number] [facility] Last Admin: 01/10/18 08:06 Dose: 0.5 mg Heparin Sodium (Porcine) (Heparin) 5,000 units SC Q8 [facility] PRN Reason: Protocol Last Admin: 01/10/18 05:18 Dose: 5,000 units Sodium Chloride (Sodium Chloride 0.9%) 1,000 mls @ 125 mls/hr IV .Q8H [facility] Last Admin: 01/10/18 04:30 Dose: 125 mls/hr Aztreonam (Azactam 1 Gm) 100 mls @ 100 mls/hr IVPB Q8 [facility] PRN Reason: Protocol Stop: 01/17/18 14:01 Vancomycin HCl (Vancomycin 1gm) 1 gm in 250 mls @ 167 mls/hr IVPB Q12H [facility] PRN Reason: Protocol Last Admin: 01/10/18 11:12 Dose: 167 mls/hr Insulin Human Regular (Humulin R Low) 0 units SC ACHS [facility] PRN Reason: Protocol Last Admin: 01/09/18 22:35 Dose: Not Given Mesalamine (Asacol Hd 800mg) 800 mg PO TID [facility] Last Admin: 01/10/18 11:08 Dose: 800 mg Metronidazole (Flagyl) 500 mg PO TID [facility] PRN Reason: Protocol Last Admin: 01/10/18 11:08 Dose: 500 mg Morphine Sulfate (Morphine) 4 mg IVP Q6H PRN PRN Reason: Pain, severe (8-10) Last Admin: 01/10/18 11:05 Dose: 4 mg Nystatin (Nystatin Oral Susp) 5 ml PO QID [facility] Last Admin: 01/10/18 11:08 Dose: 5 ml Ondansetron HCl (Zofran Inj) 4 mg IVP Q6H PRN PRN Reason: Nausea/Vomiting Last Admin: 01/09/18 12:41 Dose: 4 mg Pantoprazole Sodium (Protonix Inj) 40 mg IVP DAILY [facility] Last Admin: 01/10/18 11:09 Dose: 40 mg Prednisone (Prednisone Tab) 30 mg PO DAILY [facility] Last Admin: 01/10/18 11:08 Dose: 30 mg Prednisone (Prednisone Tab) 20 mg PO HS [facility] Last Admin: 01/09/18 21:18 Dose: 20 mg - Labs Labs: 01/10/18 05:30 01/10/18 05:30 APTT 30.5 Seconds (25.1-36.5) 01/02/18 06:45 - Constitutional Appears: No Acute Distress - Head Exam Head Exam: absent: NORMOCEPHALIC - Eye Exam Eye Exam: Normal appearance. absent: Scleral icterus - ENT Exam ENT Exam: Mucous Membranes Moist - Neck Exam Neck Exam: Normal Inspection - Respiratory Exam Respiratory Exam: NORMAL BREATHING PATTERN. absent: Respiratory Distress - Cardiovascular Exam Cardiovascular Exam: +S1, +S2 - GI/Abdominal Exam GI & Abdominal Exam: Soft, Tenderness, Normal Bowel Sounds. absent: Guarding, Organomegaly, Rebound Additional comments: epigastric tendernes - Extremities Exam Extremities Exam: absent: Calf Tenderness, Pedal Edema - Neurological Exam Neurological Exam: Alert, Awake, Oriented x3 - Skin Skin Exam: Dry, Warm Assessment and Plan - Assessment and Plan (Free Text) Assessment: Assessment: Colitis, etiology likely Crohn's flare; c.diff and stool cultures neg to date , s/p flexible sigmoidoscopy with sigmoid biopsy showing chronic active colitis, focal cryptitis and crypt abscess while rectal biopsy showed chronic active proctitis, cryptitis, and focal crypt abscess. SIRS Diarrhea 2/2 above (improving) Nausea and vomiting 2/2 above (improving) Plan: positive response to steroids off hydrocortisone on Prednisone 30 in AM and 20 in PM, recommend tapering steroid 5 mg weekly on Asacol DVT and GI propylaxsis on IV antibiotics as per ID on soft,low diarrhea mg diet monitor h/h and for overt GI bleeding continue to FU closely Discussed w/ Dr. Jackson covering Dr. Ramirez.
[2018-01-10] MEDS: Aztreonam 1 Gm in NS 100mL 100 ML IVPB SCH ×2 (14:43→21:01)
[2018-01-11] MEDS: Aztreonam 1 Gm in NS 100mL 100 ML IVPB SCH (05:47)
[2018-01-11] MEDS: Sodium Chloride 0.9% 1,000 ML IV SCH ×3 (05:52→23:04)
[2018-01-11 06:34] LABS: HEMOGLOBIN 8.9 g/dL (14.0-18.0); MEAN CELL VOLUME 79.9 fl (80.0-105.0); MEAN CORPUSCULAR HEMOGLOBIN 25.9 pg (25.0-35.0); MEAN CORPUSCULAR HGB CONC 32.5 g/dl (31.0-37.0); MEAN PLATELET VOLUME 8.5 fl (7.0-11.0); RBC 3.43 10^6/uL (3.5-6.1); RED CELL DISTRIBUTION WIDTH 16.9 % (11.5-14.5); WHITE BLOOD COUNT 22.6 10^3/ul (4.5-11.0)
[2018-01-11] MEDS ORDERED: Morphine 4 mg/ml ISec IVP PRN (06:52)
[2018-01-11 07:08] LABS: ALB/GLOB RATIO 0.7 (1.1-1.8); ALBUMIN 3.1 g/dL (3.0-4.8); ALT/SGPT 57 U/L (7-56); AST/SGOT 76 U/L (17-59); BLOOD UREA NITROGEN 11 mg/dL (7-21); CALCIUM 8.3 mg/dL (8.4-10.5); GFR NON-AFRICAN AMERICAN > 60
[2018-01-11 07:52] LABS: IRON 36 ug/dL (45-180)
[2018-01-11 08:01] LABS: % IRON SATURATION 18 % (20-55); TOTAL IRON BINDING CAPACITY 201 ug/dL (261-462)
--- NOTE | 2018-01-11 08:17 | PN ---
Copied To: Armen Jackson MD Attending MD: Armen Jackson MD ADDENDUM DATE: 01/10/2018 SUBJECTIVE: I have personally examined the patient myself. This is an addendum to a progress note dictated by Margarette Kruse APN. The patient is clinically improving. Diarrhea and rectal bleeding are less. He did have some abdominal cramps after having solid foods. He has no abdominal pain now. He is currently on prednisone 30 mg in the morning and 20 mg in the evening. We will continue to observe the patient. Hopefully, if he continues to tolerate his diet, he can be discharged home in the next day or so. This is Dr. Jackson covering for Dr. Ramirez. I agree with Margarette Kruse' assessment and plan. Armen Jackson MD : 01/10/2018 18:01:05
[2018-01-11] MEDS ORDERED: Barium Sulfate Susp 2.1% w/v, 2.0% w/w 450 mL Bottle PO ONE (09:17)
[2018-01-11] MEDS: Nystatin 100,000 Units/ml Oral Susp 5 ml UD PO SCH ×4 (10:51→21:57)
[2018-01-11] MEDS: Mesalamine 800 mg DR Tab PO SCH ×3 (10:51→17:56)
[2018-01-11] MEDS: Vancomycin 1gm in NS 250ml 1 GM/250 ML BAG IVPB SCH ×2 (10:53→23:03)
--- NOTE | 2018-01-11 11:17 | CP.PCM.PN ---
Subjective - Date & Time of Evaluation Date of Evaluation: 01/11/18 Time of Evaluation: 09:40 - Subjective Subjective: S&E at bedside, chart reviewed. Patient having fever his am 102, he does have chills, no N/V. He does have abdominal pain this am, he did tolerated his food yesterday, with no pain. Having semi loose stool, no bleeding. Denies SOB or chest pain. Objective - Vital Signs/Intake and Output Vital Signs (last 24 hours): Temp Pulse Resp BP Pulse Ox 102 F H 88 70 H 126/80 98 01/11/18 08:41 01/11/18 06:00 01/11/18 06:00 01/11/18 06:00 01/11/18 06:00 Intake and Output: 01/11/18 01/11/18 06:59 18:59 Intake Total 2075 Output Total 2850 Balance -775 - Medications Medications: Current Medications Acetaminophen (Tylenol 325mg Tab) 650 mg PO Q6H PRN PRN Reason: fever greater than 99 Last Admin: 01/11/18 08:41 Dose: 650 mg Arformoterol Tartrate (Brovana) 15 mcg IH [id number] [facility] Last Admin: 01/10/18 20:01 Dose: 15 mcg Budesonide (Pulmicort Respules) 0.5 mg IH [id number] [facility] Last Admin: 01/10/18 20:01 Dose: 0.5 mg Heparin Sodium (Porcine) (Heparin) 5,000 units SC Q8 [facility] PRN Reason: Protocol Last Admin: 01/11/18 05:48 Dose: 5,000 units Sodium Chloride (Sodium Chloride 0.9%) 1,000 mls @ 125 mls/hr IV .Q8H [facility] Last Admin: 01/11/18 10:52 Dose: 125 mls/hr Vancomycin HCl (Vancomycin 1gm) 1 gm in 250 mls @ 167 mls/hr IVPB Q12H [facility] PRN Reason: Protocol Last Admin: 01/11/18 10:53 Dose: 167 mls/hr Aztreonam (Azactam 2 Gm) 100 mls @ 100 mls/hr IVPB Q8 [facility] PRN Reason: Protocol Stop: 01/18/18 14:01 Insulin Human Regular (Humulin R Low) 0 units SC ACHS [facility] PRN Reason: Protocol Last Admin: 01/10/18 23:52 Dose: Not Given Mesalamine (Asacol Hd 800mg) 800 mg PO TID [facility] Last Admin: 01/11/18 10:51 Dose: 800 mg Metronidazole (Flagyl) 500 mg PO TID [facility] PRN Reason: Protocol Last Admin: 01/11/18 10:51 Dose: 500 mg Morphine Sulfate (Morphine) 4 mg IVP Q6H PRN PRN Reason: Pain, severe (8-10) Last Admin: 01/11/18 07:09 Dose: 4 mg Nystatin (Nystatin Oral Susp) 5 ml PO QID [facility] Last Admin: 01/11/18 10:51 Dose: 5 ml Ondansetron HCl (Zofran Inj) 4 mg IVP Q6H PRN PRN Reason: Nausea/Vomiting Last Admin: 01/09/18 12:41 Dose: 4 mg Pantoprazole Sodium (Protonix Inj) 40 mg IVP DAILY [facility] Last Admin: 01/11/18 10:51 Dose: 40 mg Prednisone (Prednisone Tab) 30 mg PO DAILY [facility] Last Admin: 01/11/18 10:51 Dose: 30 mg Prednisone (Prednisone Tab) 20 mg PO HS [facility] Last Admin: 01/10/18 21:00 Dose: 20 mg - Labs Labs: 01/11/18 05:40 01/11/18 05:40 APTT 30.5 Seconds (25.1-36.5) 01/02/18 06:45 - Constitutional Appears: No Acute Distress - Head Exam Head Exam: NORMOCEPHALIC - Eye Exam Eye Exam: Normal appearance. absent: Scleral icterus - ENT Exam ENT Exam: Mucous Membranes Moist - Respiratory Exam Respiratory Exam: NORMAL BREATHING PATTERN. absent: Respiratory Distress - Cardiovascular Exam Cardiovascular Exam: +S1, +S2 - GI/Abdominal Exam GI & Abdominal Exam: Distended, Soft, Tenderness (diffuse), Normal Bowel Sounds. absent: Guarding, Rebound - Extremities Exam Extremities Exam: absent: Calf Tenderness, Pedal Edema - Neurological Exam Neurological Exam: Alert, Awake, Oriented x3 - Skin Skin Exam: Dry, Warm Assessment and Plan - Assessment and Plan (Free Text) Assessment: Assessment: Fever w/ leukocytosis (he is also on steroid therapy) Colitis, etiology likely Crohn's flare; c.diff and stool cultures neg to date , s/p flexible sigmoidoscopy with sigmoid biopsy showing chronic active colitis, focal cryptitis and crypt abscess while rectal biopsy showed chronic active proctitis, cryptitis, and focal crypt abscess. SIRS Elevated Platelets Plan: off hydrocortisone on Prednisone 30 in AM and 20 in PM, recommend tapering steroid 5 mg weekly on Asacol DVT and GI propylaxsis on IV antibiotics as per ID for now make NPO monitor h/h and for overt GI bleeding continue to FU closely request for ct scan abdomen and pelvis with oral contrast Hematology on board Discussed w/ Dr. Jackson covering Dr. Ramirez.
--- NOTE | 2018-01-11 12:43 | CP.PCM.PN ---
Subjective - Date & Time of Evaluation Date of Evaluation: 01/11/18 Time of Evaluation: 08:20 - Subjective Subjective: Patient developed fevers today with chills, still with loose bowel movement, has some nausea. Feels weak. Objective - Vital Signs/Intake and Output Vital Signs (last 24 hours): Temp Pulse Resp BP Pulse Ox 98.7 F 80 20 124/80 98 01/10/18 06:00 01/10/18 06:00 01/10/18 06:00 01/10/18 06:00 01/10/18 06:00 Intake and Output: 01/10/18 01/10/18 06:59 18:59 Intake Total 1815 Output Total 1650 Balance 165 - Medications Medications: Current Medications Acetaminophen (Tylenol 325mg Tab) 650 mg PO Q6H PRN PRN Reason: fever greater than 99 Last Admin: 01/07/18 11:38 Dose: 650 mg Arformoterol Tartrate (Brovana) 15 mcg IH [id number] [facility] Last Admin: 01/10/18 08:06 Dose: 15 mcg Budesonide (Pulmicort Respules) 0.5 mg IH [id number] [facility] Last Admin: 01/10/18 08:06 Dose: 0.5 mg Heparin Sodium (Porcine) (Heparin) 5,000 units SC Q8 [facility] PRN Reason: Protocol Last Admin: 01/10/18 05:18 Dose: 5,000 units Sodium Chloride (Sodium Chloride 0.9%) 1,000 mls @ 125 mls/hr IV .Q8H [facility] Last Admin: 01/10/18 04:30 Dose: 125 mls/hr Aztreonam (Azactam 1 Gm) 100 mls @ 100 mls/hr IVPB Q8 [facility] PRN Reason: Protocol Stop: 01/17/18 14:01 Vancomycin HCl (Vancomycin 1gm) 1 gm in 250 mls @ 167 mls/hr IVPB Q12H [facility] PRN Reason: Protocol Last Admin: 01/10/18 11:12 Dose: 167 mls/hr Insulin Human Regular (Humulin R Low) 0 units SC ACHS [facility] PRN Reason: Protocol Last Admin: 01/09/18 22:35 Dose: Not Given Mesalamine (Asacol Hd 800mg) 800 mg PO TID [facility] Last Admin: 08/13/18 11:08 Dose: 800 mg Metronidazole (Flagyl) 500 mg PO TID [facility] PRN Reason: Protocol Last Admin: 01/10/18 11:08 Dose: 500 mg Morphine Sulfate (Morphine) 4 mg IVP Q6H PRN PRN Reason: Pain, severe (8-10) Last Admin: 01/10/18 11:05 Dose: 4 mg Nystatin (Nystatin Oral Susp) 5 ml PO QID [facility] Last Admin: 01/10/18 11:08 Dose: 5 ml Ondansetron HCl (Zofran Inj) 4 mg IVP Q6H PRN PRN Reason: Nausea/Vomiting Last Admin: 01/09/18 12:41 Dose: 4 mg Pantoprazole Sodium (Protonix Inj) 40 mg IVP DAILY [facility] Last Admin: 01/10/18 11:09 Dose: 40 mg Prednisone (Prednisone Tab) 30 mg PO DAILY [facility] Last Admin: 01/10/18 11:08 Dose: 30 mg Prednisone (Prednisone Tab) 20 mg PO HS [facility] Last Admin: 01/09/18 21:18 Dose: 20 mg - Labs Labs: 01/10/18 05:30 01/10/18 05:30 APTT 30.5 Seconds (25.1-36.5) 01/02/18 06:45 - Constitutional Appears: In Acute Distress, Chronically Ill - Head Exam Head Exam: NORMAL INSPECTION - ENT Exam ENT Exam: Mucous Membranes Moist - Neck Exam Neck Exam: absent: Meningismus - Respiratory Exam Respiratory Exam: Decreased Breath Sounds - Cardiovascular Exam Cardiovascular Exam: +S1, +S2 - GI/Abdominal Exam GI & Abdominal Exam: Soft. absent: Tenderness Assessment and Plan - Assessment and Plan (Free Text) Plan: Assessment Consider acute exacerbation of his Crohn's disease, with new onset SIRS today R/ O sepsis DM obesity with BMI 35 Plan continue Azactam, Flagyl and IV Vancomycin day 2 and will repeat blood cx today ; will check stool for C. diff since patient still has diarrhea - will empirically start PO Vancomycin follow up further GI recommendations - patient currently on steroids - for repeat CT A/P today will continue to monitor clinically
[2018-01-11] MEDS: Insulin Reg-LOW-Coverage SC SCH ×2 (13:05→16:25)
[2018-01-11] MEDS ORDERED: Iodixanol 320 mg/ml 150 ml Bottle IV ONE (13:58)
[2018-01-11] MEDS: Vancomycin 25 MG/ML PO SCH ×3 (14:41→23:03)
[2018-01-11] MEDS: Aztreonam 2 Gm in NS 100mL 100 ML IVPB SCH ×2 (14:41→21:56)
--- NOTE | 2018-01-11 15:00 | CT ---
Date of service: 01/11/2018 PROCEDURE: CT Abdomen and Pelvis with contrast HISTORY: chills, abdominal pain COMPARISON: 01/03/2018 TECHNIQUE: Contrast dose: 150 mL Visipaque 320 Radiation dose: Total exam DLP = 1132.53 mGy-cm. This CT exam was performed using one or more of the following dose reduction techniques: Automated exposure control, adjustment of the mA and/or kV according to patient size, and/or use of iterative reconstruction technique. FINDINGS: LOWER THORAX: Subsegmental atelectasis in left lower lobe. Small left pleural effusion. No pulmonary infiltrate. There is a punctate calcification in the left lower lobe consistent with old granulomatous disease. LIVER: Unremarkable. No gross lesion or ductal dilatation. GALLBLADDER AND BILE DUCTS: Gallbladder not visualized. Question is raised regarding prior cholecystectomy, versus collapsed gallbladder. No surgical clips seen in gallbladder fossa. PANCREAS: Unremarkable. No gross lesion or ductal dilatation. SPLEEN: Unremarkable. ADRENALS: Unremarkable. No mass. KIDNEYS AND URETERS: Small stable 10 mm low-density lesion lower pole right kidney, 12 mm lesion upper pole right kidney and 9 mm lesion lower pole right kidney. Likely cortical cysts. No calculus. No hydronephrosis. VASCULATURE: No evidence of abdominal aortic aneurysm. Inferior vena caval filter noted. BOWEL: Mild mural thickening of the cecum and ascending colon. Generally featureless descending and rectosigmoid colon. Fatty infiltration of the wall of the rectosigmoid colon is noted. Possible mild acute inflammatory episode of patient's known ulcerative colitis, in the ascending colon. APPENDIX: Normal appendix. PERITONEUM: Unremarkable. No free fluid. No free air. LYMPH NODES: Shotty mesenteric and retroperitoneal lymph nodes, up to 13 mm short axis. Likely reactive secondary to known ulcerative colitis. This is unchanged when compared to the prior CT examination. No pelvic lymphadenopathy. BLADDER: Poorly distended. REPRODUCTIVE: Normal prostate. BONES: No acute fracture. OTHER FINDINGS: None. IMPRESSION: Very mild mural thickening of the cecum and ascending colon. Extensive shotty and minimally enlarged mesenteric lymphadenopathy as well as mild retroperitoneal lymphadenopathy, likely reactive secondary to patient's known ulcerative colitis. No bowel obstruction. Fatty infiltration of rectosigmoid colon consistent with chronic ulcerative colitis.
--- NOTE | 2018-01-11 15:59 | PN ---
Copied To: Armen Jackson MD Attending MD: Armen Jackson MD ADDENDUM DATE: 01/11/2018 An addendum to a progress note performed by Margarette Kruse APN on Jing Rodney. I have examined this patient personally. The patient had fever this morning with some epigastric pain. His white blood cell count is also noted to be elevated at 22.6 with a sed rate of 120. His platelet count is up to 936. His hemoglobin is 8.9. Given this information, a repeat CT scan of the abdomen and pelvis with oral and IV contrast was requested. I reviewed the CAT scan myself with Dr. Daryl Rivera. There is no evidence of pneumoperitoneum, perforation, free air, toxic megacolon. There is mild mural thickening of the cecum and ascending colon. There is no evidence of a toxic megacolon. His vital signs are stable with a blood pressure of 110/62 and a heart rate of 100. His most recent temperature is 100.1. IMPRESSION: Exacerbation of his inflammatory bowel disease in this patient who has a history of Crohn's colitis. The patient has been slow to improve. The CAT scan does not show any evidence of perforation or toxic megacolon. The patient is seen by Infectious Disease and is on broad-spectrum antibiotics with aztreonam. He is also on prednisone 50 mg daily total in split dose as well as p.o. vancomycin 125 mg four times a day. A stool for Clostridium difficile toxin has been ordered. We will make the patient n.p.o. except meds. We will follow the patient closely for development of any peritoneal signs. Armen Jackson MD
[2018-01-11] MEDS: Budesonide 0.5 mg/2 ml Inhal Susp UD IH SCH (20:24)
[2018-01-11] MEDS: Arformoterol 15 mcg/2 ml Inh Sol IH SCH (20:24)
--- NOTE | 2018-01-11 23:42 | PN ---
Copied To: Masni Cuevas MD Attending MD: Mansi Cuevas MD DATE: 01/11/2018 SUBJECTIVE: This 42-year-old male was examined at his bedside in the presence of his nurse, Agatha Herrera, registered nurse. The patient is weak and deconditioned today and unfortunately was noted to have a temperature of 102 at 08:00 a.m. this morning. The patient again is bedridden and weak and is being evaluated by Dr. Bernard from Infectious Disease and Dr. Armen Jackson from Gastroenterology. The patient did complain of watery diarrhea and at present is n.p.o. A stool for C. diff toxin has been requested and the patient will continue on both oral Flagyl as well as oral vancomycin. He is being readied for a repeat CT of the abdomen with oral and IV contrast and at present is denying any chest pain, shortness of breath, nausea or vomiting. PHYSICAL EXAMINATION: VITAL SIGNS: On physical exam at the time of my interview, his temperature was 100.1, respirations 18, pulse 88 and blood pressure 126/80 with a pulse ox of 98% on room air. HEENT: Head normocephalic, atraumatic. Eyes: No icterus. Ears: Clear. Throat: Noninjected. Neck: Supple. HEART: With S1, S2. No pathological rubs, murmurs or gallops. LUNGS: Clear. ABDOMEN: Obese. No rebound. No guarding. EXTREMITIES: No edema. SKIN: Without rash. NEUROLOGICAL: Intact. PSYCHOLOGICAL: Alert and oriented x3. EXTREMITIES: Warm to touch. LABORATORY DATA: White count 22,600, hemoglobin 8.9, hematocrit 27.4, platelets 936,000. Sodium 139, K 4.5, chloride 106, bicarb 26, BUN 11, creatinine 0.8, random blood sugar 111. Iron 36, TIBC 201, percent saturation 18, ferritin 759, bilirubin 0.4, AST 76, ALT 57 and alk phos 286. IMPRESSION: A 42-year-old male with chronic Crohn's disease, now with irritable bowel syndrome, rule out ulcerative colitis, rule out exacerbation of Crohn's disease versus infectious gastroenteritis, rule out acute Clostridium difficile toxin colitis. The patient is being readied for abdominopelvic CT repeat with oral and IV contrast. He will have a repeat comprehensive metabolic panel and CBC in the a.m. Repeat blood and stool cultures have been received, but have not been reported. He will continue at this time on oral Asacol, IV Azactam, IV vancomycin, inhalation of Brovana and Pulmicort, oral Flagyl and oral vancomycin, subcutaneous heparin, insulin coverage before meals and at bedtime, prednisone 30 mg a.m., prednisone 20 mg at bedtime, Protonix 40 mg IV daily and Tylenol 650 p.o. every 6 hours p.r.n. temperature greater than 101. 0.9 saline continues at 125 mL/hour. The patient is currently n.p.o. He will be monitored closely and based on clinical results, additional diagnostic testing will be entertained. I will order a 2-D echocardiogram for completeness sake and will discuss this patient further with Dr. Scott from Hematology, Dr. Jackson from Gastroenterology and Dr. Bernard from Infectious Disease. Mansi Cuevas MD MTDD
--- NOTE | 2018-01-12 01:15 | PN ---
Copied To: Mansi Cuevas MD Attending MD: Mansi Cuevas MD DATE: 01/10/2018 SUBJECTIVE: This patient was examined on 2017. This 42-year-old male was seen at the bedside in the presence of his , and this case was reviewed with his nurse, Sunny Garcia. The patient remains hospitalized with abdominal complaint today of loose bowel movement after eating a full meal. The patient states that he was happy to receive a soft bland, low fiber diet. However, he felt that perhaps he ate too much which caused abdominal cramping and loose bowel movement. At present, he is lying in bed, afebrile and receiving oral prednisone taper under the direction of Gastroenterology. He is noted to have irritable bowel syndrome on CAT scanning and sigmoidoscopy and is receiving physical therapy for reconditioning and gait training as well as IV fluids. PHYSICAL EXAMINATION: VITAL SIGNS: He was noted to have a temperature of 99.8, respirations 20, pulse 95 and blood pressure 125/81. HEENT: Head: Normocephalic, atraumatic. Eyes: No icterus. NECK: Supple. HEART: Regular S1, S2. LUNGS: Clear. ABDOMEN: Obese. No rebound, no guarding. No tenderness. EXTREMITIES: No edema. SKIN: No rash. VASCULAR: No claudication. PSYCHOLOGICAL: Alert and oriented x3. NEUROLOGIC: Deconditioned and weak. LABORATORY DATA: White count 16,700, hemoglobin 8.4, hematocrit 25.8, platelets 878,000. Sodium 142, K 4.4, chloride 107, bicarb 28, BUN 11, creatinine 0.9, random blood sugar 139. Bilirubin 0.3, AST 50, ALT 46, alk phos 250. IMPRESSION: A 42-year-old male with irritable bowel syndrome, ulcerative colitis versus Crohn disease on recent sigmoidoscopy with a presentation of bloody bowel movements, anemia of chronic disease, history of iron-deficiency anemia and concerns of infectious gastroenteritis despite negative stool Clostridium difficile toxin, stool culture and sensitivity, stool for ova and parasites, and blood and urine cultures with comorbidities of obesity, hypertension and type 2 diabetes mellitus. PLAN: The plan is discussed with the patient, nursing and family at bedside will be to continue Asacol 800 mg t.i.d., Azactam 2 g IV every 8 hours, Brovana inhalational therapy every 12 hours, Flagyl 500 mg p.o. t.i.d., heparin 5000 Units subcu every 8 hours, regular low-dose insulin protocol before meals and at bedtime, prednisone 30 mg a.m. and 20 mg p.o. at bedtime, Protonix 40 mg p.o. daily, Pulmicort inhalational therapy every 12 hours, 0.9 saline at 125 mL/hour, and vancomycin 1 g IV every 12 hours with Zofran 4 mg IV every 6 hours p.r.n. nausea and vomiting. The patient will be followed daily by Dr. Bernard from Infectious Disease, Dr. Armen Jackson from Gastroenterology and he will have repeat electrolytes and CBC in the a.m. I have asked Dr. Reji Scott to reevaluate the patient regarding leukocytosis as well as thrombocytosis. Based on his clinical progress, additional diagnostic testing and workup will be entertained. Greater than 35 minutes was spent in the care management, review of labs, orders and x-rays and discussion of this patient with himself, his and his nurse as well as co-consultants. All questions were answered. Mansi Cuevas MD MTDD
[2018-01-12] MEDS: Aztreonam 2 Gm in NS 100mL 100 ML IVPB SCH ×3 (05:12→20:59)
[2018-01-12 07:08] LABS: HEMOGLOBIN 8.1 g/dL (14.0-18.0); MEAN CELL VOLUME 79.9 fl (80.0-105.0); MEAN CORPUSCULAR HEMOGLOBIN 25.5 pg (25.0-35.0); MEAN CORPUSCULAR HGB CONC 31.9 g/dl (31.0-37.0); MEAN PLATELET VOLUME 8.6 fl (7.0-11.0); RBC 3.18 10^6/uL (3.5-6.1); RED CELL DISTRIBUTION WIDTH 17.2 % (11.5-14.5); WHITE BLOOD COUNT 15.4 10^3/ul (4.5-11.0)
[2018-01-12 07:34] LABS: ALB/GLOB RATIO 0.6 (1.1-1.8); ALBUMIN 2.7 g/dL (3.0-4.8); ALT/SGPT 50 U/L (7-56); AST/SGOT 62 U/L (17-59); BLOOD UREA NITROGEN 9 mg/dL (7-21); CALCIUM 8.3 mg/dL (8.4-10.5); GFR NON-AFRICAN AMERICAN > 60
[2018-01-12] MEDS: Budesonide 0.5 mg/2 ml Inhal Susp UD IH SCH ×2 (08:15→19:44)
[2018-01-12] MEDS: Arformoterol 15 mcg/2 ml Inh Sol IH SCH ×2 (08:15→19:44)
[2018-01-12] MEDS: Insulin Reg-LOW-Coverage SC SCH ×5 (08:17→21:52)
[2018-01-12] MEDS: Sodium Chloride 0.9% 1,000 ML IV SCH ×2 (08:18→20:56)
[2018-01-12] MEDS: Mesalamine 800 mg DR Tab PO SCH ×3 (10:06→17:18)
[2018-01-12] MEDS: Vancomycin 1gm in NS 250ml 1 GM/250 ML BAG IVPB SCH ×2 (10:06→22:00)
[2018-01-12] MEDS: Nystatin 100,000 Units/ml Oral Susp 5 ml UD PO SCH ×4 (10:06→21:00)
[2018-01-12] MEDS: Vancomycin 25 MG/ML PO SCH ×4 (10:06→21:00)
--- NOTE | 2018-01-12 11:19 | CP.PCM.PN ---
Subjective - Date & Time of Evaluation Date of Evaluation: 01/12/18 Time of Evaluation: 09:45 - Subjective Subjective: S&E at bedside, chart reviewed. Patient feeling chills, temp taken at 99.,no fevers last night, patient endorses that he feeling better, no N/V and abdominal discomfort resolved. Having BM loose but no blood. Ct scan done yesterday, no obstruction, show mild mural thickening cecun and ascending colon. there are lymphnodes noted liekly reactive secondary to UC, and fatty infiltration in rectosigmoid consistient with chronic UC,see [facility] for full report. Objective - Vital Signs/Intake and Output Vital Signs (last 24 hours): Temp Pulse Resp BP Pulse Ox 99.2 F 98 H 22 138/80 99 01/12/18 10:07 01/12/18 06:00 01/12/18 06:00 01/12/18 06:00 01/12/18 06:00 Intake and Output: 01/12/18 01/12/18 06:59 18:59 Intake Total 1404 Output Total 600 Balance 804 - Medications Medications: Current Medications Acetaminophen (Tylenol 325mg Tab) 650 mg PO Q6H PRN PRN Reason: fever greater than 99 Last Admin: 01/12/18 10:07 Dose: 650 mg Arformoterol Tartrate (Brovana) 15 mcg IH [id number] [facility] Last Admin: 01/12/18 08:15 Dose: 15 mcg Budesonide (Pulmicort Respules) 0.5 mg IH [id number] [facility] Last Admin: 01/12/18 08:15 Dose: 0.5 mg Heparin Sodium (Porcine) (Heparin) 5,000 units SC Q8 [facility] PRN Reason: Protocol Last Admin: 01/12/18 05:13 Dose: 5,000 units Sodium Chloride (Sodium Chloride 0.9%) 1,000 mls @ 125 mls/hr IV .Q8H [facility] Last Admin: 01/12/18 08:18 Dose: Not Given Vancomycin HCl (Vancomycin 1gm) 1 gm in 250 mls @ 167 mls/hr IVPB Q12H [facility] PRN Reason: Protocol Last Admin: 01/12/18 10:06 Dose: 167 mls/hr Aztreonam (Azactam 2 Gm) 100 mls @ 100 mls/hr IVPB Q8 [facility] PRN Reason: Protocol Stop: 01/18/18 14:01 Last Admin: 01/12/18 05:12 Dose: 100 mls/hr Insulin Human Regular (Humulin R Low) 0 units SC ACHS [facility] PRN Reason: Protocol Last Admin: 01/12/18 08:17 Dose: Not Given Mesalamine (Asacol Hd 800mg) 800 mg PO TID [facility] Last Admin: 01/12/18 10:06 Dose: 800 mg Metronidazole (Flagyl) 500 mg PO TID [facility] PRN Reason: Protocol Last Admin: 01/12/18 10:06 Dose: 500 mg Morphine Sulfate (Morphine) 4 mg IVP Q6H PRN PRN Reason: Pain, severe (8-10) Last Admin: 01/11/18 07:09 Dose: 4 mg Nystatin (Nystatin Oral Susp) 5 ml PO QID [facility] Last Admin: 01/12/18 10:06 Dose: 5 ml Ondansetron HCl (Zofran Inj) 4 mg IVP Q6H PRN PRN Reason: Nausea/Vomiting Last Admin: 01/09/18 12:41 Dose: 4 mg Pantoprazole Sodium (Protonix Inj) 40 mg IVP DAILY [facility] Last Admin: 01/12/18 10:08 Dose: 40 mg Prednisone (Prednisone Tab) 30 mg PO DAILY [facility] Last Admin: 01/12/18 10:06 Dose: 30 mg Prednisone (Prednisone Tab) 20 mg PO HS [facility] Last Admin: 01/11/18 21:57 Dose: 20 mg Vancomycin HCl (Vancocin 25 Mg/Ml (Oral Use)) 125 mg PO QID [facility] PRN Reason: Protocol Last Admin: 01/12/18 10:06 Dose: 125 mg - Labs Labs: 01/12/18 06:30 01/12/18 06:30 APTT 30.5 Seconds (25.1-36.5) 01/02/18 06:45 - Constitutional Appears: No Acute Distress - Head Exam Head Exam: NORMOCEPHALIC - Eye Exam Eye Exam: Normal appearance. absent: Scleral icterus - ENT Exam ENT Exam: Mucous Membranes Moist - Neck Exam Neck Exam: Normal Inspection - Respiratory Exam Respiratory Exam: NORMAL BREATHING PATTERN. absent: Respiratory Distress - Cardiovascular Exam Cardiovascular Exam: +S1, +S2 - GI/Abdominal Exam GI & Abdominal Exam: Distended (less), Soft, Normal Bowel Sounds. absent: Guarding, Tenderness, Rebound - Extremities Exam Extremities Exam: absent: Calf Tenderness, Pedal Edema - Neurological Exam Neurological Exam: Alert, Awake, Oriented x3 - Skin Skin Exam: Dry, Warm Assessment and Plan - Assessment and Plan (Free Text) Assessment: Assessment: Fever w/ leukocytosis , improving Colitis, etiology likely Crohn's flare; c.diff and stool cultures neg to date , s/p flexible sigmoidoscopy with sigmoid biopsy showing chronic active colitis, focal cryptitis and crypt abscess while rectal biopsy showed chronic active proctitis, cryptitis, and focal crypt abscess. BX negative for CMV, repeat ct scan no acute findings. SIRS Elevated Platelets Plan: off hydrocortisone currently on Prednisone 30 in AM and 20 in PM on Asacol DVT and GI propylaxsis on IV antibiotics as per ID start clear liquid diet, will advance slowly decrease IVF rate from 125 to 100 cc/hr monitor h/h and for overt GI bleeding continue to FU closely echo results pending Cdiff results pending Hematology, ID on board Discussed w/ Dr. Jackson covering Dr. Ramirez.
[2018-01-12 16:58] LABS: HEPATITIS B SURFACE AG Negative (NEGATIVE)
[2018-01-12 17:04] LABS: HEPATITIS A IGM NEGATIVE (NEGATIVE); HEPATITIS B CORE AB NEGATIVE (NEGATIVE)
[2018-01-12 17:16] LABS: HEPATITIS C ANTIBODY NEGATIVE (NEGATIVE)
--- NOTE | 2018-01-12 18:11 | CARD ---
APPROVED REPORT Date of service: 01/12/2018 EXAM: Two-dimensional and M-mode echocardiogram with Doppler and color Doppler. INDICATION FEVER/ELEVATED WBCS/EVALUATE VALVES 2D DIMENSIONS Left Atrium (2D)3.9 (1.6-4.0cm)IVSd1.2 (0.7-1.1cm) LVDd4.8 (3.9-5.9cm)PWd1.4 (0.7-1.1cm) LVDs3.6 (2.5-4.0cm)FS (%) 25.9 % LVEF (%)50.8 (>50%) M-Mode DIMENSIONS Aortic Root3.50 (2.2-3.7cm)Aortic Cusp Exc.2.00 (1.5-2.0cm) Aortic Valve AoV Peak Bjfkcvat083.0cm/Luke Peak GR.13mmHg Mitral Valve MV E Yryzysvs181.0cm/sMV A Yhopwqgf870.0cm/sE/A ratio1.1 TDI Lateral E' Peak V10.00cm/sE/Lateral E'11.6E/Medial E'0.0 Pulmonary Valve PV Peak Ixqpkllx67.8cm/sPV Peak Grad.3mmHg Tricuspid Valve TR Peak [id number]/sRAP [id number] Peak Gr.41mmHg [id number] LEFT VENTRICLE The left ventricle is normal size. There is mild concentric left ventricular hypertrophy. The left ventricular function is normal.EF-55% There is normal LV segmental wall motion. The left ventricular diastolic function is normal. No left ventricle thrombus noted on this study. There is no ventricular septal defect visualized. There is no left ventricular aneurysm. There is no mass noted in the left ventricle. RIGHT VENTRICLE The right ventricle is normal size. There is normal right ventricular wall thickness. The right ventricular systolic function is normal. ATRIA The left atrium size is normal. The right atrium size is normal. The interatrial septum is intact with no evidence for an atrial septal defect. AORTIC VALVE The aortic valve is thickened but opens well. The aortic valve is mildly sclerotic. There is trace aortic regurgitation. There is no aortic valvular stenosis. There is no aortic valvular vegetation. MITRAL VALVE The mitral valve is thickened but opens well. Mitral regurgitation is trace to mild. There is no mitral valve stenosis. There is no evidence of mitral valve prolapse. TRICUSPID VALVE The tricuspid valve leaflets are thickened , but open well. There is mild tricuspid regurgitation.RVSP-51 mmof Hg. There is no tricuspid valve stenosis. There is no tricuspid valve prolapse or vegetation. PULMONIC VALVE The pulmonic valve is borderline thickened. There is trace pulmonic valvular regurgitation. There is no pulmonic valvular stenosis. GREAT VESSELS The aortic root is normal in size. The ascending aorta is normal in size. The pulmonary artery is normal. The IVC is normal in size and collapses >50% with inspiration. PERICARDIAL EFFUSION There is no pleural effusion. There is no pericardial effusion. <Conclusion> Normal chamber Size. EF-55% There is trace aortic regurgitation. Mitral regurgitation is trace to mild. There is mild tricuspid regurgitation.RVSP-51 mmof Hg. There is trace pulmonic valvular regurgitation. The IVC is normal in size and collapses >50% with inspiration. There is no pericardial effusion. No thrombus or Vegetation noted.
[2018-01-12 21:54] LABS: ANCA SCREEN NEGATIVE (NEGATIVE)
[2018-01-13] MEDS: Sodium Chloride 0.9% 1,000 ML IV SCH ×2 (04:45→15:36)
[2018-01-13] MEDS: Aztreonam 2 Gm in NS 100mL 100 ML IVPB SCH ×3 (05:01→21:52)
[2018-01-13] MEDS: Arformoterol 15 mcg/2 ml Inh Sol IH SCH ×2 (07:38→19:42)
[2018-01-13] MEDS: Budesonide 0.5 mg/2 ml Inhal Susp UD IH SCH ×2 (07:38→19:42)
[2018-01-13] MEDS: Insulin Reg-LOW-Coverage SC SCH ×4 (08:01→22:30)
[2018-01-13 08:21] LABS: HEMOGLOBIN 9.5 g/dL (14.0-18.0); MEAN CELL VOLUME 79.6 fl (80.0-105.0); MEAN CORPUSCULAR HEMOGLOBIN 26.5 pg (25.0-35.0); MEAN CORPUSCULAR HGB CONC 33.3 g/dl (31.0-37.0); MEAN PLATELET VOLUME 8.6 fl (7.0-11.0); RBC 3.58 10^6/uL (3.5-6.1); RED CELL DISTRIBUTION WIDTH 17.3 % (11.5-14.5); WHITE BLOOD COUNT 23.2 10^3/ul (4.5-11.0)
--- NOTE | 2018-01-13 08:25 | PN ---
Copied To: Armen Jackson MD Attending MD: Armen Jackson MD ADDENDUM DATE: 01/12/2018 An addendum to a progress note performed by Margarette Kruse APN SUBJECTIVE: The patient was seen personally by me earlier in the day. The patient looks and feels better. He has not had any further fevers or abdominal pain. He has not had any further rectal bleeding. He still has some loose bowel movements. His white blood cell count is down to 15,400. His platelet count is down to 877,000. His electrolytes are normal. IMPRESSION: Exacerbation of inflammatory bowel disease. 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 He appears to have pancolitis, clinically he is slowly improving. We will start the patient on clear liquid diet, and if tolerated, will slowly advance his diet. Armen Jackson MD
[2018-01-13 08:32] LABS: ALB/GLOB RATIO 0.7 (1.1-1.8); ALBUMIN 3.2 g/dL (3.0-4.8); ALT/SGPT 47 U/L (7-56); AST/SGOT 44 U/L (17-59); BLOOD UREA NITROGEN 10 mg/dL (7-21); CALCIUM 8.7 mg/dL (8.4-10.5); GFR NON-AFRICAN AMERICAN > 60
--- NOTE | 2018-01-13 09:27 | PN ---
Copied To: Mansi Cuevas MD Attending MD: Mansi Cuevas MD DATE: 01/12/2018 SUBJECTIVE: This 42-year-old male remains hospitalized with exacerbation of irritable bowel syndrome with manifestations of bloody diarrhea and fever. At present, the patient is receiving Asacol, intravenous vancomycin, intravenous Azactam and oral Flagyl and vancomycin. The patient's diet has been downgraded to clear liquids and he is also receiving oral prednisone. The patient is followed daily by Dr. Jackson from Gastroenterology as well as Dr. Bernard from Infectious Disease. Today, he appears less toxic on inspection and denies any fever, chills, chest pain or shortness of breath. The patient was out of bed to chair with examination. PHYSICAL EXAMINATION: VITAL SIGNS: His temperature was 99.2, respirations 22, pulse 92 and blood pressure 138/80. Pulse ox 99% on room air. HEENT: Head normocephalic, atraumatic. EYES: No icterus. EARS: Clear. THROAT: Noninjected. NECK: Supple. HEART: S1, S2. No pathological rubs, murmurs or gallops. LUNGS: Clear. ABDOMEN: Obese, nontender without rebound. No guarding. EXTREMITIES: No edema. SKIN: Without rash. NEUROLOGICAL: Intact, but deconditioned. VASCULAR: Legs warm to touch. PSYCHOLOGICAL: Alert and oriented x3. LABORATORY DATA: White count 15,400, previously 22,600; hemoglobin 8.1; hematocrit 25.4; platelets 877,000. Sodium 138, K 4.5, chloride 105, bicarb 25, BUN 9, creatinine 1, random blood sugar 96, bilirubin 0.4, AST 62, ALT 50 and alk phos 261. IMPRESSION: A 42-year-old male with irritable bowel syndrome, history of Crohn's disease, rule out ulcerative colitis with bloody diarrhea and comorbidities of obesity, hypertension, asthmatic bronchitis and iron-deficiency anemia. I did discuss this case in detail with Dr. Reji Scott from Hematology/Oncology today. We will give the patient IV Venofer 200 mg IV daily for the next [address] Scott will be evaluating the patient in the a.m. regarding persistent anemia as well as leukocytosis. The patient has a JAK2 [id number] mutation testing received, but results not available at present to rule out a myelogenous blood dyscrasia. The patient will continue despite three Clostridium difficile toxin antigen and toxin negative studies on oral vancomycin as well as oral Flagyl. Antibiotics will be continued and adjusted as per Dr. Marvel Bernard from Infectious Disease. At present, he continues on a Azactam 2 g IV every 8 and vancomycin 1 g IV every 12. He is also receiving 0.9 saline at 100 mL/hour; Protonix 40 mg IV daily; prednisone 30 mg p.o. a.m., 20 mg p.o. at bedtime; heparin 5000 units subcu every 8; Lactobacillus 1 capsule p.o. t.i.d. and Asacol 800 mg p.o. t.i.d. The patient did have a stat hepatitis A, B and C serology requested, which was negative and I have ordered a 2-D echocardiogram for completeness sake given his paroxysmal fever curve and leukocytosis. Greater than 35 minutes was spent in the care and management, review of labs, orders, x-rays and outlining of treatment and discussion of this patient with co-consultants and himself. All questions were answered. Mansi Cuevas MD TARIK
[2018-01-13] MEDS: Nystatin 100,000 Units/ml Oral Susp 5 ml UD PO SCH ×4 (10:26→21:53)
[2018-01-13] MEDS: Mesalamine 800 mg DR Tab PO SCH ×3 (10:26→17:28)
[2018-01-13] MEDS: Lactobacillus Acidophilus 500 MU Cap PO SCH ×3 (10:26→17:28)
[2018-01-13] MEDS: Vancomycin 1gm in NS 250ml 1 GM/250 ML BAG IVPB SCH ×2 (10:26→23:38)
[2018-01-13] MEDS: Vancomycin 25 MG/ML PO SCH (10:27)
--- NOTE | 2018-01-13 11:14 | CP.PCM.PN ---
Subjective - Date & Time of Evaluation Date of Evaluation: 01/13/18 Time of Evaluation: 09:30 - Subjective Subjective: S&E at bedside, chart reviewed. Had fever last night this am have chills, no N/V , abdominal pain. Had 2 moderate loose BM last night and 1 this am, streak of blood. Tolerating oral intake, but not much of an appetite. No postprandial pain. Echo negative for thrombus or vegetation. No c/o sob or chest pain. Repeat cdiff negative. Objective - Vital Signs/Intake and Output Vital Signs (last 24 hours): Temp Pulse Resp BP Pulse Ox 98.8 F 94 H 18 117/79 98 01/13/18 06:00 01/13/18 06:00 01/13/18 06:00 01/13/18 06:00 01/13/18 06:00 Intake and Output: 01/13/18 01/13/18 06:59 18:59 Intake Total 1490 Output Total 1400 Balance 90 - Medications Medications: Current Medications Acetaminophen (Tylenol 325mg Tab) 650 mg PO Q6H PRN PRN Reason: fever greater than 99 Last Admin: 01/12/18 22:55 Dose: 650 mg Arformoterol Tartrate (Brovana) 15 mcg IH [id number] [facility] Last Admin: 01/13/18 07:38 Dose: 15 mcg Budesonide (Pulmicort Respules) 0.5 mg IH [id number] [facility] Last Admin: 01/13/18 07:38 Dose: 0.5 mg Heparin Sodium (Porcine) (Heparin) 5,000 units SC Q8 [facility] PRN Reason: Protocol Last Admin: 01/13/18 05:01 Dose: 5,000 units Vancomycin HCl (Vancomycin 1gm) 1 gm in 250 mls @ 167 mls/hr IVPB Q12H [facility] PRN Reason: Protocol Last Admin: 01/13/18 10:26 Dose: 167 mls/hr Aztreonam (Azactam 2 Gm) 100 mls @ 100 mls/hr IVPB Q8 [facility] PRN Reason: Protocol Stop: 01/18/18 14:01 Last Admin: 01/13/18 05:01 Dose: 100 mls/hr Sodium Chloride (Sodium Chloride 0.9%) 1,000 mls @ 100 mls/hr IV .Q10H [facility] Last Admin: 01/13/18 04:45 Dose: Not Given Insulin Human Regular (Humulin R Low) 0 units SC ACHS [facility] PRN Reason: Protocol Last Admin: 01/13/18 08:01 Dose: Not Given Lactobacillus Acidophilus (Bacid Acidophilus) 1 cap PO TID [facility] Last Admin: 01/13/18 10:26 Dose: 1 cap Mesalamine (Asacol Hd 800mg) 800 mg PO TID [facility] Last Admin: 01/13/18 10:26 Dose: 800 mg Morphine Sulfate (Morphine) 4 mg IVP Q6H PRN PRN Reason: Pain, severe (8-10) Last Admin: 01/11/18 07:09 Dose: 4 mg Nystatin (Nystatin Oral Susp) 5 ml PO QID [facility] Last Admin: 01/13/18 10:26 Dose: 5 ml Ondansetron HCl (Zofran Inj) 4 mg IVP Q6H PRN PRN Reason: Nausea/Vomiting Last Admin: 01/09/18 12:41 Dose: 4 mg Pantoprazole Sodium (Protonix Inj) 40 mg IVP DAILY [facility] Last Admin: 01/13/18 10:26 Dose: 40 mg Prednisone (Prednisone Tab) 30 mg PO DAILY [facility] Last Admin: 01/13/18 10:26 Dose: 30 mg Prednisone (Prednisone Tab) 20 mg PO HS [facility] Last Admin: 01/12/18 21:00 Dose: 20 mg Vancomycin HCl (Vancocin 25 Mg/Ml (Oral Use)) 125 mg PO QID [facility] PRN Reason: Protocol Last Admin: 01/13/18 10:27 Dose: 125 mg - Labs Labs: 01/13/18 08:15 01/13/18 08:15 APTT 30.5 Seconds (25.1-36.5) 01/02/18 06:45 - Constitutional Appears: No Acute Distress - Head Exam Head Exam: NORMOCEPHALIC - Eye Exam Eye Exam: Normal appearance. absent: Scleral icterus - ENT Exam ENT Exam: Mucous Membranes Moist - Respiratory Exam Respiratory Exam: NORMAL BREATHING PATTERN. absent: Respiratory Distress - Cardiovascular Exam Cardiovascular Exam: +S1, +S2 - GI/Abdominal Exam GI & Abdominal Exam: Soft, Normal Bowel Sounds. absent: Guarding, Tenderness, Rebound - Extremities Exam Extremities Exam: absent: Calf Tenderness, Pedal Edema - Neurological Exam Neurological Exam: Alert, Awake, Oriented x3 - Skin Skin Exam: Dry, Warm Assessment and Plan - Assessment and Plan (Free Text) Assessment: Assessment: Fever w/ leukocytosis , fluctuating Colitis, etiology likely Crohn's flare; c.diff and stool cultures neg to date , s/p flexible sigmoidoscopy with sigmoid biopsy showing chronic active colitis, focal cryptitis and crypt abscess while rectal biopsy showed chronic active proctitis, cryptitis, and focal crypt abscess. BX negative for CMV, repeat ct scan no acute findings. SIRS Elevated Platelets Plan: currently on Prednisone 30 in AM and 20 in PM on Asacol DVT and GI propylaxsis on IV antibiotics as per ID: Azactam/Vanco on oral Vancomycin/Probiotics on clear liquids plan to advance diet to full liquid On IVF at 100 cc/hr on Heparin SQ monitor h/h and for overt GI bleeding continue to FU closely echo negative for thrombus or vegetation Cdiff results 01/11/18 negative Hematology, ID FU Discussed w/ Dr. Jackson covering Dr. Ramirez.
--- NOTE | 2018-01-14 05:24 | PN ---
Copied To: Angel Blandon MD Attending MD: Angel Blandon MD DATE: 01/13/2018 SUBJECTIVE: The patient is seen earlier in room 269, bed 2. He continues to have diarrhea, although the diarrhea has improved. He had fever initially on admission which somewhat resolved and he had been afebrile for some time. No abdominal pain, just abdominal cramps intermittently. No chest pain or cough. No hemoptysis. PHYSICAL EXAMINATION: VITAL SIGNS: Temperature is 102, blood pressure is 128/60, heart rate of 94, respiratory rate of 18. HEENT: Unremarkable. NECK: Supple. LUNGS: Decreased breath sounds. HEART: Normal S1, S2. ABDOMEN: Soft, nontender. No rebound or guarding. LABORATORY DATA: Reveals the patient's white count is 23,000, hemoglobin of 9, platelets of 925,000. Coagulation is noted. The patient's creatinine is 1. C-reactive protein is 245 with sed rate of 120. LFTs are noted with alkaline phosphatase of 261 with AST of 62. Urinalysis is noted to be unremarkable and stool for occult blood is positive. The patient had a negative ANCA and negative myeloperoxidase. The patient had intermediate TB. Hepatitis profile is negative and the CMV, IgG, and IgM are negative. Rylee-Iniguez virus elevation. Microbiology reveals the patient's stool for C. diff is negative, antigen and toxin. Blood cultures are no growth. Another stool for C. diff is also negative, antigen and toxin. Stool cultures are also negative and no Salmonella, no Shigella, no Campylobacter. Another blood culture is negative. Stool for ova and parasites negative. The patient had a third stool for C. diff antigen and toxin that are negative. Urine cultures negative. Initial blood cultures are negative. IMAGING: Margarette Kruse' progress note is reviewed. The patient had a CAT scan of the abdomen and pelvis, which reveals atelectasis in the lower lungs and mural thickening of the cecum and ascending colon, extensive shotty minimally enlarged mesenteric lymphadenopathy as well as mild retroperitoneal lymphadenopathy. Dr. Cuevas's note is reviewed. She states the patient is a 42-year-old with irritable bowel syndrome; history of Crohn disease, bloody diarrhea; must rule out ulcerative colitis; hypertension; bronchitis, asthmatic; iron-deficiency anemia. Currently, the patient is on aztreonam, prednisone, p.o. vancomycin, IV vancomycin. Pathology from the colon, rectal is reviewed. Technical component CMV immunostain is performed negative. Pathology report also is reviewed. No immature cells, manual differential 62% neutrophils, 30% lymphocytes. ASSESSMENT AND PLAN: This is a 42-year-old male with known Crohn disease with fever, acute exacerbation of Crohn disease with severe systemic inflammatory response syndrome, on IV vancomycin and Flagyl. Clostridium difficile negative. We will discontinue the p.o. vancomycin and we will add p.o. Flagyl for gastric coverage, not necessarily for Clostridium difficile and we will also request a human immunodeficiency virus test because of his age and Cytomegalovirus workup is negative thus far. The patient does have an elevated alkaline phosphatase. We will order an ultrasound of the biliary tree. We will follow the fever curve. We will make further recommendations. JAK2 mutation has been ordered by Dr. Scott because of leukocytosis and anemia. Doubt polycythemia vera because of the anemia, platelets of 925,000 with elevated sed rate and C-reactive protein is concerning. Thus far, the cultures from 2 days ago are negative. We will order a stool workup for norovirus, for rotavirus, for Shiga producing toxin RAISA with E. coli, and adenovirus. We will make further recommendations pending initial workup. We will also order Giardia stool antigen. We will follow with you. Check stool for leukocytes also. Angel Blandon MD
[2018-01-14] MEDS: Aztreonam 2 Gm in NS 100mL 100 ML IVPB SCH (05:34)
[2018-01-14 07:14] LABS: HEMOGLOBIN 7.9 g/dL (14.0-18.0); MEAN CORPUSCULAR HEMOGLOBIN 25.6 pg (25.0-35.0); MEAN CORPUSCULAR HGB CONC 32.4 g/dl (31.0-37.0); MEAN PLATELET VOLUME 8.8 fl (7.0-11.0); RBC 3.09 10^6/uL (3.5-6.1); RED CELL DISTRIBUTION WIDTH 17.6 % (11.5-14.5); WHITE BLOOD COUNT 16.5 10^3/ul (4.5-11.0)
[2018-01-14 07:32] LABS: ALB/GLOB RATIO 0.7 (1.1-1.8); ALBUMIN 2.7 g/dL (3.0-4.8); ALT/SGPT 33 U/L (7-56); AST/SGOT 47 U/L (17-59); BLOOD UREA NITROGEN 12 mg/dL (7-21); CALCIUM 8.1 mg/dL (8.4-10.5); GFR NON-AFRICAN AMERICAN > 60
[2018-01-14] MEDS: Arformoterol 15 mcg/2 ml Inh Sol IH SCH ×2 (08:21→19:35)
[2018-01-14] MEDS: Budesonide 0.5 mg/2 ml Inhal Susp UD IH SCH ×2 (08:21→19:34)
[2018-01-14] MEDS: Insulin Reg-LOW-Coverage SC SCH ×4 (08:29→21:50)
--- NOTE | 2018-01-14 08:35 | PN ---
Copied To: Armen Jackson MD Attending MD: Armen Jackson MD ADDENDUM DATE: 01/13/2018 An addendum to a Progress Note performed by Margarette Kruse APN SUBJECTIVE: I personally examined this patient earlier today. The patient clinically appears to be improving. He did spike again to 102 last night. All his cultures have been negative. His stool for C. diff has been negative. The patient does not appear to be toxic. I saw his bowel movement from this morning, which was nonbloody and loose with some formed stool. He has a benign abdominal exam. I reviewed his colonoscopy histology, which was negative for CMV. His fever maybe a drug fever. I have discussed this case at length with Infectious Disease doctor, Dr. Blandon. He is to thoroughly review this case to see if the patient's antibiotics can be stopped. We will closely follow the patient. If he continues to improve in terms of absence of abdominal pain and bleeding, I hope to advance his diet in the morning. Armen Jackson MD : 01/13/2018 19:10:06
[2018-01-14] MEDS: Nystatin 100,000 Units/ml Oral Susp 5 ml UD PO SCH ×4 (09:16→21:15)
[2018-01-14] MEDS: Lactobacillus Acidophilus 500 MU Cap PO SCH ×3 (09:16→17:40)
[2018-01-14] MEDS: Mesalamine 800 mg DR Tab PO SCH ×3 (09:23→17:40)
--- NOTE | 2018-01-14 10:00 | CP.PCM.PN ---
Subjective - Date & Time of Evaluation Date of Evaluation: 01/14/18 Time of Evaluation: 08:50 - Subjective Subjective: Seen and examined at bedside this morning, patient is sitting up in bed, no c/o chills, he did have a fever last night. He reports feeling better. No N/V or abdominal pain, only when he has urge to have BM,have cramps and relieved after defecation. BM semiloose, notice less streaks blood. Ate more than 50 % of dinner and no postprandial abdominal pain. Having breakfast now, no compliants. Abdominal US prelim report no CBD dilitation noted. He had h/o cholecystectomy. Objective - Vital Signs/Intake and Output Vital Signs (last 24 hours): Temp Pulse Resp BP Pulse Ox 99.3 F 95 H 20 111/68 97 01/14/18 06:00 01/14/18 06:00 01/14/18 06:00 01/14/18 06:00 01/14/18 06:00 Intake and Output: 01/14/18 01/14/18 06:59 18:59 Intake Total 1540 Output Total 500 Balance 1040 - Medications Medications: Current Medications Acetaminophen (Tylenol 325mg Tab) 650 mg PO Q6H PRN PRN Reason: fever greater than 99 Last Admin: 01/14/18 06:21 Dose: 650 mg Arformoterol Tartrate (Brovana) 15 mcg IH [id number] [facility] Last Admin: 01/14/18 08:21 Dose: 15 mcg Budesonide (Pulmicort Respules) 0.5 mg IH [id number] [facility] Last Admin: 01/14/18 08:21 Dose: 0.5 mg Heparin Sodium (Porcine) (Heparin) 5,000 units SC Q8 [facility] PRN Reason: Protocol Last Admin: 01/14/18 05:33 Dose: 5,000 units Vancomycin HCl (Vancomycin 1gm) 1 gm in 250 mls @ 167 mls/hr IVPB Q12H [facility] PRN Reason: Protocol Last Admin: 01/13/18 23:38 Dose: 167 mls/hr Aztreonam (Azactam 2 Gm) 100 mls @ 100 mls/hr IVPB Q8 [facility] PRN Reason: Protocol Stop: 01/18/18 14:01 Last Admin: 01/14/18 05:34 Dose: 100 mls/hr Sodium Chloride (Sodium Chloride 0.9%) 1,000 mls @ 100 mls/hr IV .Q10H [facility] Last Admin: 01/13/18 15:36 Dose: Not Given Insulin Human Regular (Humulin R Low) 0 units SC ACHS [facility] PRN Reason: Protocol Last Admin: 01/14/18 08:29 Dose: Not Given Lactobacillus Acidophilus (Bacid Acidophilus) 1 cap PO TID [facility] Last Admin: 01/14/18 09:16 Dose: 1 cap Mesalamine (Asacol Hd 800mg) 800 mg PO TID [facility] Last Admin: 01/14/18 09:23 Dose: 800 mg Metronidazole (Flagyl) 500 mg PO Q8 [facility] PRN Reason: Protocol Stop: 01/22/18 14:01 Last Admin: 01/14/18 05:34 Dose: 500 mg Morphine Sulfate (Morphine) 4 mg IVP Q6H PRN PRN Reason: Pain, severe (8-10) Last Admin: 01/11/18 07:09 Dose: 4 mg Nystatin (Nystatin Oral Susp) 5 ml PO QID [facility] Last Admin: 01/14/18 09:16 Dose: 5 ml Ondansetron HCl (Zofran Inj) 4 mg IVP Q6H PRN PRN Reason: Nausea/Vomiting Last Admin: 01/09/18 12:41 Dose: 4 mg Pantoprazole Sodium (Protonix Inj) 40 mg IVP DAILY [facility] Last Admin: 01/14/18 09:23 Dose: 40 mg Prednisone (Prednisone Tab) 30 mg PO DAILY [facility] Last Admin: 01/14/18 09:23 Dose: 30 mg Prednisone (Prednisone Tab) 20 mg PO HS [facility] Last Admin: 01/13/18 21:51 Dose: 20 mg - Labs Labs: 01/14/18 06:30 01/14/18 06:30 APTT 30.5 Seconds (25.1-36.5) 01/02/18 06:45 - Constitutional Appears: No Acute Distress - Head Exam Head Exam: NORMOCEPHALIC - Eye Exam Eye Exam: Normal appearance. absent: Scleral icterus - ENT Exam ENT Exam: Mucous Membranes Moist - Neck Exam Neck Exam: Normal Inspection - Respiratory Exam Respiratory Exam: NORMAL BREATHING PATTERN. absent: Respiratory Distress - Cardiovascular Exam Cardiovascular Exam: +S1, +S2 - GI/Abdominal Exam GI & Abdominal Exam: Soft, Normal Bowel Sounds. absent: Guarding, Tenderness, Organomegaly, Rebound - Extremities Exam Extremities Exam: absent: Calf Tenderness, Pedal Edema - Neurological Exam Neurological Exam: Alert, Altered, Awake - Skin Skin Exam: Dry, Warm Assessment and Plan - Assessment and Plan (Free Text) Assessment: Assessment: Fever w/ leukocytosis , fluctuating, differential to consider is fever induced antibiotics, on oral steroids Colitis, etiology likely Crohn's flare; c.diff and stool cultures neg to date , s/p flexible sigmoidoscopy with sigmoid biopsy showing chronic active colitis, focal cryptitis and crypt abscess while rectal biopsy showed chronic active proctitis, cryptitis, and focal crypt abscess. BX negative for CMV, repeat ct scan no acute findings. SIRS Elevated Platelets Plan: currently on Prednisone 30 in AM and 20 in PM on Asacol DVT and GI propylaxsis on IV antibiotics as per ID: Azactam/Vancomycin on oral Vancomycin has been discontinued and on PO Flagyl /Probiotics will keep on full liquid today and reassess diet in am On IVF at 100 cc/hr on Heparin SQ monitor h/h and for overt GI bleeding continue to FU closely echo negative for thrombus or vegetation Cdiff results 01/11/18 negative FU official abdominal US, no CBD dilation on prelim report, MRCP was negative , done on 01/02/18 ID and hematology on board ID note reviewed and ID workup in progress, , recommendations appreciated, patient doing clinically well, hgb noted to be 7.9 today, we will request for type and screen and order IV iron Venofer IV for 3 days, consider blood transfusion if hgb >7.5 ,FU hgb. Discussed w/ Dr. Jackson covering Dr. Ramirez.
--- NOTE | 2018-01-14 11:02 | PN ---
Copied To: Mansi Cuevas MD Attending MD: Mansi Cuevas MD DATE: 01/13/2018 SUBJECTIVE: This 42-year-old male was examined at his bedside. This case was reviewed in detail with himself; his nurse, Agatha Herrera, registered nurse and Dr. Blandon from Infectious Disease and Margarette Kruse from Gastroenterology, registered nurse. The patient remains intermittently febrile with history of exacerbation of Crohn's disease, having been admitted for bloody diarrhea. At present, the patient remains on parenteral Azactam, vancomycin and oral Flagyl. 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 Reji Scott from Hematology/Oncology. The patient will now have further studies including stool for Giardia, stool for norovirus, stool Shiga toxin and adenovirus DNA, CMV DNA and HIV testing because of persistent diarrhea, fever, leukocytosis and failure to improve on the above regimen. It should be noted I did review the patient's 2-D echocardiogram. His valvular report was unremarkable. There was no evidence of thrombus or vegetation and all blood, urine and stool cultures including C. diff toxin have been negative thus far including three stools for C. diff toxin. PHYSICAL EXAMINATION: VITAL SIGNS: The patient on physical exam has a temperature of 98.8, respirations 18, pulse 94 and blood pressure 117/79 with a pulse ox of 98% on room air. HEENT: Head normocephalic, atraumatic. Eyes: No icterus. Ears: Clear. Throat: Noninjected. NECK: Supple. HEART: With S1, S2. No pathological rubs, murmurs or gallops. LUNGS: Clear. ABDOMEN: Obese, nontender. No rebound. No guarding. EXTREMITIES: No edema. SKIN: Without rash. NEUROLOGICAL: Intact, but deconditioned. VASCULAR: Legs warm to touch. PSYCHOLOGICAL: Alert and oriented x3. LABORATORY DATA: White count 23,200, previously 15,400; hemoglobin 9.5; hematocrit 28.5 and platelets 925,000. Sodium 137, K 4.3, chloride 104, bicarb 23, BUN 10, creatinine 1, random blood sugar 112, bilirubin 0.5, AST 44, ALT 47 and alk phos 274. Stool for occult blood previously positive. ANCA screen negative. Serology for hepatitis A, B, C negative. An abdominal ultrasound ordered remains pending. IMPRESSION: A 42-year-old male with exacerbation of Crohn's disease, admitted with bloody diarrhea, now with hospital course notable for systemic inflammatory response syndrome despite being on IV Azactam, Vancomycin and Flagyl. PLAN: The plan is to obtain abdominal ultrasound of his biliary tree, await results of the above testing. Continue IV fluids. Antibiotics as outlined. Liquid diet under the direction of GI and follow-ups by Hematology, Infectious Disease, Gastroenterology. All of the above was discussed in detail with the patient and nursing. Greater than 35 minutes was spent in the coordination of this patient's care today. Mansi Cuevas MD MTDD
[2018-01-14] MEDS: Vancomycin 1gm in NS 250ml 1 GM/250 ML BAG IVPB SCH (11:03)
--- NOTE | 2018-01-14 11:12 | PN ---
Copied To: Reji Scott MD Attending MD: Reji Scott MD DATE: 01/14/2018 The hemoglobin has been dropping again. It went from 9.5 yesterday to 7.9 today. We started him on IV iron and we will continue that three days in hopes that that will also lower the platelet count, which has begun to do, the 925 platelet count went down to 853. We will continue to observe it while he is getting his iron and looks that effect. In the meantime, however, his hemoglobin dropped down to 7.9. For hemodynamic stability, he can be transfused as per the attending. We will continue the IV iron. Reji Scott MD
[2018-01-14] MEDS: Sodium Chloride 0.9% 1,000 ML IV SCH ×2 (11:30→23:49)
--- NOTE | 2018-01-14 12:34 | US ---
Date of service: 01/13/2018 HISTORY: cbd size COMPARISON: MRCP 01/02/2018. TECHNIQUE: Grayscale imaging was performed. FINDINGS: LIVER: Measures 14.5 cm. There is diffuse increased echogenicity of the liver parenchyma. No mass. No intrahepatic bile duct dilatation. GALLBLADDER: Surgically absent. COMMON BILE DUCT: Measures 4.1 mm. No stones. No dilatation. PANCREAS: Unremarkable as visualized. No mass. No ductal dilatation. RIGHT KIDNEY: Measures 12.8cm. Normal echogenicity. There is a 8 mm nonobstructing stone in the interpolar region and 8 mm nonobstructing stone in the lower pole. No or hydronephrosis. LEFT KIDNEY: Measures 11.8cm. Normal echogenicity. No calculus, mass, or hydronephrosis. SPLEEN: Normal in size and contour. No mass. AORTA: No aneurysmal dilatation. IVC: Unremarkable. OTHER FINDINGS: None. IMPRESSION: No cholelithiasis or biliary dilatation. 2 nonobstructing stones in the right kidney, the larger in the interpolar region measures 8 mm. Common bile duct is normal in size and measures 4 mm.
--- NOTE | 2018-01-14 13:37 | PN ---
Copied To: Armen Jackson MD Attending MD: Armen Jackson MD ADDENDUM DATE: 01/14/2018 This is an addendum to a progress note performed by Margarette Kruse APN. SUBJECTIVE: I personally examined the patient this morning. He continues to slowly improve. His BM are becoming less frequent and more formed. He denies any abdominal pain or rectal bleeding. My only concern is that the patient again spiked to 102 last night. His vancomycin has been discontinued. His hemoglobin did drop to 7.9. I suspect that the drop is secondary to chronic GI blood loss from inflammatory bowel disease. I have spoken with Dr. Blandon about discontinuing antibiotics. He remains on Azactam. I will defer to him about stopping the Azactam. His white blood cell count is down to 15,000. His inflammatory bowel disease appears to be improving with 50 mg of prednisone once a day. The only issue keeping him in the hospital is the fever. We will continue to observe the patient closely and maintain on full liquid diet. If he continues to improve, we will consider advancing to a low-residue diet in the next 24 hours. Armen Jackson MD
--- NOTE | 2018-01-14 14:14 | CP.PCM.PN ---
<Rahel Shay - Last Filed: 01/14/18 14:12> Subjective - Date & Time of Evaluation Date of Evaluation: 01/14/18 Time of Evaluation: 09:00 - Subjective Subjective: PGY3 Infectious disease progress note for Dr. Bernard's service Patient seen and examined at bedside, no acute distress. Patient states that he is felling better and abd pain has almost completely resolved but continues to have diarrhea, last BM was this morning. He is tolerating full liquid diet. He also reports a rise in temperature over night and fever yesterday. Patient denies chest pain, sob, dysuria, N/V. Objective - Vital Signs/Intake and Output Vital Signs (last 24 hours): Temp Pulse Resp BP Pulse Ox 100.1 F H 94 H 20 119/76 97 01/14/18 12:00 01/14/18 12:00 01/14/18 12:00 01/14/18 12:00 01/14/18 06:00 Intake and Output: 01/14/18 01/14/18 06:59 18:59 Intake Total 1540 Output Total 500 Balance 1040 - Medications Medications: Current Medications Acetaminophen (Tylenol 325mg Tab) 650 mg PO Q6H PRN PRN Reason: fever greater than 99 Last Admin: 01/14/18 06:21 Dose: 650 mg Arformoterol Tartrate (Brovana) 15 mcg IH [id number] [facility] Last Admin: 01/14/18 08:21 Dose: 15 mcg Budesonide (Pulmicort Respules) 0.5 mg IH [id number] [facility] Last Admin: 01/14/18 08:21 Dose: 0.5 mg Heparin Sodium (Porcine) (Heparin) 5,000 units SC Q8 [facility] PRN Reason: Protocol Last Admin: 01/14/18 13:41 Dose: 5,000 units Aztreonam (Azactam 2 Gm) 100 mls @ 100 mls/hr IVPB Q8 [facility] PRN Reason: Protocol Stop: 01/18/18 14:01 Last Admin: 01/14/18 05:34 Dose: 100 mls/hr Sodium Chloride (Sodium Chloride 0.9%) 1,000 mls @ 100 mls/hr IV .Q10H [facility] Last Admin: 01/13/18 15:36 Dose: Not Given Iron Sucrose 200 mg/ Sodium (Chloride) 110 mls @ 110 mls/hr IVPB DAILY [facility] Stop: 01/16/18 10:01 Last Admin: 01/14/18 11:03 Dose: 110 mls/hr Insulin Human Regular (Humulin R Low) 0 units SC ACHS [facility] PRN Reason: Protocol Last Admin: 01/14/18 12:05 Dose: Not Given Lactobacillus Acidophilus (Bacid Acidophilus) 1 cap PO TID [facility] Last Admin: 01/14/18 13:41 Dose: 1 cap Mesalamine (Asacol Hd 800mg) 800 mg PO TID [facility] Last Admin: 01/14/18 13:41 Dose: 800 mg Metronidazole (Flagyl) 500 mg PO Q8 [facility] PRN Reason: Protocol Stop: 01/22/18 14:01 Last Admin: 01/14/18 13:50 Dose: 500 mg Morphine Sulfate (Morphine) 4 mg IVP Q6H PRN PRN Reason: Pain, severe (8-10) Last Admin: 01/11/18 07:09 Dose: 4 mg Nystatin (Nystatin Oral Susp) 5 ml PO QID [facility] Last Admin: 01/14/18 13:40 Dose: 5 ml Ondansetron HCl (Zofran Inj) 4 mg IVP Q6H PRN PRN Reason: Nausea/Vomiting Last Admin: 01/14/18 11:06 Dose: 4 mg Pantoprazole Sodium (Protonix Inj) 40 mg IVP DAILY [facility] Last Admin: 01/14/18 09:23 Dose: 40 mg Prednisone (Prednisone Tab) 30 mg PO DAILY [facility] Last Admin: 01/14/18 09:23 Dose: 30 mg Prednisone (Prednisone Tab) 20 mg PO HS [facility] Last Admin: 01/13/18 21:51 Dose: 20 mg - Labs Labs: 01/14/18 06:30 01/14/18 06:30 APTT 30.5 Seconds (25.1-36.5) 01/02/18 06:45 - Constitutional Appears: No Acute Distress - Head Exam Head Exam: ATRAUMATIC, NORMAL INSPECTION, NORMOCEPHALIC - Eye Exam Eye Exam: Normal appearance - ENT Exam ENT Exam: Mucous Membranes Moist - Respiratory Exam Respiratory Exam: Clear to Ausculation Bilateral, NORMAL BREATHING PATTERN. absent: Rhonchi, Wheezes, Respiratory Distress - Cardiovascular Exam Cardiovascular Exam: REGULAR RHYTHM, +S1, +S2. absent: Bradycardia, Tachycardia , Murmur - Extremities Exam Additional comments: trace edema bilaterally - Neurological Exam Neurological Exam: Alert, Awake, Oriented x3 - Skin Skin Exam: Dry, Intact, Normal Color, Warm Assessment and Plan - Assessment and Plan (Free Text) Assessment: 42 yo male with PMH of crohn's disease, presnted with acute exacernation of crohn's with fever. Patient was febrile overnight, with improvement in leukocystosis. C. diff was negative as was blood cultures. Possible drug fever as possible cause for continuing fevers despite improvement in other symptoms. We will hold all antibiotics. Follow up HIV, CMV, norovirus, adenovirus, rotovirus and giardia. case reviewed and discussed with Dr. Bernard <Kevin Bernard - Last Filed: 01/14/18 14:55> Subjective - Subjective Subjective: Infectious Diseases Attending Physician Addendum Patient seen and examined, discussed with director biomedical engineering. I have reviewed the pertinent clinical information for the patient, including history of present illness, medical, personal and social histories, lab results and imaging findings. I agree with the above findings, assessment and plan. In addition, repeat cultures are negative, patient has less abdominal pain, less diarrhea - will hold Azactam, need to rule out drug fever. GI and Dr. Cuevas is in agreement to hold Azactam (Vancomycin also discontinued) and will monitor to see if patient still has fever. Objective - Vital Signs/Intake and Output Vital Signs (last 24 hours): Temp Pulse Resp BP Pulse Ox 100.1 F H 94 H 20 119/76 97 01/14/18 12:00 01/14/18 12:00 01/14/18 12:00 01/14/18 12:00 01/14/18 06:00 Intake and Output: 01/14/18 01/14/18 06:59 18:59 Intake Total 1540 Output Total 500 Balance 1040 - Medications Medications: Current Medications Acetaminophen (Tylenol 325mg Tab) 650 mg PO Q6H PRN PRN Reason: fever greater than 99 Last Admin: 01/14/18 06:21 Dose: 650 mg Arformoterol Tartrate (Brovana) 15 mcg IH [id number] [facility] Last Admin: 01/14/18 08:21 Dose: 15 mcg Budesonide (Pulmicort Respules) 0.5 mg IH [id number] [facility] Last Admin: 01/14/18 08:21 Dose: 0.5 mg Heparin Sodium (Porcine) (Heparin) 5,000 units SC Q8 [facility] PRN Reason: Protocol Last Admin: 01/14/18 13:41 Dose: 5,000 units Aztreonam (Azactam 2 Gm) 100 mls @ 100 mls/hr IVPB Q8 [facility] PRN Reason: Protocol Stop: 01/18/18 14:01 Last Admin: 01/14/18 05:34 Dose: 100 mls/hr Sodium Chloride (Sodium Chloride 0.9%) 1,000 mls @ 100 mls/hr IV .Q10H [facility] Last Admin: 01/13/18 15:36 Dose: Not Given Iron Sucrose 200 mg/ Sodium (Chloride) 110 mls @ 110 mls/hr IVPB DAILY [facility] Stop: 01/16/18 10:01 Last Admin: 01/14/18 11:03 Dose: 110 mls/hr Insulin Human Regular (Humulin R Low) 0 units SC ACHS [facility] PRN Reason: Protocol Last Admin: 01/14/18 12:05 Dose: Not Given Lactobacillus Acidophilus (Bacid Acidophilus) 1 cap PO TID [facility] Last Admin: 01/14/18 13:41 Dose: 1 cap Mesalamine (Asacol Hd 800mg) 800 mg PO TID [facility] Last Admin: 01/14/18 13:41 Dose: 800 mg Metronidazole (Flagyl) 500 mg PO Q8 [facility] PRN Reason: Protocol Stop: 01/22/18 14:01 Last Admin: 01/14/18 13:50 Dose: 500 mg Morphine Sulfate (Morphine) 4 mg IVP Q6H PRN PRN Reason: Pain, severe (8-10) Last Admin: 01/11/18 07:09 Dose: 4 mg Nystatin (Nystatin Oral Susp) 5 ml PO QID [facility] Last Admin: 01/14/18 13:40 Dose: 5 ml Ondansetron HCl (Zofran Inj) 4 mg IVP Q6H PRN PRN Reason: Nausea/Vomiting Last Admin: 01/14/18 11:06 Dose: 4 mg Pantoprazole Sodium (Protonix Inj) 40 mg IVP DAILY [facility] Last Admin: 01/14/18 09:23 Dose: 40 mg Prednisone (Prednisone Tab) 30 mg PO DAILY [facility] Last Admin: 01/14/18 09:23 Dose: 30 mg Prednisone (Prednisone Tab) 20 mg PO HS [facility] Last Admin: 01/13/18 21:51 Dose: 20 mg - Labs Labs: 01/14/18 06:30 01/14/18 06:30 APTT 30.5 Seconds (25.1-36.5) 01/02/18 06:45
[2018-01-15 01:31] LABS: BASO # 0.01 K/mm3 (0.0-2.0); BASO % 0.1 % (0.0-3.0); EOS % 0.1 % (1.5-5.0); GRAN # 12.83 (1.4-6.5); GRAN % 80.9 % (50.0-68.0); HEMOGLOBIN 7.5 g/dL (14.0-18.0); LYMPH # 1.8 (1.2-3.4); LYMPH % 11.5 % (22.0-35.0); MEAN CELL VOLUME 78.2 fl (80.0-105.0); MEAN CORPUSCULAR HGB CONC 33.2 g/dl (31.0-37.0); MEAN PLATELET VOLUME 8.5 fl (7.0-11.0); MONO # 1.2 (0.1-0.6); MONO % 7.4 % (1.0-6.0); RBC 2.89 10^6/uL (3.5-6.1); RED CELL DISTRIBUTION WIDTH 17.2 % (11.5-14.5); WHITE BLOOD COUNT 15.9 10^3/ul (4.5-11.0)
[2018-01-15 04:56] LABS: BASO # 0.03 K/mm3 (0.0-2.0); BASO % 0.2 % (0.0-3.0); GRAN # 12.32 (1.4-6.5); GRAN % 76.8 % (50.0-68.0); HEMOGLOBIN 7.8 g/dL (14.0-18.0); LYMPH % 12.5 % (22.0-35.0); MEAN CORPUSCULAR HGB CONC 33.3 g/dl (31.0-37.0); MEAN PLATELET VOLUME 8.5 fl (7.0-11.0); MONO # 1.7 (0.1-0.6); MONO % 10.5 % (1.0-6.0); RED CELL DISTRIBUTION WIDTH 17.4 % (11.5-14.5)
[2018-01-15 04:57] LABS: INR 1.54; PROTHROMBIN TIME 17.7 SECONDS (9.4-12.5)
[2018-01-15 05:27] LABS: ALB/GLOB RATIO 0.6 (1.1-1.8); ALBUMIN 2.6 g/dL (3.0-4.8); ALT/SGPT 46 U/L (7-56); AST/SGOT 58 U/L (17-59); BLOOD UREA NITROGEN 12 mg/dL (7-21); CALCIUM 8.3 mg/dL (8.4-10.5); GFR NON-AFRICAN AMERICAN > 60
[2018-01-15] MEDS: Arformoterol 15 mcg/2 ml Inh Sol IH SCH ×2 (07:35→19:53)
[2018-01-15] MEDS: Budesonide 0.5 mg/2 ml Inhal Susp UD IH SCH ×2 (07:35→19:53)
[2018-01-15] MEDS: Insulin Reg-LOW-Coverage SC SCH ×4 (08:26→23:11)
[2018-01-15 09:04] LABS: BASO # 0.01 K/mm3 (0.0-2.0); BASO % 0.1 % (0.0-3.0); EOS % 0.2 % (1.5-5.0); GRAN # 14.16 (1.4-6.5); GRAN % 80.3 % (50.0-68.0); HEMOGLOBIN 8.8 g/dL (14.0-18.0); LYMPH # 2.4 (1.2-3.4); LYMPH % 13.7 % (22.0-35.0); MEAN CORPUSCULAR HEMOGLOBIN 25.5 pg (25.0-35.0); MEAN CORPUSCULAR HGB CONC 32.7 g/dl (31.0-37.0); MEAN PLATELET VOLUME 8.7 fl (7.0-11.0); MONO % 5.7 % (1.0-6.0); RBC 3.45 10^6/uL (3.5-6.1); RED CELL DISTRIBUTION WIDTH 17.4 % (11.5-14.5); WHITE BLOOD COUNT 17.6 10^3/ul (4.5-11.0)
[2018-01-15] MEDS: Mesalamine 800 mg DR Tab PO SCH ×3 (10:18→17:37)
[2018-01-15] MEDS: Nystatin 100,000 Units/ml Oral Susp 5 ml UD PO SCH ×4 (10:18→23:12)
[2018-01-15] MEDS: Lactobacillus Acidophilus 500 MU Cap PO SCH ×3 (10:18→17:37)
[2018-01-15] MEDS: Sodium Chloride 0.9% 1,000 ML IV SCH ×3 (10:19→17:38)
--- NOTE | 2018-01-15 11:00 | PN ---
Copied To: Angel Blandon MD Attending MD: Angel Blandon MD DATE: 01/15/2018 SUBJECTIVE: The patient is in bed, in no acute distress. Although he is not appearing toxic, he is having fevers, he is having chills. He states he has been having the fevers and chills even prior to admission. His diarrhea is somewhat improved. OBJECTIVE: VITAL SIGNS: On exam, his temperature is 101.4, blood pressure is 120/80, respiratory rate of 18, heart rate of 87. HEENT: Examination is unremarkable. NECK: Supple. LUNGS: Have decreased breath sounds. HEART: Normal S1, S2. ABDOMEN: Soft, nontender. DATA: Laboratory examination reveals a white count of 17,600, hemoglobin of 8, platelets of 840, BUN of 12, creatinine of 1.1. C-reactive protein is 245. Urinalysis is noted. Stool for occult blood is positive x2 and KAILYN screen is negative as is the myeloperoxidase antibody. The patient's HIV is nonreactive, the hepatitis profile is nonreactive and CMV IgM and IgG are nonreactive and Rylee-Iniguez virus is noted. Microbiology reveals the blood cultures from the 01/11/2018 are negative. The patient does have a PICC line in his arm. He states he was having fevers and chills prior to the PICC line. Stool for C. diff is negative antigen, negative toxin. Review of order, the patient's aztreonam is on hold. The patient is on Flagyl. Dr. Cuevas's note is reviewed and Dr. Jackson's progress note is reviewed. ASSESSMENT AND PLAN: This is a 42-year-old male seen earlier today in 269, bed 2 continues to have fevers and chills thus far with a history of Crohn, multiple Clostridium difficile negative and etiology of this fevers and chills is not clear, old cultures have been negative and diarrhea has improved and currently, the Azactam is on hold. fever would be less likely. The patient is on p.o. Flagyl. Please keep in mind the patient was having fevers and chills before the hospitalization and before antibiotics and the patient has not had any travel outside the [place] recently and he was [place] in . Drug fever is a possibility; however, drug fever does not get you chills. We will discuss with GI regarding further diagnostic testing and we are awaiting for KEYLA-II mutation, CMV PCR, adeno PCR, norovirus Fay stool and Giardia and Shiga toxin, rotavirus. We will continue holding the Azactam, I highly doubt aztreonam is the cause of this fever and drug fever generally does not give you chills. We will review the pathology, may need further colonoscopy and biopsy. Angel Blandon MD
--- NOTE | 2018-01-15 15:50 | PN ---
Copied To: Armen Jackson MD Attending MD: Armen Jackson MD DATE: 01/15/2018 SUBJECTIVE: The patient feels extremely weak due to fever. He spiked to 104 early this morning. He is off all antibiotics. He denies any abdominal pain. He still has some watery bowel movements approximately for over the last 24 hours. He denies any abdominal pain. He has scant blood with his bowel movements. PHYSICAL EXAMINATION: VITAL SIGNS: Reveal temperature of 101.4, blood pressure 126/80, heart rate of 87. HEENT: Reveal sclerae to be white. Conjunctivae pink. NECK: Supple. CHEST: Reveals lungs to be clear. HEART: Reveals regular rate and rhythm. ABDOMEN: Obese, soft, nontender. EXTREMITIES: Show no edema. LABORATORY DATA: Reveal white blood cell count 17.6, hemoglobin 8.8, and platelet count of 840,000. Chemistries reveal alkaline phosphatase of 183. AST, ALT are normal. Total bilirubin is normal. Albumin is 2.6. IMPRESSION: A 42-year-old male with inflammatory bowel disease exacerbation with systemic inflammatory response syndrome with fever. The patient has been off antibiotics for concern of drug fever. His inflammatory bowel disease appears to be slowly improving. His hemoglobin did improve to 8.8. I have had a lengthy discussion with Dr. Blandon of Infectious Disease and primary care physician, Dr. Cuevas. RECOMMENDATIONS: 1. We will discontinue PICC line. 2. Continue mesalamine and prednisone for inflammatory bowel disease. 3. We will discuss with Dr. Ramirez who is actually away, but we will attempt to reach out to him to further discuss this case. Armen Jackson MD
[2018-01-16] MEDS: Sodium Chloride 0.9% 1,000 ML IV SCH ×2 (03:30→14:01)
[2018-01-16 06:33] VITALS: RESP 20; O2SAT 97
[2018-01-16] MEDS ORDERED: Arformoterol 15 mcg/2 ml Inh Sol IH SCH ×2 (08:00)
[2018-01-16] MEDS ORDERED: Budesonide 0.5 mg/2 ml Inhal Susp UD IH SCH (08:00)
[2018-01-16] MEDS: Insulin Reg-LOW-Coverage SC SCH ×2 (08:27→12:12)
[2018-01-16] MEDS: Nystatin 100,000 Units/ml Oral Susp 5 ml UD PO SCH ×2 (09:30→14:01)
[2018-01-16] MEDS: Mesalamine 800 mg DR Tab PO SCH ×2 (09:30→14:01)
[2018-01-16] MEDS: Lactobacillus Acidophilus 500 MU Cap PO SCH ×2 (09:30→14:01)
--- NOTE | 2018-01-16 09:54 | PN ---
Copied To: Angel Blandon MD Attending MD: Angel Blandon MD DATE: 01/16/2018 SUBJECTIVE: The patient is seen earlier this morning. He is doing much better. He denies any fevers and chills since yesterday. After removal of the PICC line, the patient's temperature has promptly responded. His is at the bedside, who also states that the patient is doing well. He has no diarrhea. His fevers and his chills have responded until the removal of the PICC line. PHYSICAL EXAMINATION: VITAL SIGNS: On exam, temperature is 98 and blood pressure is 120/70; his heart rate is also normalized at 88, it was 119 yesterday and respiratory rate is 20, it was up to 22 yesterday. HEENT: Examination of HEENT is unremarkable. NECK: Supple. LUNGS: Have decreased breath sounds. HEART: Normal S1, S2. ABDOMEN: Soft, nontender. No rebound. No guarding. No masses. LABORATORY DATA: Laboratory examination reveals the patient's white count of 17,600, hemoglobin of 8, platelets of 840. The patient has 80% granulocytosis. BUN of 12, creatinine of 1.1. The urinalysis is noted. All blood cultures are negative. Stool for C. diff antigen and toxin are negative. Repeat blood cultures are negative. The patient is on prednisone at [address] Jackson's note from yesterday is reviewed. ASSESSMENT AND PLAN: A 42-year-old male, who was seen earlier this morning, his is present at the bedside who has a history of Crohn's disease and fevers on this admission, which has now responded since we removed the peripherally inserted central catheter line yesterday, although all these cultures have been negative. This morning, the patient is afebrile. No chills since discontinuation of the peripherally inserted central catheter line yesterday. Currently, off of antibiotics without a peripherally inserted central catheter line and his Crohn's disease appears to be under control. He has no diarrhea. Further stool workup is still pending and off of antibiotics. We will follow closely with you. The patient does have leukocytosis, although he is on prednisone at 30 mg daily and then 20 mg at night, so a significant amount of prednisone, which may explain the leukocytosis. We will continue to monitor fever curves and thus far it appears the patient has responded to the peripherally inserted central catheter line removal. I discussed with Dr. Jackson and I also left a message with Dr. Cuevas yesterday that I was going to order the removal of the peripherally inserted central catheter line. Angel Blandon MD
[2018-01-16 12:15] VITALS: TEMP 99
[2018-01-16 12:38] VITALS: BP 122/82; PULSE 95
--- NOTE | 2018-01-16 14:18 | PN ---
Copied To: Mansi Cuevas MD Attending MD: Mansi Cuevas MD DATE: 01/15/2018 SUBJECTIVE: This 42-year-old male was examined at his bedside in the presence of his and nurse, Keturah Calle, registered nurse. I have discussed this case in detail with doctors, Dr. Blandon and Dr. aJckson from Infectious Disease and Gastroenterology. The patient persists with intermittent fevers today as high as 104 and bloody diarrhea. The patient has had innumerable blood, urine, stool and serology testings with inconclusive results. Given the patient's instability and despite the fact that he will have his PICC line removed despite negative blood cultures to date, the patient is being readied for transfer to the [facility]. The patient and are in agreement with this decision. PHYSICAL EXAMINATION: VITAL SIGNS: At present, the patient has a temperature of 102.5, respirations 20, pulse 113 and blood pressure 119/73. HEENT: Head: Normocephalic, atraumatic. Eyes: No icterus. Ears: Clear. Throat: Noninjected. NECK: Supple. HEART: Regular S1, S2. No pathological rubs, murmurs or gallops. LUNGS: Clear. ABDOMEN: Obese with diffuse discomfort on palpation. No rebound. No guarding. No CVA tenderness. EXTREMITIES: No edema. SKIN: Without rash. NEUROLOGICAL: Intact and deconditioned. VASCULAR: Legs warm to touch. PSYCHOLOGICAL: Alert and oriented x3. LABORATORY DATA: White count 15,900, hemoglobin 7.5, hematocrit 22.6, platelets 743,000. Sodium 136, K 4.5, chloride 106, bicarb 22, BUN 12, creatinine 1.1, random blood sugar 119, bilirubin 0.5, AST 58, ALT 46, alk phos 183. Stool for occult blood positive from late last evening. ANCA negative. Myeloperoxidase antibody negative. Hepatitis A, B, C serology is negative. HIV serology nonreactive. Multiple blood, urine, stools for C and S, O and P, C. diff toxin negative to date. IMPRESSION: A 42-year-old male with inflammatory bowel disease, persistent bloody diarrhea, history of Crohn's, persistent fevers with unremarkable echocardiography and microbiology studies to date with asthmatic bronchitis, type 2 diabetes mellitus, history of peptic ulcer disease with gastroesophageal reflux disease. The plan is to continue Asacol 800 mg p.o. t.i.d.; Bacid 1 capsule p.o. t.i.d.; Brovana inhalational therapy every 12; regular Humulin insulin coverage before meals and at bedtime; prednisone 30 mg a.m., 20 mg p.o. at bedtime; Protonix 40 mg IV daily; Pulmicort inhalational therapy every 12; 0.9 saline at 100 mL/hour; Tylenol 650 p.o. every 4 hours p.r.n. temp greater than 100, Zofran 4 mg IV every 6 hours p.r.n. nausea, vomiting. All antibiotics and PICC line have been discontinued as per Infectious Disease. The patient will be readied for transfer for further evaluation of persistent fevers and bloody diarrhea when a bed is available at the [facility]. This was discussed in detail with co-consultants, nursing and family and the patient and his are both in agreement. Greater than 35 minutes were spent in the care and management and review of orders and preparation for transfer for this patient today. He will be given 2 units of packed red blood cells while awaiting transfer. Repeat labs are ordered for a.m. Mansi Cuevas MD MTDRaul
--- NOTE | 2018-01-16 14:25 | DS ---
Copied To: Mansi Cuevas MD Attending MD: Mansi Cuevas MD DATE: 01/16/2018 SUBJECTIVE: This 42-year-old male remains hospitalized with multiple medical problems including recurrent bloody diarrhea, non-remitting fevers and comorbidities of peptic ulcer disease, Crohn's disease with exacerbation, asthmatic bronchitis, obesity and type 2 diabetes mellitus. The patient's PICC line was discontinued. A peripheral line was placed. His antibiotics were all discontinued by Dr. Blandon from Infectious Disease and he received 2 units of packed red blood cells yesterday. PHYSICAL EXAMINATION: VITAL SIGNS: On physical exam, he remains in a sinus rhythm with a temperature of 99.4, respirations 20, pulse 88, blood pressure 121/75. Pulse ox 97% on room air. HEENT: Head: Normocephalic, atraumatic. Eyes: No icterus. Ears: Clear. Throat: Noninjected. NECK: Supple. HEART: S1 and S2. No pathological rubs, murmurs or gallops. LUNGS: No wheezing. ABDOMEN: Diffuse discomfort, but no rebound, no guarding. EXTREMITIES: No edema. SKIN: No rash. VASCULAR: Legs warm to touch. PSYCHOLOGICAL: Alert and oriented x3. NEURO: Deconditioned. LABORATORY DATA: White count 17,600, hemoglobin 8.8, hematocrit 26.9, platelets 840,000. Sodium 136, K 4.5, chloride 106, bicarb 22, BUN 12, creatinine 1.1, random blood sugar 119, albumin 2.6. Stool for occult blood positive. IMPRESSION: A 42-year-old male with irritable bowel syndrome, systemic inflammatory response syndrome with persistent intermittent bloody diarrhea, anemia requiring repeat blood cell transfusion and IV Venofer for anemia of chronic disease as well as iron-deficiency anemia, also with non-remitting intermittent fevers, now with peripherally inserted central catheter line discontinued despite negative blood and 2-D echocardiography and comorbidities of chronic obstructive pulmonary disease, obesity, type 2 diabetes mellitus, peptic ulcer disease with gastroesophageal reflux disease and asthmatic bronchitis. PLAN: The plan is to continue Asacol 800 mg p.o. t.i.d., Bacid 1 capsule p.o. t.i.d., Brovana inhalational therapy every 12, regular Humulin insulin coverage before meals at bedtime, nystatin swish and swallow 5 mL p.o. four times a day, prednisone 30 mg p.o. a.m., prednisone 20 mg p.o. at bedtime, Protonix 40 mg IV daily, Pulmicort inhalational therapy every 12, 0.9 saline at 100 mL/hour, Tylenol 650 p.o. every 4 hours p.r.n. temperature greater than 100 and Zofran 4 mg IV every 6 hours p.r.n. nausea and vomiting. When the patient's bed is ready at the [facility], he will be cleared for transport to that facility for further management and evaluation of the above issues and all of this was discussed in detail with the patient, and nursing. All questions were answered. Mansi Cuevas MD MTDRaul
--- NOTE | 2018-01-17 08:42 | PN ---
Copied To: Mansi Cuevas MD Attending MD: Mansi Cuevas MD DATE: 01/14/2018 SUBJECTIVE: This 42-year-old male was examined at his bedside. His case was reviewed in detail with nurse, Mala Patel, present at the bedside for this interview as well as his . I have reviewed this case in detail with Dr. Blandon from Infectious Disease and nurse, Margarette Kruse, from Gastroenterology. The patient remains intermittently febrile, weak and deconditioned in the setting of recurrent bloody diarrhea. To date, all cultures including blood, urine and stool as well as serologies for hepatitis, Rylee-Iniguez, CMD, HIV have been unremarkable for acute infection and rheumatological workup with ANCA and myeloperoxidase antibodies are negative as well. The patient has intermittently positive stool for occult blood and is being followed by Dr. Reji Scott from Hematology/Oncology and is receiving IV Venofer for iron-deficiency anemia and thrombocytosis. When I went to examine the patient today, he was in a normal sinus rhythm on the equipment monitor phototypesetting and was out of bed to chair. PHYSICAL EXAMINATION: VITAL SIGNS: His temperature was 100.1, respirations 20, pulse 94 and blood pressure 119/76 with a pulse ox of 97% on room air. HEENT: Head normocephalic, atraumatic. Eyes: No icterus. Ears: Clear. Throat: Noninjected. NECK: Supple. HEART: With S1, S2. No pathological rubs, murmurs or gallops. LUNGS: Clear. ABDOMEN: Obese, nontender. No rebound, no guarding. No tenderness. EXTREMITIES: No edema. SKIN: Without rash. NEUROLOGIC: Intact, but deconditioned. PSYCHOLOGICAL: Alert and orientedx3. LABORATORY DATA: White count 16,500, hemoglobin 7.9, hematocrit 24.4 and platelets 853,000. Sodium 134, K 4.5, chloride 102, bicarb 24, BUN 12, creatinine 1.1 and random blood sugar 101 with bilirubin 0.5, AST 47, ALT 33 and alk phos 217. Stool for occult blood was positive and most recent stool C. Diff toxin is negative for antigen and toxin. IMPRESSION: A 42-year-old male with inflammatory bowel disease, systemic inflammatory response syndrome, persistent fevers, leukocytosis, anemia of chronic disease, iron-deficiency anemia, thrombocytosis with comorbidities of type 2 diabetes mellitus, asthmatic bronchitis and peptic ulcer disease with gastroesophageal reflux disease. PLAN: The plan at present is to continue Asacol, hold IV Azactam. Continue basic Brovana, p.o. Flagyl, insulin coverage, IV Venofer, oral prednisone, IV Protonix, inhalational Pulmicort, IV fluids and p.r.n. Tylenol and Zofran. The patient is being followed daily by Infectious Disease, Gastroenterology and Hematology/Oncology. He is ordered to have liquid diet as able. He is receiving physical therapy for ambulation safety and is awaiting results of additional viral antigen testing and recommendations by co-consultants. Greater than 35 minutes were spent in the care management, review of labs, orders and x-rays. I did discuss this patient in detail with himself and his family and nurse present. All questions were answered. Mansi Cuevas MD MTDD
--- NOTE | 2018-01-17 08:51 | PN ---
Copied To: Armen Jackson MD Attending MD: Armen Jackson MD DATE: 01/16/2018 This progress note is for Dr. Ramirez, Dr. Jackson covering. SUBJECTIVE: The patient is feeling much better with resolution of his fever. He has not had any fever since removal of a PICC line yesterday. He still has some mild diarrhea, 3-4 bowel movements a day with some formed elements. There is no report of any rectal bleeding. He denies any abdominal pain. PHYSICAL EXAMINATION: VITAL SIGNS: Reveal a temperature of 99.4, blood pressure 121/75, heart rate of 88. HEENT: Reveals sclerae to be white. Conjunctivae pink. NECK: Supple. Armen Jackson MD
[2018-01-17 18:45] LABS: JAK2 V617F NOT DETECTED
[2018-01-20 21:09] LABS: SOURCE SERUM
[2018-01-31 11:56] LABS: SOURCE: PLASMA
== END 2018-01-16 15:22 | disposition short-term general hospital (02) | DRG 872 ==
LOC: ED 09:50 → ERH 12:20 → 2RSO 15:49 → 2RNO 01-05 22:47
PROVIDERS: ADMIT Internal Medicine; ATTEND Internal Medicine
PROC: 05HY33Z Insertion of Infusion Device into Upper Vein, Percutaneous Approach (ICD-10-PCS; 2017-12-31)
PROC: B54MZZA Ultrasonography of Right Upper Extremity Veins, Guidance (ICD-10-PCS; 2017-12-31)
PROC: 0DBP8ZX Excision of Rectum, Via Natural or Artificial Opening Endoscopic, Diagnostic (ICD-10-PCS; principal; 2018-01-04 13:00)
PROC: 30233N1 Transfusion of Nonautologous Red Blood Cells into Peripheral Vein, Percutaneous Approach (ICD-10-PCS; 2018-01-15)
PROC: 05PYX3Z Removal of Infusion Device from Upper Vein, External Approach (ICD-10-PCS; 2018-01-16)
DX: A41.9 Sepsis, unspecified organism (principal); K50.10 Crohn's disease of large intestine without complications; I47.2 Ventricular tachycardia; K63.5 Polyp of colon; I10 Essential (primary) hypertension; D50.9 Iron deficiency anemia, unspecified; E11.9 Type 2 diabetes mellitus without complications; K21.9 Gastro-esophageal reflux disease without esophagitis; J44.9 Chronic obstructive pulmonary disease, unspecified; D63.8 Anemia in other chronic diseases classified elsewhere; K76.0 Fatty (change of) liver, not elsewhere classified; E86.0 Dehydration; K62.89 Other specified diseases of anus and rectum; K27.9 Peptic ulcer, site unspecified, unspecified as acute or chronic, without hemorrhage or perforation; R50.2 Drug induced fever; T36.1X5A Adverse effect of cephalosporins and other beta-lactam antibiotics, initial encounter; E66.9 Obesity, unspecified; Z68.35 Body mass index [BMI] 35.0-35.9, adult; Z87.11 Personal history of peptic ulcer disease; Z79.84 Long term (current) use of oral hypoglycemic drugs; Z91.19 Patient's noncompliance with other medical treatment and regimen; Z86.718 Personal history of other venous thrombosis and embolism; Z88.0 Allergy status to penicillin; Z74.01 Bed confinement status